=== PATIENT | male | born 1945 | race Caucasian/White ===

== ENCOUNTER → 2020-03-18 13:03 | Outpatient (BNVA) | payer MEDICARE, SELFPAY | PROVIDERS: PCP Internal Medicine; Visit Provider Internal Medicine | DX: J45.909 Unspecified asthma, uncomplicated (principal); G47.33 Obstructive sleep apnea (adult) (pediatric); Z99.89 Dependence on other enabling machines and devices | CPT/HCPCS: 99212 ==

== ENCOUNTER 2020-06-24 09:44 | Outpatient (REF) | payer MEDICARE, SELFPAY ==
[2020-06-24 11:14] LABS: MANUAL DIFF FLAG NO
[2020-06-24 11:33] LABS: Alanine Aminotransferase 42 U/L (0-40); Alkaline Phosphatase 83 U/L (39-117); Anion Gap 18 (12-20); Aspartate Amino Transferase 31 U/L (5-37); Bilirubin Total 0.7 mg/dL (0.0-1.0); Blood Urea Nitrogen 28 mg/dL (9-16); Calcium 9.1 mg/dL (8.4-10.2); Carbon Dioxide 28 mmol/L (22-29); Chloride 98 mmol/L (96-108); Cholesterol 200 mg/dL; Estimated Glomerular Filt Rate 44; Glucose Fasting 185 mg/dL (60-99); HDL Cholesterol 40 mg/dL; Potassium 3.5 mmol/L (3.3-5.1); Sodium 140 mmol/L (135-145); Total Protein 7.3 g/dL (6.5-8.0); Triglycerides 453 mg/dL
[2020-06-24 11:38] LABS: Estimated Average Glucose 194 mg/dL; Hemoglobin A1c % 8.4 %
[2020-06-24 11:41] LABS: Basophils Absolute Auto 0.1 X10*3/uL (0.0-0.2); Basophils Percent Auto 0.7 % (0-2); Eosinophils Absolute Auto 0.3 X10*3/uL (0.0-0.4); Eosinophils Percent Auto 3.3 % (0-4); Hematocrit 42.8 % (42-52); Hemoglobin 14.3 g/dl (14.0-18.0); Imm Gran Abs Auto 0.04 X10*3/uL (0.00-0.03); Imm Gran Pct Auto 0.5 % (0.0-0.4); Lymphocytes Absolute Auto 2.1 X10*3/uL (1.2-4.9); Lymphocytes Percent Auto 24.5 % (20-40); Mean Corpuscular HGB Conc 33.4 g/dl (31.0-36.0); Mean Corpuscular Hemoglobin 28.4 pg (27.0-33.0); Mean Corpuscular Volume 85.1 fL (80-98); Mean Platelet Volume 10.6 fL (9.4-12.4); Monocytes Absolute Auto 0.7 X10*3/uL (0.1-1.2); Monocytes Percent Auto 8.2 % (2-11); Neutrophils Absolute Auto 5.4 X10*3/uL (2.0-8.3); Neutrophils Percent Auto 62.8 % (45-73); Platelet Count 306 X10*3/uL (160-400); Red Blood Count 5.03 X10*6/uL (4.60-5.80); White Blood Count 8.5 X10*3/uL (4.8-10.8)
[2020-06-24 11:58] LABS: Prostate Specific Antigen 10.92 ng/mL (<0.05-4.0)
== END 2020-06-24 09:45 | disposition home or self-care (01) ==
LOC: HO.LAB 09:44
PROVIDERS: PCP Psychiatry & Neurology Sleep Medicine; Visit Provider Psychiatry & Neurology Sleep Medicine
DX: E78.5 Hyperlipidemia, unspecified (principal); E11.9 Type 2 diabetes mellitus without complications; Z12.5 Encounter for screening for malignant neoplasm of prostate
CPT/HCPCS: 36415; 80053; 80061; 83036; 84153; 85025

== ENCOUNTER → 2020-09-09 10:41 | Outpatient (BNVA) | payer MEDICARE, SELFPAY | PROVIDERS: PCP Internal Medicine; Visit Provider Internal Medicine | DX: J45.909 Unspecified asthma, uncomplicated (principal); G47.33 Obstructive sleep apnea (adult) (pediatric); Z99.89 Dependence on other enabling machines and devices | CPT/HCPCS: 99212 ==

== ENCOUNTER → 2020-11-27 14:55 | Outpatient (BNVA) | payer MEDICARE, SELFPAY | PROVIDERS: PCP Internal Medicine; Visit Provider Urology | DX: N40.1 Benign prostatic hyperplasia with lower urinary tract symptoms (principal); N13.8 Other obstructive and reflux uropathy; R97.20 Elevated prostate specific antigen [PSA] | CPT/HCPCS: 99212 ==

== ENCOUNTER 2021-02-04 08:40 | Outpatient (REF) | payer MEDICARE, SELFPAY ==
--- NOTE | ~2021-02-04 | US_ITS ---
EXAMINATION: US RETROPERITONEAL COMPLETE (RENAL) CLINICAL INFORMATION: Kidney mass. Abdominal aortic aneurysm. COMPARISON: None TECHNIQUE: Real-time imaging of the kidneys and abdominal aorta. FINDINGS: RIGHT KIDNEY: 9.8 x 6.2 x 4.8 cm (SAG x AP x TRV). The kidney is normal in size, contour, and echogenicity. Renal cortical thickness is normal. No calculi or focal parenchymal lesions. No hydronephrosis. LEFT KIDNEY: 8.6 x 4.3 x 4 cm (SAG x AP x TRV). The kidney is normal in size, contour, and echogenicity. Renal cortical thickness is normal. There is a 2 cm minimally complex cyst in the upper pole of the left kidney. This has several thin septations. No solid mural nodule is seen. Fluid suggestive of a bypass type II cyst and no follow-up is indicated. No calculi or mass. No hydronephrosis. There is evidence of atherosclerotic disease. The proximal abdominal aorta is normal in caliber and measures 2 x 1.9 cm in AP and transverse dimension. The mid abdominal aorta is normal in caliber and measures 1.8 x 2 cm in AP and transverse dimension. There is ectasia of the distal abdominal aorta measuring 3 cm in AP and transverse dimension. Common iliac arteries are normal in caliber. The right common iliac artery measures 1.1 x 1.2 cm and the left common iliac artery measures 1.2 x 1.4 cm. Aortic peak systolic velocity is normal measuring 145 cm/s. US/US retroperitoneal comp IMPRESSION: Renal ultrasound: Normal right kidney. 2 cm minimally complex left renal cyst. Ectasia of the lower abdominal aorta measuring 3 x 3 cm.
--- NOTE | ~2021-02-04 | XR_ITS ---
EXAMINATION: XR HIP, RIGHT CLINICAL INFORMATION: Right hip pain. COMPARISON: None TECHNIQUE: Two views of the right hip. FINDINGS: Moderate right hip joint space narrowing with subchondral sclerosis and mild subchondral cystic change. Marginal osteophytes. No fracture or dislocation. No abnormal soft tissue calcification. XR/XR hip RT min 2V IMPRESSION: Moderate right hip osteoarthritis.
[2021-02-04 10:33] LABS: Estimated Average Glucose 128 mg/dL; Hemoglobin A1c % 6.1 %
[2021-02-04 11:02] LABS: Alanine Aminotransferase 26 U/L (0-40); Albumin Level 4.1 g/dL (3.5-5.0); Alkaline Phosphatase 77 U/L (39-117); Anion Gap 14 (12-20); Aspartate Amino Transferase 19 U/L (5-37); Bilirubin Total 0.4 mg/dL (0.0-1.0); Blood Urea Nitrogen 16 mg/dL (9-16); Calcium 9.1 mg/dL (8.4-10.2); Carbon Dioxide 27 mmol/L (22-29); Chloride 103 mmol/L (96-108); Cholesterol 145 mg/dL; Estimated Glomerular Filt Rate 48; Glucose Fasting 125 mg/dL (60-99); HDL Cholesterol 42 mg/dL; LDL Cholesterol Calculated 73 mg/dl; Potassium 3.7 mmol/L (3.3-5.1); Sodium 140 mmol/L (135-145); Total Protein 7.2 g/dL (6.5-8.0); Triglycerides 153 mg/dL
[2021-02-04 11:43] LABS: Erythrocyte Sedimentation Rate 25 MM/HR (0-15)
== END 2021-02-04 08:41 | disposition home or self-care (01) ==
LOC: HO.US 08:40
PROVIDERS: PCP Internal Medicine; Visit Provider Internal Medicine
DX: E11.22 Type 2 diabetes mellitus with diabetic chronic kidney disease (principal); N18.9 Chronic kidney disease, unspecified; I71.4 Abdominal aortic aneurysm, without rupture; M25.551 Pain in right hip; R03.0 Elevated blood-pressure reading, without diagnosis of hypertension
CPT/HCPCS: 36415; 73502; 76770; 80053; 80061; 83036; 85652

== ENCOUNTER → 2021-03-11 11:10 | Outpatient (BNVA) | payer MEDICARE, SELFPAY | PROVIDERS: PCP Internal Medicine; Visit Provider Internal Medicine | DX: J45.909 Unspecified asthma, uncomplicated (principal); G47.33 Obstructive sleep apnea (adult) (pediatric); Z99.89 Dependence on other enabling machines and devices | CPT/HCPCS: 99212 ==

== ENCOUNTER → 2021-03-28 13:42 | Outpatient (BNVA) | payer MEDICARE, SELFPAY | PROVIDERS: PCP Internal Medicine; Visit Provider Urology | DX: N40.1 Benign prostatic hyperplasia with lower urinary tract symptoms (principal); N13.8 Other obstructive and reflux uropathy; R97.20 Elevated prostate specific antigen [PSA] | CPT/HCPCS: 99212 ==

== ENCOUNTER 2021-04-23 11:10 | Outpatient (REF) | payer MEDICARE, SELFPAY ==
--- NOTE | ~2021-04-23 | US_ITS ---
EXAMINATION: US PELVIS LIMITED (BLADDER) CLINICAL INFORMATION: Poor urinary stream. COMPARISON: Ultrasound kidneys and bladder 02/04/2021. TECHNIQUE: Real-time imaging of the bladder. FINDINGS: BLADDER: The bladder is distended with a somewhat thickened trabeculated wall likely chronic. There is mass effect along the base of the bladder secondary to a prominent prostate.. Bilateral ureteral jets are demonstrated. Prevoid bladder volume is 141 mL. Postvoid bladder volume is 56.7 mL. The prostate is noted to be prominent at 82 x 85 x 59 mm yielding a calculated volume of prostate 214 mL. There is intrinsic calcification. This enlarged prostate does create mass effect along the base of the bladder. ADDITIONAL FINDINGS: No ascites. US/US bladder IMPRESSION: Moderate post void residual. Enlarged prostate creating mass effect on the base of the bladder.
[2021-04-23 13:33] LABS: PSA,Total (Free>4and<10) 4.07 ng/mL (0.00-4.00)
[2021-04-24 18:00] LABS: Percent Free Prostate Spec Ag 37 % (calc) (>25); Prostate Specific Ag Total 2.7 ng/mL (< OR = 4.0)
== END 2021-04-23 11:11 | disposition home or self-care (01) ==
LOC: HO.US 11:10
PROVIDERS: PCP Internal Medicine; Visit Provider Urology
DX: N40.1 Benign prostatic hyperplasia with lower urinary tract symptoms (principal); N13.8 Other obstructive and reflux uropathy; R39.12 Poor urinary stream; Z12.5 Encounter for screening for malignant neoplasm of prostate
CPT/HCPCS: 36415; 76857; 84153; 84154

== ENCOUNTER → 2021-05-02 13:01 | Outpatient (BNVA) | payer MEDICARE, SELFPAY | PROVIDERS: PCP Internal Medicine; Visit Provider Urology | DX: N40.1 Benign prostatic hyperplasia with lower urinary tract symptoms (principal); N13.8 Other obstructive and reflux uropathy; R97.20 Elevated prostate specific antigen [PSA] | CPT/HCPCS: Q3014 ==

== ENCOUNTER 2021-09-02 10:57 | Outpatient (REF) | payer MEDICARE, SELFPAY ==
--- NOTE | ~2021-09-02 | XR_ITS ---
EXAMINATION: XR CHEST XR SINUSES CLINICAL INFORMATION: Cough, unspecified. COMPARISON: Normal chest x-ray 10/28/2016 TECHNIQUE: Chest 2 views. Sinuses 4 views. FINDINGS: CHEST: The lungs are well expanded and clear. The heart size and pulmonary vascularity are normal. No gross bony abnormality is seen. There is mild facet joint arthropathy at the left C2-C3, C3-C4 and C4-C5 disc levels. SINUSES: There is normal aeration of the paranasal sinuses without mucoperiosteal thickening. The bony orbits are intact. The mastoid sinuses are clear. XR/XR sinus <3V IMPRESSION: Unremarkable chest exam. Unremarkable sinus exam. There is moderate left facet joint arthropathy at the left C2-C3, C3-C4 and C4-C5 disc levels.
--- NOTE | ~2021-09-02 | XR_ITS ---
EXAMINATION: XR CHEST XR SINUSES CLINICAL INFORMATION: Cough, unspecified. COMPARISON: Normal chest x-ray 10/28/2016 TECHNIQUE: Chest 2 views. Sinuses 4 views. FINDINGS: CHEST: The lungs are well expanded and clear. The heart size and pulmonary vascularity are normal. No gross bony abnormality is seen. There is mild facet joint arthropathy at the left C2-C3, C3-C4 and C4-C5 disc levels. SINUSES: There is normal aeration of the paranasal sinuses without mucoperiosteal thickening. The bony orbits are intact. The mastoid sinuses are clear. XR/XR chest 2V IMPRESSION: Unremarkable chest exam. Unremarkable sinus exam. There is moderate left facet joint arthropathy at the left C2-C3, C3-C4 and C4-C5 disc levels.
== END 2021-09-02 10:58 | disposition home or self-care (01) ==
LOC: HO.XRAY 10:57
PROVIDERS: Visit Provider Internal Medicine
DX: R05.9 Cough, unspecified (principal); J45.909 Unspecified asthma, uncomplicated; G47.33 Obstructive sleep apnea (adult) (pediatric); R06.83 Snoring; F03.90 Unspecified dementia, unspecified severity, without behavioral disturbance, psychotic disturbance, mood disturbance, and anxiety; I10 Essential (primary) hypertension; N40.0 Benign prostatic hyperplasia without lower urinary tract symptoms; Z99.89 Dependence on other enabling machines and devices; Z79.82 Long term (current) use of aspirin; Z79.899 Other long term (current) drug therapy; Z87.891 Personal history of nicotine dependence
CPT/HCPCS: 70210; 71046; 99212

== ENCOUNTER 2021-10-30 11:45 | Outpatient (REF) | payer MEDICARE, SELFPAY ==
[2021-10-30 13:30] LABS: PSA,Total (Free>4and<10) 2.56 ng/mL (0.00-4.00)
== END 2021-10-30 11:46 | disposition home or self-care (01) ==
LOC: HO.LAB 11:45
PROVIDERS: Visit Provider Urology
DX: N40.1 Benign prostatic hyperplasia with lower urinary tract symptoms (principal); N13.8 Other obstructive and reflux uropathy; Z12.5 Encounter for screening for malignant neoplasm of prostate
CPT/HCPCS: 36415; 84153

== ENCOUNTER → 2021-11-04 13:31 | Outpatient (BNVA) | payer MEDICARE, SELFPAY | PROVIDERS: Visit Provider Urology | DX: N40.1 Benign prostatic hyperplasia with lower urinary tract symptoms (principal); N13.8 Other obstructive and reflux uropathy; R97.20 Elevated prostate specific antigen [PSA] | CPT/HCPCS: Q3014 ==

== ENCOUNTER 2021-12-25 17:19 | Emergency (ER) | payer MEDICARE, SELFPAY ==
--- NOTE | ~2021-12-25 | XR_ITS ---
EXAMINATION: XR FOOT, RIGHT CLINICAL INFORMATION: Pain and swelling COMPARISON: None TECHNIQUE: AP, lateral, and oblique views of the right foot. FINDINGS: Hallux valgus is noted here. First MTP joint. There is soft tissue increase over the first metatarsal head region. This could indicate bunion formation. A chronic erosion cannot be excluded in this area but no acute bony erosion is seen. There is no convincing evidence for an acute fracture or dislocation. Degenerative change at the articulation of the metatarsals with their tarsal bones and degeneration in the ankle joint with dystrophic calcification posterior. Spurring at the insertion of the Achilles. XR/XR foot RT min 3V IMPRESSION: Degenerative change and hallux valgus in the first digit. There may well be bunion formation. No convincing evidence for an acute finding. If further evaluation is warranted recommend MR
--- NOTE | ~2021-12-25 | US_ITS ---
EXAMINATION: US VENOUS ULTRASOUND WITH DOPPLER LOWER EXTREMITY, RIGHT CLINICAL INFORMATION: Pain and swelling in the right foot COMPARISON: None TECHNIQUE: Ultrasound of the deep veins is performed from the hip to the calf with compression sonography and color and pulse Doppler assessment. Spectral analysis with color-flow imaging is performed. FINDINGS: There is normal venous compression and respiratory variation and augmented flow. The visualized common femoral vein, superficial femoral vein, profunda femoral vein, popliteal vein, and the trifurcation region shows no evidence of deep venous thrombosis. There is no significant popliteal fossa cyst. If the patient's symptoms persist, followup ultrasound in 5 days 7 days might be of value to exclude proximal propagation from a non-visualized calf vein. US/US venous duplex LE RT IMPRESSION: No DVT demonstrated in the right lower extremity.
[2021-12-25 17:38] VITALS: BP 151/77; PULSE 93; RESP 18; TEMP 36.6; O2SAT 98; BMI 28.8
[2021-12-25 17:53] LABS: Basophils Percent Auto 0.4 % (0-2); Eosinophils Absolute Auto 0.3 X10*3/uL (0.0-0.4); Eosinophils Percent Auto 3.3 % (0-4); Hematocrit 39.4 % (42.0-52.0); Hemoglobin 13.3 g/dl (14.0-18.0); Imm Gran Abs Auto 0.05 X10*3/uL (0.00-0.03); Imm Gran Pct Auto 0.5 % (0.0-0.4); Lymphocytes Absolute Auto 1.8 X10*3/uL (1.2-4.9); Lymphocytes Percent Auto 18.7 % (20-40); MANUAL DIFF FLAG NO; Mean Corpuscular HGB Conc 33.8 g/dl (31.0-36.0); Mean Corpuscular Hemoglobin 28.7 pg (27.0-33.0); Mean Corpuscular Volume 85.1 fL (80.0-98.0); Mean Platelet Volume 9.1 fL (9.4-12.4); Monocytes Absolute Auto 0.9 X10*3/uL (0.1-1.2); Monocytes Percent Auto 8.9 % (2-11); Neutrophils Absolute Auto 6.7 x10*3/uL (2.0-8.3); Neutrophils Percent Auto 68.2 % (45-73); Platelet Count 379 X10*3/uL (160-400); Red Blood Count 4.63 X10*6/uL (4.60-5.80); Red Cell Distribution Width 12.7 % (11.0-16.0); White Blood Count 9.8 X10*3/uL (4.8-10.8)
[2021-12-25 18:12] LABS: Anion Gap 19 (12-20); Blood Urea Nitrogen 21 mg/dL (9-16); C Reactive Protein 8.35 mg/dL (< or = 0.50); Carbon Dioxide 25 mmol/L (22-29); Chloride 103 mmol/L (96-108); Creatinine Clr Calc Pharmacy 34.2; Estimated Glomerular Filt Rate 40; Glucose Random 150 mg/dL (60-115); Potassium 3.9 mmol/L (3.3-5.1); Sodium 143 mmol/L (135-145)
[2021-12-25 18:26] LABS: Erythrocyte Sedimentation Rate 83 MM/HR (0-15)
--- NOTE | 2021-12-25 20:06 | ED.EXTPRO ---
HPI - Extremity Problem General Chief complaint: Extremity Injury, Lower Stated complaint: right foot pain and swollen Time Seen by Provider: 12/25/21 20:06 Source: patient Mode of arrival: ambulatory Limitations: no limitations History of Present Illness HPI Narrative: Patient with no significant prior history of arthritis noticed pain the right greater toe for last few days getting worse feels throbbing pain no other joints in all patient on thiazide diuretics no fever no chills no skin change Related Data Home Medications Medication Instructions Recorded Confirmed albuterol sulfate 90 mcg/actuation 1 puff PO Q4H PRN 03/18/20 aerosol inhaler amlodipine 5 mg tablet 5 mg PO DAILY 03/18/20 donepezil 10 mg tablet 10 mg PO DAILY 03/18/20 hydrochlorothiazide 25 mg tablet 25 mg PO DAILY 03/18/20 simvastatin 20 mg tablet 20 mg PO BEDTIME 03/18/20 tamsulosin 0.4 mg capsule (Flomax) 0.4 mg PO BEDTIME 09/09/20 aspirin 81 mg tablet,delayed 81 mg PO DAILY 03/11/21 release metformin 500 mg tablet 500 mg PO BID 09/02/21 Previous Rx's Medication Instructions Recorded fluticasone propionate 50 2 spray intranasal DAILY 30 days 09/02/21 mcg/actuation nasal #16 grams spray,suspension (Flonase Allergy Relief) guaifenesin 600 mg tablet, 600 mg PO Q12H PRN 09/02/21 extended release 12 hr (Mucinex) congestion/cough 15 days #30 tabs finasteride 5 mg tablet 5 mg PO DAILY 90 days #90 tabs 11/04/21 blood-glucose meter (FreeStyle #1 ea 12/25/21 Lite Meter kit) glipizide 5 mg tablet 5 mg PO DAILY #30 tabs 12/25/21 prednisone 20 mg tablet 40 mg PO DAILY #14 tabs 12/25/21 tramadol 50 mg tablet 50 mg PO Q6H PRN pain #20 tabs 12/25/21 Allergies Allergy/AdvReac Type Severity Reaction Status Date / Time No Known Allergies Allergy Verified 11/04/21 13:32 [No Known Allergies*] Review of Systems Review of Systems: Yes all other systems are reviewed and are negative PMFSH Past Medical History Medical History Asthma Cough Diabetes mellitus SUKI on CPAP Social History Social History Patient Tobacco Use Status: Former Tobacco user Advance Directives: No Advance Directives Information Provided: No Physical Exam Vital Signs: Vital Signs: Last Vital Signs Temp 98 F 12/25/21 17:38 Pulse 93 12/25/21 17:38 Resp 18 12/25/21 17:38 BP 151/77 H 12/25/21 17:38 Pulse Ox 98 12/25/21 17:38 O2 Del Method 12/25/21 17:38 BMI result Body Mass Index 28.8 Appearance: Alert. Oriented X3. No acute distress. Eyes: PERRLA, No Nystagmus ENT: Pharynx normal. Oral Mucosa moist Neck: Normal inspection. Neck supple. CVS: Normal heart rate and rhythm. Pulses normal. Respiratory: No respiratory distress. Equal air entry bilateral, no wheezing/rales/rhonchi Abdomen: Soft and nontender. Bowel sounds are present, no mass palpable, no CVA tenderness Skin: Skin warm and dry. Normal skin color. Normal skin turgor. Extremities: Trace right lower extremity edema. No calf tenderness, tender and warmth to touch right 1st MTP joint Neuro: Oriented X 3. No motor deficit. MDM - Extremity (Nontraumatic) MDM Narrative Medical decision making narrative: Patient clinically with gouty arthritis flare up on thiazides. Patient responded to Decadron in the ER has CKD will asked to stop metformin prescribed prednisone and take glipizide if blood sugar goes high follow-up with PCP Medical Records Attestation: I reviewed the patient's medical records. Lab Data Attestation: I reviewed the patient's lab results. Result diagrams: 12/25/21 17:45 12/25/21 17:45 Labs: Lab Results 12/25/21 12/25/21 12/25/21 Range/Units 17:45 17:45 17:45 WBC 9.8 (4.8-10.8) X10*3/uL RBC 4.63 (4.60-5.80) X10*6/uL Hgb 13.3 L (14.0-18.0) g/dl Hct 39.4 L (42.0-52.0) % MCV 85.1 (80.0-98.0) fL MCH 28.7 (27.0-33.0) pg MCHC 33.8 (31.0-36.0) g/dl RDW 12.7 (11.0-16.0) % Plt Count 379 (160-400) X10*3/uL MPV 9.1 L (9.4-12.4) fL Immature Gran % (Auto) 0.5 H (0.0-0.4) % Neut % (Auto) 68.2 (45-73) % Lymph % (Auto) 18.7 L (20-40) % [place] % (Auto) 8.9 (2-11) % Eos % (Auto) 3.3 (0-4) % Baso % (Auto) 0.4 (0-2) % Lymph # (Auto) 1.8 (1.2-4.9) X10*3/uL [place] # (Auto) 0.9 (0.1-1.2) X10*3/uL Eos # (Auto) 0.3 (0.0-0.4) X10*3/uL Baso # (Auto) 0.0 (0.0-0.2) X10*3/uL Abs Immat Gran (auto) 0.05 H (0.00-0.03) X10*3/uL Absolute Neuts (auto) 6.7 (2.0-8.3) x10*3/uL Absolute Nucleated RBC 0.000 (0.0-0.012) X10*3/uL Nucleated RBC % (auto) 0.0 (0.0-0.2) /100WBC ESR 83 H (0-15) MM/HR Sodium 143 (135-145) mmol/L Potassium 3.9 (3.3-5.1) mmol/L Chloride 103 (96-108) mmol/L Carbon Dioxide 25 (22-29) mmol/L Anion Gap 19 (12-20) BUN 21 H (9-16) mg/dL Creatinine 1.66 H (0.5-1.4) mg/dL Estim Creat Clear Calc 34.2 Estimated GFR 40 Random Glucose 150 H (60-115) mg/dL Calcium 9.0 (8.4-10.2) mg/dL C-Reactive Protein 8.35 H (< or = 0.50) mg/dL Discharge Plan Discharge Clinical Impression: Gout attack Patient Disposition: Home, Self-Care Instructions: Gout (ED) Additional Instructions: Stop metformin Prednisone as prescribed Tramadol for severe pain Check blood sugar twice daily, start taking glipizide if blood sugar higher than 200mg while taking prednisone Prescriptions: New glipizide 5 mg tablet 5 mg PO DAILY Qty: 30 0RF (DME) blood-glucose meter [FreeStyle Lite Meter] Kit See Rx Instructions .Route Qty: 1 0RF Rx Instructions: As directed prednisone 20 mg tablet 40 mg PO DAILY Qty: 14 0RF tramadol 50 mg tablet 50 mg PO Q6H PRN (Reason: pain) Qty: 20 0RF No Action donepezil 10 mg tablet 10 mg PO DAILY hydrochlorothiazide 25 mg tablet 25 mg PO DAILY amlodipine 5 mg tablet 5 mg PO DAILY albuterol sulfate 90 mcg/actuation HFA aerosol inhaler 1 puff PO Q4H PRN simvastatin 20 mg tablet 20 mg PO BEDTIME metformin 500 mg tablet 500 mg PO BID aspirin 81 mg tablet,delayed release (DR/EC) 81 mg PO DAILY tamsulosin [Flomax] 0.4 mg capsule 0.4 mg PO BEDTIME fluticasone propionate [Flonase Allergy Relief] 50 mcg/actuation spray,suspension 2 spray intranasal DAILY 30 Days Qty: 16 5RF Rx Instructions: administer into each nostril guaifenesin [Mucinex] 600 mg tablet extended release 12hr 600 mg PO Q12H PRN (Reason: congestion/cough) 15 Days Qty: 30 4RF finasteride 5 mg tablet 5 mg PO DAILY 90 Days Qty: 90 1RF Discharge Date/Time: 12/25/21 22:25
[2021-12-25] MEDS: NaPROXEN 500 MG TABLET PO (20:35)
[2021-12-25] MEDS: dexAMETHasone 2 MG TABLET 10 MG PO (20:35)
== END 2021-12-25 22:25 | disposition home or self-care (01) ==
PROVIDERS: Emergency Provider Internal Medicine
DX: M10.9 Gout, unspecified (principal); R60.0 Localized edema; M79.671 Pain in right foot; E11.9 Type 2 diabetes mellitus without complications; Z79.82 Long term (current) use of aspirin; Z79.84 Long term (current) use of oral hypoglycemic drugs
CPT/HCPCS: 36415; 73630; 80048; 85025; 85652; 86140; 93971; 99282; 99283; 99284; J8540

== ENCOUNTER → 2022-03-03 10:39 | Outpatient (BNVA) | payer MEDICARE, SELFPAY | PROVIDERS: Visit Provider Internal Medicine | DX: J45.909 Unspecified asthma, uncomplicated (principal); R05.9 Cough, unspecified; G47.33 Obstructive sleep apnea (adult) (pediatric) | CPT/HCPCS: 99212 ==

== ENCOUNTER → 2022-03-24 12:35 | Outpatient (REF) | payer MEDICARE, SELFPAY | LOC: HO.SL 12:35 | PROVIDERS: Visit Provider Internal Medicine | DX: G47.33 Obstructive sleep apnea (adult) (pediatric) (principal); G47.10 Hypersomnia, unspecified | CPT/HCPCS: 95806 ==

== ENCOUNTER → 2022-04-28 11:11 | Outpatient (BNVA) | payer MEDICARE, SELFPAY | PROVIDERS: Visit Provider Internal Medicine | DX: J44.9 Chronic obstructive pulmonary disease, unspecified (principal); J45.909 Unspecified asthma, uncomplicated; G47.33 Obstructive sleep apnea (adult) (pediatric); R05.9 Cough, unspecified; Z99.89 Dependence on other enabling machines and devices | CPT/HCPCS: 99212 ==

== ENCOUNTER 2022-04-30 13:38 | Outpatient (REF) | payer MEDICARE, SELFPAY ==
[2022-04-30 15:29] LABS: PSA,Total (Free>4and<10) 3.52 ng/mL (0.00-4.00)
== END 2022-04-30 13:39 | disposition home or self-care (01) ==
LOC: HO.LAB 13:38
PROVIDERS: PCP Internal Medicine Endocrinology, Diabetes & Metabolism; Visit Provider Urology
DX: N40.1 Benign prostatic hyperplasia with lower urinary tract symptoms (principal); N13.8 Other obstructive and reflux uropathy; Z12.5 Encounter for screening for malignant neoplasm of prostate
CPT/HCPCS: 36415; 84153

== ENCOUNTER → 2022-05-07 09:07 | Outpatient (BNVA) | payer MEDICARE, SELFPAY | PROVIDERS: PCP Internal Medicine Endocrinology, Diabetes & Metabolism; Visit Provider Urology | DX: N40.1 Benign prostatic hyperplasia with lower urinary tract symptoms (principal); N13.8 Other obstructive and reflux uropathy; R97.20 Elevated prostate specific antigen [PSA] | CPT/HCPCS: Q3014 ==

== ENCOUNTER → 2022-10-13 10:55 | Outpatient (BNVA) | payer MEDICARE, SELFPAY | PROVIDERS: PCP Internal Medicine Endocrinology, Diabetes & Metabolism; Visit Provider Internal Medicine | DX: J45.909 Unspecified asthma, uncomplicated (principal); R05.9 Cough, unspecified; G47.33 Obstructive sleep apnea (adult) (pediatric) | CPT/HCPCS: 99212 ==

== ENCOUNTER 2022-11-04 10:52 | Outpatient (REF) | payer MEDICARE, SELFPAY ==
[2022-11-04 13:23] LABS: PSA,Total (Free>4and<10) 2.46 ng/mL (0.00-4.00)
== END 2022-11-04 10:53 | disposition home or self-care (01) ==
LOC: HO.LAB 10:52
PROVIDERS: PCP Internal Medicine; Visit Provider Urology
DX: Z12.5 Encounter for screening for malignant neoplasm of prostate (principal); R97.20 Elevated prostate specific antigen [PSA]
CPT/HCPCS: 36415; 84153

== ENCOUNTER 2022-11-10 11:31 | Outpatient (AMB) | payer MEDICARE, SELFPAY ==
--- NOTE | 2022-11-10 11:41 | A.OFFVIS_ITS ---
Intake Intake Visit Reasons: 6M PSA/PVR(set) Intake Note: Patient is present for Follow Up PSA/PVR Urology Med: Finasteride, Tamsulosin Antibiotic Allergy: None Blood Thinner: Aspirin PVR: 0ml Patient recently had A Stroke Allergies No Known Allergies [No Known Allergies*] Allergy (Verified 11/10/22 11:42) Medication List - Last Reconciled 11/10/22 by Robert Lind MD albuterol sulfate 90 mcg/actuation 1 puff PO Q4H PRN amlodipine 5 mg PO DAILY aspirin 81 mg PO DAILY atorvastatin 40 mg PO BEDTIME blood-glucose meter (FreeStyle Lite Meter kit) As directed donepezil 10 mg PO DAILY finasteride 5 mg PO DAILY 90 days fluticasone propionate 50 mcg/actuation 2 sprays intranasal DAILY glipizide 5 mg PO DAILY hydrochlorothiazide 25 mg PO DAILY tamsulosin (Flomax) 0.4 mg PO BEDTIME HPI HPI Comments History of Present Illness Details Regino is a pleasant male. He is a patient of Dr. Varner. He is seen for the following urologic conditions - BPH - elevated PSA Accompanied by PSA 2.5 Had stroke in August Does have some degree of urgency and frequency every 2 hours Discussed impact of stroke on urination Check in 6 months with PVR Slight PSA rise from 2.6-3.5 Ultrasound shows 200 cc prostate Minimal urinary issues - 2x at night Elevated PSA Initial presentation PSA 9.25, follow-up 08/13 8.0 PSA 07/14 10.9, 04/15 2.7 F 37%, 10/15 2.6, 05/18 3.5 Imaging - bladder ultrasound with 200 cc prostate HILARY large prostate approximately 150 g with no nodules Continue finasteride PFSH Medical History Asthma Cough Diabetes mellitus Hypersomnolence SUKI (obstructive sleep apnea) SUKI on CPAP Social History Patient Tobacco Use Status: Former Tobacco user Review of Systems Const Denies chills and Denies fever(s) Card Reports no additional complaints and Denies syncope Resp Denies cough GI Denies abdominal pain and Denies heartburn Reports as per HPI and Denies change in libido Neuro Denies syncope Psych Denies change in libido Endo Denies change in libido Physical Exam Const General: cooperative, healthy appearing, comfortable and no acute distress Orientation/consciousness: patient oriented x3 HEENT Face and sinus: Yes normal facial exam Mouth: moist mucous membranes Neck Neck: Yes normal visual inspection, Yes full ROM and Yes trachea midline Chest Chest palpation & inspection: normal inspection of the chest Resp Effort & Inspection: normal respiratory effort, able to speak in complete sentences and no respiratory distress GI Inspection: Yes normal to inspection Back/Spine/Pelvis Cervical Spine: normal cervical lordosis Thoracic/Lumbar Spine: thoracic and lumbar spine normal to inspection Skin General skin exam: no rashes or lesions noted Neuro General: patient oriented x3, gait normal, tone normal and moves all extremities Extrem General: Yes normal to inspection and Yes capillary refill normal Office Procedures Post Void Residual Post Residual Void Post Void Residual (PVR): 0 [id number]-[id number] Void Residual by ultrasound Results AMB Urinalysis, Automated UA Leukoctes 0 Monica/uL Last Edit by Jovita Calles [facility] on 11/10/22 11:51 UA Nitrite Negative Last Edit by Jovita Calles [facility] on 11/10/22 11:51 UA Urobilinogen 0.2 mg/dL Last Edit by Jovita Calles [facility] on 11/10/22 11:5 1 UA Protein 0 mg/dL Last Edit by Jovita Calles [facility] on 11/10/22 11:51 UA pH 6.0 Last Edit by Jovita Calles [facility] on 11/10/22 11:51 UA Blood 0 Julio/uL Last Edit by Jovita Calles [facility] on 11/10/22 11:51 UA Specific [place] 1.015 Last Edit by Jovita Calles [facility] on 11/10/22 11: 51 UA Ketone Negative Last Edit by Jovita Calles [facility] on 11/10/22 11:51 UA Bilirubin 0 mg/dL Last Edit by Jovita Calles [facility] on 11/10/22 11:51 UA Glucose 1000 mg/dL Last Edit by Jovita Calles [facility] on 11/10/22 11:51 Results Reviewed Results Reviewed: Laboratory Last Values Urine pH (Auto) 6.0 11/10/22 11:43 Specific [place] (Auto) 1.015 11/10/22 11:43 Urine Protein (Auto) 0 mg/dL 11/10/22 11:43 Glucose (UA)(Auto) 1000 mg/dL 11/10/22 11:43 Urine Ketones (Auto) Negative 11/10/22 11:43 Urine Blood (Auto) 0 Julio/uL 11/10/22 11:43 Urine Nitrite (Auto) Negative 11/10/22 11:43 Urine Bilirubin (Auto) 0 mg/dL 11/10/22 11:43 Urine Urobilinogen (Auto) 0.2 mg/dL 11/10/22 11:43 Leukocyte Esterase (Auto) 0 Monica/uL 11/10/22 11:43 Assessment & Plan Assessment & Plan (1) BPH w urinary obs/LUTS: Code(s): N40.1 - Benign prostatic hyperplasia with lower urinary tract symptoms; N13.8 - Other obstructive and reflux uropathy (2) Elevated PSA: Code(s): R97.20 - Elevated prostate specific antigen [PSA] Plan Six month follow-up Orders: Orders AMB Urinalysis Automated Today Z13.9 - Encounter for screening, unspecified AMB Post Void Residual by ultrasound Today N13.8 - Other obstructive and reflux uropathy, N40.1 - Benign prostatic hyperplasia with lower urinary tract symptoms Medications: Refilled finasteride 5 mg PO DAILY 90 tabs 1RF 90 days N13.8 - Other obstructive and reflux uropathy, N40.1 - Benign prostatic hyperplasia with lower urinary tract symptoms Patient Instructions: Imaging studies, laboratory and physical exam results were discussed and reviewed in detail. No major barriers to patient understanding were identified. An opportunity to ask questions regarding the treatment plan was provided. All questions were answered. The patient expressed understanding and agreement with the above treatment plan. The patient is aware they should contact our office by phone for worsening of their current condition or the appearance of new urologic symptoms. Compliance is encouraged with any medications and followup testing that is ordered. It is a privilege to participate in the urologic care of your patient. If you have any questions or concerns regarding treatment for the above conditions, or other urologic issues, please do not hesitate to contact me. The office telephone contact is [phone]. This note is constructed using voice recognition software. While every effort has been made to ensure accuracy mining support worker errors may have been included. Yours sincerely, Dr Robert Lind MD, [facility] - Urology Providers of Expert, Compassionate Care for the Genitourinary System Coding Level of Care Code Est Pt Level 3 (19777) Diagnoses BPH w urinary obs/LUTS N40.1; N13.8 Elevated PSA R97.20 CPT Codes Post Residual Void - PVR CPT Code: 58839-Yzqc Void Residual by ultrasound ([id number])
== END 2022-11-10 12:16 | disposition home or self-care (01) ==
PROVIDERS: Visit Provider Urology
DX: N40.1 Benign prostatic hyperplasia with lower urinary tract symptoms (principal); N13.8 Other obstructive and reflux uropathy; R97.20 Elevated prostate specific antigen [PSA]
CPT/HCPCS: 99213

== ENCOUNTER → 2022-11-10 11:31 | Outpatient (BNVA) | payer MEDICARE, SELFPAY | PROVIDERS: Visit Provider Urology | DX: N40.1 Benign prostatic hyperplasia with lower urinary tract symptoms (principal); N13.8 Other obstructive and reflux uropathy; R97.20 Elevated prostate specific antigen [PSA] | CPT/HCPCS: 51798; 99212 ==

== ENCOUNTER 2023-04-05 10:46 | Outpatient (AMB) | payer MEDICARE, SELFPAY ==
--- NOTE | 2023-04-05 11:12 | MHC.OFFVIS ---
Intake Vital Signs 04/05/23 11:13 Height 5 ft 4 in Weight 154 lb BMI 26.4 BP 120/66 Blood Pressure Location Rt brachial Position Sitting Pulse 69 Pulse Source Pulse Oximeter Pulse Oximetry (%) 97 Oxygen Delivery Method Room Air Intake Visit Reasons: carline/copd Intake Note: pt is here for follow up and states he feels good. 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 Required: No Allergies No Known Allergies [No Known Allergies*] Allergy (Verified 04/05/23 11:41) Medication List - Last Reconciled 04/05/23 by Aiden Claudio MD albuterol sulfate 90 mcg/actuation 1 puff PO Q4H PRN amlodipine 5 mg PO DAILY aspirin 81 mg PO DAILY atorvastatin 40 mg PO BEDTIME blood-glucose meter (FreeStyle Lite Meter kit) As directed donepezil 10 mg PO DAILY finasteride 5 mg PO DAILY 90 days fluticasone propionate 50 mcg/actuation 2 sprays intranasal DAILY glipizide 5 mg PO DAILY hydrochlorothiazide 25 mg PO DAILY tamsulosin (Flomax) 0.4 mg PO BEDTIME Do you need a note to return to daycare/school/sports/work: No HPI HPI Comments History of Present Illness Details Regino is now 78 years old, He is a happy going gentleman, 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 So he is not doing any work. A few times when the walker was somewhat away from him he did have difficulty in maintaining his balance. He has past history of obstructive, sleep apnea but after losing weight the the CARLINE has resolved. He can sleep without the CPAP , Breathing is fair except that he has to use albuterol only once in a while for cough or wheezing. Also has mild ongoing nasal congestion and uses Flonase. Overall he is staying very stable. [facility] Medical History Hypersomnolence CARLINE (obstructive sleep apnea) Diabetes mellitus Cough Asthma CARLINE on CPAP Social History Patient Tobacco Use Status: Former Tobacco user Review of Systems Const All systems reviewed & are unremarkable except as noted in HPI and below Reports snoring Eyes Reports no additional complaints ENT Reports nasal congestion (Only mild and intermittent) Card Denies chest pain, Denies irregular heart rhythm and Denies leg edema Resp Reports cough and Reports snoring GI Reports no additional complaints Reports nocturia (Mild once or twice per night) Musc Reports no additional complaints Skin/Breast Reports system reviewed and no additional complaints, except as documented Neuro Reports memory loss (Minimal, stable) Psych Reports no additional complaints and Reports memory loss (Minimal, stable) Physical Exam Vital Signs: Last Vital Signs Pulse 69 04/05/23 11:13 BP 120/66 04/05/23 11:13 Pulse Ox 97 04/05/23 11:13 Oxygen Delivery Method Room Air 04/05/23 11:13 BMI result Body Mass Index 26.4 Const General: comfortable, no acute distress, alert and awake Orientation/consciousness: patient oriented x3 HEENT Head: Yes normal to inspection General nose exam: No nasal polyps present, No nasal discharge present and Other nasal findings present (A small amount of the whitish mucus in the nasopharynx) Face and sinus: Yes sinuses nontender Mouth: oropharynx normal Throat: Yes posterior oropharynx normal Eyes General: appearance normal, both eyes and all related structures Neck Neck: Yes normal visual inspection, Yes no lymphadenopathy, Yes trachea midline and Yes no JVD Thyroid: Thyroid normal Chest Chest palpation & inspection: normal inspection of the chest, normal palpation of entire chest wall and no tenderness Resp Other: Percussion note resonant. Breath sounds are somewhat distant. However lungs are clear to auscultation and no wheezes or rhonchi are heard. Effort & Inspection: normal respiratory effort Auscultation: clear to auscultation bilaterally Cardio Palpation: normal PMI Rate: regular rate Rhythm: regular rhythm Heart sounds: no gallops and no murmurs GI Palpation (GI): Soft to palpation, nontender, No hepatosplenomegaly present and no masses Auscultation: normal bowel sounds Back/Spine/Pelvis Thoracic/Lumbar Spine: thoracic and lumbar spine normal to inspection and thoraco-lumbar ROM limited Skin General skin exam: no rashes or lesions noted Neuro General: patient oriented x3 and no focal motor deficits Cranial nerves: Yes CN's II-XII intact bilaterally Extrem General: Yes normal to inspection, Yes no clubbing, cyanosis or edema and Yes no calf tenderness Psych Appearance: grossly normal and well kempt Speech and movement: Normal speech and movement present Assessment & Plan Assessment & Plan (1) Asthma: Comment: Very mild , intermittent . [place] : Albuterol MDI 2 puffs q 4-6 Hrs only PRN ( which he has not needed for a few months ) Code(s): J45.909 - Unspecified asthma, uncomplicated Plan: ABOVE (2) CARLINE (obstructive sleep apnea): Comment: Regino does have history of obstructive sleep apnea since 2010. Latest Home-based sleep study on 03/24/2022 was negative for sleep apnea, Total sleep time AHI only 1.5. HE CLAIMS THAT HE IS SLEEPING WELL EVERY NIGHT. Code(s): G47.33 - Obstructive sleep apnea (adult) (pediatric) Plan: CURRENTLY HE DOES NOT NEED TO USE CPAP. (3) Cough: Comment: He has chronic habit of the hacking cough and tries to clear his oropharynx, . It seems to be secondary to chronic allergic rhino-sinusitis . [place] : May use Mucinex 600 mg b.i.d PRN Code(s): R05.9 - Cough, unspecified Plan: ABOVE Coding Level of Care Code Est Pt Level 3 (34350) Diagnoses Asthma J45.909 CARLINE (obstructive sleep apnea) G47.33 Cough R05.9
[2023-04-05 11:13] VITALS: BP 120/66; PULSE 69; O2SAT 97; BMI 26.4
== END 2023-04-05 12:02 | disposition home or self-care (01) ==
PROVIDERS: PCP Internal Medicine Endocrinology, Diabetes & Metabolism; Visit Provider Internal Medicine
DX: J45.909 Unspecified asthma, uncomplicated (principal); G47.33 Obstructive sleep apnea (adult) (pediatric); R05.9 Cough, unspecified
CPT/HCPCS: 99213

== ENCOUNTER → 2023-04-05 10:46 | Outpatient (BNVA) | payer MEDICARE, SELFPAY | PROVIDERS: PCP Internal Medicine Endocrinology, Diabetes & Metabolism; Visit Provider Internal Medicine | DX: J45.909 Unspecified asthma, uncomplicated (principal); G47.33 Obstructive sleep apnea (adult) (pediatric); R05.9 Cough, unspecified | CPT/HCPCS: 99212 ==

== ENCOUNTER 2023-05-11 13:25 | Outpatient (AMB) | payer MEDICARE, SELFPAY ==
--- NOTE | 2023-05-11 13:25 | MHC.OFFVIS ---
Intake Intake Visit Reasons: 6m/PVR Intake Note: Patient is Present for Telephone Follow Up For Urology Med: Finasteride, Tamsulosin Antibiotic Allergy: None Blood Thinner: Aspirin Allergies No Known Allergies [No Known Allergies*] Allergy (Verified 04/05/23 11:41) Medication List - Last Reconciled 05/11/23 by Robert Lind MD albuterol sulfate 90 mcg/actuation 1 puff PO Q4H PRN amlodipine 5 mg PO DAILY aspirin 81 mg PO DAILY atorvastatin 40 mg PO BEDTIME blood-glucose meter (FreeStyle Lite Meter kit) As directed donepezil 10 mg PO DAILY finasteride 5 mg PO DAILY 90 days fluticasone propionate 50 mcg/actuation 2 sprays intranasal DAILY glipizide 5 mg PO DAILY hydrochlorothiazide 25 mg PO DAILY oxybutynin chloride ER 5 mg PO DAILY 30 days tamsulosin (Flomax) 0.4 mg PO BEDTIME HPI HPI Comments History of Present Illness Details Regino is a pleasant male. He is a patient of Dr. Varner. He is seen for the following urologic conditions - BPH - elevated PSA Telemedicine Evaluation 15 min Consultation [employer] Kate Kym Video attempted Accompanied by Persistent urgency and frequency every 2 hours Stroke August 2022 Discussed trial of bladder stabilization medication. Oxybutynin prescription provided Review in 2 months with PVR Ultrasound shows 200 cc prostate Elevated PSA Initial presentation PSA 9.25, follow-up 08/13 8.0 PSA 07/14 10.9, 04/15 2.7 F 37%, 10/15 2.6, 05/18 3.5 Imaging - bladder ultrasound with 200 cc prostate HILARY large prostate approximately 150 g with no nodules Continue finasteride [facility] Medical History Hypersomnolence SUKI (obstructive sleep apnea) Diabetes mellitus Cough Asthma SUKI on CPAP Social History Patient Tobacco Use Status: Former Tobacco user Review of Systems Const All systems reviewed & are unremarkable except as noted in HPI and below Reports no additional complaints Resp Reports no additional complaints GI Reports no additional complaints Reports as per HPI Musc Reports no additional complaints Physical Exam Telemedicine evaluation Appropriate responses Regular breathing rate and rhythm HEENT Head: Yes normal to inspection Ears: hearing grossly normal bilaterally Eyes General: appearance normal, both eyes and all related structures Neck Neck: Yes normal visual inspection Chest Chest palpation & inspection: normal inspection of the chest Resp Effort & Inspection: normal respiratory effort and able to speak in complete sentences Assessment & Plan Assessment & Plan (1) Urinary urgency: Code(s): R39.15 - Urgency of urination (2) BPH w urinary obs/LUTS: Code(s): N40.1 - Benign prostatic hyperplasia with lower urinary tract symptoms; N13.8 - Other obstructive and reflux uropathy Plan Two month follow-up Medications: New oxybutynin chloride ER 5 mg PO DAILY 30 days 30 tabs 1RF N32.81 - Overactive bladder, R39.15 - Urgency of urination Refilled finasteride 5 mg PO DAILY 90 days 90 tabs 1RF N13.8 - Other obstructive and reflux uropathy, N40.1 - Benign prostatic hyperplasia with lower urinary tract symptoms Patient Instructions: Imaging studies, laboratory and physical exam results were discussed and reviewed in detail. No major barriers to patient understanding were identified. An opportunity to ask questions regarding the treatment plan was provided. All questions were answered. The patient expressed understanding and agreement with the above treatment plan. The patient is aware they should contact our office by phone for worsening of their current condition or the appearance of new urologic symptoms. Compliance is encouraged with any medications and followup testing that is ordered. It is a privilege to participate in the urologic care of your patient. If you have any questions or concerns regarding treatment for the above conditions, or other urologic issues, please do not hesitate to contact me. The office telephone contact is [phone]. This note is constructed using voice recognition software. While every effort has been made to ensure accuracy mirror machine feeder errors may have been included. Yours sincerely, Dr Robert Lind MD, [facility] - Urology Providers of Expert, Compassionate Care for the Genitourinary System Telehealth Telehealth Location of provider rendering services: practice address Location of patient: address on file Patient Identification confirmed using: Name, : Yes Telehealth method: video Patient verbally consented to treatment: Yes Patient verbally consented to billing insurance company: Yes Patient informed of any privacy concerns related to visit: Yes Coding Level of Care Code Tele Est Pt Level 4 (38540) Diagnoses Urinary urgency R39.15 BPH w urinary obs/LUTS N40.1; N13.8
== END 2023-05-11 13:42 | disposition home or self-care (01) ==
LOC: HO.HUSH 13:25
PROVIDERS: PCP Internal Medicine Endocrinology, Diabetes & Metabolism; Visit Provider Urology
DX: N40.1 Benign prostatic hyperplasia with lower urinary tract symptoms (principal); R39.15 Urgency of urination; N13.8 Other obstructive and reflux uropathy
CPT/HCPCS: 99214

== ENCOUNTER → 2023-05-11 13:25 | Outpatient (BNVA) | payer MEDICARE, SELFPAY | PROVIDERS: PCP Internal Medicine Endocrinology, Diabetes & Metabolism; Visit Provider Urology ==

== ENCOUNTER 2023-07-22 10:50 | Outpatient (AMB) | payer MEDICARE, SELFPAY ==
--- NOTE | 2023-07-22 11:21 | MHC.OFFVIS ---
Intake Intake Visit Reasons: 2m/PVR Intake Note: Patient presents today for a follow up/PVR Meds- Finasteride, Tamsulosin, Oxybutinin Allergies to Antibiotic- No Known Allergies Blood Thinner- None Post Void Residual: 27ml Central Communications Specialist Required: No Accompanied by: Allergies No Known Allergies [No Known Allergies*] Allergy (Verified 07/22/23 11:35) HPI HPI Comments History of Present Illness Details Regino is a pleasant male. He is a patient of Dr. Varner. He is seen for the following urologic conditions - lower urinary tract symptoms mostly bladder instability - elevated PSA Follow-up for oxybutynin Accompanied by Persistent urgency and frequency every 2 hours Stroke August 2022 PVR 30 Ultrasound shows 200 cc prostate Good response to anticholinergic with oxybutynin Dry mouth Switch to VESIcare 4 mg Continue finasteride and tamsulosin Six-month follow-up PSA Lower urinary tract symptoms Bladder instability Elevated PSA Initial presentation PSA 9.25, follow-up 08/13 8.0 PSA 07/14 10.9, 04/15 2.7 F 37%, 10/15 2.6, 05/18 3.5, 11/15 2.5 Imaging - bladder ultrasound with 200 cc prostate HILARY large prostate approximately 150 g with no nodules Continue finasteride PFSH Medical History Hypersomnolence SUKI (obstructive sleep apnea) Diabetes mellitus Cough Asthma SUKI on CPAP Social History Patient Tobacco Use Status: Former Tobacco user Review of Systems Const Denies chills and Denies fever(s) Card Reports no additional complaints and Denies syncope Resp Denies cough GI Denies abdominal pain and Denies heartburn Reports as per HPI and Denies change in libido Neuro Denies syncope Psych Denies change in libido Endo Denies change in libido Physical Exam Const General: cooperative, healthy appearing, comfortable and no acute distress Orientation/consciousness: patient oriented x3 HEENT Face and sinus: Yes normal facial exam Mouth: moist mucous membranes Neck Neck: Yes normal visual inspection, Yes full ROM and Yes trachea midline Chest Chest palpation & inspection: normal inspection of the chest Resp Effort & Inspection: normal respiratory effort, able to speak in complete sentences and no respiratory distress GI Inspection: Yes normal to inspection Back/Spine/Pelvis Cervical Spine: normal cervical lordosis Thoracic/Lumbar Spine: thoracic and lumbar spine normal to inspection Skin General skin exam: no rashes or lesions noted Neuro General: patient oriented x3, gait normal, tone normal and moves all extremities Extrem General: Yes normal to inspection and Yes capillary refill normal Office Procedures Post Void Residual Post Residual Void Post Void Residual (PVR): 27 [id number] Void Residual by ultrasound Assessment & Plan Assessment & Plan (1) Urinary urgency: Code(s): R39.15 - Urgency of urination (2) BPH w urinary obs/LUTS: Code(s): N40.1 - Benign prostatic hyperplasia with lower urinary tract symptoms; N13.8 - Other obstructive and reflux uropathy Plan Six-month follow-up Orders: Orders AMB Post Void Residual by ultrasound Today R33.9 - Retention of urine, unspecified Prostate Specific Antigen 6 Months R97.20 - Elevated prostate specific antigen [PSA] Medications: New tolterodine ER 4 mg PO DAILY 90 caps 1RF 90 days R39.15 - Urgency of urination Discontinued oxybutynin chloride ER Discontinued Reason: Patient Completed Course 5 mg PO DAILY 30 tabs 1RF 30 days N32.81 - Overactive bladder, R39.15 - Urgency of urination Patient Instructions: Imaging studies, laboratory and physical exam results were discussed and reviewed in detail. No major barriers to patient understanding were identified. An opportunity to ask questions regarding the treatment plan was provided. All questions were answered. The patient expressed understanding and agreement with the above treatment plan. The patient is aware they should contact our office by phone for worsening of their current condition or the appearance of new urologic symptoms. Compliance is encouraged with any medications and followup testing that is ordered. It is a privilege to participate in the urologic care of your patient. If you have any questions or concerns regarding treatment for the above conditions, or other urologic issues, please do not hesitate to contact me. The office telephone contact is [phone]. This note is constructed using voice recognition software. While every effort has been made to ensure accuracy door to door fundraising collector errors may have been included. Yours sincerely, Dr Robert Lind MD, [facility] - Urology Providers of Expert, Compassionate Care for the Genitourinary System Coding Level of Care Code Est Pt Level 3 (15237) Diagnoses Urinary urgency R39.15 BPH w urinary obs/LUTS N40.1; N13.8 CPT Codes Post Residual Void - PVR CPT Code: 29266-Uell Void Residual by ultrasound ([id number])
== END 2023-07-22 11:49 | disposition home or self-care (01) ==
PROVIDERS: PCP Internal Medicine Endocrinology, Diabetes & Metabolism; Visit Provider Urology
DX: N40.1 Benign prostatic hyperplasia with lower urinary tract symptoms (principal); R39.15 Urgency of urination; N13.8 Other obstructive and reflux uropathy
CPT/HCPCS: 99213

== ENCOUNTER → 2023-07-22 10:50 | Outpatient (BNVA) | payer MEDICARE, SELFPAY | PROVIDERS: PCP Internal Medicine Endocrinology, Diabetes & Metabolism; Visit Provider Urology | DX: N40.1 Benign prostatic hyperplasia with lower urinary tract symptoms (principal); N13.8 Other obstructive and reflux uropathy; R39.15 Urgency of urination | CPT/HCPCS: 51798; 99212 ==

== ENCOUNTER 2023-10-05 13:22 | Outpatient (AMB) | payer MEDICARE, SELFPAY ==
--- NOTE | 2023-10-05 13:36 | A.OFFVIS_ITS ---
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: No Allergies No Known Allergies [No Known Allergies*] Allergy (Verified 10/05/23 13:58) Medication List - Last Reconciled 10/05/23 by Aiden Claudio MD albuterol sulfate 90 mcg/actuation 1 puff PO Q4H PRN amlodipine 5 mg PO DAILY atorvastatin 40 mg PO BEDTIME blood-glucose meter (FreeStyle Lite Meter kit) As directed donepezil 10 mg PO DAILY finasteride 5 mg PO DAILY 90 days fluticasone propionate 50 mcg/actuation 2 sprays intranasal DAILY glipizide 5 mg PO DAILY hydrochlorothiazide 25 mg PO DAILY tamsulosin (Flomax) 0.4 mg PO BEDTIME 90 days tolterodine ER 4 mg PO DAILY 90 days Do you need a note to return to daycare/school/sports/work: No HPI HPI carline/copd: Details: 78 YEARS OLD GENTLEMAN, HAS PAST HISTORY OF SLEEP APNEA WHICH HAS RESOLVED DUE TO WEIGHT LOSS. ALSO HAS MILD BRONCHIAL ASTHMA OFF AND ON. HE IS HERE FOR. 6 MONTHS FOLLOW-UP HE HAS NOT NEEDED TO USE ALBUTEROL. AT ALL IN THE LAST 6 MONTHS DENIES ANY COUGH OR EXPECTORATION OR ANY WHEEZING. HE HAS DEVELOPED MILD CEREBROVASCULAR INSUFFICIENCY, AND GAIT IMPAIRMENT AND USES THE WALKER. [facility] Medical History Hypersomnolence CARLINE (obstructive sleep apnea) Diabetes mellitus Cough Asthma CARLINE on CPAP Social History Patient Tobacco Use Status: Former Tobacco user Review of Systems Const All systems reviewed & are unremarkable except as noted in HPI and below Reports snoring Eyes Reports no additional complaints ENT Reports nasal congestion (Only mild and intermittent) Card Denies chest pain, Denies irregular heart rhythm and Denies leg edema Resp Reports cough and Reports snoring GI Reports no additional complaints Reports nocturia (Mild once or twice per night) Musc Reports no additional complaints Skin/Breast Reports system reviewed and no additional complaints, except as documented Neuro Reports memory loss (Minimal, stable) Psych Reports no additional complaints and Reports memory loss (Minimal, stable) Physical Exam Vital Signs: Last Vital Signs BP 120/58 L 10/05/23 13:38 BMI result Body Mass Index 26.8 Const General: comfortable, no acute distress, alert and awake Orientation/consciousness: patient oriented x3 HEENT Head: Yes normal to inspection General nose exam: No nasal polyps present, No nasal discharge present and Other nasal findings present (A small amount of the whitish mucus in the nasopharynx) Face and sinus: Yes sinuses nontender Mouth: oropharynx normal Throat: Yes posterior oropharynx normal Eyes General: appearance normal, both eyes and all related structures Neck Neck: Yes normal visual inspection, Yes no lymphadenopathy, Yes trachea midline and Yes no JVD Thyroid: Thyroid normal Chest Chest palpation & inspection: normal inspection of the chest, normal palpation of entire chest wall and no tenderness Resp Other: Percussion note resonant. Breath sounds are somewhat distant. However lungs are clear to auscultation and no wheezes or rhonchi are heard. Effort & Inspection: normal respiratory effort Auscultation: clear to auscultation bilaterally Cardio Palpation: normal PMI Rate: regular rate Rhythm: regular rhythm Heart sounds: no gallops and no murmurs GI Palpation (GI): Soft to palpation, nontender, No hepatosplenomegaly present and no masses Auscultation: normal bowel sounds Back/Spine/Pelvis Thoracic/Lumbar Spine: thoracic and lumbar spine normal to inspection and thoraco-lumbar ROM limited Skin General skin exam: no rashes or lesions noted Neuro General: patient oriented x3 and no focal motor deficits Cranial nerves: Yes CN's II-XII intact bilaterally Extrem General: Yes normal to inspection, Yes no clubbing, cyanosis or edema and Yes no calf tenderness Psych Appearance: grossly normal and well kempt Speech and movement: Normal speech and movement present Assessment & Plan Assessment & Plan (1) Asthma: Comment: Very mild , intermittent . RELATIVELY INACTIVE AT THIS TIME. Code(s): J45.909 - Unspecified asthma, uncomplicated Category: Medical Plan: [place] : Albuterol MDI 2 puffs q 4-6 Hrs only PRN ( which he has not needed for a few months ) (2) CARLINE (obstructive sleep apnea): Comment: Regino does have history of obstructive sleep apnea since 2010. Latest Home-based sleep study on 03/24/2022 was negative for sleep apnea, Total sleep time AHI only 1.5. HE CLAIMS THAT HE IS SLEEPING WELL EVERY NIGHT. Code(s): G47.33 - Obstructive sleep apnea (adult) (pediatric) Category: Medical Plan: NO NEED OF USING CPAP AT THIS TIME Coding Level of Care Code Est Pt Level 3 (36804) Diagnoses Asthma J45.909 CARLINE (obstructive sleep apnea) G47.33
[2023-10-05 13:38] VITALS: BP 120/58; BMI 26.8
== END 2023-10-05 13:50 | disposition home or self-care (01) ==
PROVIDERS: PCP Internal Medicine Endocrinology, Diabetes & Metabolism; Visit Provider Internal Medicine
DX: J45.909 Unspecified asthma, uncomplicated (principal); G47.33 Obstructive sleep apnea (adult) (pediatric)
CPT/HCPCS: 99213

== ENCOUNTER → 2023-10-05 13:22 | Outpatient (BNVA) | payer MEDICARE, SELFPAY | PROVIDERS: PCP Internal Medicine Endocrinology, Diabetes & Metabolism; Visit Provider Internal Medicine | DX: J45.20 Mild intermittent asthma, uncomplicated (principal); G47.33 Obstructive sleep apnea (adult) (pediatric) | CPT/HCPCS: 99212 ==

== ENCOUNTER 2024-01-14 10:56 | Outpatient (REF) | payer MEDICARE, SELFPAY ==
[2024-01-14 12:43] LABS: Prostate Specific Antigen 2.58 ng/mL (<0.05-4.0)
== END 2024-01-14 10:57 | disposition home or self-care (01) ==
LOC: HO.LAB 10:56
PROVIDERS: PCP Internal Medicine; Visit Provider Urology
DX: R97.20 Elevated prostate specific antigen [PSA] (principal); Z12.5 Encounter for screening for malignant neoplasm of prostate
CPT/HCPCS: 36415; 84153

== ENCOUNTER 2024-01-21 12:37 | Outpatient (AMB) | payer MEDICARE, SELFPAY ==
--- NOTE | 2024-01-21 13:10 | A.OFFVIS_ITS ---
Intake Visit Reasons: 6M Follow Up-PSA/PVR(set) Intake Note: Patient is Present for PVR/PSA Follow up Urology Med: Tolterodine, Tamsulosin, Finasteride Antibiotic Allergy: None Blood Thinner:None Last PVR: 27 Todays PVR:58 Recent PSA: 01/14/24 PSA: 2.58 Contracts Manager Required: No Material Engineer: Material Engineer Present Accompanied by: Spouse Allergies No Known Allergies [No Known Allergies*] Allergy (Verified 01/21/24 13:16) HPI Comments Details: Regino is a pleasant male. He is a patient of Dr. Varner. He is seen for the following urologic conditions - lower urinary tract symptoms mostly bladder instability - elevated PSA Six-month follow-up Has been on combination therapy with finasteride, tamsulosin VESIcare following stroke Had dry mouth with oxybutynin PSA well controlled on finasteride Accompanied by Persistent urgency and frequency every 2 hours Stroke August 2022 PVR 50 Ultrasound shows 200 cc prostate Refill meds Six-month follow-up to ensure PVR stability Lower urinary tract symptoms Bladder instability Elevated PSA Initial presentation PSA 9.25, follow-up 08/13 8.0 PSA 07/14 10.9, 04/15 2.7 F 37%, 10/15 2.6, 05/18 3.5, 11/15 2.5, 11/16 2.6 Imaging - bladder ultrasound with 200 cc prostate HILARY large prostate approximately 150 g with no nodules [facility] Medical History Hypersomnolence SUKI (obstructive sleep apnea) Diabetes mellitus Cough Asthma SUKI on CPAP Social History Patient Tobacco Use Status: Former Tobacco user Review of Systems Const Denies chills and Denies fever(s) Card Reports no additional complaints and Denies syncope Resp Denies cough GI Denies abdominal pain and Denies heartburn Reports as per HPI and Denies change in libido Neuro Denies syncope Psych Denies change in libido Endo Denies change in libido Physical Exam Const General: cooperative, healthy appearing, comfortable and no acute distress Orientation/consciousness: patient oriented x3 HEENT Face and sinus: Yes normal facial exam Mouth: moist mucous membranes Neck Neck: Yes normal visual inspection, Yes full ROM and Yes trachea midline Chest Chest palpation & inspection: normal inspection of the chest Resp Effort & Inspection: normal respiratory effort, able to speak in complete sentences and no respiratory distress GI Inspection: Yes normal to inspection Back/Spine/Pelvis Cervical Spine: normal cervical lordosis Thoracic/Lumbar Spine: thoracic and lumbar spine normal to inspection Skin General skin exam: no rashes or lesions noted Neuro General: patient oriented x3, gait normal, tone normal and moves all extremities Extrem General: Yes normal to inspection and Yes capillary refill normal Office Procedures Post Void Residual Post Residual Void Post Void Residual (PVR): [id number] Void Residual by ultrasound Assessment & Plan Assessment & Plan (1) Urinary urgency: Code(s): R39.15 - Urgency of urination Category: Medical (2) BPH w urinary obs/LUTS: Code(s): N40.1 - Benign prostatic hyperplasia with lower urinary tract symptoms; N13.8 - Other obstructive and reflux uropathy Category: Medical Plan Six-month follow-up PVR Orders: Orders AMB Post Void Residual by ultrasound Today R39.15 - Urgency of urination Medications: Refilled tamsulosin (Flomax) 0.4 mg PO BEDTIME 90 days 90 caps 1RF R97.20 - Elevated prostate specific antigen [PSA] tolterodine ER 4 mg PO DAILY 90 days 90 caps 1RF R39.15 - Urgency of urination finasteride 5 mg PO DAILY 90 days 90 tabs 1RF N13.8 - Other obstructive and reflux uropathy, N40.1 - Benign prostatic hyperplasia with lower urinary tract symptoms Patient Instructions: Imaging studies, laboratory and physical exam results were discussed and reviewed in detail. No major barriers to patient understanding were identified. An opportunity to ask questions regarding the treatment plan was provided. All questions were answered. The patient expressed understanding and agreement with the above treatment plan. The patient is aware they should contact our office by phone for worsening of their current condition or the appearance of new urologic symptoms. Compliance is encouraged with any medications and followup testing that is ordered. It is a privilege to participate in the urologic care of your patient. If you have any questions or concerns regarding treatment for the above conditions, or other urologic issues, please do not hesitate to contact me. The office telephone contact is [phone]. This note is constructed using voice recognition software. While every effort has been made to ensure accuracy clinical medical transcriptionist errors may have been included. Yours sincerely, Dr Robert Lind MD, [facility] - Urology Providers of Expert, Compassionate Care for the Genitourinary System Coding Level of Care Code Est Pt Level 3 (27429) Diagnoses Urinary urgency R39.15 BPH w urinary obs/LUTS N40.1; N13.8 CPT Codes Post Residual Void - PVR CPT Code: 02977-Xqws Void Residual by ultrasound ([id number])
== END 2024-01-21 13:32 | disposition home or self-care (01) ==
PROVIDERS: PCP Internal Medicine Endocrinology, Diabetes & Metabolism; Visit Provider Urology
DX: N40.1 Benign prostatic hyperplasia with lower urinary tract symptoms (principal); R39.15 Urgency of urination; N13.8 Other obstructive and reflux uropathy
CPT/HCPCS: 99213

== ENCOUNTER → 2024-01-21 12:37 | Outpatient (BNVA) | payer MEDICARE, SELFPAY | PROVIDERS: PCP Internal Medicine Endocrinology, Diabetes & Metabolism; Visit Provider Urology | DX: N40.1 Benign prostatic hyperplasia with lower urinary tract symptoms (principal); R39.15 Urgency of urination; N13.8 Other obstructive and reflux uropathy; R97.20 Elevated prostate specific antigen [PSA] | CPT/HCPCS: 51798; 99212 ==

== ENCOUNTER 2024-04-11 12:32 | Outpatient (AMB) | payer MEDICARE, SELFPAY ==
--- OUTSIDE RECORDS SUMMARY | 2024-04-11 12:34 | XMS_ITS | Encounter Summary ---
Author Name [facility] [place] Organization [place] Address [address] [place] [address] Care Team Providers Care Packer Inspector Name Role Phone RAFAEL DUKE Primary Care Provider Unavailabl e Insurance Providers: All historical and current Section Date Range: From patient's date of to the date document was created. This section includes the names of all active insurance providers for the patient. Insurance Provider Type of Coverage Plan Name Start of Policy Coverage End of Policy Coverage Group Number Member ID Insurance Provider's Telephone Number Policy Robledo's Name Patient's Relationship to Policy Robledo [employer] [facility] (WNR) MEDICARE [facility] August 24, 2020 [id number] FR DENISE VERA PATIENT [facility] (WNR) MEDICARE ADVANTAGE [place] IN[place] August 24, 2020 [id number] [phone] FR DENISE VERA PATIENT [facility] (WNR) MEDICARE [facility] (WNR) Dec 25, 2010 [facility] [id number] [phone] FR DENISE VERA PATIENT Selected Encounter This section includes the information on record at [place] for the Encounter. Date/Time Encounter Type Encounter Description Reason Pro vider Source Apr 13, 2023 06:35 PM Outpatient Encounter PRIMARY CARE/MEDICINE IHE Encounter Template Text not used by [place] Plan of Treatment: Future Appointments (+ 6 months) and Future Tests (+/- 45 days) The Plan of Treatment section includes future care activities for the patient from all [place] [facility]. This section includes future appointments and future orders which are active, pending or scheduled. Future Appointments This section includes appointments that were scheduled to occur 6 months from the date of the Encounter, up to a maximum of 20 appointments. The data comes from all [place] treatment facilities. Appointment Date/Time Appointment Type Appointme nt Facility Name May 18, 2023 01:00 PM [place] [facility] [place] [facility] May 20, 2023 11:30 AM [place] [facility] [place] [facility] Aug 09, 2023 01:00 PM [facility]UL[facility] [place] [facility] [place] [facility] Aug 23, 2023 02:30 PM [place] [facility] [place] [facility] Sep 30, 2023 03:00 PM [place] [facility] [place] [facility] Social History: Smoking Status (Most current) and Tobacco Use (All prior to encounter date) This section includes the most current, and the historical, smoking and tobacco- related health factors from the [place] facility where the Encounter took place. Current Smoking Status This section includes the most current smoking, or tobacco-related health factor, from the [place] facility where the Encounter took place. Date/Time Current Smoking Status Comment Facil ity Aug 17, 2022 03:00 PM VA-TOBACCO FORMER USER [place] [facility] [place] [facility] Tobacco Use History This section includes a history of the smoking, or tobacco-related health factors, that were collected on or before the date of the Encounter. The data comes from the [place] facility where the Encounter took place. Date/Time Smoking Status/Tobacco Use Comment F acility Aug 17, 2022 03:00 PM VA-TOBACCO QUIT 15 YRS OR MORE [place] [facility] [place] [facility] Aug 07, 2021 03:00 PM VA-TOBACCO FORMER USER [place] [facility] [place] [facility] Aug 07, 2021 03:00 PM VA-TOBACCO QUIT 15 YRS OR MORE [place] [facility] [place] [facility] Jul 18, 2019 10:24 AM VA-TOBACCO FORMER USER [place] [facility] [place] [facility] Jul 18, 2019 10:24 AM [facility] [place] [facility] Mar 02, 2018 09:39 AM [facility] Advance Directives: All historical and current Section Date Range: From patient's date of to the date document was created. This section includes ALL of a patient's completed or amended [place] Advance and Rescinded Directives. The entries below indicate that a directive exists for the patient, but an actual copy is not included with this document. The data comes from all [place] facilities. Date Advance Directives Provider Source May 18, 2023 ADVANCE DIRECTIVE ADRIANA GARCIA [facility] Encounter Notes: All associated encounter notes This section contains the clinical notes associated to the Encounter. Date/Time Encounter Note(s) Provider Source Apr 13, 2023 06:35 PM NONVA CONSULT: LOCAL TITLE: MD/OUTSIDE CONSULT REPORT SUMMARY STANDARD TITLE: NONVA CONSULT DATE OF NOTE: APR 13, 2023@18:35 ENTRY DATE: APR 13, 2023@18:35:44 AUTHOR: RAFAEL DUKE EXP COSIGNER: URGENCY: STATUS: COMPLETED 04-05-[address] Claudio Pulmonary [facility] Chief complaint: COPD Obstructive sleep apnea Plan: Albuterol inhaler as needed /jai/ Rafael Duke MD Staff Physician Signed: 04/13/2023 18:36 RAFAEL DUKE [facility]
--- OUTSIDE RECORDS SUMMARY | 2024-04-11 12:34 | XMS_ITS | Encounter Summary ---
Author Name [facility] [place] Address [address] [place] [address] Care Team Providers Care Hand Tier Name Role Phone RAFAEL DUKE Primary Care [...] Robledo's Name Patient's Relationship to Policy Robledo [facility] (WNR) MEDICARE ADVANTAGE M[facility] ([facility]) August 24, 2020 [id number] [phone] FR DENISE VERA PATIENT [facility] (WNR) MEDICARE ADVANTAGE [place] INDIV IDUAL - [place] August 24, 2020 [id number] [phone] FR DENISE VERA PATIENT [facility] (WNR) MEDICARE [facility] (WNR) Dec 25, 2010 [facility] [id number] [phone] FR DENISE VERA PATIENT Selected Encounter This section includes the information on record at [place] for the Encounter. Date/Time Encounter Type Encounter Description Reason Pro vider Source Apr 16, 2023 04:02 PM Outpatient Encounter ADMIN PAT ACTIVTIES (MASNONCT) IHE Encounter Template Text not used by [place] Plan of Treatment: Future Appointments (+ 6 months) and Future Tests (+/- 45 days) The Plan of Treatment section includes future care activities for the patient [facility] [place] [facility] This section includes future appointments and future orders which are active, pending or scheduled. Future Appointments This section includes appointments that were scheduled to occur 6 months from the date of the Encounter, up to a maximum of 20 appointments. The data comes from all [place] treatment facilities. Appointment Date/Time Appointment Type Appointme nt Facility Name May 18, 2023 01:00 PM [facility] May 20, 2023 11:30 AM [facility] Aug 09, 2023 01:00 PM [facility] Aug 23, 2023 02:30 PM [facility] Sep 30, 2023 03:00 PM AMBULATORY - MEDICINE [facility] Lab Results: +/- 30 days of the encounter This section includes the Chemistry and Hematology Lab Results on record with [place] for the patient. Radiology Reports and Pathology Reports are provided separately, in subsequent sections. Lab Results This section contains the Chemistry/Hematology Results that were resulted 30 days before or 30 daysafter the date of the Encounter. Date/Time Source Result Type Result - Unit Interpretation Reference Range Comment May 14, 2023 11:33 AM [facility] BASIC METABOLIC PANEL (fasting) Specimen Type: SERUM No comment entered. Ordering Provider: RAFAEL DUKE Report Released Date/Time: May 09, 2023 07:03 PM Reporting Lab: [facility] [address] [facility] [address] Performing Lab: [facility] [address] [facility] [address] UREA NITROGEN 25 mg/dL 7-25 GLUCOSE 142 mg/dL H 65-100 SODIUM 141 mmol/L 135-145 POTASSIUM 3.3 mmol/L L 3.5-5.0 CHLORIDE 100 mmol/L 100-110 CO2 27 meq/L 20-30 CREATININE, Serum 1.61 mg/dL H 0.50-1.40 eGFR(CKD-EPI 2020) 43 mL/min L >60 May 14, 2023 11:33 AM [facility] LIVER FUNCTION Specimen Type: SERUM No comment entered. Ordering Provider: RAFAEL DUKE Report Released Date/Time: May 09, 2023 07:03 PM Reporting Lab: [facility] [address] [facility] [address] Performing Lab: [address] [address] PROTEIN,TOTAL 7.4 g/dL 6.0-8.3 ALBUMIN 4.1 g/dL 3.5-5.0 ALKALINE PHOSPHATASE 73 U/L 40-150 AST 19 U/L 5-34 ALT 28 U/L BILIRUBIN, TOTAL 0.7 mg/dL 0.2-1.2 May 14, 2023 11:33 AM [facility] CBC AND DIFF (AUTO) Specimen Type: BLOOD No comment entered. Ordering Provider: RAFAEL DUKE Report Released Date/Time: May 09, 2023 07:03 PM Reporting Lab: [facility] [address] [facility] [address] Performing Lab: [address] [address] WBC 9.00 10*3/uL 4.50-11.00 RBC 5.65 10*6/uL 4.23-5.66 HGB 15.8 g/dL 12.8-17 HCT 47.6 39.2-50.4 MCV 84.2 fL 82-99 MCHC 33.2 g/dL 30.8-35.1 PLT 343 10*3/uL 140-360 RDW-CV 13.2 12.0-16.0 Alcorn, Abs 0.72 10*3/uL 0.30-1.10 MCH 28.0 pg 26.2-32.6 Neut % 63.1 43.7-75.8 Lymph % 23.7 14.0-42.3 Alcorn % 8.0 5.1-13.7 Eos % 3.9 0.4-6.8 Baso % 0.9 0.1-2.0 Neut, Abs 5.68 10*3/uL 2.20-7.60 Lymph, Abs 2.13 10*3/uL 1.00-3.20 Eos, Abs 0.35 10*3/uL 0.03-0.44 Baso, Abs 0.08 10*3/uL 0.01-0.13 Immature Gran % 0.4 0.0-0.7 Immature Gran, Abs 0.04 10*3/uL 0.00-0.06 May 14, 2023 11:33 AM [facility] LIPID PANEL FASTING Specimen Type: SERUM No comment entered. Ordering Provider: RAFAEL DUKE Report Released Date/Time: May 09, 2023 07:03 PM Reporting Lab: [address] [address] Performing Lab: [address] [address] CHOLESTEROL 144 mg/dL TRIGLYCERIDE 196 mg/dL H 0-150 LDL calculated 65 mg/dL 0-129 CHOL/HDL 3.6 HDL CHOLESTEROL 40 mg/dL 40-60 May 14, 2023 11:33 AM [facility] TSH Specimen Type: SERUM No comment entered. Ordering Provider: RAFAEL DUKE Report Released Date/Time: May 09, 2023 07:03 PM Reporting Lab: [address] [address] Performing Lab: [address] [address] TSH 1.41 u[IU]/mL 0.35-5.00 May 14, 2023 11:33 AM [facility] HEMOGLOBIN A1C PANEL Specimen Type: BLOOD Comment: Values obtained from A1C measurements can vary. For atypical A1C assays, a reported value of 7.0 could actually be between 6.72 and 7.28 if measured by a reference method. A reported value of 9.0 could actually be between 8.73 and 9.27. Ref: http://www.ngs p.org/CAPdata. asp Ordering Provider: RAFAEL DUKE Report Released Date/Time: May 09, 2023 07:03 PM Reporting Lab: [address] [address] Performing Lab: [facility] [address] [facility] [address] HEMOGLOBIN A1C 7.1 H 4.0-5.6 May 14, 2023 11:33 AM [facility] MICROALBUMIN CREATININE RATIO PANEL Specimen Type: URINE No comment entered. Ordering Provider: RAFAEL DUKE Report Released Date/Time: May 09, 2023 07:03 PM Reporting Lab: [facility] [address] [facility] [address] Performing Lab: [address] [address] MICROALBUMIN/C REATININE RATIO 22.0 mg/g 0-29.9 MICROALBUMIN,Q UANTITATIVE 1.8 mg/dL RR UNAVAIL CREATININE URINE 81.64 mg/dL May 14, 2023 11:33 AM [facility] URINALYSIS CLEAN CATCH Specimen Type: URINE Comment: If Glucose = >500 and Ketones are positive, please alert the Physician. Ordering Provider: RAFAEL DUKE Report Released Date/Time: May 09, 2023 07:03 PM Reporting Lab: [address] [address] Performing Lab: [address] [address] UA COLOR Light-Yellow Yellow UA APPEARANCE Clear Clear UA GLUCOSE >1000 mg/dL Negative UA KETONES NEGATIVE mg/dL Negative UA BLOOD NEGATIVE mg/dL Negative UA PROTEIN NEGATIVE mg/dL Negative UA NITRITE NEGATIVE mg/dL Negative UA BILIRUBIN NEGATIVE mg/dL Negative UA SPECIFIC GRAVITY 1.024 H 1.016-1.02 2 UA pH 6.0 5.0-9.0 UA UROBILINOGEN <2.0 mg/dL <2.0 UA LEUKOCYTE NEGATIVE Negative Social History: Smoking Status (Most current) and Tobacco Use (All prior to encounter date) This section includes the most current, and the historical, smoking and tobacco- related health factors from the [place] facility where the Encounter took place. Current Smoking Status This section includes the most current smoking, or tobacco-related health factor, from the [place] facility where the Encounter took place. Date/Time Current Smoking Status Comment Marie kaur Aug 17, 2022 03:00 PM VA-TOBACCO FORMER USER [facility] Tobacco Use History This section includes a history of the smoking, or tobacco-related health factors, that were collected on or before the date of the Encounter. The data comes from the [place] facility where the Encounter took place. Date/Time Smoking Status/Tobacco Use Comment F acility Aug 17, 2022 03:00 PM VA-TOBACCO QUIT [facility] YRS [facility] MORE [facility] Aug 07, 2021 03:00 PM [facility] Aug 07, 2021 03:00 PM VA-TOBACCO QUIT [facility] YRS OR MORE [facility] Jul 18, 2019 10:24 AM [facility] Jul 18, 2019 10:24 AM VA-TOBACCO QUIT [facility] YRS OR MORE [facility] Mar 02, 2018 09:39 AM VA-TOBACCO NEVER USED [facility] Advance Directives: All historical and current Section Date Range: From patient's date of to the date document was created. This section includes ALL of a patient's completed or amended [place] Advance and Rescinded Directives. The entries below indicate that a directive exists for the patient, but an actual copy is not included with this document. The data comes from all [place] facilities. Date Advance Directives Provider Source May 18, 2023 ADVANCE DIRECTIVE ADRIANA GARCIA [facility] Encounter Notes: All associated encounter notes This section contains the clinical notes associated to the Encounter. Date/Time Encounter Note(s) Provider Source Apr 16, 2023 04:03 PM MEDICATION MGT NOT E: LOCAL TITLE: MEDICATION RENEWAL STANDARD TITLE: MEDICATION MGT NOTE DATE OF NOTE: APR 16, 2023@16:03 ENTRY DATE: APR 16, 2023@16:03:10 AUTHOR: MEREDITH MCKEON EXP COSIGNER: URGENCY: STATUS: COMPLETED MEDICATION RENEWAL Has ADDENDA pt req new medication order 1) finasteride 5mg tab -90 days supply thank you, /jai/ MEREDITH MCKEON Rig Manager Signed: 04/16/2023 16:05 Receipt Acknowledged By: * AWAITING SIGNATURE * ISAIAS GREWAL 04/16/2023 16:31 /jai/ Rafael Duke MD Staff Physician 04/16/2023 ADDENDUM STATUS: COMPLETED Done. /jai/ Rafael Duke MD Staff Physician Signed: 04/16/2023 16:31 MEREDITH MCKEON [facility]
--- OUTSIDE RECORDS SUMMARY | 2024-04-11 12:34 | XMS_ITS | Continuity of Care Document ---
Author Name [facility] Organization [facility] Care Team Providers Care Orbitread Operator Name Role Phone [facility] Unavailable Unavailable Problems Combined list of problems from Department of Defense and Veterans Affairs facilities. It does not include entries that were removed or entered in error. Problem Status Onset Date Problem Type Date of Resolution Comments Source Benign Prostatic Hypertrophy without Outflow Obstruction (SCT 006392372) Active 04/26/19 23 Condition Feb 17, 2023 Entered By: CLAUDIA MCPHERSON Comment: treated with medication [facility] [place] Stroke Active 04/26/19 23 Condition Oct 28, 2022 Entered By: CLAUDIA MCPHERSON Comment: Right hemiparesis [facility] [place] Abnormal findings on diagnostic imaging of lung Active Condition Nov 06, 2021 Entered By: LEYLA KEITA Comment: CXR on 11/05/21 revealed lower lobe opacity w/ rec for f/u CT. CT Chest non-con ordered on 11/06. Pt was called and informed. [facility] [place] Adult screening status Active Condition Jun 14, 2018 Entered By: PIPO MCCOY Comment: HGAIC 6.6 04/28/18Jun 14, 2018 Entered By: PIPO MCCOY Comment: T- 166 [id number] trigly- 260 [facility] [place] Cancer in situ skin of trunk Active Condition Mar 14, 2018 Entered By: LESTER GREWAL Comment: NOt sure what type, was on L side of torso removed [facility] Chronic kidney disease stage 3 due to type 2 diabetes mellitus Active Condition [facility] Clearing throat - hawking Active Condition Mar 01, 2022 Entered By: LESTER GREWAL Comment: following with [facility] -neg scope from ENT, barium swallow neg, Chest CT neg, ? Silent reflux, GI considering Endoscopy 12/23/21. [facility] Cognitive impairment Active Condition Aug 01, 2019 Entered By: LESTER GREWAL Comment: on aricept [facility] Diabetes mellitus type 2 Active Condition [facility] Exposure to potentially hazardous substance Active Condition Jul 12, 2023 Entered By: TAI AREVALO Comment: Original JANET Screening completed 05/13/2022 [facility] Food insecurity Active Condition [facility] History of stroke in last year Active Condition [facility] History of surgery Active Condition F 2018 Entered By: PIPO MCCOY Comment: L ankle fusion. [facility] HTN - Hypertension ([facility] [id number]) Active Condition [facility] Hyperglycemia Active Condition May Entered By: PIPO MCCOY Comment: 04/28/18 - HGAIC 6.6 [facility] Hyperlipidemia ([facility] [id number]) Active Condition [facility] Patient requires hospitalization Active Condition Jun 14, 2018 Entered By: PIPO MCCOY Comment: 04/27/18 - [facility] - Acute stroke ( discharge 04/29/18) [facility] Raised PSA Active Condition Jul 31 Entered By: LESTER GREWAL Comment: 9.01/2019 [facility] Renal Impairment ([facility] [id number]) Active Condition [facility] Shared care - specialist and GP Active Condition Jul 15 Entered By: PIPO MCCOY Comment: COMMUNITY CARE-OPHTHALMO LOGY ( 2ND TO CATARACT/ GLAUCOMA) [facility] Sleep Apnea (SCT [id number]) Active Condition Aug 01, 2019 Entered By: LESTER GREWAL Comment: Followed by Dr. Claudio [facility] Under care of multiple providers Active Condition Feb 19, 2 019 Entered By: PIPO MCCOY Comment: [facility] Douglas 2018 Entered By: PIPO MCCOY Comment: [facility]- DR Aiden Godwin 2018 Entered By: PIPO MCCOY Comment: [facility] Varner[place] Entered By: PIPO MCCOY Comment: Dr. 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 Active Diagnosis [facility] Diagnosis: ICD-10-CM I10 Essential (primary) hypertension Active Diagnosis [facility] Diagnosis: ICD-10-CM Z46.1 Encounter for fitting and adjustment of hearing aid Active Diagnosis [facility] Diagnosis: ICD-10-CM Z46.0 Encounter for fit/adjst of spectacles and contact lenses Active Diagnosis [facility] Diagnosis: ICD-10-CM E11.9 Type 2 diabetes mellitus without complications Active Diagnosis [facility] Diagnosis: ICD-10-CM Z98.1 Arthrodesis status Active Diagnosis [facility] Diagnosis: ICD-10-CM R73.9 Hyperglycemia, unspecified Active Diagnosis [facility] Diagnosis: ICD-10-CM N40.0 Benign prostatic hyperplasia without lower urinry tract symp Active Diagnosis [facility] Diagnosis: ICD-10-CM H90.3 Sensorineural hearing loss, bilateral Active Diagnosis [facility] Diagnosis: ICD-10-CM N40.1 Benign prostatic hyperplasia with lower urinary tract symp Active Diagnosis [facility] Diagnosis: ICD-10-CM I63.9 Cerebral infarction, unspecified Active Diagnosis [facility] Diagnosis: ICD-10-CM 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 Medication Details Route Status Patient Instructions Prescription Expires Prescription Number Last Dispense Date Ordering Provider Order Date Order Qty Source ALBUTEROL 90MCG/ACTUA T (CFC-F) INHL,ORAL,8 .5GM DOSE COUNTER INHALE 2 PUFFS BY MOUTH EVERY 4 HOURS NEEDED RESPIR ATORY (INHAL ATION) ACTIVE Yessica AREVALO 2021 [facility] [place] AMLODIPINE BESYLATE 10MG TAB TAKE ONE TABLET BY MOUTH ONCE DAILY FOR BLOOD PRESSURE /HEART, DO NOT TAKE WITH GRAPEFRU IT JUICE (DOSE INCREASE D) ORAL ACTIVE 11/22/2024 [id number] 4 MATTHEW MCPHERSON D 2023 90 [facility] [place] [facility] AMLODIPINE BESYLATE 5MG TAB TAKE ONE TABLET BY MOUTH ONCE DAILY FOR BLOOD PRESSURE /HEART, DO NOT TAKE WITH GRAPEFRU IT JUICE ORAL DISCONT INUED (EDIT) 10/19/2024 [id number] 4 MATTHEW MCPHERSON D 2023 90 [facility] AMLODIPINE BESYLATE 5MG TAB TAKE ONE TABLET BY MOUTH ONCE DAILY FOR BLOOD PRESSURE /HEART, DO NOT TAKE WITH GRAPEFRU IT JUICE ORAL DISCONT INUED 02/12/2024 [id number] 4 MATTHEW MCPHERSON D 2022 90 [facility] [place] [facility] ATORVASTATI N CA 80MG TAB TAKE ONE TABLET BY MOUTH ONCE DAILY FOR CHOLESTE ROL REPLACES SIMVASTA TIN ORAL ACTIVE 11/22/2024 [id number] 4 MATTHEW MCPHERSON D 2023 90 [facility] [place] [facility] ATORVASTATI N [place] 80MG TAB TAKE ONE TABLET BY MOUTH ONCE DAILY FOR CHOLESTE ROL REPLACES SIMVASTA TIN ORAL 06/11/2023 [id number] AMYAL ICE 2022 90 [facility] [place] [facility] CLOPIDOGREL BISULFATE 75MG TAB TAKE ONE TABLET BY MOUTH ONCE DAILY ORAL SUSPEND ED 11/22/2024 [id number] 5 MATTHEW MCPHERSON SAMMY D 2023 90 [facility] [place] CLOPIDOGREL BISULFATE 75MG TAB TAKE ONE TABLET BY MOUTH ONCE DAILY ORAL DISCONT INUED 10/29/2023 [id number] 4 MATTHEW MCPHERSON SAMMY D 2022 90 [facility] DONEPEZIL HCL 10MG TAB TAKE ONE TABLET BY MOUTH ONCE DAILY FOR ALZHEIME R'S DISEASE ORAL ACTIVE 03/03/2025 [id number] 4 MATTHEW MCPHERSON SAMMY D 2023 90 [facility] DONEPEZIL HCL 10MG TAB TAKE ONE TABLET BY MOUTH ONCE DAILY FOR ALZHEIME R'S DISEASE ORAL DISCONT INUED 03/25/2024 [id number] 4 MATTHEW MCPHERSON SAMMY D [address] [facility] [place] [facility] EMPAGLIFLOZ IN 25MG TAB TAKE ONE-HALF TABLET BY MOUTH ONCE DAILY FOR DIABETES ORAL ACTIVE 10/19/2024 [id number] 4 MATTHEW MCPHERSON SAMMY D [address] [address] [place] EMPAGLIFLOZ IN 25MG TAB TAKE ONE-HALF TABLET BY MOUTH ONCE DAILY FOR DIABETES ORAL DISCONT INUED 10/29/2023 [id number] 4 MATTHEW MCPHERSOND D 2022 45 [facility] [place] FINASTERIDE 5MG TAB TAKE ONE TABLET BY MOUTH ONCE DAILY ORAL ACTIVE 04/16/2024 [id number] 4 MATTHEW MCPHERSON SAMMY D 2022 90 [facility] [place] HYDROCHLORO THIAZIDE 25MG TAB TAKE ONE TABLET BY MOUTH ONCE DAILY TO PREVENT FLUID/CO NTROL BLOOD PRESSURE ORAL DISCONT INUED BY PROVIDE R 12/16/2023 [id number] 4 MATTHEW MCPHERSON SAMMY D 2022 90 [facility] METOPROLOL SUCCINATE 25MG TAB,SA TAKE ONE TABLET BY MOUTH ONCE DAILY FOR BLOOD PRESSURE /HEART ORAL DISCONT INUED (EDIT) 01/02/2025 [id number] 4 MATTHEW MCPHERSON D 2023 30 [facility] METOPROLOL SUCCINATE 50MG TAB,SA TAKE ONE TABLET BY MOUTH ONCE DAILY FOR BLOOD PRESSURE /HEART ORAL ACTIVE 01/26/2025 [id number] 4 MATTHEW MCPHERSON D 2023 30 [facility] OXYBUTYNIN CL 5MG TAB,SA TAKE ONE TABLET BY MOUTH ONCE DAILY FOR BLADDER INSTABIL ITY ORAL ACTIVE 07/01/2024 [id number] MATTHEW MCPHERSON D 2023 90 [facility] PANTOPRAZOL E NA 40MG TAB,EC TAKE ONE TABLET BY MOUTH TWICE DAILY ORAL ACTIVE 08/23/2024 [id number] 4 MATTHEW MCPHERSON D 2023 180 [facility] TAMSULOSIN HCL 0.4MG CAP TAKE TWO CAPSULES BY MOUTH AT BEDTIME FOR ENLARGED PROSTATE ORAL ACTIVE 05/18/2024 [id number] 4 MATTHEW MCPHERSON D 2023 180 [facility] TAMSULOSIN HCL 0.4MG CAP TAKE ONE CAPSULE BY MOUTH AT BEDTIME FOR ENLARGED PROSTATE ORAL DISCONT INUED (EDIT) 02/18/2024 [id number] 4 MATTHEW MCPHERSON D 2022 30 [facility] Allergies, Adverse Reactions, Alerts Combined list of allergies from Department of Defense and Veterans Affairs facilities. It does not include entries that were removed or entered in error. Substance Category Reaction Severity Reaction type Status Date Reported Comments Source HCTZ HYDROCHLOROTH IAZIDE Propensity to adverse reactions to drug (finding) Anxiety SEVERE active 4 [facility] METFORMIN Propensity to adverse reactions to drug (finding) Diarrhea MODERATE active 3 [facility] Immunizations Combined list of available immunizations from the Department of Defense and Veterans Affairs facilities. Immunization Series Date Given Administered By Site Reaction Lot Number CVX Code Drug Senior Outside Sales Representative Status Comments Source COVID-19 (MODERNA), MRNA, LNP-S, PF, 50 MCG/0.5 ML (AGES 12+ YEARS) 2023 JOSE CHRISTIAN Emerson RIGHT DELTO ID [id number] 312 complet ed [facility] INFLUENZA, HIGH-DOSE, TRIVALENT, PF 2023 JOSE CHRISTIAN LEFT DELTO ID [id number] 135 complet ed [facility] COVID-19 (MODERNA), MRNA, LNP-S, PF, 50 MCG/0.5 ML (AGES 12+ YEARS) 5 2023 ADRIANA GARCIA RIGHT DELTO ID [id number] 312 complet ed [facility] RSV, BIVALENT, PROTEIN SUBUNIT RSVPREF, DILUENT RECONSTITUTED , 0.5 ML, PF 2023 ADRIANA GARCIA RIGHT DELTO ID [id number] 305 complet ed [facility] COVID-19 (MODERNA), MRNA, LNP-S, PF, 50 MCG/0.5 ML (AGES 12+ YEARS) 2022 ANAHI PERKINS M RIGHT DELTO ID [id number] 312 complet ed [facility] INFLUENZA, HIGH-DOSE, QUADRIVALENT 2022 ANAHI PERKINS ER M LEFT DELTO ID [id number] 197 complet ed [facility] ZOSTER RECOMBINANT 2022 ANAHI PERKINS M LEFT DELTO ID [id number] 187 complet ed [id number] [facility] PNEUMOCOCCAL POLYSACCHARID E [id number] 2022 ANAHI PERKINS ER M LEFT DELTO ID [id number] 33 complet ed [facility] ZOSTER RECOMBINANT 2022 ANAHI PERKINS ER M RIGHT DELTO ID [id number] 187 complet ed [facility] INFLUENZA VACCINE, QUADRIVALENT, ADJUVANTED 2021 205 complet ed [facility] COVID-19 (MODERNA), MRNA, LNP-S, PF, 100 MCG OR 50 MCG DOSE 3 2020 207 complet ed MOD; [id number]; 2 [facility] COVID-19 (MODERNA), MRNA, LNP-S, PF, 100 MCG/0.5 ML DOSE 2 2020 207 complet ed MOD; [id number]; 1 [facility] COVID-19 (MODERNA), MRNA, LNP-S, PF, 100 MCG/0.5 ML DOSE 1 2020 207 complet ed MOD; [id number]; 1 [facility] PNEUMOCOCCAL CONJUGATE PCV 13 2017 133 complet ed [facility] TDAP 2017 115 complet ed [facility] Results Combined list of recent chemistry, hematology and other laboratory results from Department of Defense and Veterans Affairs, ranging from 15 months to all on record, depending upon the facility. Order Name Results Value Reference Range Date Interpretation Specimen Comments Source MICROALB UMIN CREATINI NE RATIO PANEL MICROALBUM IN/CREATIN INE [MASS RATIO] IN URINE 36.9 mg/g 0 - 29.9 02/20 H Specimen Type: URINE No comment entered. Ordering Provider: DEACON MCPHERSON Report Released Date/Time: Feb 11, 2024 09:40 PM Reporting Lab: [facility] [address] [facility] [address] Performing Lab: [facility] [address] [facility] [address] [address] [place] [facility] MICROALB UMIN CREATINI NE RATIO PANEL MICROALBUM IN [MASS/VOLU ME] IN URINE 2.3 mg/dL 02/20 Specimen Type: URINE No comment entered. Ordering Provider: DEACON MCPHERSON Report Released Date/Time: Feb 11, 2024 09:40 PM Reporting Lab: [facility] [place] [address] [facility] [address] Performing Lab: [facility] [place] [facility] [address] [facility] [address] [facility] MICROALB UMIN CREATINI NE RATIO PANEL CREATININE [MASS/VOLU ME] IN URINE 62.31 mg/dL 02/20 Specimen Type: URINE No comment entered. Ordering Provider: DEACON MCPHERSON Report Released Date/Time: Feb 11, 2024 09:40 PM Reporting Lab: [facility] [place] [facility] [address] [facility] [address] Performing Lab: [facility] [place] [facility] [address] [facility] [address] [facility] TSH THYROTROPI N [UNITS/VOL UME] IN SERUM OR PLASMA 0.80 u[IU]/mL 0.35 - 5.00 02/20 Specimen Type: SERUM No comment entered. Ordering Provider: DEACON MCPHERSON Report Released Date/Time: Feb 11, 2024 09:40 PM Reporting Lab: [facility] [place] [facility] [address] [facility] [address] Performing Lab: [facility] [place] [facility] [address] [facility] [address] [facility] [address] [facility] [place] [facility] LIPID PANEL FASTING CHOLESTERO L [MASS/VOLU ME] IN SERUM OR PLASMA 121 mg/dL 02/20 Specimen Type: SERUM No comment entered. Ordering Provider: DEACON MCPHERSON Report Released Date/Time: Feb 11, 2024 09:40 PM Reporting Lab: [facility] [place] [facility] [address] [facility] [address] Performing Lab: [facility] [place] [facility] [address] [facility] [address] [facility] LIPID PANEL FASTING TRIGLYCERI DE [MASS/VOLU ME] IN SERUM OR PLASMA 168 mg/dL 0 - 150 02/20 H Specimen Type: SERUM No comment entered. Ordering Provider: DECAON MCPHERSON Report Released Date/Time: Feb 11, 2024 09:40 PM Reporting Lab: [facility] [place] [facility] [address] [facility] [address] Performing Lab: [facility] [place] [facility] [address] [facility] [address] [facility] [place] [facility] LIPID PANEL FASTING CHOLESTERO L IN LDL [MASS/VOLU ME] IN SERUM OR PLASMA BY CALCULATIO N 43 mg/dL 0 - 129 02/20 Specimen Type: SERUM No comment entered. Ordering Provider: DEACON MCPHERSON Report Released Date/Time: Feb 11, 2024 09:40 PM Reporting Lab: [facility] [place] [facility] [address] [facility] [address] Performing Lab: [facility] [place] [facility] [address] [facility] [address] [facility] [place] [facility] LIPID PANEL FASTING CHOLESTERO L.TOTAL/CH OLESTEROL IN HDL [MASS RATIO] IN SERUM OR PLASMA 2.8 02/20 Specimen Type: SERUM No comment entered. Ordering Provider: DEACON MCPHERSON Report Released Date/Time: Feb 11, 2024 09:40 PM Reporting Lab: [facility] [place] [facility] [address] [facility] [address] Performing Lab: [facility] [place] [facility] [address] [facility] [address] [facility] [place] [facility] LIPID PANEL FASTING CHOLESTERO L IN HDL [MASS/VOLU ME] IN SERUM OR PLASMA 44 mg/dL 40 - 60 02/20 Specimen Type: SERUM No comment entered. Ordering Provider: DEACON MCPHERSON Report Released Date/Time: Feb 11, 2024 09:40 PM Reporting Lab: [facility] [place] [facility] [address] [facility] [address] Performing Lab: [facility] [place] [facility] [address] [facility] [address] [facility] [place] [facility] BASIC METABOLI C PANEL (non-fas ting) UREA NITROGEN [MASS/VOLU ME] IN SERUM OR PLASMA 17 mg/dL 7 - 25 02/20 Specimen Type: SERUM No comment entered. Ordering Provider: DEACON MCPHERSON Report Released Date/Time: Feb 11, 2024 09:40 PM Reporting Lab: [address] [address] Performing Lab: [address] [address] [facility] BASIC METABOLI C PANEL (non-fas ting) GLUCOSE [MASS/VOLU ME] IN SERUM OR PLASMA 155 mg/dL 65 - 100 02/20 H Specimen Type: SERUM No comment entered. Ordering Provider: DEACON MCPHERSON Report Released Date/Time: Feb 11, 2024 09:40 PM Reporting Lab: [address] [address] Performing Lab: [address] [address] [facility] BASIC METABOLI C PANEL (non-fas ting) SODIUM [MOLES/VOL UME] IN SERUM OR PLASMA 141 mmol/L 135 - 145 02/20 Specimen Type: SERUM No comment entered. Ordering Provider: DEACON MCPHERSON Report Released Date/Time: Feb 11, 2024 09:40 PM Reporting Lab: [address] [address] Performing Lab: [address] [address] [facility] BASIC METABOLI C PANEL (non-fas ting) POTASSIUM [MOLES/VOL UME] IN SERUM OR PLASMA 3.7 mmol/L 3.5 - 5.0 02/20 Specimen Type: SERUM No comment entered. Ordering Provider: DEACON MCPHERSON Report Released Date/Time: Feb 11, 2024 09:40 PM Reporting Lab: [address] [address] Performing Lab: [facility] [place] [facility] [address] [facility] [address] [facility]ITALN [facility]USE [facility] BASIC METABOLI C PANEL (non-fas ting) CHLORIDE [MOLES/VOL UME] IN SERUM OR PLASMA 106 mmol/L 100 - 110 02/20 Specimen Type: SERUM No comment entered. Ordering Provider: DEACON MCPHERSON Report Released Date/Time: Feb 11, 2024 09:40 PM Reporting Lab: [facility] [address] [facility] [address] Performing Lab: [facility]IOR[facility] HOSPITALN [facility] [address] [facility] [address] [facility] BASIC METABOLI C PANEL (non-fas ting) CARBON DIOXIDE, TOTAL [MOLES/VOL UME] IN SERUM OR PLASMA 25 meq/L 20 - 30 02/20 Specimen Type: SERUM No comment entered. Ordering Provider: DEACON MCPHERSON Report Released Date/Time: Feb 11, 2024 09:40 PM Reporting Lab: [facility]HAVIOR[facility] HOSPITALN [facility] HOSPITALUSENY[facility] [address] [facility] [address] Performing Lab: [facility]IOR[facility] HOSPITALN [facility] HOSPITALUSENY[facility] [address] [facility] [address] [facility] BASIC METABOLI C PANEL (non-fas ting) CREATININE [MASS/VOLU ME] IN SERUM OR PLASMA 1.48 mg/dL 0.50 - 1.40 02/20 H Specimen Type: SERUM No comment entered. Ordering Provider: DEACON MCPHERSON Report Released Date/Time: Feb 11, 2024 09:40 PM Reporting Lab: [facility]ITALRMOODY HOSPITALTRN [facility] HOSPITALUSENYU [facility] [address] [facility] [address] Performing Lab: [facility]ITALRBEACON BEHAVIORAL HOSPITALN [facility] HOSPITALUSE[address] [address] [facility] BASIC METABOLI C PANEL (non-fas ting) GLOMERULAR FILTRATION RATE/1.73 SQ M.PREDICTE D [VOLUME RATE/AREA] IN SERUM, PLASMA OR BLOOD BY CREATININE -BASED FORMULA (CKD-EPI 2020) 47 mL/min 60 02/20 L Specimen Type: SERUM No comment entered. Ordering Provider: DEACON MCPHERSON Report Released Date/Time: Feb 11, 2024 09:40 PM Reporting Lab: [facility] [address] [facility] [address] Performing Lab: [facility] [address] [facility] [address] [facility] HOSPITALUSE [facility] HEMOGLOB IN A1C PANEL HEMOGLOBIN A1C/HEMOGL OBIN.TOTAL IN BLOOD BY HPLC 5.8 4.0 - 5.6 02/20 H Specimen Type: BLOOD Comment: Values obtained from A1C measurement s can vary. For atypical A1C assays, a reported value of 7.0 could actually be between 6.72 and 7.28 if measured by a reference method. A reported value of 9.0 could actually be between 8.73 and 9.27. Ref: http://www. ngsp.org/[place] Pdata.asp Ordering Provider: DEACON MCPHERSON Report Released Date/Time: Feb 11, 2024 09:40 PM Reporting Lab: [facility] [address] [facility] [address] Performing Lab: [address] [address] [facility] URINALYS IS CLEAN CATCH COLOR OF URINE Light-Ye llow 02/20 Specimen Type: URINE Comment: If Glucose = >500 and Ketones are positive, please alert the Physician. Ordering Provider: DEACON MCPHERSON Report Released Date/Time: Feb 11, 2024 09:40 PM Reporting Lab: [facility] [address] [facility] [address] Performing Lab: [facility]ENTERUSE[address] [address] [facility] URINALYS IS CLEAN CATCH APPEARANCE OF URINE Clear 02/20 Specimen Type: URINE Comment: If Glucose = >500 and Ketones are positive, please alert the Physician. Ordering Provider: DEACON MCPHERSON Report Released Date/Time: Feb 11, 2024 09:40 PM Reporting Lab: [facility] [address] [facility] [address] Performing Lab: [facility] [address] [facility] [address] [facility] URINALYS IS CLEAN CATCH GLUCOSE [MASS/VOLU ME] IN URINE >1000mg/ dL 02/20 Specimen Type: URINE Comment: If Glucose = >500 and Ketones are positive, please alert the Physician. Ordering Provider: DEACON MCPHERSON Report Released Date/Time: Feb 11, 2024 09:40 PM Reporting Lab: [facility] [address] [facility] [id number] Performing Lab: [facility] [address] [facility] [address] [facility] URINALYS IS CLEAN CATCH KETONES [MASS/VOLU ME] IN URINE BY TEST STRIP NEGATIVE mg/dL 02/20 Specimen Type: URINE Comment: If Glucose = >500 and Ketones are positive, please alert the Physician. Ordering Provider: DEACON MCPHERSON Report Released Date/Time: Feb 11, 2024 09:40 PM Reporting Lab: [facility] [address] [facility] [id number] Performing Lab: [facility] [address] [facility] [address] [facility] URINALYS IS CLEAN CATCH ERYTHROCYT ES [PRESENCE] IN URINE SEDIMENT BY LIGHT MICROSCOPY NEGATIVE mg/dL 02/20 Specimen Type: URINE Comment: If Glucose = >500 and Ketones are positive, please alert the Physician. Ordering Provider: DEACON MCPHERSON Report Released Date/Time: Feb 11, 2024 09:40 PM Reporting Lab: [facility] [address] [facility] [address] Performing Lab: [facility] [address] [facility] [address] [facility] URINALYS IS CLEAN CATCH PROTEIN [MASS/VOLU ME] IN URINE BY TEST STRIP NEGATIVE mg/dL 02/20 Specimen Type: URINE Comment: If Glucose = >500 and Ketones are positive, please alert the Physician. Ordering Provider: DEACON MCPHERSON Report Released Date/Time: Feb 11, 2024 09:40 PM Reporting [facility] [place] [facility] [address] [facility] [address] Performing Lab: [facility] [place] [facility] [address] [facility] [address] [facility] URINALYS IS CLEAN CATCH NITRITE [PRESENCE] IN URINE NEGATIVE mg/dL 02/20 Specimen Type: URINE Comment: If Glucose = >500 and Ketones are positive, please alert the Physician. Ordering Provider: DEACON MCPHERSON Report Released Date/Time: Feb 11, 2024 09:40 PM Reporting [facility] [place] [facility] [address] [facility] [address] Performing Lab: [facility] [place] [facility] [address] [facility] [address] [facility] URINALYS IS CLEAN CATCH BILIRUBIN. TOTAL [PRESENCE] IN URINE NEGATIVE mg/dL 02/20 Specimen Type: URINE Comment: If Glucose = >500 and Ketones are positive, please alert the Physician. Ordering Provider: DEACON MCPHERSON Report Released Date/Time: Feb 11, 2024 09:40 PM Reporting [facility] [place] [facility] [address] [facility] [address] Performing Lab: [facility] [place] [facility] [address] [facility] [address] [facility] URINALYS IS CLEAN CATCH SPECIFIC GRAVITY OF URINE BY REFRACTOME TRY 1.028 1.016 - 1.022 02/20 H Specimen Type: URINE Comment: If Glucose = >500 and Ketones are positive, please alert the Physician. Ordering Provider: DEACON MCPHERSON Report Released Date/Time: Feb 11, 2024 09:40 PM Reporting Lab: [facility] [place] [facility] [address] [facility] [address] Performing Lab: [facility] [address] [facility] [address] [facility] URINALYS IS CLEAN CATCH PH OF URINE BY TEST STRIP 5.5 5.0 - 9.0 02/20 Specimen Type: URINE Comment: If Glucose = >500 and Ketones are positive, please alert the Physician. Ordering Provider: DEACON MCPHERSON Report Released Date/Time: Feb 11, 2024 09:40 PM Reporting Lab: [facility] [address] [facility] [address] Performing Lab: [facility] [place] [facility] [address] [facility] [address] [facility] URINALYS IS CLEAN CATCH UROBILINOG EN [MASS/VOLU ME] IN URINE BY TEST STRIP Normalmg /dL <2.0 - 2.0 02/20 Specimen Type: URINE Comment: If Glucose = >500 and Ketones are positive, please alert the Physician. Ordering Provider: DEACON MCPHERSON Report Released Date/Time: Feb 11, 2024 09:40 PM Reporting Lab: [facility] [address] [facility] [address] Performing Lab: [facility] [place] [facility] [address] [facility] [address] [facility] URINALYS IS CLEAN CATCH LEUKOCYTE ESTERASE [PRESENCE] IN URINE BY TEST STRIP NEGATIVE 02/20 Specimen Type: URINE Comment: If Glucose = >500 and Ketones are positive, please alert the Physician. Ordering Provider: DEACON MCPHERSON Report Released Date/Time: Feb 11, 2024 09:40 PM Reporting Lab: [facility] [address] [facility] [address] Performing Lab: [facility] [address] [facility] [address] [facility] LIVER FUNCTION PROTEIN [MASS/VOLU ME] IN SERUM OR PLASMA 6.9 g/dL 6.0 - 8.3 02/20 Specimen Type: SERUM No comment entered. Ordering Provider: DEACON MCPHERSON Report Released Date/Time: Feb 11, 2024 09:40 PM Reporting Lab: [facility] [place] [facility] [address] [facility] [address] Performing Lab: [facility] [place] [facility] [address] [facility] [address] [facility] [place] [facility] LIVER FUNCTION ALBUMIN [MASS/VOLU ME] IN SERUM OR PLASMA 3.8 g/dL 3.5 - 5.0 02/20 Specimen Type: SERUM No comment entered. Ordering Provider: DEACON MCPHERSON Report Released Date/Time: Feb 11, 2024 09:40 PM Reporting Lab: [facility] [place] [address] [address] Performing Lab: [facility] [place] [address] [address] [facility] LIVER FUNCTION ALKALINE PHOSPHATAS E [ENZYMATIC ACTIVITY/V OLUME] IN SERUM OR PLASMA 95 U/L 40 - 150 02/20 Specimen Type: SERUM No comment entered. Ordering Provider: DEACON MCPHERSON Report Released Date/Time: Feb 11, 2024 09:40 PM Reporting Lab: [facility] [place] [address] [address] Performing Lab: [facility] [place] [facility] [address] [facility] [address] [facility] LIVER FUNCTION ASPARTATE AMINOTRANS FERASE [ENZYMATIC ACTIVITY/V OLUME] IN SERUM OR PLASMA 13 U/L 5 - 34 02/20 Specimen Type: SERUM No comment entered. Ordering Provider: DEACON MCPHERSON Report Released Date/Time: Feb 11, 2024 09:40 PM Reporting Lab: [facility] [place] [facility] [address] [facility] [address] Performing Lab: [facility] [place] [address] [address] [facility] LIVER FUNCTION ALANINE AMINOTRANS FERASE [ENZYMATIC ACTIVITY/V OLUME] IN SERUM OR PLASMA 16 U/L 02/20 Specimen Type: SERUM No comment entered. Ordering Provider: DEACON MCPHERSON Report Released Date/Time: Feb 11, 2024 09:40 PM Reporting Lab: [address] [address] Performing Lab: [address] [address] [facility] LIVER FUNCTION BILIRUBIN. TOTAL [MASS/VOLU ME] IN SERUM OR PLASMA 0.7 mg/dL 0.2 - 1.2 02/20 Specimen Type: SERUM No comment entered. Ordering Provider: DEACON MCPHERSON Report Released Date/Time: Feb 11, 2024 09:40 PM Reporting Lab: [address] [address] Performing Lab: [address] [address] [facility] CBC AND DIFF (AUTO) LEUKOCYTES [#/VOLUME] IN BLOOD BY AUTOMATED COUNT 8.50 10*3/uL 4.50 - 11.00 02/20 Specimen Type: BLOOD No comment entered. Ordering Provider: DEACON MCPHERSON Report Released Date/Time: Feb 11, 2024 09:40 PM Reporting Lab: [address] [address] Performing Lab: [address] [address] [facility] CBC AND DIFF (AUTO) ERYTHROCYT ES [#/VOLUME] IN BLOOD BY AUTOMATED COUNT 5.30 10*6/uL 4.23 - 5.66 02/20 Specimen Type: BLOOD No comment entered. Ordering Provider: DEACON MCPHERSON Report Released Date/Time: Feb 11, 2024 09:40 PM Reporting Lab: [address] [address] Performing Lab: [facility] [place] [facility] [address] [facility] [address] [facility] CBC AND DIFF (AUTO) HEMOGLOBIN [MASS/VOLU ME] IN BLOOD 14.7 g/dL 12.8 - 17 02/20 Specimen Type: BLOOD No comment entered. Ordering Provider: DEACON MCPHERSON Report Released Date/Time: Feb 11, 2024 09:40 PM Reporting Lab: [facility] [address] [facility] [address] Performing Lab: [facility] [place] [facility] [address] [facility] [address] [facility] CBC AND DIFF (AUTO) HEMATOCRIT [VOLUME FRACTION] OF BLOOD BY AUTOMATED COUNT 43.8 39.2 - 50.4 02/20 Specimen Type: BLOOD No comment entered. Ordering Provider: DEACON MCPHERSON Report Released Date/Time: Feb 11, 2024 09:40 PM Reporting Lab: [facility] [place] [facility] [address] [facility] [address] Performing Lab: [facility] [place] [facility] [address] [facility] [address] [facility] CBC AND DIFF (AUTO) MCV [ENTITIC VOLUME] BY AUTOMATED COUNT 82.6 fL 82 - 99 02/20 Specimen Type: BLOOD No comment entered. Ordering Provider: DEACON MCPHERSON Report Released Date/Time: Feb 11, 2024 09:40 PM Reporting Lab: [facility] [place] [facility] [address] [facility] [address] Performing Lab: [facility] [place] [facility] [address] [facility] [address] [facility] CBC AND DIFF (AUTO) MCHC [MASS/VOLU ME] BY AUTOMATED COUNT 33.6 g/dL 30.8 - 35.1 02/20 Specimen Type: BLOOD No comment entered. Ordering Provider: DEACON MCPHERSON Report Released Date/Time: Feb 11, 2024 09:40 PM Reporting Lab: [facility] [address] [facility] [address] Performing Lab: [facility] [place] [facility] [address] [facility] [address] [facility] CBC AND DIFF (AUTO) PLATELETS [#/VOLUME] IN BLOOD BY AUTOMATED COUNT 272 10*3/uL 140 - 360 02/20 Specimen Type: BLOOD No comment entered. Ordering Provider: DEACON MCPHERSON Report Released Date/Time: Feb 11, 2024 09:40 PM Reporting Lab: [facility] [place] [facility] [address] [facility] [address] Performing Lab: [facility] [place] [facility] [address] [facility] [address] [facility] CBC AND DIFF (AUTO) ERYTHROCYT E DISTRIBUTI ON WIDTH [RATIO] BY AUTOMATED COUNT 13.4 12.0 - 16.0 02/20 Specimen Type: BLOOD No comment entered. Ordering Provider: DEACON MCPHERSON Report Released Date/Time: Feb 11, 2024 09:40 PM Reporting Lab: [facility] [place] [facility] [address] [facility] [address] Performing Lab: [facility] [place] [facility] [address] [facility] [address] [facility] CBC AND DIFF (AUTO) MONOCYTES [#/VOLUME] IN BLOOD BY AUTOMATED COUNT 0.62 10*3/uL 0.30 - 1.10 02/20 Specimen Type: BLOOD No comment entered. Ordering Provider: DEACON MCPHERSON Report Released Date/Time: Feb 11, 2024 09:40 PM Reporting Lab: [facility] [place] [facility] [address] [facility] [address] Performing Lab: [facility] [place] [facility] [address] [facility] [address] [facility] CBC AND DIFF (AUTO) MCH [ENTITIC MASS] BY AUTOMATED COUNT 27.7 pg 26.2 - 32.6 02/20 Specimen Type: BLOOD No comment entered. Ordering Provider: DEACON MCPHERSON Report Released Date/Time: Feb 11, 2024 09:40 PM Reporting Lab: [facility] [address] [facility] [address] Performing Lab: [facility] [address] [facility] [address] [facility] CBC AND DIFF (AUTO) NEUTROPHIL S/100 LEUKOCYTES IN BLOOD BY AUTOMATED COUNT 71.4 43.7 - 75.8 02/20 Specimen Type: BLOOD No comment entered. Ordering Provider: DEACON MCPHERSON Report Released Date/Time: Feb 11, 2024 09:40 PM Reporting Lab: [facility] [address] [facility] [address] Performing Lab: [facility] [address] [facility] [address] [facility] CBC AND DIFF (AUTO) LYMPHOCYTE S/100 LEUKOCYTES IN BLOOD BY AUTOMATED COUNT 17.5 14.0 - 42.3 02/20 Specimen Type: BLOOD No comment entered. Ordering Provider: DEACON MCPHERSON Report Released Date/Time: Feb 11, 2024 09:40 PM Reporting Lab: [facility] [address] [facility] [address] Performing Lab: [facility] [address] [facility] [address] [facility] CBC AND DIFF (AUTO) MONOCYTES/ 100 LEUKOCYTES IN BLOOD BY AUTOMATED COUNT 7.3 5.1 - 13.7 02/20 Specimen Type: BLOOD No comment entered. Ordering Provider: DEACON MCPHERSON Report Released Date/Time: Feb 11, 2024 09:40 PM Reporting Lab: [facility] [address] [facility] [address] Performing Lab: [facility] [address] [facility] [address] [facility] CBC AND DIFF (AUTO) EOSINOPHIL S/100 LEUKOCYTES IN BLOOD BY AUTOMATED COUNT 2.9 0.4 - 6.8 02/20 Specimen Type: BLOOD No comment entered. Ordering Provider: DEACON MCPHERSON Report Released Date/Time: Feb 11, 2024 09:40 PM Reporting Lab: [facility] [place] [facility] [address] [facility] [address] Performing Lab: [facility] [place] [facility] [address] [facility] [address] [facility] [place] CBC AND DIFF (AUTO) BASOPHILS/ 100 LEUKOCYTES IN BLOOD BY AUTOMATED COUNT 0.5 0.1 - 2.0 02/20 Specimen Type: BLOOD No comment entered. Ordering Provider: DEACON MCPHERSON Report Released Date/Time: Feb 11, 2024 09:40 PM Reporting Lab: [facility] [place] [facility] [address] [facility] [address] Performing Lab: [facility] [place] [address] [address] [facility] [place] [facility] CBC AND DIFF (AUTO) NEUTROPHIL S [#/VOLUME] IN BLOOD BY AUTOMATED COUNT 6.07 10*3/uL 2.20 - 7.60 02/20 Specimen Type: BLOOD No comment entered. Ordering Provider: DEACON MCPHERSON Report Released Date/Time: Feb 11, 2024 09:40 PM Reporting Lab: [facility] [place] [facility] [address] [facility] [address] Performing Lab: [facility] [place] [facility] [address] [facility] [address] [facility] [place] [facility] CBC AND DIFF (AUTO) LYMPHOCYTE S [#/VOLUME] IN BLOOD BY AUTOMATED COUNT 1.49 10*3/uL 1.00 - 3.20 02/20 Specimen Type: BLOOD No comment entered. Ordering Provider: DEACON MCPHERSON Report Released Date/Time: Feb 11, 2024 09:40 PM Reporting Lab: [facility] [place] [facility] [address] [facility] [address] Performing Lab: [facility] [place] [address] [address] [facility] CBC AND DIFF (AUTO) EOSINOPHIL S [#/VOLUME] IN BLOOD BY AUTOMATED COUNT 0.25 10*3/uL 0.03 - 0.44 02/20 Specimen Type: BLOOD No comment entered. Ordering Provider: DEACON MCPHERSON Report Released Date/Time: Feb 11, 2024 09:40 PM Reporting Lab: [facility] [place] [facility] [address] [facility] [address] Performing Lab: [facility] [address] [facility] [address] [facility] CBC AND DIFF (AUTO) BASOPHILS [#/VOLUME] IN BLOOD BY AUTOMATED COUNT 0.04 10*3/uL 0.01 - 0.13 02/20 Specimen Type: BLOOD No comment entered. Ordering Provider: DEACON MCPHERSON Report Released Date/Time: Feb 11, 2024 09:40 PM Reporting Lab: [facility] [place] [facility] [address] [facility] [address] Performing Lab: [facility] [place] [facility] [address] [facility] [address] [facility] CBC AND DIFF (AUTO) IMMATURE GRANULOCYT ES/100 LEUKOCYTES IN BLOOD BY AUTOMATED COUNT 0.4 0.0 - 0.7 02/20 Specimen Type: BLOOD No comment entered. Ordering Provider: DEACON MCPHERSON Report Released Date/Time: Feb 11, 2024 09:40 PM Reporting Lab: [facility] [place] [facility] [address] [facility] [address] Performing Lab: [facility] [place] [address] [address] [facility] CBC AND DIFF (AUTO) IMMATURE GRANULOCYT ES [#/VOLUME] IN BLOOD 0.03 10*3/uL 0.00 - 0.06 02/20 Specimen Type: BLOOD No comment entered. Ordering Provider: DEACON MCPHERSON Report Released Date/Time: Feb 11, 2024 09:40 PM Reporting Lab: [facility] [place] [facility] [address] [facility] [address] Performing Lab: [facility] [place] [facility] [address] [facility] [address] [facility] CBC AND DIFF (AUTO) NRBC % 0.0 0.0 - 0.0 02/20 Specimen Type: BLOOD No comment entered. Ordering Provider: DEACON MCPHERSON Report Released Date/Time: Feb 11, 2024 09:40 PM Reporting Lab: [facility] [place] [facility] [address] [facility] [address] Performing Lab: [facility] [place] [facility] [address] [facility] [address] [facility] [place] CBC AND DIFF (AUTO) NRBC, ABS 0.00 10*3/uL 0.00 - 0.00 02/20 Specimen Type: BLOOD No comment entered. Ordering Provider: DEACON MCPHERSON Report Released Date/Time: Feb 11, 2024 09:40 PM Reporting Lab: [facility] [place] [facility] [address] [facility] [address] Performing Lab: [facility] [place] [facility] [address] [facility] [address] [facility] [place] [facility] BASIC METABOLI C PANEL (fasting ) UREA NITROGEN [MASS/VOLU ME] IN SERUM OR PLASMA 14 mg/dL 7 - 25 12/22 Specimen Type: SERUM No comment entered. Ordering Provider: DEACON MCPHERSON Report Released Date/Time: Nov 13, 2023 06:01 PM Reporting Lab: [facility] [place] [facility] [address] [facility] [address] Performing Lab: [facility] [place] [facility] [address] [facility] [address] [facility] [place] [facility] BASIC METABOLI C PANEL (fasting ) GLUCOSE [MASS/VOLU ME] IN SERUM OR PLASMA 100 mg/dL 65 - 100 12/22 Specimen Type: SERUM No comment entered. Ordering Provider: DEACON MCPHERSON Report Released Date/Time: Nov 13, 2023 06:01 PM Reporting Lab: [facility] [place] [facility] [address] [facility] [address] Performing Lab: [facility] [place] [facility] [address] [facility] [address] [facility] [place] BASIC METABOLI C PANEL (fasting ) SODIUM [MOLES/VOL UME] IN SERUM OR PLASMA 140 mmol/L 135 - 145 12/22 Specimen Type: SERUM No comment entered. Ordering Provider: DEACON MCPHERSON Report Released Date/Time: Nov 13, 2023 06:01 PM Reporting Lab: [facility] [place] [facility] [address] [facility] [address] Performing Lab: [facility] [place] [facility] [address] [facility] [address] [place] [facility] BASIC METABOLI C PANEL (fasting ) POTASSIUM [MOLES/VOL UME] IN SERUM OR PLASMA 3.6 mmol/L 3.5 - 5.0 12/22 Specimen Type: SERUM No comment entered. Ordering Provider: DEACON MCPHERSON Report Released Date/Time: Nov 13, 2023 06:01 PM Reporting Lab: [facility] [place] [facility] [address] [facility] [address] Performing Lab: [facility] [place] [facility] [address] [facility] [address] [facility] [place] [facility] BASIC METABOLI C PANEL (fasting ) CHLORIDE [MOLES/VOL UME] IN SERUM OR PLASMA 105 mmol/L 100 - 110 12/22 Specimen Type: SERUM No comment entered. Ordering Provider: DEACON MCPHERSON Report Released Date/Time: Nov 13, 2023 06:01 PM Reporting Lab: [facility] [place] [facility] [address] [facility] [address] Performing Lab: [facility] [place] [facility] [address] [facility] [address] [facility] [place] [facility] BASIC METABOLI C PANEL (fasting ) CARBON DIOXIDE, TOTAL [MOLES/VOL UME] IN SERUM OR PLASMA 25 meq/L 20 - 30 08/29 /2024 Specimen Type: SERUM No comment entered. Ordering Provider: DEACON MCPHERSON Report Released Date/Time: Nov 13, 2023 06:01 PM Reporting Lab: [facility] [place] [facility] [address] [facility] [address] [facility]: [facility] [address] [address] [facility] [place] [facility] BASIC METABOLI C PANEL (fasting ) CREATININE [MASS/VOLU ME] IN SERUM OR PLASMA 1.47 mg/dL 0.50 - 1.40 12/22 H Specimen Type: SERUM No comment entered. Ordering Provider: DEACON MCPHERSON Report Released Date/Time: Nov 13, 2023 06:01 PM Reporting Lab: [facility] [place] [address] [address] Performing Lab[facility] [place] [address] [address] [facility] BASIC METABOLI C PANEL (fasting ) GLOMERULAR FILTRATION RATE/1.73 SQ M.PREDICTE D [VOLUME RATE/AREA] IN SERUM, PLASMA OR BLOOD BY CREATININE -BASED FORMULA (CKD-EPI 2020) 48 mL/min 60 12/22 L Specimen Type: SERUM No comment entered. Ordering Provider: DEACON MCPHERSON Report Released Date/Time: Nov 13, 2023 06:01 PM Reporting Lab: [facility] [place] [address] [address] Performing Lab: [facility] [place] [address] [address] [facility] LIVER FUNCTION PROTEIN [MASS/VOLU ME] IN SERUM OR PLASMA 7.2 g/dL 6.0 - 8.3 12/22 Specimen Type: SERUM No comment entered. Ordering Provider: DEACON MCPHERSON Report Released Date/Time: Nov 13, 2023 06:01 PM Reporting Lab: [facility] [place] [address] [address] Performing Lab[facility] [place] [facility] [address] [facility] [address] [facility] LIVER FUNCTION ALBUMIN [MASS/VOLU ME] IN SERUM OR PLASMA 4.0 g/dL 3.5 - 5.0 12/22 Specimen Type: SERUM No comment entered. Ordering Provider: DEACON MCPHERSON Report Released Date/Time: Nov 13, 2023 06:01 PM Reporting Lab: [facility] [address] [facility] [address] Performing Lab: [facility] [address] [facility] [address] [facility] LIVER FUNCTION ALKALINE PHOSPHATAS E [ENZYMATIC ACTIVITY/V OLUME] IN SERUM OR PLASMA 100 U/L 40 - 150 12/22 Specimen Type: SERUM No comment entered. Ordering Provider: DEACON MCPHERSON Report Released Date/Time: Nov 13, 2023 06:01 PM Reporting Lab: [facility] [address] [facility] [address] Performing Lab: [facility] [address] [facility] [address] [facility] LIVER FUNCTION ASPARTATE AMINOTRANS FERASE [ENZYMATIC ACTIVITY/V OLUME] IN SERUM OR PLASMA 13 U/L 5 - 34 12/22 Specimen Type: SERUM No comment entered. Ordering Provider: DEACON MCPHERSON Report Released Date/Time: Nov 13, 2023 06:01 PM Reporting Lab: [facility] [address] [facility] [address] Performing Lab: [facility] [address] [facility] [address] [facility] LIVER FUNCTION ALANINE AMINOTRANS FERASE [ENZYMATIC ACTIVITY/V OLUME] IN SERUM OR PLASMA 17 U/L 12/22 Specimen Type: SERUM No comment entered. Ordering Provider: DEACON MCPHERSON Report Released Date/Time: Nov 13, 2023 06:01 PM Reporting Lab: [facility] [address] [facility] [address] Performing Lab: [facility] [address] [facility] [address] [facility] LIVER FUNCTION BILIRUBIN. TOTAL [MASS/VOLU ME] IN SERUM OR PLASMA 0.7 mg/dL 0.2 - 1.2 12/22 Specimen Type: SERUM No comment entered. Ordering Provider: DEACON MCPHERSON Report Released Date/Time: Nov 13, 2023 06:01 PM Reporting Lab: [facility] [address] [facility] [address] Performing Lab: [facility] [address] [facility] [address] [facility] Vital Signs Combined list of inpatient and outpatient Vital Signs from Department of Defense and Veterans Affairs, ranging from 12 months to all on record, depending upon the facility. Vital Sign Value Date Comments Source SYSTOLIC BLOOD PRESSURE 143 02/21/20 24 15:21:31 [facility] DIASTOLIC BLOOD PRESSURE 63 024 15:21:31 [facility] PULSE OXIMETRY 100 02/21/2024 15:21:31 [facility] WEIGHT 157 02/21/2024 15:21:31 [facility] BMI 27kg/m2 02/21/2024 15:21:31 [facility] PAIN 0 02/21/2024 15:21:31 [facility] HEIGHT 64 02/21/2024 15:21:31 [facility] TEMPERATURE 98.1 02/21/2024 15:21:31 [facility] PULSE 53 02/21/2024 15:21:31 [facility] RESPIRATION 20 02/21/2024 15:21:31 [facility] SYSTOLIC BLOOD PRESSURE 168 12/23/19 24 13:13:35 [facility] DIASTOLIC BLOOD PRESSURE 70 024 13:13:35 [facility] PULSE OXIMETRY 99 12/23/2023 13:13:35 [facility] PAIN 0 12/23/2023 13:13:35 [facility] PULSE 54 12/23/2023 13:13:35 [facility] RESPIRATION 22 12/23/2023 13:13:35 [facility] SYSTOLIC BLOOD PRESSURE 177 11/22/19 24 15:30:56 [facility] DIASTOLIC BLOOD PRESSURE 81 024 15:30:56 [facility] PULSE OXIMETRY 98 11/22/2023 15:30:56 [facility] WEIGHT 155.9 11/22/2023 15:30:56 [facility] BMI 27kg/m2 11/22/2023 15:30:56 [facility] PAIN 0 11/22/2023 15:30:56 [facility] HEIGHT 64 11/22/2023 15:30:56 [facility] TEMPERATURE 98.2 11/22/2023 15:30:56 [facility] PULSE 62 11/22/2023 15:30:56 [facility] RESPIRATION 16 11/22/2023 15:30:56 [facility] SYSTOLIC BLOOD PRESSURE 138 08/23/19 24 14:17:18 [facility] DIASTOLIC BLOOD PRESSURE 84 024 14:17:18 [facility] PULSE OXIMETRY 97 08/23/2023 14:17:18 [facility] WEIGHT 147 08/23/2023 14:17:18 [facility] BMI 25kg/m2 08/23/2023 14:17:18 [facility] PAIN 0 08/23/2023 14:17:18 [facility] TEMPERATURE 98.3 08/23/2023 14:17:18 [facility] PULSE 58 08/23/2023 14:17:18 [facility] RESPIRATION 16 08/23/2023 14:17:18 [facility] SYSTOLIC BLOOD PRESSURE 160 05/18/19 24 12:52:53 [facility] DIASTOLIC BLOOD PRESSURE 85 024 12:52:53 [facility] PULSE OXIMETRY 97 05/18/2023 12:52:53 [facility] WEIGHT 158 05/18/2023 12:52:53 [facility] BMI 26kg/m2 05/18/2023 12:52:53 [facility] PAIN 0 05/18/2023 12:52:53 [facility] TEMPERATURE 98.1 05/18/2023 12:52:53 [facility] PULSE 80 05/18/2023 12:52:53 [facility] RESPIRATION 16 05/18/2023 12:52:53 [facility] Encounters Combined list of: 1) Encounters from Department of Veterans Affairs facilities going back up to thelast 18 months. 2) Encounters from the Department of Defense facilities going back up to 280 months. Location Location Details Encounter Type Encounter Number Reason For Visit Attending Provider ADM Date DC Date Status Disposition Source [facility] Outpatient Encounter [id number] 10/12 [facility] Outpatient [facility]counter [id number] 10/12 [facility] Outpatient [facility]counter [id number] 10/13 [facility] Outpatient [facility]counter [id number] 10/13 [facility] Outpatient Encounter [id number] 10/16 [facility] Outpatient [facility]counter [id number] 10/18 [facility] Outpatient [facility]counter [id number] 10/19 [facility] Outpatient [facility]counter [id number] 10/19 [facility] Outpatient Encounter [id number] 10/28 [facility] OFFICE O/P EST LOW 20-29 MIN [id number] Diagnos is: ICD-10- CM I63.9 Cerebra l infarct ion, unspeci fied
KISHOR MCPHERSON RD 10/28 [facility] Outpatient Encounter [id number] 10/29 [facility] HC PRO PHONE CALL 11-20 MIN [id number] Diagnos is: ICD-10- CM I63.9 Cerebra l infarct ion, unspeci fied
LACKEY,E ULISES DENZEL 10/29 [facility] Outpatient Encounter [id number] 10/29 [facility] Outpatient Encounter [id number] 11/02 [facility] Outpatient Encounter [id number] 11/04 [facility] Outpatient Encounter [id number] 11/05 [facility] Outpatient Encounter [id number] 11/05 [facility] EYE EXAM&TX ESTAB PT 1/>VST [id number] Diagnos is: ICD-10- CM 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
ZEINAKAMILAH NAVARRETEE 11/10 [facility] Outpatient Encounter [id number] 11/11 [facility] OT EVAL LOW COMPLEX 30 MIN [id number] Diagnos is: ICD-10- CM I63.9 Cerebra l infarct ion, unspeci fied
BAL RICKS 11/12 [facility] Outpatient Encounter [id number] 11/13 [facility] Outpatient Encounter [id number] 11/17 [facility] Outpatient Encounter [id number] 11/20 [facility] Outpatient Encounter [id number] 11/20 [facility] Outpatient Encounter [id number] 11/20 [facility] Outpatient Encounter [id number] 11/26 [facility] Outpatient [facility]counter [id number] 12/07 [facility] Outpatient [facility]counter [id number] 12/13 [facility] Outpatient Encounter [id number] 12/14 [facility] OFFICE O/P EST SF 10-19 MIN [id number] Diagnos is: ICD-10- CM E11.9 Type 2 diabete s mellitu s without complic ations< br/> Frida BERRIOS 12/29 [facility] Outpatient Encounter [id number] 01/22 [facility] Outpatient Encounter [id number] 01/24 [facility] Outpatient Encounter [id number] 01/28 [facility] Outpatient Encounter [id number] 02/10 [facility] Outpatient Encounter [id number] 02/11 [facility] OFFICE O/P EST SF 10-19 MIN [id number] Diagnos is: ICD-10- CM N40.1 Benign prostat ic hyperpl yudy with lower urinary tract symp
KISHOR MCPHERSON RD D 02/17 [facility] HEARING AID EXAM BOTH EARS [id number] Diagnos is: ICD-10- CM H90.3 Sensori neural hearing loss, bilater al
CAYETANO MONTIEL 03/09 [facility] Outpatient Encounter [id number] 03/25 [facility] Outpatient Encounter [id number] 04/05 [facility] FEES W/LARYNGEA L SENSE I&R [id number] Diagnos is: ICD-10- CM Z46.1 Encount er for fitting and adjustm ent of hearing aid<br/ > CAYETANO MONTIEL 04/06 [facility] Outpatient Encounter [id number] 04/13 [facility] Outpatient Encounter [id number] 04/16 [facility] Outpatient Encounter [id number] 05/11 [facility] Outpatient Encounter [id number] 05/11 [facility] Outpatient Encounter [id number] 05/13 [facility] OFFICE O/P EST SF 10 MIN [id number] Diagnos is: ICD-10- CM N40.0 Benign prostat ic hyperpl yudy without lower urinry tract symp
KISHOR MCPHERSON RD 05/18 [facility] PARING/CUT G B9 HYPRKER LES 1 [id number] Diagnos is: ICD-10- CM R73.9 Hypergl ycemia, unspeci fied
Frida BERRIOS 05/20 [facility] Outpatient Encounter [id number] 06/29 [facility] HEARING AID REPAIR/MOD IFYING [id number] Diagnos is: ICD-10- CM Z46.1 Encount er for fitting and adjustm ent of hearing aid<br/ > ELIZABETH MONTGOMERY L 08/08 [facility] Outpatient Encounter [id number] 08/15 [facility] Outpatient Encounter [id number] 08/17 [facility] OFFICE O/P EST SF 10 MIN [id number] Diagnos is: ICD-10- CM I10 Essenti al (primar y) hyperte nsion<b r/> KISHOR MCPHERSON RD 08/22 [facility] OFFICE O/P EST LOW 20 MIN [id number] Diagnos is: ICD-10- CM Z98.1 Arthrod esis status< br/> ROBBY SELLERS D 09/29 [facility] Outpatient Encounter [id number] 10/04 [facility] Outpatient Encounter [id number] 10/18 [facility] Outpatient Encounter [id number] 11/15 [facility] OFFICE O/P EST SF 10 MIN [id number] Diagnos is: ICD-10- CM I10 Essenti al (primar y) hyperte nsion<b r/> KISHOR MCPHERSON RD Frida 11/21 [facility] [id number] Diagnos is: ICD-10- CM E11.9 Type 2 diabete s mellitu s without complic ations< br/> KAMILAH PASTRANA 11/29 [facility] FIT SPECTACLES BIFOCAL [id number] Diagnos is: ICD-10- CM Z46.0 Encount er for fit/adj st of spectac les and contact lenses< br/> KAMILAH PASTRANA SADIA 11/29 [facility] OFF/OP EST MAY X REQ PHY/QHP [id number] Diagnos is: ICD-10- CM I10 Essenti al (primar y) hyperte nsion<b r/> MATTHEWSUDHA ALTMAN MOTHY E 12/22 [facility] Outpatient Encounter [id number]/01 [facility] HEARING AID REPAIR/MOD IFYING [id number] Diagnos is: ICD-10- CM Z46.1 Encount er for fitting and adjustm ent of hearing aid<br/ > SENIOR,ELIZABETH OLE L 01/17 [facility] Outpatient Encounter [id number] 01/20 [facility] OFF/OP EST MAY X REQ PHY/QHP [id number] Diagnos is: ICD-10- CM I10 Essenti al (primar y) hyperte nsion<b r/> JOSE CHRISTIAN A 01/20 [facility] Outpatient Encounter [id number] 01/25 [facility] Outpatient Encounter [id number]/25 [facility] Outpatient Encounter [id number] 01/27 [facility] Outpatient Encounter [id number] 02/13 [facility] OFFICE O/P EST SF 10 MIN [id number] Diagnos is: ICD-10- CM I10 Essenti al (primar y) hyperte nsion<b r/> KISHOR MCPHERSON RD D 02/20 [facility] TRIM NAIL(S) ANY NUMBER [id number] Diagnos is: ICD-10- CM 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 Social History Type Response Date Comment Sourc e Tobacco smoking status [facility] VA-TOBACCO FORMER USER 08/23/2023 [facility] History of tobacco use VA-TOBACCO QUIT 15 YRS OR MORE 08/23/2023 [facility] [place] [facility] tobacco use [place] 08/07/2021 [facility]/18[facility]2019 [facility] of [facility] Plan of Care List of future care activities from [facility] facilities. Additional future care activities may be listed in the Assessment and Plan section. Date/Time Care Activity Care Activity Detail Facili ty 05/23/2024 AMBULATORY - MEDICINE AMBULATORY - MEDICI NE [facility] 07/13/2024 AMBULATORY - MEDICINE AMBULATORY - MEDICI NE [facility] Advance Directives List of completed, amended, or rescinded Advance Directives on record at [facility] facilities. An actual copy of the Directive is not included. Date Advance Directive Provider Source 05/18/2023 ADVANCE DIRECTIVE ADRIANA GARCIA [facility]
--- OUTSIDE RECORDS SUMMARY | 2024-04-11 12:34 | XMS_ITS | Encounter Summary ---
Author Name [facility] [place] [facility] [place] [facility] [place] Address [address] [place] [address] Care Team Providers Care Shoe Repairer Name Role Phone CLAUDIA MCPHERSON Primary Care Provider Unavailabl e Insurance Providers: [...] Robledo's Name Patient's Relationship to Policy Robledo [facility] (WNR) MEDICARE ADVANTAGE [place] INDIV IDUAL - [place] August 24, 2020 [id number] [phone] FR DENISE VERA PATIENT [employer] [facility] (WNR) MEDICARE [facility] ([facility]) August 24, 2020 [id number] [phone] FR DENISE VERA PATIENT [facility] (WNR) MEDICARE [facility] (WNR) Dec 25, 2010 [facility] [id number] [phone] FR DENISE VERA PATIENT Selected Encounter This section includes the information on record at [place] for the Encounter. Date/Time Encounter Type Encounter Description Reason Pro vider Source May 13, 2023 01:14 PM Outpatient Encounter PRIMARY CARE/MEDICINE IHE Encounter Template Text not used by [place] Plan of Treatment: Future Appointments (+ 6 months) and Future Tests (+/- 45 days) The Plan of Treatment section includes future care activities for the patient from all [place] treatmentfacilities. This section includes future appointments and future orders which are active, pending or scheduled. Future Appointments This section includes appointments that were scheduled to occur 6 months from the date of the Encounter, up to a maximum of 20 appointments. The data comes from all [place] treatment facilities. Appointment Date/Time Appointment Type Appointme nt Facility Name May 18, 2023 01:00 PM [facility] May 20, 2023 11:30 AM [facility]BUL[facility] - MEDIC[facility] Aug 09, 2023 01:00 PM [facility] Aug 23, 2023 02:30 PM [facility]UL[facility] Sep 30, 2023 03:00 PM AMBULATORY - MEDICINE [facility] Lab Results: +/- 30 days of the encounter This section includes the Chemistry and Hematology Lab Results on record with [place] for the patient. Radiology Reports and Pathology Reports are provided separately, in subsequent sections. Lab Results This section contains the Chemistry/Hematology Results that were resulted 30 days before or 30 daysafter the date of the Encounter. Date/Time Source Result Type Result - Unit Interpretation Reference Range Comment May 14, 2023 11:33 AM [facility] BASIC METABOLIC PANEL (fasting) Specimen Type: SERUM No comment entered. Ordering Provider: CLAUDIA MCPHERSON Report Released Date/Time: May 09, 2023 07:03 PM Reporting Lab: [address] [address] Performing Lab: [address] [address] UREA NITROGEN 25 mg/dL 7-25 GLUCOSE 142 mg/dL H 65-100 SODIUM 141 mmol/L 135-145 POTASSIUM 3.3 mmol/L L 3.5-5.0 CHLORIDE 100 mmol/L 100-110 CO2 27 meq/L 20-30 CREATININE, Serum 1.61 mg/dL H 0.50-1.40 eGFR(CKD-EPI 2020) 43 mL/min L >60 May 14, 2023 11:33 AM [facility] LIVER FUNCTION Specimen Type: SERUM No comment entered. Ordering Provider: CLAUDIA MCPHERSON Report Released Date/Time: May 09, 2023 07:03 PM Reporting Lab: [facility] [address] [facility] [address] Performing Lab: [facility] [address] [facility] [address] PROTEIN,TOTAL 7.4 g/dL 6.0-8.3 ALBUMIN 4.1 g/dL 3.5-5.0 ALKALINE PHOSPHATASE 73 U/L 40-150 AST 19 U/L 5-34 ALT 28 U/L BILIRUBIN, TOTAL 0.7 mg/dL 0.2-1.2 May 14, 2023 11:33 AM [facility] LIPID PANEL FASTING Specimen Type: SERUM No comment entered. Ordering Provider: CLAUDIA MCPHERSON Report Released Date/Time: May 09, 2023 07:03 PM Reporting Lab: [facility] [address] [facility] [address] Performing Lab: [facility] [address] [facility] [address] CHOLESTEROL 144 mg/dL TRIGLYCERIDE 196 mg/dL H 0-150 LDL calculated 65 mg/dL 0-129 CHOL/HDL 3.6 HDL CHOLESTEROL 40 mg/dL 40-60 May 14, 2023 11:33 AM [facility] TSH Specimen Type: SERUM No comment entered. Ordering Provider: CLAUDIA MCPHERSON Report Released Date/Time: May 09, 2023 07:03 PM Reporting Lab: [facility] [address] [facility] [address] Performing Lab: [address] [address] TSH 1.41 u[IU]/mL 0.35-5.00 May 14, 2023 11:33 AM [facility] CBC AND DIFF (AUTO) Specimen Type: BLOOD No comment entered. Ordering Provider: CLAUDIA MCPHERSON Report Released Date/Time: May 09, 2023 07:03 PM Reporting Lab: [facility] [address] [facility] [address] Performing Lab: [facility] [address] [facility] [address] WBC 9.00 10*3/uL 4.50-11.00 RBC 5.65 10*6/uL 4.23-5.66 HGB 15.8 g/dL 12.8-17 HCT 47.6 39.2-50.4 MCV 84.2 fL 82-99 MCHC 33.2 g/dL 30.8-35.1 PLT 343 10*3/uL 140-360 RDW-CV 13.2 12.0-16.0 Swift, Abs 0.72 10*3/uL 0.30-1.10 MCH 28.0 pg 26.2-32.6 Neut % 63.1 43.7-75.8 Lymph % 23.7 14.0-42.3 Swift % 8.0 5.1-13.7 Eos % 3.9 0.4-6.8 Baso % 0.9 0.1-2.0 Neut, Abs 5.68 10*3/uL 2.20-7.60 Lymph, Abs 2.13 10*3/uL 1.00-3.20 Eos, Abs 0.35 10*3/uL 0.03-0.44 Baso, Abs 0.08 10*3/uL 0.01-0.13 Immature Gran % 0.4 0.0-0.7 Immature Gran, Abs 0.04 10*3/uL 0.00-0.06 May 14, 2023 11:33 AM [facility] HEMOGLOBIN A1C PANEL Specimen Type: BLOOD Comment: Values obtained from A1C measurements can vary. For atypical A1C assays, a reported value of 7.0 could actually be between 6.72 and 7.28 if measured by a reference method. A reported value of 9.0 could actually be between 8.73 and 9.27. Ref: http://www.ngs p.org/CAPdata. asp Ordering Provider: CLAUDIA MCPHERSON Report Released Date/Time: May 09, 2023 07:03 PM Reporting Lab: [facility] [address] [facility] [address] Performing Lab: [facility] [address] [facility] [address] HEMOGLOBIN A1C 7.1 H 4.0-5.6 May 14, 2023 11:33 AM [facility] URINALYSIS CLEAN CATCH Specimen Type: URINE Comment: If Glucose = >500 and Ketones are positive, please alert the Physician. Ordering Provider: CLAUDIA MCPHERSON Report Released Date/Time: May 09, 2023 07:03 PM Reporting Lab: [facility] [address] [facility] [address] Performing Lab: [address] [address] UA COLOR Light-Yellow Yellow UA APPEARANCE Clear Clear UA GLUCOSE >1000 mg/dL Negative UA KETONES NEGATIVE mg/dL Negative UA BLOOD NEGATIVE mg/dL Negative UA PROTEIN NEGATIVE mg/dL Negative UA NITRITE NEGATIVE mg/dL Negative UA BILIRUBIN NEGATIVE mg/dL Negative UA SPECIFIC GRAVITY 1.024 H 1.016-1.02 2 UA pH 6.0 5.0-9.0 UA UROBILINOGEN <2.0 mg/dL <2.0 UA LEUKOCYTE NEGATIVE Negative May 14, 2023 11:33 AM [facility] MICROALBUMIN CREATININE RATIO PANEL Specimen Type: URINE No comment entered. Ordering Provider: CLAUDIA MCPHERSON Report Released Date/Time: May 09, 2023 07:03 PM Reporting Lab: [address] [address] Performing Lab: [address] [address] MICROALBUMIN/C REATININE RATIO 22.0 mg/g 0-29.9 MICROALBUMIN,Q UANTITATIVE 1.8 mg/dL RR UNAVAIL CREATININE URINE 81.64 mg/dL Social History: Smoking Status (Most current) and Tobacco Use (All prior to encounter date) This section includes the most current, and the historical, smoking and tobacco- related health factors from the [place] facility where the Encounter took place. Current Smoking Status This section includes the most current smoking, or tobacco-related health factor, from the [place] facility where the Encounter took place. Date/Time Current Smoking Status Comment Facil ity Aug 17, 2022 03:00 PM [place]-TOBACCO QUIT 15 YRS OR MORE [facility] Tobacco Use History This section includes a history of the smoking, or tobacco-related health factors, that were collected on or before the date of the Encounter. The data comes from the [place] facility where the Encounter took place. Date/Time Smoking Status/Tobacco Use Comment F acility Aug 17, 2022 03:00 PM [place] [facility] 15 [facility] Aug 07, 2021 03:00 PM [place]-TOBACCO FORMER USER [place] [facility] [place] [facility] Aug 07, 2021 03:00 PM VA-TOBACCO QUIT 15 YRS OR MORE [facility] Jul 18, 2019 10:24 AM VA-TOBACCO FORMER USER [place] [facility] [place] [facility] Jul 18, 2019 10:24 AM [facility]ACCO [facility] Mar 02, 2018 09:39 AM VA-TOBACCO NEVER USED [facility] Advance Directives: All historical and current Section Date Range: From patient's date of to the date document was created. This section includes ALL of a patient's completed or amended [place] Advance and Rescinded Directives. The entries below indicate that a directive exists for the patient, but an actual copy is not included with this document. The data comes from all [place] facilities. Date Advance Directives Provider Source May 18, 2023 ADVANCE DIRECTIVE ADRIANA GARCIA [facility] Encounter Notes: All associated encounter notes This section contains the clinical notes associated to the Encounter. Date/Time Encounter Note(s) Provider Source May 13, 2023 01:14 PM ADMINISTRATIVE NOTE: LOCAL TITLE: ADMINISTRATIVE NOTE STANDARD TITLE: ADMINISTRATIVE NOTE DATE OF NOTE: MAY 13, 2023@13:14 ENTRY DATE: MAY 13, 2023@13:14:45 AUTHOR: ASHISH BHAKTA EXP COSIGNER: URGENCY: STATUS: COMPLETED Reminder call for your upcoming Primary Care Appointment and the need for preparations prior to your upcoming appt. [ ] Location in [facility] [address] [facility] [X] Fasting labs [ ] Lab work within 30 days [ ] Urine [ ] No Preparation Action taken: [ ] Called , left voice message [ ] Called , unable to leave voice mail [X] Spoke to /transitional care manager to remind them of upcoming appt/preparations Upcoming Appointments: 05/18/2023 13:00 CWM/NO/PACT 2 05/20/2023 11:30 CWM/NO/PODIATRY/AGUSTINA 11/30/2023 13:30 NHM/OPTOMETRY/ZEINA /jai/ ASHISH BHAKTA AMSA Signed: 05/13/2023 13:14 ASHISH BHAKTA [facility]
--- OUTSIDE RECORDS SUMMARY | 2024-04-11 12:36 | XMS_ITS | Encounter Summary ---
Author Name [facility] ([place] Organization [facility] Address [address] [place] [address] Care Team Providers Care Piecer Name Role Phone CLAUDIA MCPHERSON Primary Care [...] Robledo's Name Patient's Relationship to Policy Robledo [facility] (WNR) MEDICARE [facility] August 24, 2020 [id number] [phone] FR DENISE VERA PATIENT [facility] (WNR) MEDICARE ADVANTAGE [place] INDIV IDUAL - [place] August 24, 2020 [id number] [phone] FR DENISE VERA PATIENT [facility] (WNR) MEDICARE [facility] ([facility] Dec 25, 2010 [facility] [id number] [phone] FR DENISE VERA PATIENT Selected Encounter This section includes the information on record at [place] for the Encounter. Date/Time Encounter Type Encounter Description Reason Provider Source Sep 30, 2023 03:00 PM OFFICE O/P EST LOW 20 MIN PODIATRY ICD-10-CM Z98.1 Arthrodesis status ZULAY POWERS Encounter Template Text not used by [facility] Assessments - Encounter Diagnoses This section includes the primary and secondary diagnoses documented for the Encounter. Date/Time Primary/Secondary Diagnosis Diagnosis Name Provider Source Oct 01, 2023 01:32 PM PRIMARY Arthrodesis status [facility] Oct 01, 2023 01:32 PM SECONDARY Nail dystrophy ZULAY POWERS [facility] Oct 01, 2023 01:32 PM SECONDARY Type 2 diabetes w diabetic autonomic (poly)neuropathy ZULAY POWERS [facility] Plan of Treatment: Future Appointments (+ 6 months) and Future Tests (+/- 45 days) The Plan of Treatment section includes future care activities for the [facility] This section includes future appointments and future orders which are active, pending or scheduled. Future Appointments This section includes appointments that were scheduled to occur 6 months from the date of the Encounter, up to a maximum of 20 appointments. The data comes from all [place] treatment facilities. Appointment Date/Time Appointment Type Appointme nt Facility Name Nov 22, 2023 03:30 PM AMBULATORY - MEDICINE [facility] [place] [facility] Nov 30, 2023 01:30 PM AMBULATORY - MEDICINE [facility] [place] [facility] Dec 23, 2023 01:30 PM AMBULATORY - MEDIC[facility] [place] [facility] Jan 18, 2024 01:30 PM [facility] Jan 21, 2024 02:00 PM AMBULATORY - MED[facility] [place] [facility] Feb 21, 2024 03:30 PM AMBULATORY - MEDICINE [facility] [place] [facility] Mar 02, 2024 01:00 PM [facility]ULATORY [facility] Social History: Smoking Status (Most current) and Tobacco Use (All prior to encounter date) This section includes the most current, and the historical, smoking and tobacco- related health factors from the [place] facility where the Encounter took place. Current Smoking Status This section includes the most current smoking, or tobacco-related health factor, from the [place] facility where the Encounter took place. Date/Time Current Smoking Status Charo kaur Aug 23, 2023 02:30 PM VA-TOBACCO FORMER USER [facility] [place] [facility] Tobacco Use History This section includes a history of the smoking, or tobacco-related health factors, that were collected on or before the date of the Encounter. The data comes from the [place] facility where the Encounter took place. Date/Time Smoking Status/Tobacco Use Comment F acility Aug 23, 2023 02:30 PM VA-TOBACCO QUIT 15 YRS OR MORE AL [facility] [place] [facility] Aug 17, 2022 03:00 PM VA-TOBACCO FORMER USER [place] [facility] [place] [facility] Aug 17, 2022 03:00 PM VA-TOBACCO QUIT 15 YRS OR MORE [place] [facility] [place] [facility] Aug 07, 2021 03:00 PM VA-TOBACCO FORMER USER [place] [facility] [place] [facility] Aug 07, 2021 03:00 PM VA-TOBACCO QUIT 15 YRS OR MORE [place] [facility] [place] [facility] Jul 18, 2019 10:24 AM VA-TOBACCO FORMER USER [place] [facility] [place] [facility] Jul 18, 2019 10:24 AM VA-TOBACCO QUIT 15 YRS OR MORE [place] [facility] [place] [facility] Mar 02, 2018 09:39 AM VA-TOBACCO [facility] Advance Directives: All historical and current Section Date Range: From patient's date of to the date document was created. This section includes ALL of a patient's completed or amended [place] Advance and Rescinded Directives. The entries below indicate that a directive exists for the patient, but an actual copy is not included with this document. The data comes from all [place] facilities. Date Advance Directives Provider Source May 18, 2023 ADVANCE DIRECTIVE ADRIANA GARCIA [place] [facility] [place] [facility] Encounter Notes: All associated encounter notes This section contains the clinical notes associated to the Encounter. Date/Time Encounter Note(s) Provider Source Sep 30, 2023 03:19 PM PODIATRY NOTE: LOCAL TITLE: PODIATRY NOTE STANDARD TITLE: PODIATRY NOTE DATE OF NOTE: SEP 30, 2023@15:19 ENTRY DATE: SEP 30, 2023@15:21:35 AUTHOR: ZULAY POWERSIGNER: URGENCY: STATUS: COMPLETED Podiatry High Risk Foot Encounter [facility] provider: Zulay Powers DPM Date: SEP 30, 2023 JUDY VERA MALE [id number] Jan 78 [employer] FROM Sep TO Sep Primary Care:CLAUDIA MCPHERSON Subjective: My left fifth toe has no toe nail ( was ablaited?) Diabetic foot history: IFG/ DM II Hx left ankle fusion for valgus foot sounds like has hx callus lat fifth toe no hx ulcers wounds has exdepth shoes with cm inserts. Diabetic/ HRF/ PVD LE History: [x] pvd mild [x] CKD stage III [ ] neuropathy [ ] meds: [ ] wound active [ ] infection active [ ] wound history yes [ ] amputation hx [x] deformity -fusion left ankle [ ] charcot [ ] surgical deformity intervention PMH list CPRS: Active problems - Computerized Problem List is the source for the followin. Exposure to potentially hazardous substance 2. Benign Prostatic Hypertrophy without Outflow Obstruction ([facility] [id number]) 3. Stroke 4. 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 Food insecurity 6. Diabetes mellitus type 2 7. Chronic kidney disease stage 3 due to type 2 diabetes mellitus 8. Abnormal findings on diagnostic imaging of lung 9. Sleep Apnea ([facility] [id number]) 10. Renal Impairment ([facility] [id number]) 11. Shared care - specialist and GP 12. Raised PSA 13. Under care of multiple providers 14. Patient requires hospitalization 15. Hyperglycemia 16. Adult screening status 17. History of surgery 18. History of stroke in last year 19. HTN - Hypertension ([facility] [id number]) 20. Hyperlipidemia ([facility] [id number]) 21. Cognitive impairment 22. Cancer in situ skin of trunk Active Out Patient medications: Active Outpatient Medications (including Supplies): Active Outpatient Medications Status 1) ACCU-CHEK GUIDE (GLUCOSE) TEST STRIP USE 1 STRIP TO ACTIVE TEST BLOOD SUGARS EVERY FOUR DAYS 2) ACCU-CHEK GUIDE(GLUCOSE)HI/LO CNTRL SOLN 1 DROP ACTIVE TOPICALLY DIRECTED TO TEST GLUCOMETER FOR ACCURACY 3) AMLODIPINE BESYLATE 5MG TAB TAKE ONE TABLET BY MOUTH ACTIVE (S) ONCE DAILY FOR BLOOD PRESSURE/HEART, DO NOT TAKE WITH GRAPEFRUIT JUICE 4) CLOPIDOGREL BISULFATE 75MG TAB TAKE ONE TABLET BY ACTIVE MOUTH ONCE DAILY 5) DONEPEZIL HCL 10MG TAB TAKE ONE TABLET BY MOUTH ONCE ACTIVE DAILY FOR ALZHEIMER'S DISEASE 6) EMPAGLIFLOZIN 25MG TAB TAKE ONE-HALF TABLET BY MOUTH ACTIVE ONCE DAILY FOR DIABETES 7) FINASTERIDE 5MG TAB TAKE ONE TABLET BY MOUTH ONCE ACTIVE DAILY 8) LANCET,SOFTCLIX USE 1 LANCET DIRECTED EVERY FOUR ACTIVE DAYS TO TEST BLOOD SUGAR 9) OXYBUTYNIN CHLORIDE 5MG SA TAB TAKE ONE TABLET BY ACTIVE MOUTH ONCE DAILY FOR BLADDER INSTABILITY 10) PANTOPRAZOLE NA 40MG EC TAB TAKE ONE TABLET BY MOUTH ACTIVE TWICE DAILY 11) TAMSULOSIN HCL 0.4MG CAP TAKE TWO CAPSULES BY MOUTH ACTIVE (S) AT BEDTIME FOR ENLARGED PROSTATE Active Non-VA Medications Status 1) Non-VA ALBUTEROL 90MCG (CFC-F) 200D ORAL INHL 2 PUFFS ACTIVE BY MOUTH EVERY 4 HOURS NEEDED 12 Total Medications Imaging reports: Lab Data: CREATININE-EGFR 08/23/23 15:15 1.53 H 08/18/23 09:07 1.68 H 05/14/23 11:33 1.61 H No Data Available for EGFR 1 yr HEMOGLOBIN A1C TREND Collection DT Spec HGBA1c 08/18/2023 09:07 BLOOD 7.5 H 05/14/2023 11:33 BLOOD 7.1 H 02/11/2023 09:26 BLOOD 7.0 H 09/15/2022 14:16 BLOOD 7.0 H 06/03/2022 11:12 BLOOD 7.6 H ALBUMIN Collection DT Specimen Test Name Result Units Ref Range 08/18/2023 09:07 SERUM !! ALBUMIN 4.0 g/dL 3.5 - 5.0 !! Indicates COMMENTS AVAILABLE...Refer to Interim Lab Report. BMI:BMI: 24.5 PE:General: 78-year-old male awake alert oriented x2 pleasant cooperative neatly dressed good hygiene no distress breathing on room air speaking in full sentences arrives to clinic by wheelchair transport able to stand and transfer with assistance. 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 The patient was educated on the following: DO - Wear panty hose or socks. - Wear comfortable shoes that fit well. - Wear shoes or slippers at all times. - Keep skin soft. Put lotion on top and bottom of feet. - Use only luke warm water when washing your feet. - Look at feet daily for open sores, cuts or color changes. Using a hand held mirror is helpful when looking at the bottom of your feet. - Keep feet dry, especially between the toes. Use powder if needed. - Have feet checked by your doctor or foot doctor regularly. - If you have an open sore, drainage, color changes, increased warmth or pain, notify your doctor promptly. - Cut toenails straight across. *Check with your doctor if you have nerve disease DO NOT - Go barefoot. - Let feet get dry and cracked. - Use hot water when washing your feet. - Wear torn or tight shoes. - Wear tight socks or knee-highs. - Use heating pads, hot water bottles or iodine; they may cause harm. - Use corn medicine or razors. Level of Understanding: Poor for patient, good for caregiver Recall: 4 months Return sooner if any clinical signs of infection such as redness, swelling drainage fever chills nausea , or go to nearest hospital emergency / urgent care for evaluation. -As part of the service the pertinent primary care, specialty care and urgent care notes have been reviewed as well as the patient's medication list, problem list, and current imaging as well as past imaging, laboratory data and other pertinent contributory consults. -All new and discontinued medications have been discussed in detail with the patient and or caregiver, including indications for additions and deletions, as well as possible side effects, interactions as foreseen, and risk of not taking as prescribed If applicable, the patient was advised clearly on application of wound care agents how to apply and when to apply. The patient was able to recitethis information back to the prescriber with good understanding and agreed to the plan of care as indicated above. -Plan of care discuss with the patient and or caregiver, including medical decision making which includes discussion of abnormal lab results, imaging and other diagnostic modalities as well as results of the physical exam and accounting policy consultant opinions and recommendations as sought. Alternatives to surgery or outlined care above as appropriate have also been discussed. -The patient/ caregiver has displayed good understanding of above and with no further questions at this time. Patient is aware of next appointment and agrees to follow-up interval. Patient agrees to seek sooner follow up if any irregular events occur in between such as cardinal signs of infection, increased pain or deformity. -The on this visit was given information [place] service and encouraged to enroll if not already having done so. /jai/ ZULAY POWERS DPM PODIATRY ATTENDING Signed: 10/01/2023 13:32 ZULAY POWERS [facility]
--- OUTSIDE RECORDS SUMMARY | 2024-04-11 12:36 | XMS_ITS ---
Author Name [facility] [place] Organization [facility] [place] Address [address] [place] [address] Care Team Providers Care Parts Cataloguer Name Role Phone CLAUDIA MCPHERSON Primary Care [...] Robledo's Name Patient's Relationship to Policy [facility]) [facility] ADVANTAGE [place] IN[place] IDUAL - [place] August 24, 2020 [id number] [phone] FR DENISE VERA PATIENT [employer] [facility] (WNR) MEDICARE [facility] ([facility]) August 24, 2020 [id number] [phone] FR DENISE VERA PATIENT [facility] (WNR) MEDICARE [facility] (WNR) Dec 25, 2010 [facility] [id number] [phone] FR DENISE VERA PATIENT Selected Encounter This section includes the information on record at [place] for the Encounter. Date/Time Encounter Type Encounter Description Reason Provider Source Aug 09, 2023 01:00 PM HEARING AID REPAIR/MODIFYIN G AUDIOLOGY ICD-10-CM Z46.1 Encounter for fitting and adjustment of hearing aid SENIOR,ROEL L IHE Encounter Template Text not used by [place] Assessments - Encounter Diagnoses This section includes the primary and secondary diagnoses documented for the Encounter. Date/Time Primary/Secondary Diagnosis Diagnosis Name Provider Source Aug 09, 2023 01:16 PM PRIMARY Encounter for fitting and adjustment of hearing aid [facility] [place] [facility] Aug 09, 2023 01:16 PM SECONDARY Sensorineural hearing loss, bilateral JUAN ANTONIO MANCIA [facility] Plan of Treatment: Future Appointments (+ 6 months) and Future Tests (+/- 45 days) The Plan of Treatment section includes future care activities for the patient [facility] [place] [facility] This section includes future appointments and future orders which are active, pending or scheduled. Future Appointments This section includes appointments that were scheduled to occur 6 months from the date of the Encounter, up to a maximum of 20 appointments. The data comes from all [place] treatment facilities. Appointment Date/Time Appointment Type Appointme nt Facility Name Aug 23, 2023 02:30 PM AMBULATORY - MEDICINE [place] [facility] [place] [facility] Sep 30, 2023 03:00 PM AMBULATORY - MEDICINE [place] [facility] [place] [facility] Nov 22, 2023 03:30 PM AMBULATORY - MEDICINE [place] [facility] [place] [facility] Nov 30, 2023 01:30 PM AMBULATORY - MEDICINE [place] [facility] [place] [facility] Dec 23, 2023 01:30 PM AMBULATORY - MEDICINE [facility] [place] [facility] Jan 18, 2024 01:30 PM AMBULATORY - REHAB MEDICIN E [place] [facility] [facility] Jan 21, 2024 02:00 PM AMBULATORY - MEDICINE [facility] [place] [facility] Lab Results: +/- 30 days of the encounter This section includes the Chemistry and Hematology Lab Results on record with [place] for the patient. Radiology Reports and Pathology Reports are provided separately, in subsequent sections. Lab Results This section contains the Chemistry/Hematology Results that were resulted 30 days before or 30 daysafter the date of the Encounter. Date/Time Source Result Type Result - Unit Interpretation Reference Range Comment Aug 23, 2023 03:15 PM [place] [facility] BASIC METABOLIC PANEL (non-fasting) Specimen Type: SERUM No comment entered. Ordering Provider: CLAUDIA MCPHERSON Report Released Date/Time: Aug 18, 2023 04:37 PM Reporting Lab: [facility] [address] [facility] [address] Performing Lab: [facility] [address] [facility] [facility] [address] UREA NITROGEN 20 mg/dL 7-25 GLUCOSE 136 mg/dL H 65-100 SODIUM 140 mmol/L 135-145 POTASSIUM 3.7 mmol/L 3.5-5.0 CHLORIDE 104 mmol/L 100-110 CO2 26 meq/L 20-30 CREATININE, Serum 1.53 mg/dL H 0.50-1.40 eGFR(CKD-EPI 2020) 45 mL/min L >60 Aug 18, 2023 09:07 AM [facility] BASIC METABOLIC PANEL (fasting) Specimen Type: SERUM Comment: POTASSIUM Verified by repeat analysis. Ordering Provider: CLAUDIA MCPHERSON Report Released Date/Time: Aug 14, 2023 04:59 PM Reporting Lab: [facility] [address] [facility] [address] Performing Lab: [address] [address] UREA NITROGEN 25 mg/dL 7-25 GLUCOSE 172 mg/dL H 65-100 SODIUM 139 mmol/L 135-145 POTASSIUM 2.9 mmol/L LL 3.5-5.0 CHLORIDE 96 mmol/L L 100-110 CO2 29 meq/L 20-30 CREATININE, Serum 1.68 mg/dL H 0.50-1.40 eGFR(CKD-EPI 2020) 41 mL/min L >60 Aug 18, 2023 09:07 AM [facility] LIVER FUNCTION Specimen Type: SERUM Comment: POTASSIUM Verified by repeat analysis. Ordering Provider: CLAUDIA MCPHERSON Report Released Date/Time: Aug 14, 2023 04:59 PM Reporting Lab: [address] [address] Performing Lab: [address] [address] PROTEIN,TOTAL 7.6 g/dL 6.0-8.3 ALBUMIN 4.0 g/dL 3.5-5.0 ALKALINE PHOSPHATASE 80 U/L 40-150 AST 17 U/L 5-34 ALT 23 U/L BILIRUBIN, TOTAL 0.7 mg/dL 0.2-1.2 Aug 18, 2023 09:07 AM [facility] CBC AND DIFF (AUTO) Specimen Type: BLOOD No comment entered. Ordering Provider: CLAUDIA MCPHERSON Report Released Date/Time: Aug 14, 2023 04:59 PM Reporting Lab: [facility] [address] [facility] [address] Performing Lab: [facility] [address] [facility] [address] WBC 9.16 10*3/uL 4.50-11.00 RBC 5.65 10*6/uL 4.23-5.66 HGB 16.3 g/dL 12.8-17 HCT 46.6 39.2-50.4 MCV 82.5 fL 82-99 MCHC 35.0 g/dL 30.8-35.1 PLT 335 10*3/uL 140-360 RDW-CV 12.6 12.0-16.0 [place], Abs 0.67 10*3/uL 0.30-1.10 MCH 28.8 pg 26.2-32.6 Neut % 66.6 43.7-75.8 Lymph % 21.5 14.0-42.3 [place] % 7.3 5.1-13.7 Eos % 3.6 0.4-6.8 Baso % 0.7 0.1-2.0 Neut, Abs 6.10 10*3/uL 2.20-7.60 Lymph, Abs 1.97 10*3/uL 1.00-3.20 Eos, Abs 0.33 10*3/uL 0.03-0.44 Baso, Abs 0.06 10*3/uL 0.01-0.13 Immature Gran % 0.3 0.0-0.7 Immature Gran, Abs 0.03 10*3/uL 0.00-0.06 Aug 18, 2023 09:07 AM [facility] LIPID PANEL FASTING Specimen Type: SERUM Comment: POTASSIUM Verified by repeat analysis. Ordering Provider: CLAUDIA MCPHERSON Report Released Date/Time: Aug 14, 2023 04:59 PM Reporting Lab: [facility] [address] [facility] [address] [facility] [address] [facility] [phone] CHOLESTEROL 142 mg/dL TRIGLYCERIDE 262 mg/dL H 0-150 LDL calculated 49 mg/dL 0-129 CHOL/HDL 3.5 HDL CHOLESTEROL 41 mg/dL 40-60 Aug 18, 2023 09:07 AM [facility] TSH Specimen Type: SERUM Comment: POTASSIUM Verified by repeat analysis. Critical result acknowledged. DR MCPHERSON 08/18/23@1125 BY Ordering Provider: CLAUDIA MCPHERSON Report Released Date/Time: Aug 14, 2023 04:59 PM Reporting [facility] [address] [facility] [address] Performing Lab: [address] [address] TSH 1.36 u[IU]/mL 0.35-5.00 Aug 18, 2023 09:07 AM [facility] HEMOGLOBIN A1C PANEL Specimen Type: BLOOD Comment: Values obtained from A1C measurements can vary. For atypical A1C assays, a reported value of 7.0 could actually be between 6.72 and 7.28 if measured by a reference method. A reported value of 9.0 could actually be between 8.73 and 9.27. Ref: http://www.ngs p.org/CAPdata. asp Ordering Provider: CLAUDIA MCPHERSON Report Released Date/Time: Aug 14, 2023 04:59 PM Reporting Lab: [facility] [address] [facility] [address] Performing Lab: [address] [address] HEMOGLOBIN A1C 7.5 H 4.0-5.6 Aug 18, 2023 09:07 AM [facility] MICROALBUMIN CREATININE RATIO PANEL Specimen Type: URINE No comment entered. Ordering Provider: CLAUDIA MCPHERSON Report Released Date/Time: Aug 14, 2023 04:59 PM Reporting Lab: [address] [address] Performing Lab: [address] [address] MICROALBUMIN/C REATININE RATIO 19.2 mg/g 0-29.9 MICROALBUMIN,Q UANTITATIVE 1.7 mg/dL RR UNAVAIL CREATININE URINE 88.43 mg/dL Aug 18, 2023 09:07 AM [facility] URINALYSIS CLEAN CATCH Specimen Type: URINE Comment: If Glucose = >500 and Ketones are positive, please alert the Physician. Ordering Provider: CLAUDIA MCPHERSON Report Released Date/Time: Aug 14, 2023 04:59 PM Reporting Lab: [address] [address] Performing Lab: [address] [address] UA COLOR Light-Yellow Yellow UA APPEARANCE Clear Clear UA GLUCOSE >1000 mg/dL Negative UA KETONES NEGATIVE mg/dL Negative UA BLOOD NEGATIVE mg/dL Negative UA PROTEIN NEGATIVE mg/dL Negative UA NITRITE NEGATIVE mg/dL Negative UA BILIRUBIN NEGATIVE mg/dL Negative UA SPECIFIC GRAVITY 1.028 H 1.016-1.02 2 UA pH 6.5 5.0-9.0 UA UROBILINOGEN <2.0 mg/dL <2.0 UA LEUKOCYTE NEGATIVE Negative Social History: Smoking Status (Most current) and Tobacco Use (All prior to encounter date) This section includes the most current, and the historical, smoking and tobacco- related health factors from the [place] facility where the Encounter took place. Current Smoking Status This section includes the most current smoking, or tobacco-related health factor, from the [place] facility where the Encounter took place. Date/Time Current Smoking Status Comment Facil ity Aug 17, 2022 03:00 PM VA-TOBACCO QUIT 15 YRS OR MORE [facility] Tobacco Use History This section includes a history of the smoking, or tobacco-related health factors, that were collected on or before the date of the Encounter. The data comes from the [place] facility where the Encounter took place. Date/Time Smoking Status/Tobacco Use Comment F acility Aug 17, 2022 03:00 PM VA-TOBACCO QUIT 15 YRS OR MORE [place] [facility] [place] [facility] Aug 07, 2021 03:00 PM VA-TOBACCO FORMER USER [facility] [place] [facility] Aug 07, 2021 03:00 PM VA-TOBACCO QUIT 15 YRS OR MORE [place] [facility] [place] [facility] Jul 18, 2019 10:24 AM VA-TOBACCO FORMER USER [facility] [place] [facility] Jul 18, 2019 10:24 AM VA-TOBACCO QUIT 15 YRS OR MORE [place] [facility] [place] [facility] Mar 02, 2018 09:39 AM VA-TOBACCO NEVER USED [place] [facility] Advance Directives: All historical and current Section Date Range: From patient's date of to the date document was created. This section includes ALL of a patient's completed or amended [place] Advance and Rescinded Directives. The entries below indicate that a directive exists for the patient, but an actual copy is not included with this document. The data comes from all [place] facilities. Date Advance Directives Provider Source May 18, 2023 ADVANCE DIRECTIVE ADRIANA GARCIA [place] [facility] [place] [facility] Encounter Notes: All associated encounter notes This section contains the clinical notes associated to the Encounter. Date/Time Encounter Note(s) Provider Source Aug 09, 2023 01:11 PM AUDIOLOGY NOTE: LOCAL TITLE: AUDIOLOGY [facility] STANDARD TITLE: AUDIOLOGY NOTE DATE OF NOTE: AUG 09, 2023@13:11 ENTRY DATE: AUG 09, 2023@13:11:40 AUTHOR: MARY MANCIA COSIGNER: ROEL MONTGOMERY URGENCY: STATUS: COMPLETED August 09, 2023 History/Background: [place] was seen for a hearing aid follow up, accompanied by his . scheduled today's appointment reporting his left hearing aid stopped working. Hearing aids: Phonak Audeo L90 Rechargeable RICs Serial Numbers: [id number] L) [id number] Date Issued: 04/06/2023 Hearing aid check: Both hearing aids were cleaned and checked. Initial inspection revealed cerumen blocking both wax guards. Replaced wax guards, domes and retention lines. Biologic check was good for both. Otoscopy: Nearly occluding cerumen left ear and non-occluding cerumen right ear. Advised to contact pcp team to schedule cerumen removal. Plan: [place] will contact clinic as needed. Suicide Screen: C-SSRS Screening Tate-Suicide Severity Rating Scale (C-SSRS Screener) 1. Over the past month, have you wished you were or wished you could go to sleep and not wake up? No 2. Over the past month, have you had any actual thoughts of killing yourself? No 3. Over the past month, have you been thinking about how you might do this? Response not required due to responses to other questions. 4. Over the past month, have you had these thoughts and had some intention of acting on them? Response not required due to responses to other questions. 5. Over the past month, have you started to work out or worked out the details of how to kill yourself? Response not required due to responses to other questions. 6. If yes, at any time in the past month did you intend to carry out this plan? Response not required due to responses to other questions. 7. In your lifetime, have you ever done anything, started to do anything, or prepared to do anything to end your life (for example, collected pills, obtained a gun, gave away valuables, went to the roof but didn't jump)? No 8. If YES, was this within the past 3 months? Response not required due to responses to other questions. /jai/ MARY MANCIA [facility] Sk[employer] Scoop Operator Signed: 08/09/2023 13:16 /jai/ SRUTHI YE, [facility]-A STAFF EVENTS DIRECTOR Cosigned: 08/09/2023 16:22 MARY MANCIA [facility]
--- OUTSIDE RECORDS SUMMARY | 2024-04-11 12:36 | XMS_ITS | Encounter Summary ---
Author Name [facility] [place] Organization [facility] [place] Address [address] [place] [address] Care Team Providers Care Director Of Clinical Services Name Role Phone CLAUDIA MCPHERSON Primary Care [...] Name Patient's Relationship to Policy Robledo [facility] (WNR) MEDICARE ADVANTAGE [place] INDIV IDUAL - [place] August 24, 2020 [id number] [phone] FR DENISE VERA PATIENT [facility] (WNR) MEDICARE [facility] August 24, 2020 [id number] FR DENISE VERA PATIENT [facility] (WNR) MEDICARE [facility] (WNR) Dec 25, 2010 [facility] [id number] [phone] FR DENISE VERA PATIENT Selected Encounter This section includes the information on record at [place] for the Encounter. Date/Time Encounter Type Encounter Description Reason Pro vider Source Aug 16, 2023 11:11 AM Outpatient Encounter PRIMARY CARE/MEDICINE IHE Encounter Template Text not used by MS Plan of Treatment: Future Appointments (+ 6 months) and Future Tests (+/- 45 days) The Plan of Treatment section includes future care activities for the patient from all [facility] This section includes future appointments and future orders which are active, pending or scheduled. Future Appointments This section includes appointments that were scheduled to occur 6 months from the date of the Encounter, up to a maximum of 20 appointments. The data comes from all [place] treatment facilities. Appointment Date/Time Appointment Type Appointme nt Facility Name Aug 23, 2023 02:30 PM AMBULATORY - MEDICINE [place] [facility] [place] [facility] Sep 30, 2023 03:00 PM AMBULATORY - MEDICINE [place] [facility] [place] [facility] Nov 22, 2023 03:30 PM AMBULATORY - MEDICINE [place] [facility] [place] [facility] Nov 30, 2023 01:30 PM AMBULATORY - MEDICINE [place] [facility] [place] [facility] Dec 23, 2023 01:30 PM [facility] Jan 18, 2024 01:30 PM [facility] Jan 21, 2024 02:00 PM [facility] Lab Results: +/- 30 days of the encounter This section includes the Chemistry and Hematology Lab Results on record with MS for the patient. Radiology Reports and Pathology Reports are provided separately, in subsequent sections. Lab Results This section contains the Chemistry/Hematology Results that were resulted 30 days before or 30 daysafter the date of the Encounter. Date/Time Source Result Type Result - Unit Interpretation Reference Range Comment Aug 23, 2023 03:15 PM [facility] BASIC METABOLIC PANEL (non-fasting) Specimen Type: SERUM No comment entered. Ordering Provider: CLAUDIA MCPHERSON Report Released Date/Time: Aug 18, 2023 04:37 PM Reporting Lab: [address] [address] Performing Lab: [address] [address] UREA NITROGEN 20 mg/dL 7-25 GLUCOSE 136 mg/dL H 65-100 SODIUM 140 mmol/L 135-145 POTASSIUM 3.7 mmol/L 3.5-5.0 CHLORIDE 104 mmol/L 100-110 CO2 26 meq/L 20-30 CREATININE, Serum 1.53 mg/dL H 0.50-1.40 eGFR(CKD-EPI 2020) 45 mL/min L >60 Aug 18, 2023 09:07 AM [facility] BASIC METABOLIC PANEL (fasting) Specimen Type: SERUM Comment: POTASSIUM Verified by repeat analysis. Ordering Provider: CLAUDIA MCPHERSON Report Released Date/Time: Aug 14, 2023 04:59 PM Reporting Lab: [address] [address] Performing Lab: [address] [address] UREA NITROGEN 25 mg/dL 7-25 GLUCOSE 172 mg/dL H 65-100 SODIUM 139 mmol/L 135-145 POTASSIUM 2.9 mmol/L LL 3.5-5.0 CHLORIDE 96 mmol/L L 100-110 CO2 29 meq/L 20-30 CREATININE, Serum 1.68 mg/dL H 0.50-1.40 eGFR(CKD-EPI 2020) 41 mL/min L >60 Aug 18, 2023 09:07 AM [facility] LIVER FUNCTION Specimen Type: SERUM Comment: POTASSIUM Verified by repeat analysis. Ordering Provider: CLAUDIA MCPHERSON Report Released Date/Time: Aug 14, 2023 04:59 PM Reporting Lab: [address] [address] Performing Lab: [address] [address] PROTEIN,TOTAL 7.6 g/dL 6.0-8.3 ALBUMIN 4.0 g/dL 3.5-5.0 ALKALINE PHOSPHATASE 80 U/L 40-150 AST 17 U/L 5-34 ALT 23 U/L BILIRUBIN, TOTAL 0.7 mg/dL 0.2-1.2 Aug 18, 2023 09:07 AM [facility] CBC AND DIFF (AUTO) Specimen Type: BLOOD No comment entered. Ordering Provider: CLAUDIA MCPHERSON Report Released Date/Time: Aug 14, 2023 04:59 PM Reporting Lab: [address] [address] Performing Lab: [facility] [address] [facility] [address] WBC 9.16 10*3/uL 4.50-11.00 RBC 5.65 10*6/uL 4.23-5.66 HGB 16.3 g/dL 12.8-17 HCT 46.6 39.2-50.4 MCV 82.5 fL 82-99 MCHC 35.0 g/dL 30.8-35.1 PLT 335 10*3/uL 140-360 RDW-CV 12.6 12.0-16.0 [place], Abs 0.67 10*3/uL 0.30-1.10 MCH 28.8 pg 26.2-32.6 Neut % 66.6 43.7-75.8 Lymph % 21.5 14.0-42.3 [place] % 7.3 5.1-13.7 Eos % 3.6 0.4-6.8 Baso % 0.7 0.1-2.0 Neut, Abs 6.10 10*3/uL 2.20-7.60 Lymph, Abs 1.97 10*3/uL 1.00-3.20 Eos, Abs 0.33 10*3/uL 0.03-0.44 Baso, Abs 0.06 10*3/uL 0.01-0.13 Immature Gran % 0.3 0.0-0.7 Immature Gran, Abs 0.03 10*3/uL 0.00-0.06 Aug 18, 2023 09:07 AM [facility] LIPID PANEL FASTING Specimen Type: SERUM Comment: POTASSIUM Verified by repeat analysis. Ordering Provider: CLAUDIA MCPHERSON Report Released Date/Time: Aug 14, 2023 04:59 PM Reporting Lab: [facility] [address] [facility] [address] Performing Lab: [facility] [address] [facility] [address] CHOLESTEROL 142 mg/dL TRIGLYCERIDE 262 mg/dL H 0-150 LDL calculated 49 mg/dL 0-129 CHOL/HDL 3.5 HDL CHOLESTEROL 41 mg/dL 40-60 Aug 18, 2023 09:07 AM [facility] TSH Specimen Type: SERUM Comment: POTASSIUM Verified by repeat analysis. Critical result acknowledged. DR MCPHERSON 08/18/23@1125 BY Ordering Provider: CLAUDIA MCPHERSON Report Released Date/Time: Aug 14, 2023 04:59 PM Reporting Lab: [facility] [address] [facility] [address] Performing Lab: [facility] [address] [facility] [address] TSH 1.36 u[IU]/mL 0.35-5.00 Aug 18, 2023 09:07 AM [facility] HEMOGLOBIN A1C PANEL Specimen Type: BLOOD Comment: [...] Aug 14, 2023 04:59 PM Reporting Lab: [facility] [address] [facility] [address] Performing Lab: [address] [address] HEMOGLOBIN A1C 7.5 H 4.0-5.6 Aug 18, 2023 09:07 AM [facility] MICROALBUMIN CREATININE RATIO PANEL Specimen Type: URINE No comment entered. Ordering Provider: CLAUDIA MCPHERSON Report Released Date/Time: Aug 14, 2023 04:59 PM Reporting Lab: [facility] [address] [facility] [address] Performing Lab: [address] [address] MICROALBUMIN/C REATININE RATIO 19.2 mg/g 0-29.9 MICROALBUMIN,Q UANTITATIVE 1.7 mg/dL RR UNAVAIL CREATININE URINE 88.43 mg/dL Aug 18, 2023 09:07 AM [facility] URINALYSIS CLEAN CATCH Specimen Type: URINE Comment: If Glucose = >500 and Ketones are positive, please alert the Physician. Ordering Provider: CLAUDIA MCPHERSON Report Released Date/Time: Aug 14, 2023 04:59 PM Reporting Lab: [facility] [address] [facility] [address] Performing Lab: [facility] [address] [facility] [address] UA COLOR Light-Yellow Yellow UA APPEARANCE Clear [...] and tobacco- related health factors from the [place] facility where the Encounter took place. Current Smoking Status This section includes the most current smoking, or tobacco-related health factor, from the [place] facility where the Encounter took place. Date/Time Current Smoking Status Comment Facil ity Aug 17, 2022 03:00 PM VA-TOBACCO QUIT 15 YRS OR MORE [facility] Tobacco Use History This section includes a history of the smoking, or tobacco-related health factors, that were collected on or before the date of the Encounter. The data comes from the [place] facility where the Encounter took place. Date/Time Smoking Status/Tobacco Use Comment F acility Aug 17, 2022 03:00 PM VA-TOBACCO QUIT 15 YRS OR MORE [place] [facility] [place] [facility] Aug 07, 2021 03:00 PM VA-TOBACCO FORMER USER [place] [facility] [place] [facility] Aug 07, 2021 03:00 PM VA-TOBACCO QUIT 15 YRS OR MORE [place] [facility] [place] [facility] Jul 18, 2019 10:24 AM VA-TOBACCO FORMER USER [place] [facility] [place] [facility] Jul 18, 2019 10:24 AM VA-TOBACCO QUIT 15 YRS OR MORE [place] [facility] [place] [facility] Mar 02, 2018 09:39 AM VA-TOBACCO NEVER USED [facility] Advance Directives: All historical and current Section Date Range: From patient's date of to the date document was created. This section includes ALL of a patient's completed or amended [place] Advance and Rescinded Directives. The entries below indicate that a directive exists for the patient, but an actual copy is not included with this document. The data comes from all [place] facilities. Date Advance Directives Provider Source May 18, 2023 ADVANCE DIRECTIVE ADRIANA GARCIA [facility] Encounter Notes: All associated encounter notes This section contains the clinical notes associated to the Encounter. Date/Time Encounter Note(s) Provider Source Aug 16, 2023 11:11 AM ADMINISTRATIVE NOTE: LOCAL TITLE: ADMINISTRATIVE NOTE STANDARD TITLE: ADMINISTRATIVE NOTE DATE OF NOTE: AUG 16, 2023@11:11 ENTRY DATE: AUG 16, 2023@11:11:55 AUTHOR: ASHISH BHAKTA EXP COSIGNER: URGENCY: STATUS: COMPLETED Reminder call for your upcoming Primary Care Appointment and the need for preparations prior to your upcoming appt. [ ] Location in [facility] [X] Fasting labs [ ] Lab work within 30 days [ ] Urine [ ] No Preparation Action taken: [ ] Called , left voice message [ ] Called , unable to leave voice mail [X] Spoke to /care services manager to remind them of upcoming appt/preparations Upcoming Appointments: 08/23/2023 14:30 CWM/NO/PACT 2 09/30/2023 15:00 CWM/NO/PODIATRY A 11/30/2023 13:30 NHM/OPTOMETRY/ZEINA /es/ ASHISH BHAKTA AMSA Signed: 08/16/2023 11:12 ASHISH BHAKTA [facility]
--- OUTSIDE RECORDS SUMMARY | 2024-04-11 12:36 | XMS_ITS | Encounter Summary ---
Author Name [facility] of [place] Organization [place] Address [address] [place] [address] Care Team Providers Care Shank Maker Name Role Phone CLAUDIA MCPHERSON Primary Care [...] Name Patient's Relationship to Policy Robledo [facility]ETNA [facility] (WNR) MEDICARE [facility] (WNR) August 24, 2020 [id number] FR DENISE VER[facility]) MEDIC[facility] ADVANTAGE [place] INDIV IDUAL - [place] August 24, 2020 [id number] [phone] FR DENISE VERA PATIENT [facility] (WNR) MEDICARE [facility] (WNR) Dec 25, 2010 [facility] [id number] [phone] FR DENISE VERA PATIENT Selected Encounter This section includes the information on record at NH for the Encounter. Date/Time Encounter Type Encounter Description Reason Pro vider Source May 11, 2023 12:00 AM Outpatient Encounter EVENT (HISTORICAL) IHE Encounter Template Text not used by NH Plan of Treatment: Future Appointments (+ 6 months) and Future Tests (+/- 45 days) The Plan of Treatment section includes future care activities for the patient from all [place] treatmentfacilities. This section includes future appointments and future orders which are active, pending or scheduled. Future Appointments This section includes appointments that were scheduled to occur 6 months from the date of the Encounter, up to a maximum of 20 appointments. The data comes from all [place] treatment facilities. Appointment Date/Time Appointment Type Appointme nt Facility Name May 18, 2023 01:00 PM [facility]UL[facility] May 20, 2023 11:30 AM AMBULATORY - MEDICINE [facility] Aug 09, 2023 01:00 PM [facility] Aug 23, 2023 02:30 PM [facility] Sep 30, 2023 03:00 PM AMBULATORY - MEDICINE [facility] Lab Results: +/- 30 days of the encounter This section includes the Chemistry and Hematology Lab Results on record with NH for the patient. Radiology Reports and Pathology Reports are provided separately, in subsequent sections. Lab Results This section contains the Chemistry/Hematology Results that were resulted 30 days before or 30 daysafter the date of the Encounter. Date/Time Source Result Type Result - Unit Interpretation Reference Range Comment May 14, 2023 11:33 AM [facility] BASIC METABOLIC PANEL (fasting) Specimen Type: SERUM No comment entered. Ordering Provider: CLAUDIA MCPHERSON Report Released Date/Time: May 09, 2023 07:03 PM Reporting Lab: [address] [address] Performing Lab: [address] [address] UREA NITROGEN 25 mg/dL 7-25 GLUCOSE 142 mg/dL H 65-100 SODIUM 141 mmol/L 135-145 POTASSIUM 3.3 mmol/L L 3.5-5.0 CHLORIDE 100 mmol/L 100-110 CO2 27 meq/L 20-30 CREATININE, Serum 1.61 mg/dL H 0.50-1.40 eGFR(CKD-EPI 2020) 43 mL/min L >60 May 14, 2023 11:33 AM [facility] LIVER FUNCTION Specimen Type: SERUM No comment entered. Ordering Provider: CLAUDIA MCPHERSON Report Released Date/Time: May 09, 2023 07:03 PM Reporting Lab: [facility] [address] [facility] [address] Performing Lab: [address] [address] PROTEIN,TOTAL 7.4 g/dL 6.0-8.3 ALBUMIN 4.1 g/dL 3.5-5.0 ALKALINE PHOSPHATASE 73 U/L 40-150 AST 19 U/L 5-34 ALT 28 U/L BILIRUBIN, TOTAL 0.7 mg/dL 0.2-1.2 May 14, 2023 11:33 AM [facility] LIPID PANEL FASTING Specimen Type: SERUM No comment entered. Ordering Provider: CLAUDIA MCPHERSON Report Released Date/Time: May 09, 2023 07:03 PM Reporting Lab: [address] [address] Performing Lab: [address] [address] CHOLESTEROL 144 mg/dL TRIGLYCERIDE 196 mg/dL H 0-150 LDL calculated 65 mg/dL 0-129 CHOL/HDL 3.6 HDL CHOLESTEROL 40 mg/dL 40-60 May 14, 2023 11:33 AM [facility] CBC AND DIFF (AUTO) Specimen Type: BLOOD No comment entered. Ordering Provider: CLAUDIA MCPHERSON Report Released Date/Time: May 09, 2023 07:03 PM Reporting Lab: [address] [address] Performing Lab: [address] [address] WBC 9.00 10*3/uL 4.50-11.00 RBC 5.65 10*6/uL 4.23-5.66 HGB 15.8 g/dL 12.8-17 HCT 47.6 39.2-50.4 MCV 84.2 fL 82-99 MCHC 33.2 g/dL 30.8-35.1 PLT 343 10*3/uL 140-360 RDW-CV 13.2 12.0-16.0 [place], Abs 0.72 10*3/uL 0.30-1.10 MCH 28.0 pg 26.2-32.6 Neut % 63.1 43.7-75.8 Lymph % 23.7 14.0-42.3 [place] % 8.0 5.1-13.7 Eos % 3.9 0.4-6.8 Baso % 0.9 0.1-2.0 Neut, Abs 5.68 10*3/uL 2.20-7.60 Lymph, Abs 2.13 10*3/uL 1.00-3.20 Eos, Abs 0.35 10*3/uL 0.03-0.44 Baso, Abs 0.08 10*3/uL 0.01-0.13 Immature Gran % 0.4 0.0-0.7 Immature Gran, Abs 0.04 10*3/uL 0.00-0.06 May 14, 2023 11:33 AM [facility] TSH Specimen Type: SERUM No comment entered. Ordering Provider: CLAUDIA MCPHERSON Report Released Date/Time: May 09, 2023 07:03 PM Reporting Lab: [facility] [address] [facility] [address] Performing Lab: [address] [address] TSH 1.41 u[IU]/mL 0.35-5.00 May 14, 2023 11:33 AM [facility] HEMOGLOBIN A1C PANEL Specimen Type: BLOOD Comment: [...] May 09, 2023 07:03 PM Reporting Lab: [address] [address] Performing Lab: [facility] [address] [facility] [address] HEMOGLOBIN A1C 7.1 H 4.0-5.6 May 14, 2023 11:33 AM [facility] MICROALBUMIN CREATININE RATIO PANEL Specimen Type: URINE No comment entered. Ordering Provider: CLAUDIA MCPHERSON Report Released Date/Time: May 09, 2023 07:03 PM Reporting Lab: [address] [address] Performing Lab: [address] [address] MICROALBUMIN/C REATININE RATIO 22.0 mg/g 0-29.9 MICROALBUMIN,Q UANTITATIVE 1.8 mg/dL RR UNAVAIL CREATININE URINE 81.64 mg/dL May 14, 2023 11:33 AM [facility] URINALYSIS CLEAN CATCH Specimen Type: URINE Comment: If Glucose = >500 and Ketones are positive, please alert the Physician. Ordering Provider: CLAUDIA MCPHERSON Report Released Date/Time: May 09, 2023 07:03 PM Reporting Lab: [address] [address] Performing Lab: [address] [address] UA COLOR Light-Yellow Yellow UA APPEARANCE Clear [...] and tobacco- related health factors from the [place] facility where the Encounter took place. Current Smoking Status This section includes the most current smoking, or tobacco-related health factor, from the [place] facility where the Encounter took place. Date/Time Current Smoking Status Comment Facil itfredo Aug 17, 2022 03:00 PM VA-TOBACCO FORMER USER [facility] Tobacco Use History This section includes a history of the smoking, or tobacco-related health factors, that were collected on or before the date of the Encounter. The data comes from the [place] facility where the Encounter took place. Date/Time Smoking Status/Tobacco Use Comment F acility Aug 17, 2022 03:00 PM VA-TOBACCO QUIT 15 YRS OR MORE [facility] Aug 07, 2021 03:00 PM [facility]ACCO [facility] Aug 07, 2021 03:00 PM VA-TOBACCO QUIT 15 YRS OR MORE [facility] Jul 18, 2019 10:24 AM VA-TOBACCO FORMER USER [facility] Jul 18, 2019 10:24 AM VA-TOBACCO QUIT 15 YRS OR MORE [facility] Mar 02, 2018 09:39 AM VA-TOBACCO NEVER USED [facility] Advance Directives: All historical and current Section Date Range: From patient's date of to the date document was created. This section includes ALL of a patient's completed or amended [place] Advance and Rescinded Directives. The entries below indicate that a directive exists for the patient, but an actual copy is not included with this document. The data comes from all [place] facilities. Date Advance Directives Provider Source May 18, 2023 ADVANCE DIRECTIVE ADRIANA GARCIA [facility] Encounter Notes: All associated encounter notes This section contains the clinical notes associated to the Encounter. Date/Time Encounter Note(s) Provider Source May 11, 2023 12:00 AM NONVA NOTE: LOCAL TITLE: NON-VA OUTPATIENT NOTES STANDARD TITLE: NONVA NOTE DATE OF NOTE: MAY 11, 2023 ENTRY DATE: JUN 01, 2023@09:56:53 AUTHOR: ADELITA KENDALL EXP COSIGNER: URGENCY: STATUS: COMPLETED VistA Imaging - Scanned Document SCANNED DOCUMENT SIGNATURE NOT REQUIRED Electronically Filed: 06/01/2023 by: ADELITA TATE [facility]
--- OUTSIDE RECORDS SUMMARY | 2024-04-11 12:36 | XMS_ITS ---
Author Name [facility] [place] Address [address] [place] [address] Care Team Providers Care Tradeshow Worker Name Role Phone CLAUDIA MCPHERSON Primary Care [...] Robledo's Name Patient's Relationship to Policy Robledo [facility] (R) MEDICARE ADVANTAGE MCR ([facility]) August 24, 2020 [id number] FR DENISE VERA PATIENT [facility] (R) MEDICARE ADVANTAGE [place] INDIV IDUAL - [place] August 24, 2020 [id number] [phone] FR DENISE VERA PATIENT [facility] ([facility]) MEDICARE ADVANTAGE MCR ([facility]) Dec 25, 2010 [facility] [id number] [phone] FR DENISE VERA PATIENT Selected Encounter This section includes the information on record at [place] for the Encounter. Date/Time Encounter Type Encounter Description Reason Provider Source May 20, 2023 11:30 AM PARING/CUTG B9 HYPRKER LES 1 PODIATRY ICD-10-CM R73.9 Hyperglycemia, unspecified REG BERRIOS Encounter Template Text not used by [place] Assessments - Encounter Diagnoses This section includes the primary and secondary diagnoses documented for the Encounter. Date/Time Primary/Secondary Diagnosis Diagnosis Name Provider Source May 20, 2023 12:00 PM PRIMARY Hyperglycemia, unspecified REG BERRIOS [facility] May 20, 2023 12:00 PM SECONDARY Corns and callosities REG BERRIOS [facility] Plan of Treatment: Future Appointments (+ 6 months) and Future Tests (+/- 45 days) The Plan of Treatment section includes future care activities for the patient from all [place] [facility]. This section includes future appointments and future orders which are active, pending or scheduled. Future Appointments This section includes appointments that were scheduled to occur 6 months from the date of the Encounter, up to a maximum of 20 appointments. The data comes from all [place] treatment facilities. Appointment Date/Time Appointment Type Appointme nt Facility Name Aug 09, 2023 01:00 PM AMBULATORY - REHAB MEDICIN E [facility] Aug 23, 2023 02:30 PM AMBULATORY - MEDICINE [facility] Sep 30, 2023 03:00 PM [facility]ULATORY - [facility]ICINE [facility] Lab Results: +/- 30 days of the encounter This section includes the Chemistry and Hematology Lab Results on record with [place] for the patient. Radiology Reports and Pathology Reports are provided separately, in subsequent sections. Lab Results This section contains the Chemistry/Hematology Results that were resulted 30 days before or 30 daysafter the date of the Encounter. Date/Time Source Result Type Result - Unit Interpretation Reference Range Comment May 14, 2023 11:33 AM [facility] BASIC METABOLIC PANEL (fasting) Specimen Type: SERUM No comment entered. Ordering Provider: CLAUDIA MCPHERSON Report Released Date/Time: May 09, 2023 07:03 PM Reporting Lab: [facility] [address] [facility] [address] Performing Lab: [address] [address] UREA NITROGEN 25 mg/dL 7-25 GLUCOSE 142 mg/dL H 65-100 SODIUM 141 mmol/L 135-145 POTASSIUM 3.3 mmol/L L 3.5-5.0 CHLORIDE 100 mmol/L 100-110 CO2 27 meq/L 20-30 CREATININE, Serum 1.61 mg/dL H 0.50-1.40 eGFR(CKD-EPI 2020) 43 mL/min L >60 May 14, 2023 11:33 AM [facility] LIVER FUNCTION Specimen Type: SERUM No comment entered. Ordering Provider: CLAUDIA MCPHERSON Report Released Date/Time: May 09, 2023 07:03 PM Reporting Lab: [address] [address] Performing Lab: [address] [address] PROTEIN,TOTAL 7.4 g/dL 6.0-8.3 ALBUMIN 4.1 g/dL 3.5-5.0 ALKALINE PHOSPHATASE 73 U/L 40-150 AST 19 U/L 5-34 ALT 28 U/L BILIRUBIN, TOTAL 0.7 mg/dL 0.2-1.2 May 14, 2023 11:33 AM [facility] CBC AND DIFF (AUTO) Specimen Type: BLOOD No comment entered. Ordering Provider: CLAUDIA MCPHERSON Report Released Date/Time: May 09, 2023 07:03 PM Reporting Lab: [address] [address] Performing Lab: [address] [address] WBC 9.00 10*3/uL 4.50-11.00 RBC 5.65 10*6/uL 4.23-5.66 HGB 15.8 g/dL 12.8-17 HCT 47.6 39.2-50.4 MCV 84.2 fL 82-99 MCHC 33.2 g/dL 30.8-35.1 PLT 343 10*3/uL 140-360 RDW-CV 13.2 12.0-16.0 [place], Abs 0.72 10*3/uL 0.30-1.10 MCH 28.0 pg 26.2-32.6 Neut % 63.1 43.7-75.8 Lymph % 23.7 14.0-42.3 [place] % 8.0 5.1-13.7 Eos % 3.9 0.4-6.8 Baso % 0.9 0.1-2.0 Neut, Abs 5.68 10*3/uL 2.20-7.60 Lymph, Abs 2.13 10*3/uL 1.00-3.20 Eos, Abs 0.35 10*3/uL 0.03-0.44 Baso, Abs 0.08 10*3/uL 0.01-0.13 Immature Gran % 0.4 0.0-0.7 Immature Gran, Abs 0.04 10*3/uL 0.00-0.06 May 14, 2023 11:33 AM [facility] LIPID PANEL FASTING Specimen Type: SERUM No comment entered. Ordering Provider: CLAUDIA MCPHERSON Report Released Date/Time: May 09, 2023 07:03 PM Reporting Lab: [address] [address] Performing Lab: [address] [address] CHOLESTEROL 144 mg/dL TRIGLYCERIDE 196 mg/dL H 0-150 LDL calculated 65 mg/dL 0-129 CHOL/HDL 3.6 HDL CHOLESTEROL 40 mg/dL 40-60 May 14, 2023 11:33 AM [facility] TSH Specimen Type: SERUM No comment entered. Ordering Provider: CLAUDIA MCPHERSON Report Released Date/Time: May 09, 2023 07:03 PM Reporting Lab: [address] [address] Performing Lab: [address] [address] TSH 1.41 u[IU]/mL 0.35-5.00 May 14, 2023 11:33 AM [facility] HEMOGLOBIN A1C PANEL Specimen Type: BLOOD [...] May 09, 2023 07:03 PM Reporting Lab: [address] [address] Performing Lab: [address] [address] HEMOGLOBIN A1C 7.1 H 4.0-5.6 May 14, 2023 11:33 AM [facility] MICROALBUMIN CREATININE RATIO PANEL Specimen Type: URINE No comment entered. Ordering Provider: CLAUDIA MCPHERSON Report Released Date/Time: May 09, 2023 07:03 PM Reporting Lab: [address] [address] Performing Lab: [address] [address] MICROALBUMIN/C REATININE RATIO 22.0 mg/g 0-29.9 MICROALBUMIN,Q UANTITATIVE 1.8 mg/dL RR UNAVAIL CREATININE URINE 81.64 mg/dL May 14, 2023 11:33 AM [facility] URINALYSIS CLEAN CATCH Specimen Type: URINE Comment: If Glucose = >500 and Ketones are positive, please alert the Physician. Ordering Provider: CLAUDIA MCPHERSON Report Released Date/Time: May 09, 2023 07:03 PM Reporting Lab: [address] [address] Performing Lab: [address] [address] UA COLOR Light-Yellow Yellow UA APPEARANCE Clear [...] and tobacco- related health factors from the [place] facility where the Encounter took place. Current Smoking Status This section includes the most current smoking, or tobacco-related health factor, from the [place] facility where the Encounter took place. Date/Time Current Smoking Status Comment Facil ity Aug 17, 2022 03:00 PM VA-TOBACCO FORMER USER [facility] Tobacco Use History This section includes a history of the smoking, or tobacco-related health factors, that were collected on or before the date of the Encounter. The data comes from the [place] facility where the Encounter took place. Date/Time Smoking Status/Tobacco Use Comment F acility Aug 17, 2022 03:00 PM VA-TOBACCO QUIT 15 YRS OR MORE [place] CNTR [facility] Aug 07, 2021 03:00 PM VA-TOBACCO FORMER USER [place] CNTR [facility] Aug 07, 2021 03:00 PM [facility] Jul 18, 2019 10:24 AM VA-TOBACCO FORMER USER [place] [facility] Jul 18, 2019 10:24 AM [place]-TOBACCO QUIT [facility] YRS OR [facility] Mar 02, 2018 09:39 AM [place]-TOBACCO NEVER USED [facility] Advance Directives: All historical and current Section Date Range: From patient's date of to the date document was created. This section includes ALL of a patient's completed or amended [place] Advance and Rescinded Directives. The entries below indicate that a directive exists for the patient, but an actual copy is not included with this document. The data comes from all [place] facilities. Date Advance Directives Provider Source May 18, 2023 ADVANCE DIRECTIVE [facility]ANA [facility] Encounter Notes: All associated encounter notes This section contains the clinical notes associated to the Encounter. Date/Time Encounter Note(s) Provider Source May 20, 2023 11:57 AM PODIATRY NOTE: LOCAL TITLE: PODIATRY NOTE STANDARD TITLE: PODIATRY NOTE DATE OF NOTE: MAY 20, 2023@11:57 ENTRY DATE: MAY 20, 2023@11:57:08 AUTHOR: REG BERRIOS EXP COSIGNER: URGENCY: STATUS: COMPLETED S)78 y/o male , hyperglycemia, seen for nail care Also c/o callouses. Recent episode of gout, now resolved- went to [facility] and was on Prednisone. He has newer orthotics but did not bring them Last seen Dec 2022 Accompanied by his arrived in transport chair but tranfers w/ assistance PMH: Active problems - Computerized Problem List is the source for the followin. Sleep Apnea ([facility] [id number]) Followed by Dr. Claudio 2. Renal Impairment ([facility] [id number]) 3. Shared care - specialist and GP [facility]-OPHTHALMOLOGY ( 2ND TO CATARACT/ GLAUCOMA) 4. Raised PSA 9.01/2019 5. Under care of multiple providers NON [place] urology - DR SARAH Muir Primary care- DR Aiden Varner-- PCP [facility] -- Neuro 6. Patient requires hospitalization 04/27/18 - [facility] - Acute stroke ( discharge 04/29/18) 7. Hyperglycemia 04/28/18 - HGAIC 6.6 8. Adult screening status HGAIC 6.6 04/28/18 T- 166 ldl69 trigly- 260 9. History of surgery L ankle fusion. 10. History of stroke in last year 11. HTN - Hypertension ([facility] [id number]) 12. Hyperlipidemia ([facility] [id number]) 13. Cognitive impairment on aricept 14. Cancer in situ skin of trunk NOt sure what type, was on L side of torso removed Allergies: Patient has answered NKA HbA1c was 7.0% in August 2022 O) Integumentary: nails thick elongated, growing over distal end of toes. Skin intact, with keratotoc lesions medial right great toe and callous left 5th metatarsal head PV: DP 1/4, PT 1/4 B/L cft 2 sec, no edea, no hair growth Sensory: 5.07 monofilament intact, vibration intact MSK: Hx left ankle fusion, has bunion rt foot, slight toe contracture. Prominant 5th met base L and his foot appears in varus position, hx of ankle fusion A) onychodystrophy callous DM P) exam nails debridement x 10 callous debridement x 2 discussed foot care discussed use of the orthotics, rtc 3-4 mos Active Outpatient Medications (including Supplies): Active Outpatient Medications Status 1) ACCU-CHEK GUIDE (GLUCOSE) TEST STRIP USE 1 STRIP TO ACTIVE TEST BLOOD SUGARS EVERY FOUR DAYS 2) ACCU-CHEK GUIDE(GLUCOSE)HI/LO CNTRL SOLN 1 DROP ACTIVE TOPICALLY DIRECTED TO TEST GLUCOMETER FOR ACCURACY 3) AMLODIPINE BESYLATE 5MG TAB TAKE ONE TABLET BY MOUTH ACTIVE ONCE DAILY FOR BLOOD PRESSURE/HEART, DO NOT TAKE WITH GRAPEFRUIT JUICE 4) ATORVASTATIN CALCIUM 80MG TAB TAKE ONE TABLET BY ACTIVE MOUTH ONCE DAILY FOR CHOLESTEROL REPLACES SIMVASTATIN 5) CLOPIDOGREL BISULFATE 75MG TAB TAKE ONE TABLET BY ACTIVE MOUTH ONCE DAILY 6) DONEPEZIL HCL 10MG TAB TAKE ONE TABLET BY MOUTH ONCE ACTIVE (S) DAILY FOR ALZHEIMER'S DISEASE 7) EMPAGLIFLOZIN 25MG TAB TAKE ONE-HALF TABLET BY MOUTH ACTIVE ONCE DAILY FOR DIABETES 8) FINASTERIDE 5MG TAB TAKE ONE TABLET BY MOUTH ONCE ACTIVE (S) DAILY 9) HYDROCHLOROTHIAZIDE 25MG TAB TAKE ONE TABLET BY MOUTH ACTIVE (S) ONCE DAILY TO PREVENT FLUID/CONTROL BLOOD PRESSURE 10) LANCET,SOFTCLIX USE 1 LANCET DIRECTED EVERY FOUR ACTIVE DAYS TO TEST BLOOD SUGAR 11) PANTOPRAZOLE NA 40MG EC TAB TAKE ONE TABLET BY MOUTH ACTIVE TWICE DAILY 12) TAMSULOSIN HCL 0.4MG CAP TAKE TWO CAPSULES BY MOUTH ACTIVE AT BEDTIME FOR ENLARGED PROSTATE Active Non-VA Medications Status 1) Non-VA ALBUTEROL 90MCG (CFC-F) 200D ORAL INHL 2 PUFFS ACTIVE BY MOUTH EVERY 4 HOURS NEEDED 13 Total Medications Podiatry related medications reviewqed /jai/ REG BERRIOS DPM FINANCIAL SALES ADVISOR Signed: 05/20/2023 12:00 REG BERRIOS [facility]
--- OUTSIDE RECORDS SUMMARY | 2024-04-11 12:36 | XMS_ITS ---
Author Name [place] Address [address] [place] [address] Care Team Providers Care Occupational Therapist Per Diem Name Role Phone RAFAEL DUKE Primary Care [...] Robledo's Name Patient's Relationship to Policy [facility]IC[facility] ([facility]) August 24, 2020 [id number] FR DENISE VERA PATIENT [facility] ([place]) MEDICARE ADVANTAGE [place] INDIV IDUAL - [place] August 24, 2020 [id number] [phone] FR DENISE VERA PATIENT [facility] ([place]NR) MEDICARE [facility] ([place]) Dec 25, 2010 [facility] [id number] [phone] FR DENISE VERA PATIENT Selected Encounter This section includes the information on record at [place] for the Encounter. Date/Time Encounter Type Encounter Description Reason Pro vider Source Jun 30, 2023 08:56 AM Outpatient Encounter ADMIN PAT ACTIVTIES (MASNONCT) IHE Encounter Template Text not used by [place] Plan of Treatment: Future Appointments (+ 6 months) and Future Tests (+/- 45 days) The Plan of Treatment section includes future care activities for the patient [facility] [place] [facility] This section includes future appointments and future orders which are active, pending or scheduled. Future Appointments This section includes appointments that were scheduled to occur 6 months from the date of the Encounter, up to a maximum of 20 appointments. The data comes from all [place] treatment facilities. Appointment Date/Time Appointment Type Appointme nt Facility Name Aug 09, 2023 01:00 PM AMBULATORY [place] [facility] [facility] [place] [facility] [place] [facility] Aug 23, 2023 02:30 PM AMBULATORY [place] MEDICINE [place] [facility] [facility] [place] [facility] Sep 30, 2023 03:00 PM AMBULATORY - MEDICINE [place] [facility] [place] [facility] Nov 22, 2023 03:30 PM AMBULATORY - MEDICINE [place] [facility] [place] [facility] Nov 30, 2023 01:30 PM AMBULATORY - MEDICINE [place] [facility] [place] [facility] Dec 23, 2023 01:30 PM AMBULATORY [place] MEDICINE [place] [facility] [facility] [place] [facility] Social History: Smoking Status (Most current) and Tobacco Use (All prior to encounter date) This section includes the most current, and the historical, smoking and tobacco- related health factors from the [place] facility where the Encounter took place. Current Smoking Status This section includes the most current smoking, or tobacco-related health factor, from the [place] facility where the Encounter took place. Date/Time Current Smoking Status Comment Facil ity Aug 17, 2022 03:00 PM VA-TOBACCO [facility] USER [place] [facility] Tobacco Use History This section includes a history of the smoking, or tobacco-related health factors, that were collected on or before the date of the Encounter. The data comes from the [place] facility where the Encounter took place. Date/Time Smoking Status/Tobacco Use Comment F acility Aug 17, 2022 03:00 PM VA-TOBACCO QUIT 15 YRS OR MORE [place] [facility] [place] [facility] Aug 07, 2021 03:00 PM VA-TOBACCO FORMER USER [place] [facility] [place] [facility] Aug 07, 2021 03:00 PM VA-TOBACCO QUIT 15 YRS OR MORE [place] [facility] [facility] [place] [facility] Jul 18, 2019 10:24 AM VA-TOBACCO FORMER USER [facility] Jul 18, 2019 10:24 AM VA-TOBACCO QUIT 15 YRS OR MORE [facility] Mar 02, 2018 09:39 AM VA-TOBACCO NEVER USED [facility] Advance Directives: All historical and current Section Date Range: From patient's date of to the date document was created. This section includes ALL of a patient's completed or amended [place] Advance and Rescinded Directives. The entries below indicate that a directive exists for the patient, but an actual copy is not included with this document. The data comes from all [place] facilities. Date Advance Directives Provider Source May 18, 2023 ADVANCE DIRECTIVE ADRIANA GARCIA [facility] Encounter Notes: All associated encounter notes This section contains the clinical notes associated to the Encounter. Date/Time Encounter Note(s) Provider Source Jun 30, 2023 08:56 AM MEDICATION MGT NOT E: LOCAL TITLE: MEDICATION RENEWAL STANDARD TITLE: MEDICATION MGT NOTE DATE OF NOTE: JUN 30, 2023@08:56 ENTRY DATE: JUN 30, 2023@08:57:06 AUTHOR: MEREDITH MCKEON EXP COSIGNER: URGENCY: STATUS: COMPLETED MEDICATION RENEWAL Has ADDENDA pt req new medication order for: 1) Oxybutin CL ER 5mg Thank you, Meredith /turner MCKEON Button Breaker Signed: 06/30/2023 08:58 Receipt Acknowledged By: 07/01/2023 08:57 /jai/ Rafael Duke MD Staff Physician 06/30/2023 13:13 /jai/ Sharon Turcios RN, BSN Primary Care 07/01/2023 ADDENDUM STATUS: COMPLETED Done. /jai/ Rafael Duek MD Staff Physician Signed: 07/01/2023 08:57 MEREDITH MCKEON [facility]
--- OUTSIDE RECORDS SUMMARY | 2024-04-11 12:36 | XMS_ITS ---
Author Name [facility] ([place] Organization [facility] Address [address] [place] [address] Care Team Providers Care Vice President Investor Relations Name Role Phone RAFAEL DUKE Primary Care [...] Robledo's Name Patient's Relationship to Policy Robledo [facility] MEDICARE [facility] ([employer] [facility] August 24, 2020 [id number] [phone] FR DENISE VERA PATIENT [facility] (WNR) MEDICARE ADVANTAGE [place] INDIV IDUAL - [place] August 24, 2020 [id number] [phone] FR DENISE VERA PATIENT [facility] (WNR) MEDICARE [facility] (R) Dec 25, 2010 [facility] [id number] [phone] FR DENISE VERA PATIENT Selected Encounter This section includes the information on record at [place] for the Encounter. Date/Time Encounter Type Encounter Description Reason Provider Source Aug 23, 2023 02:30 PM OFFICE O/P EST SF 10 MIN PRIMARY CARE/MEDICINE ICD-10-CM I10 Essential (primary) hypertension RAFAEL DUKE IHYessica Encounter Template Text not used by [facility] Assessments - Encounter Diagnoses This section includes the primary and secondary diagnoses documented for the Encounter. Date/Time Primary/Secondary Diagnosis Diagnosis Name Provider Source Aug 23, 2023 04:57 PM PRIMARY Essential (primary) hypertension [facility]FAEL DU[facility] Aug 23, 2023 04:57 PM SECONDARY Encounter for immunization ADRIANA GARCIA [facility] Plan of Treatment: Future Appointments (+ [...] Date/Time Appointment Type Appointme nt Facility Name Sep 30, 2023 03:00 PM AMBULATORY - [place]IC[place] [facility] [place] [facility] Nov 22, 2023 03:30 PM AMBULATORY - MEDICINE [facility] [place] [place] [facility] Nov 30, 2023 01:30 PM AMBULATORY - [place]ICINE [place] [facility] [place] [facility] Dec 23, 2023 01:30 PM AMBULATORY - [place]ICINE [place] [facility] [facility] Jan 18, 2024 01:30 PM AMBULATORY - REHAB MEDICIN [place] [facility] [place] [facility] Jan 21, 2024 02:00 PM AMBULATORY - MEDICINE [facility] [place] [place] [facility] Feb 21, 2024 03:30 PM AMBULATORY - MEDICINE [facility] Lab Results: +/- 30 days of [...] Range Comment Aug 23, 2023 03:[address] [facility] BASIC METABOLIC PANEL (non-fasting) Specimen Type: SERUM No comment entered. Ordering Provider: RAFAEL DUKE Report Released Date/Time: Aug 18, 2023 04:37 PM Reporting Lab: [address] [address] Performing Lab: [address] [address] UREA NITROGEN 20 mg/dL 7-25 GLUCOSE 136 mg/dL H 65-100 SODIUM 140 mmol/L 135-145 POTASSIUM 3.7 mmol/L 3.5-5.0 CHLORIDE 104 mmol/L 100-110 CO2 26 meq/L 20-30 CREATININE, Serum 1.53 mg/dL H 0.50-1.40 eGFR(CKD-EPI 2020) 45 mL/min L >60 Aug 18, 2023 09:07 AM [facility] BASIC METABOLIC PANEL (fasting) Specimen Type: SERUM Comment: POTASSIUM Verified by repeat analysis. Ordering Provider: RAFAEL DUKE Report Released Date/Time: Aug 14, 2023 04:59 PM Reporting Lab: [address] [address] Performing Lab: [address] [address] UREA NITROGEN 25 mg/dL 7-25 GLUCOSE 172 mg/dL H 65-100 SODIUM 139 mmol/L 135-145 POTASSIUM 2.9 mmol/L LL 3.5-5.0 CHLORIDE 96 mmol/L L 100-110 CO2 29 meq/L 20-30 CREATININE, Serum 1.68 mg/dL H 0.50-1.40 eGFR(CKD-EPI 2020) 41 mL/min L >60 Aug 18, 2023 09:07 AM [facility] LIVER FUNCTION Specimen Type: SERUM Comment: POTASSIUM Verified by repeat analysis. Ordering Provider: RAFAEL DUKE Report Released Date/Time: Aug 14, 2023 04:59 PM Reporting Lab: [address] [address] Performing Lab: [address] [address] PROTEIN,TOTAL 7.6 g/dL 6.0-8.3 ALBUMIN 4.0 g/dL 3.5-5.0 ALKALINE PHOSPHATASE 80 U/L 40-150 AST 17 U/L 5-34 ALT 23 U/L BILIRUBIN, TOTAL 0.7 mg/dL 0.2-1.2 Aug 18, 2023 09:07 AM [facility] LIPID PANEL FASTING Specimen Type: SERUM Comment: POTASSIUM Verified by repeat analysis. Ordering Provider: RAFAEL DUKE Report Released Date/Time: Aug 14, 2023 04:59 PM Reporting Lab: [address] [address] Performing Lab: [address] [address] CHOLESTEROL 142 mg/dL TRIGLYCERIDE 262 mg/dL H 0-150 LDL calculated 49 mg/dL 0-129 CHOL/HDL 3.5 HDL CHOLESTEROL 41 mg/dL 40-60 Aug 18, 2023 09:07 AM [facility] CBC AND DIFF (AUTO) Specimen Type: BLOOD No comment entered. Ordering Provider: RAFAEL DUKE Report Released Date/Time: Aug 14, 2023 04:59 PM Reporting Lab: [facility] [address] [address] Performing Lab: [address] [address] WBC 9.16 10*3/uL 4.50-11.00 RBC 5.65 10*6/uL 4.23-5.66 HGB 16.3 g/dL 12.8-17 HCT 46.6 39.2-50.4 MCV 82.5 fL 82-99 MCHC 35.0 g/dL 30.8-35.1 PLT 335 10*3/uL 140-360 RDW-CV 12.6 12.0-16.0 Cass, Abs 0.67 10*3/uL 0.30-1.10 MCH 28.8 pg 26.2-32.6 Neut % 66.6 43.7-75.8 Lymph % 21.5 14.0-42.3 Cass % 7.3 5.1-13.7 Eos % 3.6 0.4-6.8 Baso % 0.7 0.1-2.0 Neut, Abs 6.10 10*3/uL 2.20-7.60 Lymph, Abs 1.97 10*3/uL 1.00-3.20 Eos, Abs 0.33 10*3/uL 0.03-0.44 Baso, Abs 0.06 10*3/uL 0.01-0.13 Immature Gran % 0.3 0.0-0.7 Immature Gran, Abs 0.03 10*3/uL 0.00-0.06 Aug 18, 2023 09:07 AM [facility] TSH Specimen Type: SERUM Comment: POTASSIUM Verified by repeat analysis. Critical result acknowledged. DR DUKE 08/18/23@1125 BY Ordering Provider: RAFAEL DUKE Report Released Date/Time: Aug 14, 2023 04:59 PM Reporting Lab: [address] [address] Performing Lab: [address] [address] TSH 1.36 u[IU]/mL 0.35-5.00 Aug 18, 2023 09:07 AM [facility] HEMOGLOBIN A1C PANEL Specimen Type: BLOOD Comment: Values obtained from A1C measurements can vary. For atypical A1C assays, a reported value of 7.0 could actually be between 6.72 and 7.28 if measured by a reference method. A reported value of 9.0 could actually be between 8.73 and 9.27. Ref: http://www.ngs p.org/CAPdata. asp Ordering Provider: RAFAEL DUKE Report Released Date/Time: Aug 14, 2023 04:59 PM Reporting Lab: [address] [address] Performing Lab: [address] [address] HEMOGLOBIN A1C 7.5 H 4.0-5.6 Aug 18, 2023 09:07 AM [facility] MICROALBUMIN CREATININE RATIO PANEL Specimen Type: URINE No comment entered. Ordering Provider: RAFAEL DUKE Report Released Date/Time: Aug 14, 2023 04:59 PM Reporting Lab: [address] [place] [address] Performing Lab: [facility] [address] [address] MICROALBUMIN/C REATININE RATIO 19.2 mg/g 0-29.9 MICROALBUMIN,Q UANTITATIVE 1.7 mg/dL RR UNAVAIL CREATININE URINE 88.43 mg/dL Aug 18, 2023 09:07 AM [facility] URINALYSIS CLEAN CATCH Specimen Type: URINE Comment: If Glucose = >500 and Ketones are positive, please alert the Physician. Ordering Provider: RAFAEL DUKE Report Released Date/Time: Aug 14, 2023 04:59 PM Reporting Lab: [address] [address] Performing Lab: [address] [address] UA COLOR Light-Yellow Yellow UA APPEARANCE Clear Clear UA GLUCOSE >1000 mg/dL Negative UA KETONES NEGATIVE mg/dL Negative UA BLOOD NEGATIVE mg/dL Negative UA PROTEIN NEGATIVE mg/dL Negative UA NITRITE NEGATIVE mg/dL Negative UA BILIRUBIN NEGATIVE mg/dL Negative UA SPECIFIC GRAVITY 1.028 H 1.016-1.02 2 UA pH 6.5 5.0-9.0 UA UROBILINOGEN <2.0 mg/dL <2.0 UA LEUKOCYTE NEGATIVE Negative Vital Signs: All taken on the encounter date This section contains inpatient and outpatient Vital Signs collected on the date of the Encounter. Date/Time Temperature Pulse Blood Pressure Respiratory Rate SP02 Pain Height Weight Body Mass Index Source Aug 23, 2023 02:17 PM 98.3 58 138/84 16 97 0 147 25 [facility] Immunizations: All administered on the encounter date This section contains immunizations associated to the Encounter. Immunization Series Date Issued Reaction Comments COVID-19 (MODERNA), MRNA, LN P-S, PF, 50 MCG/0.5 ML (AGES 12+ YEARS) 5 Aug 23, 2023 Social History: Smoking Status (Most current) and [...] place. Date/Time Current Smoking Status Comment Marie ity Aug 23, 2023 02:30 PM VA-TOBACCO FORMER USER [facility] Tobacco Use History This section includes a history of the smoking, or tobacco-related health factors, that were collected on or before the date of the Encounter. The data comes from the [place] facility where the Encounter took place. Date/Time Smoking Status/Tobacco Use Comment Tavia acility Aug 23, 2023 02:30 PM VA-TOBACCO QUIT 15 YRS OR MORE [place] [facility] [place] [facility] Aug 17, 2022 03:00 PM VA-TOBACCO FORMER USER [place] [facility] [place] [facility] Aug 17, 2022 03:00 PM VA-TOBACCO QUIT 15 YRS OR MORE [place] [facility] [place] [facility] Aug 07, 2021 03:00 PM VA-TOBACCO FORMER USER [place] [facility] [place] [facility] Aug 07, 2021 03:00 PM VA-TOBACCO QUIT 15 YRS OR MORE [place] [facility] [place] [facility] Jul 18, 2019 10:24 AM VA-TOBACCO FORMER USER [place] [facility] [place] [facility] Jul 18, 2019 10:24 AM VA-TOBACCO QUIT 15 YRS OR MORE [place] [facility] [place] [facility] Mar 02, 2018 09:39 AM [facility]-TOBACCO [facility] Advance Directives: All historical and current [...] May 18, 2023 ADVANCE DIRECTIVE ADRIANA GARCIA [place] [facility] [place] [facility] Encounter Notes: All associated encounter notes This section contains the clinical notes associated to the Encounter. Date/Time Encounter Note(s) Provider Source Aug 23, 2023 04:54 PM PHYSICIAN NOTE: LOCAL TITLE: NOTE STANDARD TITLE: PHYSICIAN NOTE DATE OF NOTE: AUG 23, 2023@16:54 ENTRY DATE: AUG 23, 2023@16:54:49 AUTHOR: RAFAEL DUKE EXP COSIGNER: URGENCY: STATUS: COMPLETED Patient Name: JUDY VERA VITALS: Patient temperature: 98.3 F [36.8 C] (08/23/2023 14:17) Blood pressure: 138/84 (08/23/2023 14:17) Patient height: 65 in [165.1 cm] (02/26/2022 15:02) Patient weight: 147 lb [66.68 kg] (08/23/2023 14:17) Patient BMI: BMI: 24.5 Patient pulse: 58 (08/23/2023 14:17) Patient respiration: 16 (08/23/2023 14:17) Patient Pulse Oximetry: 97% (08/23/2023 14:17) Pain Ratin (08/23/2023 14:17) Active VA Medications: Active Outpatient Medications (including Supplies): Active Outpatient [...] ONCE ACTIVE (S) DAILY FOR ALZHEIMER'S DISEASE 6) EMPAGLIFLOZIN 25MG [...] TAKE ONE TABLET BY MOUTH ACTIVE (S) TWICE DAILY 11) TAMSULOSIN HCL 0.4MG CAP TAKE TWO CAPSULES BY MOUTH ACTIVE AT BEDTIME FOR ENLARGED PROSTATE Active Non-VA Medications Status 1) Non-VA ALBUTEROL 90MCG (CFC-F) 200D ORAL INHL 2 PUFFS ACTIVE BY MOUTH EVERY 4 HOURS NEEDED 12 Total Medications Remote Medications: No Active 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 Patient feels well today with no complaints. Still taking amlodipine 5 mg daily Review of systems No chest pain or dyspnea No abdominal pain No trouble urinating No fever or chills No cough Physical examination Well-developed well-nourished male no acute distress Coronary no murmur Lungs clear No edema GLUCOSE: 136 H UREA NITROGEN: 20 SODIUM: 140 POTASSIUM: 3.7 CHLORIDE: 104 CO2: 26 CREATININE-EGFR: 1.53 H eGFR CKD-EPI 2020: 45 L I discussed above test results with patient Assessment and plan: 1. Hypertension: Hypokalemia has normalized after discontinuation of hydrochlorothiazide. Blood pressure remains normal on just amlodipine 5 mg daily. Plan: Continue amlodipine 5 mg daily. Follow-up 3 months clinic visit and lab Medication Reconciliation: Outpatient: Has the patient been taking medications as documented in the EMLR? YES: The patient has been taking medications as documented in the EMLR. Essential Medication List for Review used to complete this medication reconciliation. INCLUDED IN THIS LIST: Alphabetical list of active outpatient prescriptions dispensed from this [facility] (local) and dispensed from another [place] or [place] facility (remote) as well as inpatient orders (local, pending and active), local clinic medications, locally documented non-VA medications, and local prescriptions that have or been discontinued in the past 90 days. - All changes in medications, including all non-VA/Herbal/OTC medications were entered into CPRS. - If there were any medications the patient should no longer take, they were discontinued. - The patient/caregiver was instructed to update this list, discard old lists, and take this list to the next appointment, whether with a [place] or non-[place] provider. /jai/ Rafael Duke MD Staff Physician Signed: 08/23/2023 16:57 RAFAEL DUKE [place] [facility] [place] [place] [facility] Aug 23, 2023 02:19 PM PREVENTIVE MEDICIN E NURSING NOTE: LOCAL TITLE: CLINICAL REMINDERS/NURSING STANDARD TITLE: PREVENTIVE MEDICINE NURSING NOTE DATE OF NOTE: AUG 23, 2023@14:19 ENTRY DATE: AUG 23, 2023@14:19:38 AUTHOR: ADRIANA GARCIA EXP COSIGNER: URGENCY: STATUS: COMPLETED CLINICAL REMINDERS/NURSING Has ADDENDA Depression Screening: Perform PHQ-2 A PHQ-2 screen was performed. The score was 0 which is a negative screen for depression. Over the past two weeks, how often have you been bothered by the following problems? 1. Little interest or pleasure in doing things Not at all 2. Feeling down, depressed, or hopeless Not at all Falls & Incontinence Screen: Falls Screen: During the past 12 months, did the patient report any falls? 4. No falls within the past year. Incontinence Screen: During the past 12 months, has the patient has any characteristics of incontinence (ability, voiding, leakage, etc.)? No incontinence. Tobacco Use Screening: The patient is a former tobacco user. The patient quit fifteen or more years ago. Alcohol Use Screen (AUDIT-C): Alcohol Screen: SCREEN FOR ALCOHOL (AUDIT-C) An alcohol screening test (AUDIT-C) was negative (score=1). 1. How often did you have a drink containing alcohol in the past year? Consider a drink to be a 12 ounce can or bottle of regular beer, 8 ounces of malt liquor, a 5 ounce glass of table wine, or a 1.5 ounce shot of liquor (like scotch, gin, or vodka). Monthly or less 2. How many drinks containing alcohol did you have on a typical day when you were drinking in the past year? One or two drinks 3. How often did you have six or more drinks on one occasion in the past year? Never /jai/ ADRIANA GARCIA LPN License Practical Nurse Signed: 08/23/2023 14:20 08/23/2023 ADDENDUM STATUS: COMPLETED COVID-19 Immunization: Moderna Monovalent (Spikevax) Administered: COVID-19 (MODERNA), MRNA, LNP-S, PF, 50 MCG/0.5 ML (AGES 12+ YEARS) Date Administered: Aug 23, 2023 14:30 Series: Series 5 Formula Room Worker: [employer]. Lot: [id number] Exp Date: Feb 07, 2024 [facility]: [phone] Admin Route/Site: INTRAMUSCULAR/RIGHT DELTOID Dosage: 0.5mL Vaccine Information Statement(s): COVID-19 MRNA VACCINE (12+ YRS) VACCINE VIS Feb 11, 2023 ([facility]) Order By: Policy Administered By: Adriana Garcia Vaccine administered without complications. The patient was advised to remain in the facility for 15 minutes post vaccination. /jai/ ADRIANA GARCIA LPN License Practical Nurse Signed: 08/23/2023 14:49 ADRIANA GARCIA [facility]
--- OUTSIDE RECORDS SUMMARY | 2024-04-11 12:36 | XMS_ITS ---
Author Name Department of Vetera Affairs ([place]) Organization Department of [place] Affairs [place] Address [address] [place] [address] Care Team Providers Care Air Intercept Controller Name Role Phone CLAUDIA MCPHERSON Primary Care [...] Name Patient's Relationship to Policy Robledo AETNA [facility] (WNR) MEDICARE [facility] ([facility]) August 24, 2020 [id number] [phone] FR DENISE VER[facility] (WNR) MEDICARE ADVANTAGE [place] INDIV IDUAL - [place] August 24, 2020 [id number] [phone] FR DENISE VERA PATIENT [facility] (WNR) MEDICARE [facility] (WNR) Dec 25, 2010 [facility] [id number] [phone] FR DENISE VERA PATIENT Selected Encounter This section includes the information on record at OR for the Encounter. Date/Time Encounter Type Encounter Description Reason Pro vider Source May 11, 2023 12:00 PM Outpatient Encounter COMMUNITY CARE CONSULT IHE Encounter Template Text not used by VA Plan of Treatment: Future Appointments (+ 6 months) and Future Tests (+/- 45 days) The Plan of Treatment section includes future care activities for the patient from all OR treatmentfacilities. This section includes future appointments and future orders which are active, pending or scheduled. Future Appointments This section includes appointments that were scheduled to occur 6 months from the date of the Encounter, up to a maximum of 20 appointments. The data comes from all [place] treatment facilities. Appointment Date/Time Appointment Type Appointme nt Facility Name May 18, 2023 01:00 PM AMBULAT[facility] May 20, 2023 11:30 AM AMBULATORY - MEDICINE [facility] Aug 09, 2023 01:00 PM [facility] Aug 23, 2023 02:30 PM AMBULAT[facility] - [facility] Sep 30, 2023 03:00 PM [facility] Lab Results: +/- 30 days of the encounter This section includes the Chemistry and Hematology Lab Results on record with OR for the patient. Radiology Reports and Pathology Reports are provided separately, in subsequent sections. Lab Results This section contains the Chemistry/Hematology Results that were resulted 30 days before or 30 daysafter the date of the Encounter. Date/Time Source Result Type Result - Unit Interpretation Reference Range Comment May 14, 2023 11:33 AM [facility] BASIC METABOLIC PANEL (fasting) Specimen Type: SERUM No comment entered. Ordering Provider: CLAUDIA MCPHERSON Report Released Date/Time: May 09, 2023 07:03 PM Reporting Lab: [address] [address] Performing Lab: [address] [address] UREA NITROGEN 25 mg/dL 7-25 GLUCOSE 142 mg/dL H 65-100 SODIUM 141 mmol/L 135-145 POTASSIUM 3.3 mmol/L L 3.5-5.0 CHLORIDE 100 mmol/L 100-110 CO2 27 meq/L 20-30 CREATININE, Serum 1.61 mg/dL H 0.50-1.40 eGFR(CKD-EPI 2020) 43 mL/min L >60 May 14, 2023 11:33 AM [facility] LIVER FUNCTION Specimen Type: SERUM No comment entered. Ordering Provider: CLAUDIA MCPHERSON Report Released Date/Time: May 09, 2023 07:03 PM Reporting Lab: [address] [address] Performing Lab: [address] [address] PROTEIN,TOTAL 7.4 g/dL 6.0-8.3 ALBUMIN 4.1 g/dL 3.5-5.0 ALKALINE PHOSPHATASE 73 U/L 40-150 AST 19 U/L 5-34 ALT 28 U/L BILIRUBIN, TOTAL 0.7 mg/dL 0.2-1.2 May 14, 2023 11:33 AM [facility] CBC AND DIFF (AUTO) Specimen Type: BLOOD No comment entered. Ordering Provider: CLAUDIA MCPHERSON Report Released Date/Time: May 09, 2023 07:03 PM Reporting Lab: [address] [address] Performing Lab: [address] [address] WBC 9.00 10*3/uL 4.50-11.00 RBC 5.65 10*6/uL 4.23-5.66 HGB 15.8 g/dL 12.8-17 HCT 47.6 39.2-50.4 MCV 84.2 fL 82-99 MCHC 33.2 g/dL 30.8-35.1 PLT 343 10*3/uL 140-360 RDW-CV 13.2 12.0-16.0 [place], Abs 0.72 10*3/uL 0.30-1.10 MCH 28.0 pg 26.2-32.6 Neut % 63.1 43.7-75.8 Lymph % 23.7 14.0-42.3 [place] % 8.0 5.1-13.7 Eos % 3.9 0.4-6.8 Baso % 0.9 0.1-2.0 Neut, Abs 5.68 10*3/uL 2.20-7.60 Lymph, Abs 2.13 10*3/uL 1.00-3.20 Eos, Abs 0.35 10*3/uL 0.03-0.44 Baso, Abs 0.08 10*3/uL 0.01-0.13 Immature Gran % 0.4 0.0-0.7 Immature Gran, Abs 0.04 10*3/uL 0.00-0.06 May 14, 2023 11:33 AM [facility] TSH Specimen Type: SERUM No comment entered. Ordering Provider: CLAUDIA MCPHERSON Report Released Date/Time: May 09, 2023 07:03 PM Reporting Lab: [facility] [address] [facility] [address] Performing Lab: [address] [address] TSH 1.41 u[IU]/mL 0.35-5.00 May 14, 2023 11:33 AM [facility] LIPID PANEL FASTING Specimen Type: SERUM No comment entered. Ordering Provider: CLAUDIA MCPHERSON Report Released Date/Time: May 09, 2023 07:03 PM Reporting Lab: [facility] [address] [facility] [address] Performing Lab: [address] [address] CHOLESTEROL 144 mg/dL TRIGLYCERIDE 196 mg/dL H 0-150 LDL calculated 65 mg/dL 0-129 CHOL/HDL 3.6 HDL CHOLESTEROL 40 mg/dL 40-60 May 14, 2023 11:33 AM [facility] HEMOGLOBIN A1C PANEL Specimen Type: BLOOD [...] May 09, 2023 07:03 PM Reporting Lab: [address] [address] Performing Lab: [facility] [address] [facility] [address] HEMOGLOBIN A1C 7.1 H 4.0-5.6 May 14, 2023 11:33 AM [facility] MICROALBUMIN CREATININE RATIO PANEL Specimen Type: URINE No comment entered. Ordering Provider: CLAUDIA MCPHERSON Report Released Date/Time: May 09, 2023 07:03 PM Reporting Lab: [address] [address] Performing Lab: [address] [address] MICROALBUMIN/C REATININE RATIO 22.0 mg/g 0-29.9 MICROALBUMIN,Q UANTITATIVE 1.8 mg/dL RR UNAVAIL CREATININE URINE 81.64 mg/dL May 14, 2023 11:33 AM [facility] URINALYSIS CLEAN CATCH Specimen Type: URINE Comment: If Glucose = >500 and Ketones are positive, please alert the Physician. Ordering Provider: CLAUDIA MCPHERSON Report Released Date/Time: May 09, 2023 07:03 PM Reporting Lab: [address] [address] Performing Lab: [address] [address] UA COLOR Light-Yellow Yellow UA APPEARANCE Clear [...] and tobacco- related health factors from the OR facility where the Encounter took place. Current Smoking Status This section includes the most current smoking, or tobacco-related health factor, from the OR facility where the Encounter took place. Date/Time Current Smoking Status Comment Facil ity Aug 17, 2022 03:00 PM [facility] Tobacco Use History This section includes a history of the smoking, or tobacco-related health factors, that were collected on or before the date of the Encounter. The data comes from the [place] facility where the Encounter took place. Date/Time Smoking Status/Tobacco Use Comment F acility Aug 17, 2022 03:00 PM VA-TOBACCO QUIT 15 YRS OR MORE [facility] Aug 07, 2021 03:00 PM VA-TOBACCO FORMER USER [facility] Aug 07, 2021 03:00 PM VA-TOBACCO QUIT 15 YRS OR MORE [facility]SN [facility] Jul 18, 2019 10:24 AM [facility]BACCO [facility] Jul 18, 2019 10:24 AM [place]-TOBACCO QUIT [facility] YRS OR [facility] Mar 02, 2018 09:39 AM VA-TOBACCO NEVER USED [facility] Advance Directives: All historical and current Section Date Range: From patient's date of to the date document was created. This section includes ALL of a patient's completed or amended [place] Advance and Rescinded Directives. The entries below indicate that a directive exists for the patient, but an actual copy is not included with this document. The data comes from all OR facilities. Date Advance Directives Provider Source May 18, 2023 ADVANCE DIRECTIVE ADRIANA GARCIA [facility] Encounter Notes: All associated encounter notes This section contains the clinical notes associated to the Encounter. Date/Time Encounter Note(s) Provider Source May 11, 2023 12:00 PM NONVA CONSULT: LOCAL TITLE: COMMUNITY CARE-CONSULT RESULT NOTE STANDARD TITLE: NONVA CONSULT DATE OF NOTE: MAY 11, 2023@12:00 ENTRY DATE: JUN 22, 2023@12:55:07 AUTHOR: SHELBY ALATORRE COSIGNER: URGENCY: STATUS: COMPLETED VistA Imaging - Scanned Document SCANNED DOCUMENT SIGNATURE NOT REQUIRED Electronically Filed: 06/22/2023 by: HONEY ALATORRE Aquatics Specialist HONEY ALATORRERL [place]
--- OUTSIDE RECORDS SUMMARY | 2024-04-11 12:36 | XMS_ITS | Encounter Summary ---
Author Name Department [place] Organization [place] Address [address] [place] [address] Care Team Providers Care Public Policy Associate Name Role Phone RAFAEL DUKE Primary Care [...] Name Patient's Relationship to Policy Robledo AETNA [facility] (WNR) MEDICARE [facility] ([facility]) August 24, 2020 [id number] [phone] FR DENISE VERA [facility]IENT [facility] (WNR) MEDICARE ADVANTAGE [place] INDIV IDUAL - [place] August 24, 2020 [id number] FR DENISE VERA PATIENT [facility] (WNR) MEDICARE [facility] (WNR) Dec 25, 2010 [facility] [id number] [phone] FR DENISE VERA PATIENT Selected Encounter This section includes the information on record at NH for the Encounter. Date/Time Encounter Type Encounter Description Reason Pro vider Source Aug 18, 2023 04:35 PM Outpatient Encounter PRIMARY CARE/MEDICINE IHE Encounter Template Text not used by NH Plan of Treatment: Future Appointments (+ 6 months) and Future Tests (+/- 45 days) The Plan of Treatment section includes future care activities for the patient from all [place] [facility] [...] 23, 2023 02:30 PM AMBULATORY - MEDICINE [place] [facility] Sep 30, 2023 03:00 PM AMBULATORY - MEDICINE [place] [facility] [place] [facility] Nov 22, 2023 03:30 PM AMBULATORY - MEDICINE [place] C [place]L [place] [facility] Nov 30, 2023 01:30 PM AMBULATORY - MEDICINE [place] C [place]L [place] [facility] Dec 23, 2023 01:30 PM AMBULATORY - [facility] Jan 18, 2024 01:30 PM [facility] Jan 21, 2024 02:00 PM AMBULATORY - MEDICINE [facility] Lab Results: +/- 30 days of [...] Range Comment Aug 23, 2023 03:15 PM [facility] BASIC METABOLIC PANEL (non-fasting) Specimen Type: SERUM No comment entered. Ordering Provider: RAFAEL DUKE Report Released Date/Time: Aug 18, 2023 04:37 PM Reporting Lab: [address] [address] Performing Lab: [address] [address] UREA NITROGEN 20 mg/dL 7-25 GLUCOSE 136 mg/dL H 65-100 SODIUM 140 mmol/L 135-145 POTASSIUM 3.7 mmol/L 3.5-5.0 CHLORIDE 104 mmol/L 100-110 CO2 26 meq/L 20-30 CREATININE, Serum 1.53 mg/dL H 0.50-1.40 eGFR(CKD-EPI 2020) 45 mL/min L >60 Aug 18, 2023 09:07 AM [facility] BASIC METABOLIC PANEL (fasting) Specimen Type: SERUM Comment: POTASSIUM Verified by repeat analysis. Ordering Provider: RAFAEL DUKE Report Released Date/Time: Aug 14, 2023 04:59 PM Reporting Lab: [address] [address] Performing Lab: [address] [address] UREA NITROGEN 25 mg/dL 7-25 GLUCOSE 172 mg/dL H 65-100 SODIUM 139 mmol/L 135-145 POTASSIUM 2.9 mmol/L LL 3.5-5.0 CHLORIDE 96 mmol/L L 100-110 CO2 29 meq/L 20-30 CREATININE, Serum 1.68 mg/dL H 0.50-1.40 eGFR(CKD-EPI 2020) 41 mL/min L >60 Aug 18, 2023 09:07 AM [facility] LIVER FUNCTION Specimen Type: SERUM Comment: POTASSIUM Verified by repeat analysis. Ordering Provider: RAFAEL DUKE Report Released Date/Time: Aug 14, 2023 04:59 PM Reporting Lab: [address] [address] Performing Lab: [address] [address] PROTEIN,TOTAL 7.6 g/dL 6.0-8.3 ALBUMIN 4.0 g/dL 3.5-5.0 ALKALINE PHOSPHATASE 80 U/L 40-150 AST 17 U/L 5-34 ALT 23 U/L BILIRUBIN, TOTAL 0.7 mg/dL 0.2-1.2 Aug 18, 2023 09:07 AM [facility] LIPID PANEL FASTING Specimen Type: SERUM Comment: POTASSIUM Verified by repeat analysis. Ordering Provider: RAFAEL DUKE Report Released Date/Time: Aug 14, 2023 04:59 PM Reporting Lab: [address] [address] Performing Lab: [facility] [address] [facility] [address] CHOLESTEROL 142 mg/dL TRIGLYCERIDE 262 mg/dL H 0-150 LDL calculated 49 mg/dL 0-129 CHOL/HDL 3.5 HDL CHOLESTEROL 41 mg/dL 40-60 Aug 18, 2023 09:07 AM [facility] CBC AND DIFF (AUTO) Specimen Type: BLOOD No comment entered. Ordering Provider: RAFAEL DUKE Report Released Date/Time: Aug 14, 2023 04:59 PM Reporting Lab: [facility] [address] [facility] [address] Performing Lab: [facility] [address] [facility] [address] WBC 9.16 10*3/uL 4.50-11.00 RBC 5.65 10*6/uL 4.23-5.66 HGB 16.3 g/dL 12.8-17 HCT 46.6 39.2-50.4 MCV 82.5 fL 82-99 MCHC 35.0 g/dL 30.8-35.1 PLT 335 10*3/uL 140-360 RDW-CV 12.6 12.0-16.0 [place], Abs 0.67 10*3/uL 0.30-1.10 MCH 28.8 pg 26.2-32.6 Neut % 66.6 43.7-75.8 Lymph % 21.5 14.0-42.3 [place]er % 7.3 5.1-13.7 Eos % 3.6 0.4-6.8 Baso % 0.7 0.1-2.0 Neut, Abs 6.10 10*3/uL 2.20-7.60 Lymph, Abs 1.97 10*3/uL 1.00-3.20 Eos, Abs 0.33 10*3/uL 0.03-0.44 Baso, Abs 0.06 10*3/uL 0.01-0.13 Immature Gran % 0.3 0.0-0.7 Immature Gran, Abs 0.03 10*3/uL 0.00-0.06 Aug 18, 2023 09:07 AM [facility] TSH Specimen Type: SERUM Comment: POTASSIUM Verified by repeat analysis. Critical result acknowledged. DR DUKE 08/18/23@1125 BY Ordering Provider: RAFAEL DUKE Report Released Date/Time: Aug 14, 2023 04:59 PM Reporting [facility]: [facility] [address] [facility] [address] Performing Lab: [facility] [address] [facility] [address] TSH 1.36 u[IU]/mL 0.35-5.00 Aug 18, 2023 09:07 AM [facility] HEMOGLOBIN A1C PANEL [...] Aug 14, 2023 04:59 PM Reporting Lab: [facility] [address] [facility] [address] Performing Lab: [address] [address] HEMOGLOBIN A1C 7.5 H 4.0-5.6 Aug 18, 2023 09:07 AM [facility] MICROALBUMIN CREATININE RATIO PANEL Specimen Type: URINE No comment entered. Ordering Provider: RAFAEL DUKE Report Released Date/Time: Aug 14, 2023 04:59 PM Reporting Lab: [facility] [address] [facility] [address] Performing Lab: [address] [address] MICROALBUMIN/C REATININE RATIO 19.2 mg/g 0-29.9 MICROALBUMIN,Q UANTITATIVE 1.7 mg/dL RR UNAVAIL CREATININE URINE 88.43 mg/dL Aug 18, 2023 09:07 AM [facility] URINALYSIS CLEAN CATCH Specimen Type: URINE Comment: If Glucose = >500 and Ketones are positive, please alert the Physician. Ordering Provider: RAFAEL DUKE Report Released Date/Time: Aug 14, 2023 04:59 PM Reporting Lab: [place] [facility] [place] [facility] [address] [facility] [address] Performing Lab: [facility] [address] [facility] [address] UA COLOR Light-Yellow Yellow UA APPEARANCE Clear [...] 17, 2022 03:00 PM [facility]AC[facility] Tobacco Use History This section includes a history of the smoking, or tobacco-related health factors, that were collected on or before the date of the Encounter. The data comes from the [place] facility where the Encounter took place. Date/Time Smoking Status/Tobacco Use Comment F acility Aug 17, 2022 03:00 PM VA-TOBACCO QUIT 15 YRS OR MORE [place] [facility]TRL [place] [facility] Aug 07, 2021 03:00 PM VA-TOBACCO FORMER USER [place] [facility]L [place] [facility] Aug 07, 2021 03:00 PM VA-TOBACCO QUIT 15 YRS OR MORE [place] [facility]TRL [place] [facility] Jul 18, 2019 10:24 AM VA-TOBACCO FORMER USER [place] [facility]TRL [place] [facility] Jul 18, 2019 10:24 AM VA-TOBACCO QUIT 15 YRS OR MORE [place] [facility]TRL [place] [facility] Mar 02, 2018 09:39 AM VA-TOBACCO [...] May 18, 2023 ADVANCE DIRECTIVE ADRIANA GARCIA [facility] Encounter Notes: All associated encounter notes This section contains the clinical notes associated to the Encounter. Date/Time Encounter Note(s) Provider Source Aug 18, 2023 04:37 PM PRIMARY CARE TELEPHONE ENCOUNTER NOTE: LOCAL TITLE: TELEPHONE NOTE/PRIMARY CARE STANDARD TITLE: PRIMARY CARE TELEPHONE ENCOUNTER NOTE DATE OF NOTE: AUG 18, 2023@16:37 ENTRY DATE: AUG 18, 2023@16:37:51 AUTHOR: RAFAEL DUKE EXP COSIGNER: URGENCY: STATUS: COMPLETED Review of critical laboratory value Potassium 2.9 today Called and discussed with patient. discussed with . She said he is unable to speak on the phone. I advised her to discontinue hydrochlorothiazide which is the most likely cause. I offered to order potassium supplement for pickup tomorrow morning. She said they could not afford gasoline for the car to come tomorrow. If I mail the potassium supplement, it will not get to him before his next appointment with me 08-23-2023. We agreed he should eat 1-2 bananas per day which are high in potassium. We will recheck potassium level at time of next clinic visit 08-23-23. Potassium supplement if persistently low. /jai/ Rafael Duke MD Staff Physician Signed: 08/18/2023 16:39 RAFAEL DUKE [facility]
--- OUTSIDE RECORDS SUMMARY | 2024-04-11 12:37 | XMS_ITS | Encounter Summary ---
Author Name [place] Organization [place] Address [address] [place] [address] Care Team Providers Care Six Color Press Operator Name Role Phone CLAUDIA MCPHERSON Primary Care [...] Name Patient's Relationship to Policy Robledo [facility] (WNR) MEDICARE ADVANTAGE [place] IN[place] August 24, 2020 [id number] FR DENISE VERA PATIENT AETNA [facility] (WNR) MEDICARE [facility] (R) August 24, 2020 [id number] FR DENISE VERA PATIENT [facility] (WNR) MEDICARE [facility] (WNR) Dec 25, 2010 [facility] [id number] [phone] FR DENISE VERA PATIENT Selected Encounter This section includes the information on record at [place] for the Encounter. Date/Time Encounter Type Encounter Description Reason Pro vider Source Oct 05, 2023 12:00 AM Outpatient Encounter EVENT (HISTORICAL) IHE Encounter Template Text not used by VA Plan of Treatment: Future Appointments (+ 6 months) and Future Tests (+/- 45 days) The Plan of Treatment section includes future care activities for the patient [facility] [place] [facility] This section includes future appointments and future orders which are active, pending or scheduled. Future Appointments This section includes appointments that were scheduled to occur 6 months from the date of the Encounter, up to a maximum of 20 appointments. The data comes from all [place] treatment facilities. Appointment Date/Time Appointment Type Appointme nt Facility Name Nov 22, 2023 03:30 PM AMBULATORY - MEDICINE [place] [facility] Nov 30, 2023 01:30 PM AMBULATORY - MEDICINE [place] [facility] [place] [facility] Dec 23, 2023 01:30 PM AMBULATORY - MEDICINE [place] [facility] [place] [facility] Jan 18, 2024 01:30 PM AMBULATORY - REHAB MEDICIN E [place] [facility] [place] [facility] Jan 21, 2024 02:00 PM AMBULATORY - MEDICINE [place] [facility] [place] [facility] Feb 21, 2024 03:30 PM AMBULATORY - MEDICINE [place] [facility] [place] [facility] Mar 02, 2024 01:00 PM AMBULATORY - MEDICINE [place] [facility] [place] [facility] Social History: Smoking Status (Most current) and Tobacco Use (All prior to encounter date) This section includes the most current, and the historical, smoking and tobacco- related health factors from the [place] facility where the Encounter took place. Current Smoking Status This section includes the most current smoking, or tobacco-related health factor, from the [place] facility where the Encounter took place. Date/Time Current Smoking Status Comment Facil ity Aug 23, 2023 02:30 PM VA-TOBACCO FORMER USER [place] [facility] [place] [facility] Tobacco Use History This section includes a history of the smoking, or tobacco-related health factors, that were collected on or before the date of the Encounter. The data comes from the [place] facility where the Encounter took place. Date/Time Smoking Status/Tobacco Use Comment F acility Aug 23, 2023 02:30 PM VA-TOBACCO QUIT 15 YRS OR MORE [place] [facility] [place] [facility] Aug 17, 2022 03:00 PM VA-TOBACCO FORMER USER [place] [facility] [place] [facility] Aug 17, 2022 03:00 PM VA-TOBACCO QUIT 15 YRS OR MORE [place] [facility] [place] [facility] Aug 07, 2021 03:00 PM VA-TOBACCO FORMER USER [place] [facility] [place] [facility] Aug 07, 2021 03:00 PM VA-TOBACCO QUIT 15 YRS OR MORE [place] [facility] [place] [facility] Jul 18, 2019 10:24 AM VA-TOBACCO FORMER USER [place] [facility] [place] [facility] Jul 18, 2019 10:24 AM VA-TOBACCO QUIT 15 YRS OR MORE [facility] Mar 02, 2018 09:39 AM [facility]ACCO [facility] Advance Directives: All historical and current Section Date Range: From patient's date of to the date document was created. This section includes ALL of a patient's completed or amended [place] Advance and Rescinded Directives. The entries below indicate that a directive exists for the patient, but an actual copy is not included with this document. The data comes from all [place] facilities. Date Advance Directives Provider Source May 18, 2023 ADVANCE DIRECTIVE ADRIANA GARCIA [facility] Encounter Notes: All associated encounter notes This section contains the clinical notes associated to the Encounter. Date/Time Encounter Note(s) Provider Source Oct 05, 2023 12:00 AM NONVA NOTE: LOCAL TITLE: NON-VA OUTPATIENT NOTES STANDARD TITLE: NONVA NOTE DATE OF NOTE: OCT 05, 2023 ENTRY DATE: OCT 27, 2023@14:48:18 AUTHOR: MARCOS BANERJEE EXP COSIGNER: URGENCY: STATUS: COMPLETED VistA Imaging - Scanned Document SCANNED DOCUMENT SIGNATURE NOT REQUIRED Electronically Filed: 10/27/2023 by: MARCOS BANERJEE LICENSED PRACTICAL NURSE MARCOS BANERJEE [facility]
--- OUTSIDE RECORDS SUMMARY | 2024-04-11 12:37 | XMS_ITS | Encounter Summary ---
Author Name [place] Address [address] [place] [address] Care Team Providers Care Fitness Coordinator Name Role Phone CLAUDIA MCPHERSON Primary Care [...] Name Patient's Relationship to Policy Robledo [facility] (WNR) MEDICARE [facility] ([facility]) August 24, 2020 [id number] [phone] FR DENISE VERA PATIENT [facility] (WNR) MEDICARE ADVANTAGE [place] INDIV IDUAL - [place] August 24, 2020 [id number] [phone] FR DENISE VERA PATIENT [facility] (WNR) MEDICARE [facility] (WNR) Dec 25, 2010 [facility] [id number] [phone] FR DENISE VERA PATIENT Selected Encounter This section includes the information on record at [place] for the Encounter. Date/Time Encounter Type Encounter Description Reason Pro vider Source Nov 16, 2023 03:20 PM Outpatient Encounter PRIMARY CARE/MEDICINE IHE Encounter Template Text not used by [place] Plan of Treatment: Future Appointments (+ 6 months) and Future Tests (+/- 45 days) The Plan of Treatment section includes future care activities for the patient from all [place] [facility]. This section includes future appointments and future orders which are active, pending or scheduled. Future Appointments This section includes appointments that were scheduled to occur 6 months from the date of the Encounter, up to a maximum of 20 appointments. The data comes from all [place] treatment facilities. Appointment Date/Time Appointment Type Appointme nt Facility Name Nov 22, 2023 03:30 PM AMBULATORY [place]ICINE [place] [place] [facility] Nov 30, 2023 01:30 PM AM[place]ULATORY [place]ICINE [place] [facility] Dec 23, 2023 01:30 PM AMBULATORY [place] MEDICINE [place] [facility] Jan 18, 2024 01:30 PM AMBULATORY - REH[place] MEDICIN [place] [facility] [place] [place] [facility] Jan 21, 2024 02:00 PM AMBULATORY - MEDICINE [place] [facility] Feb 21, 2024 03:30 PM AMBULATORY [place]ICINE [place] [facility] Mar 02, 2024 01:00 PM AMBULATORY - [place]ICINE [place] [facility] Social History: Smoking Status (Most current) and Tobacco Use (All prior to encounter date) This section includes the most current, and the historical, smoking and tobacco- related health factors from the [place] facility where the Encounter took place. Current Smoking Status This section includes the most current smoking, or tobacco-related health factor, from the [place] facility where the Encounter took place. Date/Time Current Smoking Status Comment Facil ity Aug 23, 2023 02:30 PM VA-TOBACCO FORMER USER [place] [facility] [facility] Tobacco Use History This section includes a history of the smoking, or tobacco-related health factors, that were collected on or before the date of the Encounter. The data comes from the [place] facility where the Encounter took place. Date/Time Smoking Status/Tobacco Use Comment F acility Aug 23, 2023 02:30 PM VA-TOBACCO QUIT 15 YRS OR MORE [place] [facility] [place] [facility] Aug 17, 2022 03:00 PM VA-TOBACCO FORMER USER [place] [facility] [place] [facility] Aug 17, 2022 03:00 PM VA-TOBACCO QUIT 15 YRS OR MORE [place] [facility] [facility] Aug 07, 2021 03:00 PM VA-TOBACCO FORMER USER [place] [facility] [place] [facility] Aug 07, 2021 03:00 PM VA-TOBACCO QUIT 15 YRS OR MORE [place] [facility] [place] [facility] Jul 18, 2019 10:24 AM VA-TOBACCO FORMER USER [place] [facility] [place] [facility] Jul 18, 2019 10:24 AM VA-TOBACCO QUIT 15 YRS OR MORE [place] [facility] [facility] Mar 02, 2018 09:39 AM VA-TOBACCO [facility]ED [facility] Advance Directives: All historical and current Section Date Range: From patient's date of to the date document was created. This section includes ALL of a patient's completed or amended [place] Advance and Rescinded Directives. The entries below indicate that a directive exists for the patient, but an actual copy is not included with this document. The data comes from all [place] facilities. Date Advance Directives Provider Source May 18, 2023 AD[facility] Encounter Notes: All associated encounter notes This section contains the clinical notes associated to the Encounter. Date/Time Encounter Note(s) Provider Source Nov 16, 2023 03:20 PM ADMINISTRATIVE NOTE: LOCAL TITLE: ADMINISTRATIVE NOTE STANDARD TITLE: ADMINISTRATIVE NOTE DATE OF NOTE: NOV 16, 2023@15:20 ENTRY DATE: NOV 16, 2023@15:20:50 AUTHOR: ASHISH BHAKTA EXP COSIGNER: URGENCY: STATUS: COMPLETED Reminder call for your upcoming Primary Care Appointment and the need for preparations prior to your upcoming appt. [X] Location in [facility] [X] Fasting labs [ ] Lab work within 30 days [ ] Urine [ ] No Preparation Action taken: [ ] Called , left voice message [ ] Called , unable to leave voice mail [X] Spoke to /care associate to remind them of upcoming appt/preparations Upcoming Appointments: 11/22/2023 15:30 CWM/NO/PACT 2 11/30/2023 13:30 NHM/OPTOMETRY/ZEINA 03/02/2024 13:00 CWM/NO/PODIATRY A /jai/ ASHISH BHAKTA AMSA Signed: 11/16/2023 15:20 ASHISH BHAKTA CNTRL TRN [facility]
--- OUTSIDE RECORDS SUMMARY | 2024-04-11 12:37 | XMS_ITS ---
Author Name [facility] [place] [facility] Address [address] [place] [address] Care Team Providers Care Bit Gatherer Name Role Phone RAFAEL DUKE Primary Care [...] Robledo's Name Patient's Relationship to Policy Robledo [facility] ([facility]NR) MEDIC[facility] ([facility]) August 24, 2020 [id number] FR DENISE VERA PATIENT [facility] (WNR) MEDICARE ADVANTAGE [place] INDIV [place] - [place] August 24, 2020 [id number] [phone] FR DENISE VERA PATIENT [facility] (WNR) MEDICARE [facility] (R) Dec 25, 2010 [facility] [id number] [phone] FR DENISE VERA PATIENT Selected Encounter This section includes the information on record at [place] for the Encounter. Date/Time Encounter Type Encounter Description Reason Provider Source Nov 22, 2023 03:30 PM OFFICE O/P EST SF 10 MIN PRIMARY CARE/MEDICINE ICD-10-CM I10 Essential (primary) hypertension RAFAEL DUKE IHYessica Encounter Template Text not used by VA Assessments - Encounter Diagnoses This section includes the primary and secondary diagnoses documented for the Encounter. Date/Time Primary/Secondary Diagnosis Diagnosis Name Provider Source Nov 22, 2023 04:11 PM PRIMARY Essential (primary) hypertension RAFAEL DUKE [facility] Plan of Treatment: Future Appointments (+ 6 months) and Future Tests (+/- 45 days) The Plan of Treatment section includes future care activities for the patient from all [place] [facility]. This section includes future appointments and future orders which are active, pending or scheduled. Future Appointments This section includes appointments that were scheduled to occur 6 months from the date of the Encounter, up to a maximum of 20 appointments. The data comes from all [facility]. Appointment Date/Time Appointment Type Appointme nt Facility Name Nov 30, 2023 01:30 PM [facility] Dec 23, 2023 01:30 PM [facility] Jan 18, 2024 01:30 PM [facility] Jan 21, 2024 02:00 PM AMBULATORY - MEDICINE [facility] Feb 21, 2024 03:30 PM [facility]UL[facility] Mar 02, 2024 01:00 PM AMBULATORY - MEDICINE [facility]TR [facility] May 23, 2024 01:00 PM AMBULATORY MEDICINE [facility] Active, Pending, and Scheduled Orders This section includes a listing of several types of active, pending, and scheduled orders, including clinic medications orders, diagnostic test orders, procedure orders and consult orders; where the start date of the order is 45 days before the date of the Encounter or 45 days after the date of theEncounter. The data comes from all [facility]. Test Date/Time Test Type Test Details Facility Name Jan 02, 2024 12:00 AM Laboratory - Chemi stry Order BASIC METABOLIC PANEL (non-fasting) BLOOD (SST-SERUM) [facility] Vital Signs: All taken on the encounter date This section contains inpatient and outpatient Vital Signs collected on the date of the Encounter. Date/Time Temperature Pulse Blood Pressure Respiratory Rate SP02 Pain Height Weight Body Mass Index Source Nov 22, 2023 03:30 PM 98.2 62 177/81 16 98 0 64 155.9 27 [place] [facility] [place] [facility] Social History: Smoking Status (Most current) and Tobacco Use (All prior to encounter date) This section includes the most current, and the historical, smoking and tobacco- related health factors from the [place] facility where the Encounter took place. Current Smoking Status This section includes the most current smoking, or tobacco-related health factor, from the [place] facility where the Encounter took place. Date/Time Current Smoking Status Comment Facil ity Aug 23, 2023 02:30 PM VA-TOBACCO FORMER USER [place] [facility] Tobacco Use History This section includes a history of the smoking, or tobacco-related health factors, that were collected on or before the date of the Encounter. The data comes from the [place] facility where the Encounter took place. Date/Time Smoking Status/Tobacco Use Comment F acility Aug 23, 2023 02:30 PM VA-TOBACCO QUIT 15 YRS OR MORE [place] [facility] Aug 17, 2022 03:00 PM VA-TOBACCO FORMER USER [place] [facility] [place] [facility] Aug 17, 2022 03:00 PM VA-TOBACCO QUIT 15 YRS OR MORE [place] [facility] [place] [facility] Aug 07, 2021 03:00 PM VA-TOBACCO FORMER USER [place] [facility] [place] [facility] Aug 07, 2021 03:00 PM VA-TOBACCO QUIT 15 YRS OR MORE [place] [facility] Jul 18, 2019 10:24 AM VA-TOBACCO FORMER USER [place] [facility] [place] [facility] Jul 18, 2019 10:24 AM VA-TOBACCO QUIT 15 YRS OR MORE [place] [facility] Mar 02, 2018 09:39 AM VA-TOBACCO NEVER USED [place] [facility] Advance Directives: All historical and current Section Date Range: From patient's date of to the date document was created. This section includes ALL of a patient's completed or amended [place] Advance and Rescinded Directives. The entries below indicate that a directive exists for the patient, but an actual copy is not included with this document. The data comes from all [place] facilities. Date Advance Directives Provider Source May 18, 2023 ADVANCE DIRECTIVE ADRIANA GARCIA [place] [facility] Encounter Notes: All associated encounter notes This section contains the clinical notes associated to the Encounter. Date/Time Encounter Note(s) Provider Source Nov 22, 2023 04:07 PM PHYSICIAN NOTE: LOCAL TITLE: MD NOTE STANDARD TITLE: PHYSICIAN NOTE DATE OF NOTE: NOV 22, 2023@16:07 ENTRY DATE: NOV 22, 2023@16:07:12 AUTHOR: RAFAEL DUKE EXP COSIGNER: URGENCY: STATUS: COMPLETED Patient Name: JUDY VERA VITALS: Patient temperature: 98.2 F [36.8 C] (11/22/2023 15:30) Blood pressure: 177/81 (11/22/2023 15:30) Patient height: 64 in [162.6 cm] (11/22/2023 15:30) Patient weight: 155.9 lb [70.72 kg] (11/22/2023 15:30) Patient BMI: BMI: 26.8 Patient pulse: 62 (11/22/2023 15:30) Patient respiration: 16 (11/22/2023 15:30) Patient Pulse Oximetry: 98% (11/22/2023 15:30) Pain Ratin (11/22/2023 15:30) Active VA Medications: Active Outpatient Medications (including Supplies): Active Outpatient Medications Status 1) DONEPEZIL HCL 10MG TAB TAKE ONE TABLET BY MOUTH ONCE ACTIVE DAILY FOR ALZHEIMER'S DISEASE 2) EMPAGLIFLOZIN 25MG TAB TAKE ONE-HALF TABLET BY MOUTH ACTIVE ONCE DAILY FOR DIABETES 3) FINASTERIDE 5MG TAB TAKE ONE TABLET BY MOUTH ONCE ACTIVE DAILY 4) OXYBUTYNIN CHLORIDE 5MG SA TAB TAKE ONE TABLET BY ACTIVE MOUTH ONCE DAILY FOR BLADDER INSTABILITY 5) PANTOPRAZOLE NA 40MG EC TAB TAKE ONE TABLET BY MOUTH ACTIVE TWICE DAILY 6) TAMSULOSIN HCL 0.4MG CAP TAKE TWO CAPSULES BY MOUTH ACTIVE AT BEDTIME FOR ENLARGED PROSTATE Pending Outpatient Medications Status 1) AMLODIPINE BESYLATE 10MG TAB TAKE ONE TABLET BY MOUTH PENDING ONCE DAILY FOR BLOOD PRESSURE/HEART, DO NOT TAKE WITH GRAPEFRUIT JUICE 2) ATORVASTATIN CALCIUM 80MG TAB TAKE ONE TABLET BY PENDING MOUTH ONCE DAILY FOR CHOLESTEROL REPLACES SIMVASTATIN 3) CLOPIDOGREL BISULFATE 75MG TAB TAKE ONE TABLET BY PENDING MOUTH ONCE DAILY Active Non-VA Medications Status 1) Non-VA ALBUTEROL 90MCG (CFC-F) 200D ORAL INHL 2 PUFFS ACTIVE BY MOUTH EVERY 4 HOURS NEEDED 10 Total Medications Remote Medications: No Active 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 He feels well today with no complaints. He does not check blood pressure at home review of systems No chest pain or dyspnea no abdominal pain No trouble urinating No fever or chills No cough Physical examination well-developed well-nourished male no acute distress Coronary no murmur Lungs clear Carotid no bruit No peripheral edema 11-13-2023 no-show labs Assessment and plan: 1. Hypertension: Blood pressure poorly controlled on present medication Plan increase amlodipine to 10 mg daily Recheck blood pressure nursing clinic 1 month Follow-up 3 months clinic visit and lab Pat, please make appointment nursing clinic 1 month to recheck blood pressure Medication Reconciliation: Outpatient: Has the patient been taking medications as documented in the EMLR? YES: The patient has been taking medications as documented in the EMLR. Essential Medication List for Review used to complete this medication reconciliation. INCLUDED IN THIS LIST: Alphabetical list of active outpatient prescriptions dispensed from this [place] (local) and dispensed from another [place] or [place] facility (remote) as well as [...] next appointment, whether with a VA or non-VA provider. PAVE Foot Check: A complete foot check was completed at this encounter. VISUAL INSPECTION: Includes inspection for skin breaks, deformity, erythema, trauma, pallor on elevation, dependent rubor, nail deformities, extensive callus and pitting edema. Visual exam results: Normal PEDAL PULSES: Includes palpation of dorsalis and posterior tibial pulses and signs/symptoms of vascular compromise like pain, pallor, parasthesia or paralysis. Present (even if diminished) SENSORY CHECK: Includes 10 gram Monofilament (Mccormick-Kurt) test of sensation. Intact (Greater than or equal to 80% of sites checked) Abnormal (Less than 80% of sites checked): Intact LOW-RISK: LOW RISK INFORMATION PROVIDED: 1. Advised patient not to walk barefoot. 2. Explained the importance of daily foot checks for changes. 3. Stressed the importance of daily foot hygiene, including bathing and complete drying. The patient verbalized understanding and was offered a detailed handout on diabetic foot care. HTN Assess for Elevated BP>=140/90: The patient's medication regimen was adjusted to improve blood pressure control. /jai/ Rafael Duke MD Staff Physician Signed: 11/22/2023 16:11 Receipt Acknowledged By: * AWAITING SIGNATURE * ASHISH BHAKTA HOWARD D [place] [facility] Nov 22, 2023 03:37 PM PREVENTIVE MEDICIN E NURSING NOTE: LOCAL TITLE: CLINICAL REMINDERS/NURSING STANDARD TITLE: PREVENTIVE MEDICINE NURSING NOTE DATE OF NOTE: NOV 22, 2023@15:37 ENTRY DATE: NOV 22, 2023@15:37:14 AUTHOR: ANNITA WISEMAN COSIGNER: URGENCY: STATUS: COMPLETED (Optional) Whole Health Documentation: What matters the most to you? What motivates you to be healthy? (MAP) Response: FOOD!!! /es/ ANNITA WISEMAN LPN LPN Signed: 11/22/2023 15:39 ANNITA WISEMAN CNTRL [facility]
--- OUTSIDE RECORDS SUMMARY | 2024-04-11 12:38 | XMS_ITS | Encounter Summary ---
Author Name [facility] [place] [facility] Address [address] [place] [id number] Care Team Providers Care Flower Grower Name Role Phone CLAUDIA MCPHERSON Primary Care Provider Unavailrinku e Insurance Providers: All historical and current [...] Robledo's Name Patient's Relationship to Policy [facility] ([facility]) August 24, 2020 [id number] [phone] FR DENISE VERA [facility]IENT [facility] ([facility]) [facility]IC[facility] ADVANTAGE [place] IDUAL - [place] August 24, 2020 [id number] [phone] FR DENISE VERA PATIENT [facility] (WNR) MEDICARE [facility] (R) Dec 25, 2010 [facility] [id number] [phone] FR DENISE VERA PATIENT Selected Encounter This section includes the information on record at [place] for the Encounter. Date/Time Encounter Type Encounter Description Reason Provider Source Nov 30, 2023 03:18 PM FIT SPECTACLES BIFOCAL OPTOMETRY ICD-10-CM Z46.0 Encounter for fit/adjst of spectacles and contact lenses PAUL PASTRANA Encounter Template Text not used by [place] Assessments - Encounter Diagnoses This section includes the primary and secondary diagnoses documented for the Encounter. Date/Time Primary/Secondary Diagnosis Diagnosis Name Provider Source Nov 30, 2023 03:18 PM PRIMARY Encounter for fit/adjst of spectacles and contact lenses DIANA WATSON [facility] Plan of Treatment: Future Appointments (+ 6 months) and Future Tests (+/- 45 days) The Plan of Treatment section includes future care activities for the patient from all [place] [facility] This section includes future appointments and future orders which are active, pending or scheduled. Future Appointments This section includes appointments that were scheduled to occur 6 months from the date of the Encounter, up to a maximum of 20 appointments. The data comes from all [facility]. Appointment Date/Time Appointment Type Appointme nt Facility Name Dec 23, 2023 01:30 PM AMBULATORY - MEDICINE [facility] Jan 18, 2024 01:30 PM AMBULATORY - REHAB MEDICIN E [facility] Jan 21, 2024 02:00 PM [facility] Feb 21, 2024 03:30 PM AMBULATORY - MEDICINE [facility] Mar 02, 2024 01:00 PM AMBULATORY - MEDICINE [facility] May 23, 2024 01:00 PM AMBULATORY MEDICINE [facility] Active, Pending, and Scheduled Orders This section includes a listing of several types of active, pending, and scheduled orders, including clinic medications orders, diagnostic test orders, procedure orders and consult orders; where the start date of the order is 45 days before the date of the Encounter or 45 days after the date of theEncounter. The data comes from all [facility]. Test Date/Time Test Type Test Details Facility Name Jan 02, 2024 12:00 AM Laboratory - Chemi stry Order BASIC METABOLIC PANEL (non-fasting) BLOOD (SST-SERUM) [facility] Lab Results: +/- 30 days of the encounter This section includes the Chemistry and Hematology Lab Results on record with [place] for the patient. Radiology Reports and Pathology Reports are provided separately, in subsequent sections. Lab Results This section contains the Chemistry/Hematology Results that were resulted 30 days before or 30 daysafter the date of the Encounter. Date/Time Source Result Type Result - Unit Interpretation Reference Range Comment Dec 23, 2023 01:30 PM [facility] LIVER FUNCTION Specimen Type: SERUM No comment entered. Ordering Provider: CLAUDIA MCPHERSON Report Released Date/Time: Nov 13, 2023 06:01 PM Reporting Lab: [address] [address] Performing Lab: [address] [address] PROTEIN,TOTAL 7.2 g/dL 6.0-8.3 ALBUMIN 4.0 g/dL 3.5-5.0 ALKALINE PHOSPHATASE 100 U/L 40-150 AST 13 U/L 5-34 ALT 17 U/L BILIRUBIN, TOTAL 0.7 mg/dL 0.2-1.2 Dec 23, 2023 01:30 PM [facility] BASIC METABOLIC PANEL (fasting) Specimen Type: SERUM No comment entered. Ordering Provider: CLAUDIA MCPHERSON Report Released Date/Time: Nov 13, 2023 06:01 PM Reporting Lab: [address] [address] Performing Lab: [address] [address] UREA NITROGEN 14 mg/dL 7-25 GLUCOSE 100 mg/dL 65-100 SODIUM 140 mmol/L 135-145 POTASSIUM 3.6 mmol/L 3.5-5.0 CHLORIDE 105 mmol/L 100-110 CO2 25 meq/L 20-30 CREATININE, Serum 1.47 mg/dL H 0.50-1.40 eGFR(CKD-EPI 2020) 48 mL/min L >60 Dec 23, 2023 01:30 PM [facility] TSH Specimen Type: SERUM No comment entered. Ordering Provider: CLAUDIA MCPHERSON Report Released Date/Time: Nov 13, 2023 06:01 PM Reporting Lab: [address] [address] Performing Lab: [facility] [address] [address] TSH 0.93 u[IU]/mL 0.35-5.00 Dec 23, 2023 01:30 PM [facility] CBC AND DIFF (AUTO) Specimen Type: BLOOD No comment entered. Ordering Provider: CLAUDIA MCPHERSON Report Released Date/Time: Nov 13, 2023 06:01 PM Reporting Lab: [facility] [address] [address] Performing Lab: [facility] [address] [address] WBC 8.38 10*3/uL 4.50-11.00 RBC 5.39 10*6/uL 4.23-5.66 HGB 15.0 g/dL 12.8-17 HCT 44.7 39.2-50.4 MCV 82.9 fL 82-99 MCHC 33.6 g/dL 30.8-35.1 PLT 268 10*3/uL 140-360 RDW-CV 12.8 12.0-16.0 MONO, ABS 0.62 10*3/uL 0.30-1.10 MCH 27.8 pg 26.2-32.6 NEUT % 67.6 43.7-75.8 LYMPH % 21.4 14.0-42.3 MONO % 7.4 5.1-13.7 EOS % 2.7 0.4-6.8 BASO % 0.4 0.1-2.0 NEUT, ABS 5.67 10*3/uL 2.20-7.60 LYMPH, ABS 1.79 10*3/uL 1.00-3.20 EOS, ABS 0.23 10*3/uL 0.03-0.44 BASO, ABS 0.03 10*3/uL 0.01-0.13 IMMATURE GRAN % 0.5 0.0-0.7 IMMATURE GRAN, ABS 0.04 10*3/uL 0.00-0.06 NRBC % 0.0 0.0-0.0 NRBC, ABS 0.00 10*3/uL 0.00-0.00 Dec 23, 2023 01:30 PM [facility] LIPID PANEL FASTING Specimen Type: SERUM No comment entered. Ordering Provider: CLAUDIA MCPHERSON Report Released Date/Time: Nov 13, 2023 06:01 PM Reporting Lab: [facility] [address] [address] Performing Lab: [facility] [address] [address] CHOLESTEROL 132 mg/dL TRIGLYCERIDE 158 mg/dL H 0-150 LDL calculated 54 mg/dL 0-129 CHOL/HDL 2.9 HDL CHOLESTEROL 46 mg/dL 40-60 Dec 23, 2023 01:30 PM [facility] HEMOGLOBIN A1C PANEL Specimen Type: BLOOD Comment: Values obtained from A1C measurements can vary. For atypical A1C assays, a reported value of 7.0 could actually be between 6.72 and 7.28 if measured by a reference method. A reported value of 9.0 could actually be between 8.73 and 9.27. Ref: http://www.ngs p.org/CAPdata. asp Ordering Provider: CLAUDIA MCPHERSON Report Released Date/Time: Nov 13, 2023 06:01 PM Reporting Lab: [facility] [address] [address] Performing Lab: [facility] [address] [address] HEMOGLOBIN A1C 5.9 H 4.0-5.6 Dec 23, 2023 01:30 PM [facility] URINALYSIS CLEAN CATCH Specimen Type: URINE Comment: If Glucose = >500 and Ketones are positive, please alert the Physician. Ordering Provider: CLAUDIA MCPHERSON Report Released Date/Time: Nov 13, 2023 06:01 PM Reporting Lab: [facility] [address] [address] Performing Lab: [address] [address] UA COLOR Light-Yellow Yellow UA APPEARANCE Clear Clear UA GLUCOSE >1000 mg/dL Negative UA KETONES NEGATIVE mg/dL Negative UA BLOOD NEGATIVE mg/dL Negative UA PROTEIN 10 mg/dL Negative UA NITRITE NEGATIVE mg/dL Negative UA BILIRUBIN NEGATIVE mg/dL Negative UA SPECIFIC GRAVITY 1.030 H 1.016-1.02 2 UA pH 5.5 5.0-9.0 UA UROBILINOGEN Normal mg/dL <2.0 UA LEUKOCYTE NEGATIVE Negative Dec 23, 2023 01:30 PM [facility] [place] [facility] MICROALBUMIN CREATININE RATIO PANEL Specimen Type: URINE No comment entered. Ordering Provider: CLAUDIA MCPHERSON Report Released Date/Time: Nov 13, 2023 06:01 PM Reporting [facility] [address] [address] Performing Lab: [facility] [address] [address] MICROALBUMIN/C REATININE RATIO 26.3 mg/g 0-29.9 MICROALBUMIN,Q UANTITATIVE 3.3 mg/dL RR UNAVAIL CREATININE URINE 125.63 mg/dL Social History: Smoking Status (Most current) and Tobacco Use (All prior to encounter date) This section includes the most current, and the historical, smoking and tobacco- related health factors from the [place] facility where the Encounter took place. Current Smoking Status This section includes the most current smoking, or tobacco-related health factor, from the [place] facility where the Encounter took place. Date/Time Current Smoking Status Comment Facil ity Aug 23, 2023 02:30 PM [facility] Tobacco Use History This section includes a history of the smoking, or tobacco-related health factors, that were collected on or before the date of the Encounter. The data comes from the [place] facility where the Encounter took place. Date/Time Smoking Status/Tobacco Use Comment F acility Aug 23, 2023 02:30 PM VA-TOBACCO QUIT 15 YRS OR MORE [place] [facility] [place] [facility] Aug 17, 2022 03:00 PM VA-TOBACCO FORMER USER [place] [facility] [place] [facility] Aug 17, 2022 03:00 PM VA-TOBACCO QUIT 15 YRS OR MORE [place] [facility] [place] [facility] Aug 07, 2021 03:00 PM VA-TOBACCO FORMER USER [place] [facility] [place] [facility] Aug 07, 2021 03:00 PM VA-TOBACCO QUIT 15 YRS OR MORE [place] [facility] [place] [facility] Jul 18, 2019 10:24 AM [facility] Jul 18, 2019 10:24 AM VA-TOBACCO QUIT 15 YRS OR MORE [facility] Mar 02, 2018 09:39 AM VA-TOBACCO NEVER USED [facility] Advance Directives: All historical and current Section Date Range: From patient's date of to the date document was created. This section includes ALL of a patient's completed or amended [place] Advance and Rescinded Directives. The entries below indicate that a directive exists for the patient, but an actual copy is not included with this document. The data comes from all [place] facilities. Date Advance Directives Provider Source May 18, 2023 ADVANCE DIRECTIVE ADRIANA GARCIA [facility] Encounter Notes: All associated encounter notes This section contains the clinical notes associated to the Encounter. Date/Time Encounter Note(s) Provider Source Nov 30, 2023 03:18 PM OPTOMETRY NOTE: LOCAL TITLE: OPTOMETRY NOTE STANDARD TITLE: OPTOMETRY NOTE DATE OF NOTE: NOV 30, 2023@15:18 ENTRY DATE: NOV 30, 2023@15:18:27 AUTHOR: ROEL ARORA EXP COSIGNER: URGENCY: STATUS: COMPLETED OPTOMETRY NOTE Has ADDENDA Provider approved ophthalmic glasses per request due to being retired and no longer needed safety. The quote provided below is for informational purposes only. Please verify prior to the creation of a purchase order. JUDY VERA [id number] RX INFORMATION OD +6.00 -1.75 X105 Add:+2.50 Pzm:0.00 Dir: Prz2:0.00 Dir2: OS +7.00 -1.75 X72 Add:+2.50 Pzm:0.00 Dir: Prz2:0.00 Dir2: FITTING INFORMATION FPD:60.5 NPD:57.5 [place]:R: L: SEG HT:R:14 L:14 Tint:None Shade:None VA Billable Items FRAME: 4991 MERLOT 53-17-140 Right Lens: 1.67 BIFOCAL FT28 1.67 HIGH INDEX Left Lens: 1.67 BIFOCAL FT28 1.67 HIGH INDEX KLEAR ANTI-REFLECTIVE COATING /jai/ ROEL ARORA COAL GETTER Signed: 11/30/2023 15:19 Receipt Acknowledged By: 11/30/2023 15:22 /jai/ Diana [facility] Outsole Splitter 11/30/2023 ADDENDUM STATUS: COMPLETED PDS Saw Boss fit patient with 1 pair(s) of ft28 eyeglasses on 11/30/2023. OPT HT entered consult(s) as requested for provider signature. /jia/ Diana [facility] Splitter Signed: 11/30/2023 15:24 ROEL ARORA [facility]
--- OUTSIDE RECORDS SUMMARY | 2024-04-11 12:38 | XMS_ITS | Encounter Summary ---
Author Name [facility] [place] [facility] [place] Address [address] [place] [address] Care Team Providers Care Health Information Manager Name Role Phone CLAUDIA MCPHERSON Primary Care [...] Robledo's Name Patient's Relationship to Policy Robledo [facility] (WNR) MEDICARE ADVANTAGE MCR ([facility]) August 24, 2020 [id number] [phone] FR DENISE VERA PATIENT [facility] (WNR) MEDICARE ADVANTAGE [place] INDIV IDUAL - [place] August 24, 2020 [id number] [phone] FR DENISE VERA PATIENT [facility] (WNR) MEDICARE [facility] ([facility]) Dec 25, 2010 [facility] [id number] [phone] FR DENISE VERA PATIENT Selected Encounter This section includes the information on record at [place] for the Encounter. Date/Time Encounter Type Encounter Description Reason Provider Source Nov 30, 2023 01:30 PM COMPRE OPH EXAM EST PT 1/> OPTOMETRY ICD-10-CM E11.9 Type 2 diabetes mellitus without complications ANTONELLA PASTRANA Encounter Template Text not used by [place] Assessments - Encounter Diagnoses This section includes the primary and secondary diagnoses documented for the Encounter. Date/Time Primary/Secondary Diagnosis Diagnosis Name Provider Source Dec 01, 2023 02:04 PM PRIMARY Type 2 diabetes mellitus without complications ANTONELLA PASTRANA [place] [facility] Dec 01, 2023 02:04 PM SECONDARY Age-related nuclear cataract, bilateral ANTONELLA PASTRANA [facility] Dec 01, 2023 02:04 PM SECONDARY Anatomical narrow angle, bilateral ANTONELLA PASTRANA [facility] Dec 01, 2023 02:04 PM SECONDARY Cerebral infarction, unspecified ANTONELLA PASTRANA [facility] Dec 01, 2023 02:04 PM SECONDARY Open angle with borderline findings, low risk, bilateral ANTONELLA PASTRANA [place] [facility] Dec 01, 2023 02:04 PM SECONDARY Other localized visual field defect, bilateral ANTONELLA PASTRANA [place] [facility] Plan of Treatment: Future Appointments (+ 6 months) and Future Tests (+/- 45 days) The Plan of Treatment section includes future care activities for the [facility] [place] [facility] This section includes future appointments and future orders which are active, pending or scheduled. Future Appointments This section includes appointments that were scheduled to occur 6 months from the date of the Encounter, up to a maximum of 20 appointments. The data comes from all [place] treatment facilities. Appointment Date/Time Appointment Type Appointme nt Facility Name Dec 23, 2023 01:30 PM AM[place]ULATORY [place] [facility] Jan 18, 2024 01:30 PM AMBULAT[facility] Jan 21, 2024 02:00 PM AM[facility]UL[facility] Feb 21, 2024 03:30 PM AM[facility]ULATORY [facility]ICINE [facility] Mar 02, 2024 01:00 PM [place] [facility] May 23, 2024 01:00 PM [place] [facility] Active, Pending, and Scheduled Orders This section includes a listing of several types of active, pending, and scheduled orders, including clinic medications orders, diagnostic test orders, procedure orders and consult orders; where the start date of the order is 45 days before the date of the Encounter or 45 days after the date of theEncounter. The data comes from all [place] treatment facilities. Test Date/Time Test Type Test Details Facility Name Jan 02, 2024 12:00 AM Laboratory - Chemi stry Order BASIC METABOLIC PANEL (non-fasting) BLOOD (SST-SERUM) SP [facility] Lab Results: +/- 30 days of the encounter This section includes the Chemistry and Hematology Lab Results on record with [place] for the patient. Radiology Reports and Pathology Reports are provided separately, in subsequent sections. Lab Results This section contains the Chemistry/Hematology Results that were resulted 30 days before or 30 daysafter the date of the Encounter. Date/Time Source Result Type Result - Unit Interpretation Reference Range Comment Dec 23, 2023 01:30 PM [facility] LIVER FUNCTION Specimen Type: SERUM No comment entered. Ordering Provider: CLAUDIA MCPHERSON Report Released Date/Time: Nov 13, 2023 06:01 PM Reporting Lab: [address] [address] Performing Lab: [address] [address] PROTEIN,TOTAL 7.2 g/dL 6.0-8.3 ALBUMIN 4.0 g/dL 3.5-5.0 ALKALINE PHOSPHATASE 100 U/L 40-150 AST 13 U/L 5-34 ALT 17 U/L BILIRUBIN, TOTAL 0.7 mg/dL 0.2-1.2 Dec 23, 2023 01:30 PM [facility] BASIC METABOLIC PANEL (fasting) Specimen Type: SERUM No comment entered. Ordering Provider: CLAUDIA MCPHERSON Report Released Date/Time: Nov 13, 2023 06:01 PM Reporting Lab: [address] [address] Performing Lab: [address] [address] UREA NITROGEN 14 mg/dL 7-25 GLUCOSE 100 mg/dL 65-100 SODIUM 140 mmol/L 135-145 POTASSIUM 3.6 mmol/L 3.5-5.0 CHLORIDE 105 mmol/L 100-110 CO2 25 meq/L 20-30 CREATININE, Serum 1.47 mg/dL H 0.50-1.40 eGFR(CKD-EPI 2020) 48 mL/min L >60 Dec 23, 2023 01:30 PM [facility] CBC AND DIFF (AUTO) Specimen Type: BLOOD No comment entered. Ordering Provider: CLAUDIA MCPHERSON Report Released Date/Time: Nov 13, 2023 06:01 PM Reporting Lab: [facility] [address] [address] Performing Lab: [facility] [address] [address] WBC 8.38 10*3/uL 4.50-11.00 RBC 5.39 10*6/uL [...] 10*3/uL 0.00-0.00 Dec 23, 2023 01:30 PM [facility] TSH Specimen Type: SERUM No comment entered. Ordering Provider: CLAUDIA MCPHERSON Report Released Date/Time: Nov 13, 2023 06:01 PM Reporting Lab: [facility] [address] [address] Performing Lab: [facility] [address] [address] TSH 0.93 u[IU]/mL 0.35-5.00 Dec 23, 2023 01:30 PM [facility] LIPID PANEL FASTING Specimen Type: SERUM No comment entered. Ordering Provider: CLADUIA MCPHERSON Report Released Date/Time: Nov 13, 2023 06:01 PM Reporting Lab: [facility] [address] [address] Performing Lab: [facility] [address] [address] CHOLESTEROL 132 mg/dL TRIGLYCERIDE 158 mg/dL H 0-150 LDL calculated 54 mg/dL 0-129 CHOL/HDL 2.9 HDL CHOLESTEROL 46 mg/dL 40-60 Dec 23, 2023 01:30 PM [facility] HEMOGLOBIN A1C PANEL Specimen Type: BLOOD [...] Nov 13, 2023 06:01 PM Reporting Lab: [facility] [address] [address] Performing Lab: [address] [address] HEMOGLOBIN A1C 5.9 H 4.0-5.6 Dec 23, 2023 01:30 PM [facility] URINALYSIS CLEAN CATCH Specimen Type: URINE Comment: If Glucose = >500 and Ketones are positive, please alert the Physician. Ordering Provider: CLAUDIA MCPHERSON Report Released Date/Time: Nov 13, 2023 06:01 PM Reporting Lab: [facility] [address] [address] Performing Lab: [address] [address] UA COLOR Light-Yellow Yellow UA APPEARANCE Clear Clear UA GLUCOSE >1000 mg/dL Negative UA KETONES NEGATIVE mg/dL Negative UA BLOOD NEGATIVE mg/dL Negative UA PROTEIN 10 mg/dL Negative UA NITRITE NEGATIVE mg/dL Negative UA BILIRUBIN NEGATIVE mg/dL Negative UA SPECIFIC GRAVITY 1.030 H 1.016-1.02 2 UA pH 5.5 5.0-9.0 UA UROBILINOGEN Normal mg/dL <2.0 UA LEUKOCYTE NEGATIVE Negative Dec 23, 2023 01:30 PM [facility] MICROALBUMIN CREATININE RATIO PANEL Specimen Type: URINE No comment entered. Ordering Provider: CLAUDIA MCPHERSON Report Released Date/Time: Nov 13, 2023 06:01 PM Reporting Lab: [address] [address] Performing Lab: [address] [address] MICROALBUMIN/C REATININE RATIO 26.3 mg/g 0-29.9 MICROALBUMIN,Q UANTITATIVE 3.3 mg/dL RR UNAVAIL CREATININE URINE 125.63 mg/dL Social History: Smoking Status (Most current) and Tobacco Use (All prior to encounter date) This section includes the most current, and the historical, smoking and tobacco- related health factors from the [place] facility where the Encounter took place. Current Smoking Status This section includes the most current smoking, or tobacco-related health factor, from the [place] facility where the Encounter took place. Date/Time Current Smoking Status Comment Facil natasha Aug 23, 2023 02:30 PM VA-TOBACCO FORMER USER [facility] Tobacco Use History This section includes a history of the smoking, or tobacco-related health factors, that were collected on or before the date of the Encounter. The data comes from the [place] facility where the Encounter took place. Date/Time Smoking Status/Tobacco Use Comment F acility Aug 23, 2023 02:30 PM VA-TOBACCO QUIT 15 YRS OR MORE [place] [facility] Aug 17, 2022 03:00 PM VA-TOBACCO FORMER USER [place] [facility] Aug 17, 2022 03:00 PM VA-TOBACCO QUIT 15 YRS OR MORE [facility] Aug 07, 2021 03:00 PM VA-TOBACCO FORMER USER [facility] Aug 07, 2021 03:00 PM VA-TOBACCO QUIT 15 YRS OR MORE [facility] Jul 18, 2019 10:24 AM VA-TOBACCO FORMER USER [place] [facility] Jul 18, 2019 10:24 AM VA-TOBACCO QUIT 15 YRS OR MORE [facility] Mar 02, 2018 09:39 AM VA-TOBACCO NEVER USED [place] [facility] Advance Directives: All historical and current Section Date Range: From patient's date of to the date document was created. This section includes ALL of a patient's completed or amended [place] Advance and Rescinded Directives. The entries below indicate that a directive exists for the patient, but an actual copy is not included with this document. The data comes from all [place] facilities. Date Advance Directives Provider Source May 18, 2023 ADVANCE DIRECTIVE ADRIANA GARCIA [place] [facility] Encounter Notes: All associated encounter notes This section contains the clinical notes associated to the Encounter. Date/Time Encounter Note(s) Provider Source Nov 30, 2023 12:51 PM OPTOMETRY NOTE: LOCAL TITLE: OPTOMETRY NOTE STANDARD TITLE: OPTOMETRY NOTE DATE OF NOTE: NOV 30, 2023@12:51 ENTRY DATE: NOV 30, 2023@12:52:03 AUTHOR: WARREN CERVANTES EXP COSIGNER: HEIDY PASTRANA URGENCY: STATUS: COMPLETED OPTOMETRY NOTE Has ADDENDA Active problems - Computerized Problem List is the source for the followin. Exposure to potentially hazardous substance 2. Benign Prostatic Hypertrophy without Outflow Obstruction (RUST [id number]) 3. Stroke 4. 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 Food insecurity 6. Diabetes mellitus type 2 7. Chronic kidney disease stage 3 due to type 2 diabetes mellitus 8. Abnormal findings on diagnostic imaging of lung 9. Sleep Apnea (RUST [id number]) 10. Renal Impairment (RUST [id number]) 11. Shared care - specialist and GP 12. Raised PSA 13. Under care of multiple providers 14. Patient requires hospitalization 15. Hyperglycemia 16. Adult screening status 17. History of surgery 18. History of stroke in last year 19. HTN - Hypertension (RUST [id number]) 20. Hyperlipidemia (RUST [id number]) 21. Cognitive impairment 22. Cancer in situ skin of trunk Active Outpatient Medications (including Supplies): Active Outpatient Medications Status 1) AMLODIPINE BESYLATE 10MG TAB TAKE ONE TABLET BY MOUTH ACTIVE ONCE DAILY FOR BLOOD PRESSURE/HEART, DO NOT TAKE WITH GRAPEFRUIT JUICE (DOSE INCREASED) 2) ATORVASTATIN CALCIUM 80MG TAB TAKE ONE TABLET BY ACTIVE MOUTH ONCE DAILY FOR CHOLESTEROL REPLACES SIMVASTATIN 3) CLOPIDOGREL BISULFATE 75MG TAB TAKE ONE TABLET BY ACTIVE MOUTH ONCE DAILY 4) DONEPEZIL HCL 10MG TAB TAKE ONE TABLET BY MOUTH ONCE ACTIVE DAILY FOR ALZHEIMER'S DISEASE 5) EMPAGLIFLOZIN 25MG TAB TAKE ONE-HALF TABLET BY MOUTH ACTIVE ONCE DAILY FOR DIABETES 6) FINASTERIDE 5MG TAB TAKE ONE TABLET BY MOUTH ONCE ACTIVE DAILY 7) OXYBUTYNIN CHLORIDE 5MG SA TAB TAKE ONE TABLET BY ACTIVE MOUTH ONCE DAILY FOR BLADDER INSTABILITY 8) PANTOPRAZOLE NA 40MG EC TAB TAKE ONE TABLET BY MOUTH ACTIVE TWICE DAILY 9) TAMSULOSIN HCL 0.4MG CAP TAKE TWO CAPSULES BY MOUTH ACTIVE AT BEDTIME FOR ENLARGED PROSTATE Active Non-VA Medications Status 1) Non-VA ALBUTEROL 90MCG (CFC-F) 200D ORAL INHL 2 PUFFS ACTIVE BY MOUTH EVERY 4 HOURS NEEDED 10 Total Medications Allergies: METFORMIN, HCTZ HYDROCHLOROTHIAZIDE All medications including those prescribed by outside VA's, community providers, and all OTC meds were reviewed and reconciled with patient to the best of their abilities. This 78 year old MALE is seen today for comprehensive eye exam. Chief Complaint: Per patient's , patient went to [facility] and had the LPI done in both eyes. Patient's eye get watery a lot. Has to wipe them a lot. Patient likes his current glasses however they are scratched up. OHx: anatomical narrow angles OU - s/p LPI OU bilateral cataracts diabetes without retinopathy or macular edema either eye (-) Pain: (-) VAZQUEZ: (-) Diplopia: (-) Flashes: (-) Floaters: (+) Amaurosis Fugax/Tia's: Sep 19 2022 (-) Eye Injury: (+) Eye Surgery: LPI OU w/ [facility]. (-) TBI FOHx: (-) Glaucoma/ARMD/Blindness (-) Smoker/Length of Time/PPD: Current Rx with last BCVA: OD: +6.00 -1.75 x105 20/25 OS: +7.00 -1.75 x072 20/30 ADD: +2.50 20/30 patient can see letters but not distinguish DVA ( )sc ( x )cc OD: 20/30 OS: 20/25 single letters used, patient cannot distinguish letters/numbers but can report if they are clear or fuzzy Pupils: PERRL (-)APD EOMs: SAFE OU, (-)Pain/Diplopia CVF (facial, peripheral): temporal constriction OD, nasal constriction OS Subjective Refraction: OD: +6.50 -1.75 x105 20/25 OS: +7.50 -1.75 x072 20/25 ADD: +2.50 20/30 Final Rx: no change OD: +6.00-1.28u383 OS: +7.00-1.00c322 Add: +2.50 All the above performed by student, reviewed by attending Anterior segment: Performed by student, repeated by attending Lids: dermatochalasis OU Conj: white and quiet OU Cornea: clear OU AC: 4x4 OU Iris: flat and clear OU, LPI temporally OU patent OU (-) NVI OU Lens: clear OU Tonometry: Baxter Performed by student, reviewed by attending OD 15 mmHg OS 16 mmHg Time: 1:20pm Fundus exam: Dilated: 1:25pm Dilating Drops: 1GTT 1 % Tropicamide OU & 1GTT 2.5% Phenylephrine OU (Pt. ed. on side effects, dilation warning given and verbal consent obtained) Patient advised not to drive if they feel they have any symptoms which could affect their ability to drive safely. Patient advised not to engage in any activities which could put themselves or others at risk if they feel they have any symptoms which could affect their ability to perform those activities safely. Performed by student, repeated by attending Vit: syneresis OU C/D: 0.55/0.55 OD, 0.6/0.6 OS (-) NVD OU Macula: a few fine drusen OU (-) fluid or edema OU PPole: clear (-) DBH/CWS/JOSEPH/VB OU A/V: 2/3 Vessels: normal caliber OU Periph: flat and intact (-)holes, tears, detachments 360 OU (-) NVE OU Assessment/Plan: 1. Type 2 diabetes without retinopathy or macular edema OU. Patient and educated on condition and findings today. Stressed importance of strict blood glucose control and yearly dilated eye exams. Monitor. 2. Combined cataracts OU. Mildly visually significant. Surgical intervention not indicated at this time. Monitor. 3. 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 Moderate cupping OU overall stable to previous notes. No family history, pseudoexfoliation or pigment dispersion. IOP today normotensive. Overall risk remains low after LPI procedure. Monitor. 4. Right homonymous hemianopsia s/p CVA 2022. Stroke in August 2022 with subsequent visual field defect, Stable to previous. Patient has difficulty with distinguishing letters and numbers. Monitor. 5. High hyperopia with presbyopia OU. Ordered 1x bifocals at the request of patient. Monitor. Return to Clinic 1 year or earlier PRN Patient Education: Diabetes: Patient was educated regarding diabetes and related ocular complications including retinopathy and cataract formation as well as other related systemic complications. The importance of good blood sugar control, blood sugar testing as recommended by their PCP and the importance of timely follow up were all emphasized. Glaucoma: Patient was educated regarding glaucoma/glaucoma suspect as well as the natural history of this diagnosis including prognosis. Stress importance of compliance and persistency with glaucoma medication when prescribed, timely follow up as well as the role of ancillary testing. Exclusion criteria for ancillary testing include significantly reduced acuity, mental status changes affecting the patient's ability to attend to the test or other physical limitations that would prohibit the patient's ability to participate in testing. /jai/ WARREN CERVANTES OPTOMETRY STUDENT Signed: 11/30/2023 15:16 /jai/ Heidy Pastrana OD CHIEF OF OPTOMETRY Cosigned: 12/01/2023 14:04 12/01/2023 ADDENDUM STATUS: COMPLETED I saw this patient in conjunction with the student and agree with the stated findings and plan as noted below after reviewing both the history and repeating moss elements of the physical exam now. Patient last seen here December 11, 2022 presents today for comprehensive eye examination not voicing any interval visual or ocular changes. He was referred several times in the past for laser iridotomy's but failed to keep follow-up to have procedures completed. He was referred back to [facility] last year and underwent 6 vessel laser iridotomy's right eye performed February 01, 2023 followed by left eye performed February 18, 2023. His most recent hemoglobin A1c from August 18, 2023 was 7.5. Impression: Diabetes without retinopathy or macular edema either eye. Stressed the importance of optimize control of blood sugar, blood pressure and cholesterol with healthy lifestyle. Bilateral anatomically narrow angles status post patent laser iridotomy's each eye. Bilateral low risk glaucoma suspect secondary to moderate but healthy optic nerve cupping. There is no evidence of pseudoexfoliation or pigment dispersion either eye. Will plan for baseline pachymetry and optic nerve OCT at return interval in 12 months. Bilateral nuclear sclerotic cataracts functioning well visually at present. History of previous CVA with right-sided homonymous hemianopsia. Plan: Patient education as noted above reviewed exam findings now. Ordering new glasses today. Return in 12 months for repeat exam with plan for baseline optic nerve OCT and pachymetry for bilateral low risk glaucoma suspect in 12 months or sooner if need be. Ophthalmic medication reconciliation: He is currently not taking or prescribed medications. Medication Reconciliation: Outpatient: Has the patient been taking medications as documented in the EMLR? YES: The patient has been taking medications as documented in the EMLR. Essential Medication List for Review used to complete this medication reconciliation. INCLUDED IN THIS LIST: Alphabetical list of active outpatient prescriptions dispensed from this [facility] (local) and dispensed from another [place] or [facility] facility (remote) as well as inpatient orders [...] whether with a VA or non-VA provider. JLV Link Data on this list may not be complete. Please check JLV. Allergies/ADRs (Tool #5) FACILITY ALLERGY/ADR -------- No Remote Allergy/ADR Data available for this patient [facility] HCTZ HYDROCHLOROTHIAZIDE [facility] METFORMIN Med Recon NoGloary (Tool #1) INCLUDED IN THIS LIST: Alphabetical list of active outpatient prescriptions dispensed from this [place] (local) and dispensed from another [place] or [facility] facility (remote) as well as inpatient orders (local pending and active), local clinic medications, locally documented non-VA medications, and local prescriptions that have or been discontinued in the past 90 days. Non-VA Meds Last Documented On: Aug 07, 2021 NOTE The display of VA prescriptions dispensed from another [place] or [facility] facility (remote) is limited to active outpatient prescription entries matched to National Drug File at the originating site and may not include some items such as investigational drugs, compounds, etc. NOT INCLUDED IN THIS LIST: Medications self-entered by the patient into personal health records (i.e. Aimetis) are NOT included in this list. Non-VA medications documented outside this [place], remote inpatient orders (regardless of status) and remote clinic medications are NOT included in this list. The patient and provider must always discuss medications the patient is taking, regardless of where the medication was dispensed or obtained. Non-VA ALBUTEROL 90MCG (CFC-F) 200D ORAL INHL INHALE 2 PUFFS BY MOUTH EVERY 4 HOURS NEEDED Medication prescribed by Non-VA provider. OUTPT AMLODIPINE BESYLATE 10MG TAB (Status = Active) TAKE ONE TABLET BY MOUTH ONCE DAILY FOR BLOOD PRESSURE/HEART, DO NOT TAKE WITH GRAPEFRUIT JUICE (DOSE INCREASED) Rx# [id number] Last Released: 11/25/23 Qty/Days Supply: 90 Rx Expiration Date: 11/22/24 Refills Remainin Indication: FOR HIGH BLOOD PRESSURE OUTPT AMLODIPINE BESYLATE 5MG TAB (Status = Discontinued) TAKE ONE TABLET BY MOUTH ONCE DAILY FOR BLOOD PRESSURE/HEART, DO NOT TAKE WITH GRAPEFRUIT JUICE Rx# [id number] Last Released: 07/23/23 Qty/Days Supply: Rx Expiration Date: 02/12/24 Refills Remainin Indication: FOR HIGH BLOOD PRESSURE OUTPT AMLODIPINE BESYLATE 5MG TAB (Status = Discontinued) TAKE ONE TABLET BY MOUTH ONCE DAILY FOR BLOOD PRESSURE/HEART, DO NOT TAKE WITH GRAPEFRUIT JUICE Rx# [id number] Last Released: 10/21/23 Qty/Days Supply: 90 Rx Expiration Date: 10/19/24 Refills Remainin Indication: FOR HIGH BLOOD PRESSURE OUTPT ATORVASTATIN CALCIUM 80MG TAB (Status = Active) TAKE ONE TABLET BY MOUTH ONCE DAILY FOR CHOLESTEROL REPLACES SIMVASTATIN Rx# [id number] Last Released: 11/25/23 Qty/Days Supply: 90 Rx Expiration Date: 11/22/24 Refills Remainin Indication: FOR HIGH CHOLESTEROL OUTPT CLOPIDOGREL BISULFATE 75MG TAB (Status = Discontinued) TAKE ONE TABLET BY MOUTH ONCE DAILY Rx# [id number] Last Released: 08/14/23 Qty/Days Supply: 90 Rx Expiration Date: 10/29/23 Refills Remainin Indication: TO PREVENT BLOOD CLOTS OUTPT CLOPIDOGREL BISULFATE 75MG TAB (Status = Active) TAKE ONE TABLET BY MOUTH ONCE DAILY Rx# [id number] Last Released: 11/25/23 Qty/Days Supply: 90 Rx Expiration Date: 11/22/24 Refills Remainin Indication: TO PREVENT BLOOD CLOTS OUTPT DONEPEZIL HCL 10MG TAB (Status = Active) TAKE ONE TABLET BY MOUTH ONCE DAILY FOR ALZHEIMER'S DISEASE Rx# [id number] Last Released: 09/02/23 Qty/Days Supply: 90 Rx Expiration Date: 03/25/24 Refills Remainin Indication: FOR ALZHEIMER'S DISEASE OUTPT EMPAGLIFLOZIN 25MG TAB (Status = Discontinued) TAKE ONE-HALF TABLET BY MOUTH ONCE DAILY FOR DIABETES Rx# [id number] Last Released: 07/12/23 Qty/Days Supply: Rx Expiration Date: 10/29/23 Refills Remainin OUTPT EMPAGLIFLOZIN 25MG TAB (Status = Active) TAKE ONE-HALF TABLET BY MOUTH ONCE DAILY FOR DIABETES Rx# [id number] Last Released: 10/21/23 Qty/Days Supply: 45 Rx Expiration Date: 10/19/24 Refills Remainin OUTPT FINASTERIDE 5MG TAB (Status = Active) TAKE ONE TABLET BY MOUTH ONCE DAILY Rx# [id number] Last Released: 07/01/23 Qty/Days Supply: Rx Expiration Date: 04/16/24 Refills Remainin Indication: FOR ENLARGED PROSTATE OUTPT OXYBUTYNIN CHLORIDE 5MG SA TAB (Status = Active) TAKE ONE TABLET BY MOUTH ONCE DAILY FOR BLADDER INSTABILITY Rx# [id number] Last Released: 09/10/23 Qty/Days Supply: Rx Expiration Date: 07/01/24 Refills Remainin Indication: FOR FREQUENT URINATION OUTPT PANTOPRAZOLE NA 40MG EC TAB (Status = Active) TAKE ONE TABLET BY MOUTH TWICE DAILY Rx# [id number] Last Released: 08/24/23 Qty/Days Supply: Rx Expiration Date: 08/23/24 Refills Remainin OUTPT TAMSULOSIN HCL 0.4MG CAP (Status = Active) TAKE TWO CAPSULES BY MOUTH AT BEDTIME FOR ENLARGED PROSTATE Rx# [id number] Last Released: 10/29/23 Qty/Days Supply: Rx Expiration Date: 05/18/24 Refills Remainin Indication: FOR ENLARGED PROSTATE SUPPLIES OUTPT ACCU-CHEK GUIDE (GLUCOSE) TEST STRIP (Status = ) USE 1 STRIP TO TEST BLOOD SUGARS EVERY FOUR DAYS Rx# [id number] Last Released: 11/02/22 Qty/Days Supply: 50 Rx Expiration Date: 10/29/23 Refills Remainin Indication: DIABETES OUTPT ACCU-CHEK GUIDE(GLUCOSE)HI/LO CNTRL SOLN (Status = ) 1 DROP TOPICALLY DIRECTED TO TEST GLUCOMETER FOR ACCURACY Rx# [id number] Last Released: 02/12/23 Qty/Days Supply: Rx Expiration Date: 10/29/23 Refills Remainin Indication: DIABETES OUTPT LANCET,SOFTCLIX (Status = ) USE 1 LANCET DIRECTED EVERY FOUR DAYS TO TEST BLOOD SUGAR Rx# [id number] Last Released: 11/02/22 Qty/Days Supply: 100/90 Rx Expiration Date: 10/29/23 Refills Remainin Indication: DIABETES Declines printed copy of medication list now. /es/ Heidy Pastrana OD CHIEF OF OPTOMETRY Signed: 12/01/2023 14:09 [facility] C[facility]
--- OUTSIDE RECORDS SUMMARY | 2024-04-11 12:39 | XMS_ITS | Encounter Summary ---
Author Name [place] Organization [place] Address [address] [place] [address] Care Team Providers Care Orderlies Teacher Name Role Phone RAFAEL DUKE Primary Care [...] Name Patient's Relationship to Policy Robledo [employer] [facility] (WNR) MEDICARE [facility] ([facility]) August 24, 2020 [id number] [phone] FR DENISE VER[facility]) MEDIC[facility] ADVANTAGE [place] August 24, 2020 [id number] [phone] FR DENISE VERA PATIENT [facility] (WNR) MEDICARE [facility] (WNR) Dec 25, 2010 [facility] [id number] [phone] FR DENISE VERA PATIENT Selected Encounter This section includes the information on record at [place] for the Encounter. Date/Time Encounter Type Encounter Description Reason Pro vider Source Jan 02, 2024 07:56 PM Outpatient Encounter PRIMARY CARE/MEDICINE IHE Encounter Template Text not used by [place] Plan of Treatment: Future Appointments (+ 6 months) and Future Tests (+/- 45 days) The Plan of Treatment section includes future care activities for the patient from all [place] [facility] This section includes future appointments and future orders which are active, pending or scheduled. Future Appointments This section includes appointments that were scheduled to occur 6 months from the date of the Encounter, up to a maximum of 20 appointments. The data comes from all [facility]. Appointment Date/Time Appointment Type Appointme nt Facility Name Jan 18, 2024 01:30 PM [facility] Jan 21, 2024 02:00 PM [facility] Feb 21, 2024 03:30 PM [facility]BULAT[facility] - [facility] Mar 02, 2024 01:00 PM [facility] May 23, 2024 01:00 PM AMBULATORY - MEDICINE [facility] Active, Pending, and Scheduled Orders This section includes a listing of several types of active, pending, and scheduled orders, including clinic medications orders, diagnostic test orders, procedure orders and consult orders; where the start date of the order is 45 days before the date of the Encounter or 45 days after the date of theEncounter. The data comes from all [facility]. Test Date/Time Test Type Test Details Facility Name Jan 02, 2024 12:00 AM Laboratory - Chemi stry Order BASIC METABOLIC PANEL (non-fasting) BLOOD (SST-SERUM) [facility] Lab Results: +/- 30 days of the encounter This section includes the Chemistry and Hematology Lab Results on record with [place] for the patient. Radiology Reports and Pathology Reports are provided separately, in subsequent sections. Lab Results This section contains the Chemistry/Hematology Results that were resulted 30 days before or 30 daysafter the date of the Encounter. Date/Time Source Result Type Result - Unit Interpretation Reference Range Comment Dec 23, 2023 01:30 PM [facility] BASIC METABOLIC PANEL (fasting) Specimen Type: SERUM No comment entered. Ordering Provider: RAFAEL DUKE Report Released Date/Time: Nov 13, 2023 06:01 PM Reporting Lab: [address] [address] Performing Lab: [facility] [address] [facility] [address] UREA NITROGEN 14 mg/dL 7-25 GLUCOSE 100 mg/dL 65-100 SODIUM 140 mmol/L 135-145 POTASSIUM 3.6 mmol/L 3.5-5.0 CHLORIDE 105 mmol/L 100-110 CO2 25 meq/L 20-30 CREATININE, Serum 1.47 mg/dL H 0.50-1.40 eGFR(CKD-EPI 2020) 48 mL/min L >60 Dec 23, 2023 01:30 PM [facility] LIVER FUNCTION Specimen Type: SERUM No comment entered. Ordering Provider: RAFAEL DUKE Report Released Date/Time: Nov 13, 2023 06:01 PM Reporting Lab: [address] [address] Performing Lab: [address] [address] PROTEIN,TOTAL 7.2 g/dL 6.0-8.3 ALBUMIN 4.0 g/dL 3.5-5.0 ALKALINE PHOSPHATASE 100 U/L 40-150 AST 13 U/L 5-34 ALT 17 U/L BILIRUBIN, TOTAL 0.7 mg/dL 0.2-1.2 Dec 23, 2023 01:30 PM [facility] CBC AND DIFF (AUTO) Specimen Type: BLOOD No comment entered. Ordering Provider: RAFAEL DUKE Report Released Date/Time: Nov 13, 2023 06:01 PM Reporting Lab: [address] [address] Performing Lab: [address] [address] WBC 8.38 10*3/uL 4.50-11.00 RBC 5.39 10*6/uL [...] 10*3/uL 0.00-0.00 Dec 23, 2023 01:30 PM [facility] TSH Specimen Type: SERUM No comment entered. Ordering Provider: RAFAEL DUKE Report Released Date/Time: Nov 13, 2023 06:01 PM Reporting Lab: [address] [address] Performing Lab: [address] [address] TSH 0.93 u[IU]/mL 0.35-5.00 Dec 23, 2023 01:30 PM [facility] LIPID PANEL FASTING Specimen Type: SERUM No comment entered. Ordering Provider: RAFAEL DUKE Report Released Date/Time: Nov 13, 2023 06:01 PM Reporting Lab: [address] [address] Performing Lab: [address] [address] CHOLESTEROL 132 mg/dL TRIGLYCERIDE 158 mg/dL H 0-150 LDL calculated 54 mg/dL 0-129 CHOL/HDL 2.9 HDL CHOLESTEROL 46 mg/dL 40-60 Dec 23, 2023 01:30 PM [facility] HEMOGLOBIN A1C PANEL Specimen Type: BLOOD Comment: Values obtained from A1C measurements can vary. For atypical A1C assays, a reported value of 7.0 could actually be between 6.72 and 7.28 if measured by a reference method. A reported value of 9.0 could actually be between 8.73 and 9.27. Ref: http://www.ngs p.org/CAPdata. asp Ordering Provider: RAFAEL DUKE Report Released Date/Time: Nov 13, 2023 06:01 PM Reporting Lab: [address] [address] Performing Lab: [address] [address] HEMOGLOBIN A1C 5.9 H 4.0-5.6 Dec 23, 2023 01:30 PM [facility] MICROALBUMIN CREATININE RATIO PANEL Specimen Type: URINE No comment entered. Ordering Provider: RAFAEL DUKE Report Released Date/Time: Nov 13, 2023 06:01 PM Reporting Lab: [address] [address] Performing Lab: [address] [address] MICROALBUMIN/C REATININE RATIO 26.3 mg/g 0-29.9 MICROALBUMIN,Q UANTITATIVE 3.3 mg/dL RR UNAVAIL CREATININE URINE 125.63 mg/dL Dec 23, 2023 01:30 PM [facility] URINALYSIS CLEAN CATCH Specimen Type: URINE Comment: If Glucose = >500 and Ketones are positive, please alert the Physician. Ordering Provider: RAFAEL DUKE Report Released Date/Time: Nov 13, 2023 06:01 PM Reporting Lab: [address] [address] Performing Lab: [address] [address] UA COLOR Light-Yellow Yellow UA APPEARANCE Clear Clear UA GLUCOSE >1000 mg/dL Negative UA KETONES NEGATIVE mg/dL Negative UA BLOOD NEGATIVE mg/dL Negative UA PROTEIN 10 mg/dL Negative UA NITRITE NEGATIVE mg/dL Negative UA BILIRUBIN NEGATIVE mg/dL Negative UA SPECIFIC GRAVITY 1.030 H 1.016-1.02 2 UA pH 5.5 5.0-9.0 UA UROBILINOGEN Normal mg/dL <2.0 UA LEUKOCYTE NEGATIVE Negative Social History: Smoking Status (Most current) and Tobacco Use (All prior to encounter date) This section includes the most current, and the historical, smoking and tobacco- related health factors from the [place] facility where the Encounter took place. Current Smoking Status This section includes the most current smoking, or tobacco-related health factor, from the [place] facility where the Encounter took place. Date/Time Current Smoking Status Comment Facil ity Aug 23, 2023 02:30 PM VA-TOBACCO FORMER USER [place] [facility] [place] [facility] Tobacco Use History This section includes a history of the smoking, or tobacco-related health factors, that were collected on or before the date of the Encounter. The data comes from the [place] facility where the Encounter took place. Date/Time Smoking Status/Tobacco Use Comment F acility Aug 23, 2023 02:30 PM VA-TOBACCO QUIT 15 YRS OR MORE [place] [facility] [place] [facility] Aug 17, 2022 03:00 PM VA-TOBACCO FORMER USER [place] [facility] [place] [facility] Aug 17, 2022 03:00 PM VA-TOBACCO QUIT 15 YRS OR MORE [facility] [place] [facility] Aug 07, 2021 03:00 PM VA-TOBACCO FORMER USER [place] [facility] [place] [facility] Aug 07, 2021 03:00 PM VA-TOBACCO QUIT 15 YRS OR MORE [facility] [place] [facility] Jul 18, 2019 10:24 AM VA-TOBACCO FORMER USER [facility] [place] [facility] Jul 18, 2019 10:24 AM VA-TOBACCO QUIT 15 YRS OR MORE [facility] [place] [facility] Mar 02, 2018 09:39 AM VA-TOBACCO NEVER USED [facility] [place] [facility] Advance Directives: All historical and current Section Date Range: From patient's date of to the date document was created. This section includes ALL of a patient's completed or amended [place] Advance and Rescinded Directives. The entries below indicate that a directive exists for the patient, but an actual copy is not included with this document. The data comes from all [place] facilities. Date Advance Directives Provider Source May 18, 2023 ADVANCE DIRECTIVE ADRIANA GARCIA [facility] Encounter Notes: All associated encounter notes This section contains the clinical notes associated to the Encounter. Date/Time Encounter Note(s) Provider Source Jan 02, 2024 07:58 PM PRIMARY CARE TELEP AURELIO ENCOUNTER NOTE: LOCAL TITLE: TELEPHONE NOTE/PRIMARY CARE STANDARD TITLE: PRIMARY CARE TELEPHONE ENCOUNTER NOTE DATE OF NOTE: JAN 02, 2024@19:58 ENTRY DATE: JAN 02, 2024@19:58:59 AUTHOR: RAFAEL DUKE EXP COSIGNER: URGENCY: STATUS: COMPLETED Late entry. Entered 01-02-2024 for event 12-31-2023 Discussed with patient's for 10 minutes. Blood pressure elevated on amlodipine 10 mg daily. Plan: Add metoprolol succinate 25 mg daily. Recheck blood pressure nursing clinic 1 month. /jai/ Rafael Duke MD Staff Physician Signed: 01/02/2024 19:59 RAFAEL DUKE [facility]
--- OUTSIDE RECORDS SUMMARY | 2024-04-11 12:40 | XMS_ITS ---
Author Name [facility] [place] Address [address] [place] [id number] Care Team Providers Care Shark Biologist Name Role Phone RAFAEL DUKE Primary Care [...] Robledo's Name Patient's Relationship to Policy Robledo [facility] (WNR) MEDICARE ADVANTAGE MCR ([facility]) August 24, 2020 [id number] [phone] FR DENISE VERA PATIENT [facility] (WNR) MEDICARE ADVANTAGE [place] INDIV ID[place] - [place] August 24, 2020 [id number] [phone] FR DENISE VERA PATIENT [facility] (WNR) MEDICARE [facility] ([facility]) Dec 25, 2010 [facility] [id number] [phone] FR DENISE VERA PATIENT Selected Encounter This section includes the information on record at [place] for the Encounter. Date/Time Encounter Type Encounter Description Reason Provider Source Jan 21, 2024 02:00 PM OFF/OP EST AUGUST X REQ PHY/QHP PRIMARY CARE/MEDICINE ICD-10-CM I10 Essential (primary) hypertension SHARON TURCIOS E Encounter Template Text not used by [place] Assessments - Encounter Diagnoses This section includes the primary and secondary diagnoses documented for the Encounter. Date/Time Primary/Secondary Diagnosis Diagnosis Name Provider Source Jan 21, 2024 02:41 PM PRIMARY Essential (primary) hypertension SHARON TURCIOS [facility] Plan of Treatment: Future Appointments (+ 6 months) and Future Tests (+/- 45 days) The Plan of Treatment section includes future care activities for the patient from all [place] [facility]. This section includes future appointments and future orders which are active, pending or scheduled. Future Appointments This section includes appointments that were scheduled to occur 6 months from the date of the Encounter, up to a maximum of 20 appointments. The data comes from all [place] treatment facilities. Appointment Date/Time Appointment Type Appointme nt Facility Name Feb 21, 2024 03:30 PM AMBULATORY - MEDICINE [facility] Mar 02, 2024 01:00 PM AMBULATORY MEDICINE [facility] May 23, 2024 01:00 PM AMBULATORY - MEDICINE [facility] Jul 13, 2024 01:30 PM AMBULATORY MEDICINE [facility] Active, Pending, and Scheduled Orders This section includes a listing of several types of active, pending, and scheduled orders, including clinic medications orders, diagnostic test orders, procedure orders and consult orders; where the start date of the order is 45 days before the date of the Encounter or 45 days after the date of theEncounter. The data comes from all [place] treatment [facility]. Test Date/Time Test Type Test Details Facility Name Jan 02, 2024 12:00 AM Laboratory - Chemi stry Order BASIC METABOLIC PANEL (non-fasting) BLOOD (SST-SERUM) [facility] Lab Results: +/- 30 days of the encounter This section includes the Chemistry and Hematology Lab Results on record with [place] for the patient. Radiology Reports and Pathology Reports are provided separately, in subsequent sections. Lab Results This section contains the Chemistry/Hematology Results that were resulted 30 days before or 30 daysafter the date of the Encounter. Date/Time Source Result Type Result - Unit Interpretation Reference Range Comment Dec 23, 2023 01:30 PM [facility] LIVER FUNCTION Specimen Type: SERUM No comment entered. Ordering Provider: RAFAEL DUKE Report Released Date/Time: Nov 13, 2023 06:01 PM Reporting Lab: [facility] [address] [facility] [address] Performing Lab: [address] [address] PROTEIN,TOTAL 7.2 g/dL 6.0-8.3 ALBUMIN 4.0 g/dL 3.5-5.0 ALKALINE PHOSPHATASE 100 U/L 40-150 AST 13 U/L 5-34 ALT 17 U/L BILIRUBIN, TOTAL 0.7 mg/dL 0.2-1.2 Dec 23, 2023 01:30 PM [facility] BASIC METABOLIC PANEL (fasting) Specimen Type: SERUM No comment entered. Ordering Provider: RAFAEL DUKE Report Released Date/Time: Nov 13, 2023 06:01 PM Reporting Lab: [address] [address] Performing Lab: [address] [address] UREA NITROGEN 14 mg/dL 7-25 GLUCOSE 100 mg/dL 65-100 SODIUM 140 mmol/L 135-145 POTASSIUM 3.6 mmol/L 3.5-5.0 CHLORIDE 105 mmol/L 100-110 CO2 25 meq/L 20-30 CREATININE, Serum 1.47 mg/dL H 0.50-1.40 eGFR(CKD-EPI 2020) 48 mL/min L >60 Dec 23, 2023 01:30 PM [facility] CBC AND DIFF (AUTO) Specimen Type: BLOOD No comment entered. Ordering Provider: RAFAEL DUKE Report Released Date/Time: Nov 13, 2023 06:01 PM Reporting Lab: [facility] [address] [facility] [address] Performing Lab: [address] [address] WBC 8.38 10*3/uL 4.50-11.00 RBC 5.39 10*6/uL [...] 10*3/uL 0.00-0.00 Dec 23, 2023 01:30 PM [facility] TSH Specimen Type: SERUM No comment entered. Ordering Provider: RAFAEL DUKE Report Released Date/Time: Nov 13, 2023 06:01 PM Reporting Lab: [address] [address] Performing Lab: [address] [address] TSH 0.93 u[IU]/mL 0.35-5.00 Dec 23, 2023 01:30 PM [facility] LIPID PANEL FASTING Specimen Type: SERUM No comment entered. Ordering Provider: RAFAEL DUKE Report Released Date/Time: Nov 13, 2023 06:01 PM Reporting Lab: [address] [address] Performing Lab: [facility] [address] [facility] [address] CHOLESTEROL 132 mg/dL TRIGLYCERIDE 158 mg/dL H 0-150 LDL calculated 54 mg/dL 0-129 CHOL/HDL 2.9 HDL CHOLESTEROL 46 mg/dL 40-60 Dec 23, 2023 01:30 PM [facility] HEMOGLOBIN A1C PANEL Specimen Type: BLOOD [...] Nov 13, 2023 06:01 PM Reporting Lab: [address] [address] Performing Lab: [address] [address] HEMOGLOBIN A1C 5.9 H 4.0-5.6 Dec 23, 2023 01:30 PM [facility] MICROALBUMIN CREATININE RATIO PANEL Specimen Type: URINE No comment entered. Ordering Provider: RAFAEL DUKE Report Released Date/Time: Nov 13, 2023 06:01 PM Reporting Lab: [address] [address] Performing Lab: [address] [address] MICROALBUMIN/C REATININE RATIO 26.3 mg/g 0-29.9 MICROALBUMIN,Q UANTITATIVE 3.3 mg/dL RR UNAVAIL CREATININE URINE 125.63 mg/dL Dec 23, 2023 01:30 PM [facility] URINALYSIS CLEAN CATCH Specimen Type: URINE Comment: If Glucose = >500 and Ketones are positive, please alert the Physician. Ordering Provider: RAFAEL DUKE Report Released Date/Time: Nov 13, 2023 06:01 PM Reporting Lab: [address] [address] Performing Lab: [place] [facility] [place] [facility] [address] [facility] [address] UA COLOR Light-Yellow Yellow UA APPEARANCE Clear [...] 23, 2023 02:30 PM [facility] Tobacco Use History This section includes a history of the smoking, or tobacco-related health factors, that were collected on or before the date of the Encounter. The data comes from the [place] facility where the Encounter took place. Date/Time Smoking Status/Tobacco Use Comment F acwoo Aug 23, 2023 02:30 PM VA-TOBACCO QUIT 15 YRS OR MORE [place] [facility] [place] [facility] Aug 17, 2022 03:00 PM VA-TOBACCO FORMER USER [place] [facility] [place] [facility] Aug 17, 2022 03:00 PM VA-TOBACCO QUIT 15 YRS OR MORE [place] [facility] [place] [facility] Aug 07, 2021 03:00 PM VA-TOBACCO FORMER USER [place] [facility] [place] [facility] Aug 07, 2021 03:00 PM VA-TOBACCO QUIT 15 YRS OR MORE [place] [facility] [place] [facility] Jul 18, 2019 10:24 AM VA-TOBACCO FORMER USER [place] [facility] [place] [facility] Jul 18, 2019 10:24 AM VA-TOBACCO QUIT 15 YRS OR MORE [place] [facility] [place] [facility] Mar 02, 2018 09:39 AM VA-TOBACCO NEVER USED [facility] Advance Directives: All historical and current [...] May 18, 2023 ADVANCE DIRECTIVE ADRIANA GARCIA [facility] Encounter Notes: All associated encounter notes This section contains the clinical notes associated to the Encounter. Date/Time Encounter Note(s) Provider Source Jan 21, 2024 02:14 PM PRIMARY CARE OUTPA TIENT NOTE: LOCAL TITLE: AMBULATORY/OUTPATIENT CARE NOTE STANDARD TITLE: PRIMARY CARE OUTPATIENT NOTE DATE OF NOTE: JAN 21, 2024@14:14 ENTRY DATE: JAN 21, 2024@14:14:43 AUTHOR: SHARON TURCIOS EXP COSIGNER: URGENCY: STATUS: COMPLETED F=Nursing Clinic D= [place] here for blood pressure check per VALERIA/robert. Vet has history of hypertension. Presently he is taking Amlodepine 10mg daily and metoprolol 25mg daily for elevated B/P 168/70. A= B/P today is 175/75 in his right arm and 164/78 in his left arm (manual cuff used with arm elevated at heart level) Pulse is 66. Will review results with pcp. states that at home it is typically 130/70's. Asked her to keep tract for 1 week and call me to report at home readings. Gave her my desk number. states understanding and agrees to plan. R= tolerated well and left area amb ad eber. /jai/ Sharon Turcios RN, BSN Primary Care Signed: 01/21/2024 14:42 Receipt Acknowledged By: 01/26/2024 17:34 /jai/ Rafael Duke MD Staff Physician SHARON TURCIOS [facility]
--- OUTSIDE RECORDS SUMMARY | 2024-04-11 12:40 | XMS_ITS | Encounter Summary ---
Author Name [place] Organization [place] Address [address] [place] [address] Care Team Providers Care Patient Relations Representative Name Role Phone RAFAEL DUKE Primary Care [...] Name Patient's Relationship to Policy Robledo AETNA [facility] (WNR) MEDICARE [facility] ([facility]) August 24, 2020 [id number] [phone] FR DENISE VERA PATIENT [facility] (WNR) MEDICARE ADVANTAGE [place] August 24, 2020 [id number] [phone] FR DENISE VERA PATIENT [facility] (WNR) MEDICARE [facility] (WNR) Dec 25, 2010 [facility] [id number] [phone] FR DENISE VERA PATIENT Selected Encounter This section includes the information on record at [place] for the Encounter. Date/Time Encounter Type Encounter Description Reason Pro vider Source Jan 26, 2024 01:45 PM Outpatient Encounter PRIMARY CARE/MEDICINE IHE Encounter Template Text not used by [place] Plan of Treatment: Future Appointments (+ 6 months) and Future Tests (+/- 45 days) The Plan of Treatment section includes future care activities for the patient from all [place] [facility]. This section includes future appointments and future orders which are active, pending or scheduled. Future Appointments This section includes appointments that were scheduled to occur 6 months from the date of the Encounter, up to a maximum of 20 appointments. The data comes from all [facility]. Appointment Date/Time Appointment Type Appointme nt Facility Name Feb 21, 2024 03:30 PM AM[place]ULATORY [place]ICINE [place] [facility] [place] [facility] Mar 02, 2024 01:00 PM AMBULATORY - [place]ICINE [place] [facility] [facility] [facility] May 23, 2024 01:00 PM AMBULATORY - MEDICINE [facility] Jul 13, 2024 01:30 PM AMBULATORY - MEDICINE [facility] Active, Pending, and Scheduled Orders This section includes a listing of several types of active, pending, and scheduled orders, including clinic medications orders, diagnostic test orders, procedure orders and consult orders; where the start date of the order is 45 days before the date of the Encounter or 45 days after the date of theEncounter. The data comes from all [facility]. Test Date/Time Test Type Test Details Facility Name Jan 02, 2024 12:00 AM Laboratory - Chemi stry Order BASIC METABOLIC PANEL (non-fasting) BLOOD (SST-SERUM) [facility] Lab Results: +/- 30 days of the encounter This section includes the Chemistry and Hematology Lab Results on record with [place] for the patient. Radiology Reports and Pathology Reports are provided separately, in subsequent sections. Lab Results This section contains the Chemistry/Hematology Results that were resulted 30 days before or 30 daysafter the date of the Encounter. Date/Time Source Result Type Result - Unit Interpretation Reference Range Comment Feb 21, 2024 01:34 PM [facility] MICROALBUMIN CREATININE RATIO PANEL Specimen Type: URINE No comment entered. Ordering Provider: RAFAEL DUKE Report Released Date/Time: Feb 11, 2024 09:40 PM Reporting Lab: [address] [address] Performing Lab: [address] [address] MICROALBUMIN/C REATININE RATIO 36.9 mg/g H 0-29.9 MICROALBUMIN,Q UANTITATIVE 2.3 mg/dL RR UNAVAIL CREATININE URINE 62.31 mg/dL Feb 21, 2024 01:34 PM [facility] TSH Specimen Type: SERUM No comment entered. Ordering Provider: RAFAEL DUKE Report Released Date/Time: Feb 11, 2024 09:40 PM Reporting Lab: [address] [address] Performing Lab: [address] [address] TSH 0.80 u[IU]/mL 0.35-5.00 Feb 21, 2024 01:34 PM [facility] BASIC METABOLIC PANEL (non-fasting) Specimen Type: SERUM No comment entered. Ordering Provider: RAFAEL DUKE Report Released Date/Time: Feb 11, 2024 09:40 PM Reporting Lab: [address] [address] Performing Lab: [address] [address] UREA NITROGEN 17 mg/dL 7-25 GLUCOSE 155 mg/dL H 65-100 SODIUM 141 mmol/L 135-145 POTASSIUM 3.7 mmol/L 3.5-5.0 CHLORIDE 106 mmol/L 100-110 CO2 25 meq/L 20-30 CREATININE, Serum 1.48 mg/dL H 0.50-1.40 eGFR(CKD-EPI 2020) 47 mL/min L >60 Feb 21, 2024 01:34 PM [facility] LIPID PANEL FASTING Specimen Type: SERUM No comment entered. Ordering Provider: RAFAEL DUKE Report Released Date/Time: Feb 11, 2024 09:40 PM Reporting Lab: [address] [address] Performing Lab: [address] [address] CHOLESTEROL 121 mg/dL TRIGLYCERIDE 168 mg/dL H 0-150 LDL calculated 43 mg/dL 0-129 CHOL/HDL 2.8 HDL CHOLESTEROL 44 mg/dL 40-60 Feb 21, 2024 01:34 PM [facility] HEMOGLOBIN A1C PANEL Specimen Type: BLOOD Comment: Values obtained from A1C measurements can vary. For atypical A1C assays, a reported value of 7.0 could actually be between 6.72 and 7.28 if measured by a reference method. A reported value of 9.0 could actually be between 8.73 and 9.27. Ref: http://www.ngs p.org/CAPdata. asp Ordering Provider: RAFAEL DUKE Report Released Date/Time: Feb 11, 2024 09:40 PM Reporting Lab: [address] [address] Performing Lab: [address] [address] HEMOGLOBIN A1C 5.8 H 4.0-5.6 Feb 21, 2024 01:34 PM [facility] URINALYSIS CLEAN CATCH Specimen Type: URINE Comment: If Glucose = >500 and Ketones are positive, please alert the Physician. Ordering Provider: RAFAEL DUKE Report Released Date/Time: Feb 11, 2024 09:40 PM Reporting Lab: [address] [address] Performing Lab: [address] [address] UA COLOR Light-Yellow Yellow UA APPEARANCE Clear Clear UA GLUCOSE >1000 mg/dL Negative UA KETONES NEGATIVE mg/dL Negative UA BLOOD NEGATIVE mg/dL Negative UA PROTEIN NEGATIVE mg/dL Negative UA NITRITE NEGATIVE mg/dL Negative UA BILIRUBIN NEGATIVE mg/dL Negative UA SPECIFIC GRAVITY 1.028 H 1.016-1.02 2 UA pH 5.5 5.0-9.0 UA UROBILINOGEN Normal mg/dL <2.0 UA LEUKOCYTE NEGATIVE Negative Feb 21, 2024 01:34 PM [facility] LIVER FUNCTION Specimen Type: SERUM No comment entered. Ordering Provider: RAFAEL DUKE Report Released Date/Time: Feb 11, 2024 09:40 PM Reporting Lab: [address] [address] Performing Lab: [facility] [address] [facility] [address] PROTEIN,TOTAL 6.9 g/dL 6.0-8.3 ALBUMIN 3.8 g/dL 3.5-5.0 ALKALINE PHOSPHATASE 95 U/L 40-150 AST 13 U/L 5-34 ALT 16 U/L BILIRUBIN, TOTAL 0.7 mg/dL 0.2-1.2 Feb 21, 2024 01:34 PM [facility] CBC AND DIFF (AUTO) Specimen Type: BLOOD No comment entered. Ordering Provider: RAFAEL DUKE Report Released Date/Time: Feb 11, 2024 09:40 PM Reporting Lab: [address] [address] Performing Lab: [address] [address] WBC 8.50 10*3/uL 4.50-11.00 RBC 5.30 10*6/uL 4.23-5.66 HGB 14.7 g/dL 12.8-17 HCT 43.8 39.2-50.4 MCV 82.6 fL 82-99 MCHC 33.6 g/dL 30.8-35.1 PLT 272 10*3/uL 140-360 RDW-CV 13.4 12.0-16.0 MONO, ABS 0.62 10*3/uL 0.30-1.10 MCH 27.7 pg 26.2-32.6 NEUT % 71.4 43.7-75.8 LYMPH % 17.5 14.0-42.3 MONO % 7.3 5.1-13.7 EOS % 2.9 0.4-6.8 BASO % 0.5 0.1-2.0 NEUT, ABS 6.07 10*3/uL 2.20-7.60 LYMPH, ABS 1.49 10*3/uL 1.00-3.20 EOS, ABS 0.25 10*3/uL 0.03-0.44 BASO, ABS 0.04 10*3/uL 0.01-0.13 IMMATURE GRAN % 0.4 0.0-0.7 IMMATURE GRAN, ABS 0.03 10*3/uL 0.00-0.06 NRBC % 0.0 0.0-0.0 NRBC, ABS 0.00 10*3/uL 0.00-0.00 Social History: Smoking Status (Most current) and Tobacco Use (All prior to encounter date) This section includes the most current, and the historical, smoking and tobacco- related health factors from the [place] facility where the Encounter took place. Current Smoking Status This section includes the most current smoking, or tobacco-related health factor, from the [place] facility where the Encounter took place. Date/Time Current Smoking Status Comment Facil ity Aug 23, 2023 02:30 PM VA-TOBACCO FORMER USER [place] [facility] [place] [facility] Tobacco Use History This section includes a history of the smoking, or tobacco-related health factors, that were collected on or before the date of the Encounter. The data comes from the [place] facility where the Encounter took place. Date/Time Smoking Status/Tobacco Use Comment F acility Aug 23, 2023 02:30 PM VA-TOBACCO QUIT 15 YRS OR MORE [place] [facility] [place] [facility] Aug 17, 2022 03:00 PM VA-TOBACCO FORMER USER [place] [facility] [place] [facility] Aug 17, 2022 03:00 PM VA-TOBACCO QUIT 15 YRS OR MORE [place] [facility] [place] [facility] Aug 07, 2021 03:00 PM VA-TOBACCO FORMER USER [place] [facility] [place] [facility] Aug 07, 2021 03:00 PM VA-TOBACCO QUIT 15 YRS OR MORE [place] [facility] [place] [facility] Jul 18, 2019 10:24 AM VA-TOBACCO FORMER USER [place] [facility] [place] [facility] Jul 18, 2019 10:24 AM VA-TOBACCO QUIT 15 YRS OR MORE [place] [facility] [place] [facility] Mar 02, 2018 09:39 AM VA-TOBACCO NEVER USED [place] [facility] [facility] Advance Directives: All historical and current Section Date Range: From patient's date of to the date document was created. This section includes ALL of a patient's completed or amended [place] Advance and Rescinded Directives. The entries below indicate that a directive exists for the patient, but an actual copy is not included with this document. The data comes from all [place] facilities. Date Advance Directives Provider Source May 18, 2023 ADVANCE DIRECTIVE ADRIANA GARCIA [facility] Encounter Notes: All associated encounter notes This section contains the clinical notes associated to the Encounter. Date/Time Encounter Note(s) Provider Source Jan 26, 2024 02:43 PM ADDENDUM: LOCAL TITLE: Addendum STANDARD TITLE: ADDENDUM DATE OF NOTE: JAN 26, 2024@14:43:37 ENTRY DATE: JAN 26, 2024@14:43:38 AUTHOR: SHARON TURCIOS EXP COSIGNER: URGENCY: STATUS: COMPLETED forwarded to pcp for review /es/ Sharon Turcios RN, BSN Primary Care Signed: 01/26/2024 14:43 Receipt Acknowledged By: 01/26/2024 17:34 /es/ Rafael Duke MD Staff Physician ========= --- Original Document --- 01/26/24 TELEPHONE NOTE/PRIMARY CARE: Tutor Key spouse Leslye calling in BP readings for Tutor Key: 01/22/24 138/77 01/23/24 143/72 01/24/24 171/81 01/25/24 171/70 01/26/24 160/78 Please review and advise. /es/ ASHISH VALLEJO Signed: 01/26/2024 13:49 Receipt Acknowledged By: * AWAITING SIGNATURE * SHARON TURCIOS * AWAITING SIGNATURE * ANNITA WISEMAN 01/26/2024 ADDENDUM STATUS: UNSIGNED You may not VIEW this UNSIGNED Addendum. SHARON TURCIOS [facility] Jan 26, 2024 01:45 PM PRIMARY CARE TELEP AURELIO ENCOUNTER NOTE: LOCAL TITLE: TELEPHONE NOTE/PRIMARY CARE STANDARD TITLE: PRIMARY CARE TELEPHONE ENCOUNTER NOTE DATE OF NOTE: JAN 26, 2024@13:45 ENTRY DATE: JAN 26, 2024@13:45:32 AUTHOR: ASHISH BHAKTA EXP COSIGNER: URGENCY: STATUS: COMPLETED TELEPHONE NOTE/PRIMARY CARE Has ADDENDA Tutor Key spouse Leslye calling in BP readings for Tutor Key: 01/22/24 138/77 01/23/24 143/72 01/24/24 171/81 01/25/24 171/70 01/26/24 160/78 Please review and advise. /es/ ASHISH BHAKTA [facility] Signed: 01/26/2024 13:49 Receipt Acknowledged By: 2024 09:22 /es/ Sharon Turcios RN, BSN Primary Care 2024 08:59 /es/ ANNITA WISEMAN LPN [employer] 01/26/2024 ADDENDUM STATUS: COMPLETED forwarded to pcp for review /es/ Sharon Turcios RN, BSN Primary Care Signed: 01/26/2024 14:43 Receipt Acknowledged By: 01/26/2024 17:34 /es/ Rafael Duke MD Staff Physician 01/26/2024 ADDENDUM STATUS: COMPLETED See telephone note dated today. /jai/ Rafael Duke MD Staff Physician Signed: 01/26/2024 17:35 ASHISH BHAKTA [place] [facility]
--- OUTSIDE RECORDS SUMMARY | 2024-04-11 12:40 | XMS_ITS | Encounter Summary ---
Author Name Department of Vetera Affairs [place] Organization [place] of [place] Address [address] [place] [address] Care Team Providers Care Singer Songwriter Name Role Phone RAFAEL DUKE Primary Care [...] Name Patient's Relationship to Policy Robledo AETNA [facility] (WNR) MEDICARE [facility] ([facility]) August 24, 2020 [id number] FR DENISE VERA PATIENT [facility] (WNR) MEDICARE ADVANTAGE [place] IN[place] August 24, 2020 [id number] [phone] FR DENISE VERA PATIENT [facility] (WNR) MEDICARE [facility] (WNR) Dec 25, 2010 [facility] [id number] [phone] FR DENISE VERA PATIENT Selected Encounter This section includes the information on record at [place] for the Encounter. Date/Time Encounter Type Encounter Description Reason Pro vider Source Jan 26, 2024 05:32 PM Outpatient Encounter PRIMARY CARE/MEDICINE IHE Encounter Template Text not used by [place] Plan of Treatment: Future Appointments (+ 6 months) and Future Tests (+/- 45 days) The Plan of Treatment section includes future care activities for the patient from [facility] [place] [facility] This section includes future appointments and future orders which are active, pending or scheduled. Future Appointments This section includes appointments that were scheduled to occur 6 months from the date of the Encounter, up to a maximum of 20 appointments. The data comes from all [facility]. Appointment Date/Time Appointment Type Appointme nt Facility Name Feb 21, 2024 03:30 PM AMBULATORY - MEDICINE [place] [facility] [place] [facility] Mar 02, 2024 01:00 PM AMBULATORY - MEDICINE [place] [facility] [place] [facility] May 23, 2024 01:00 PM AMBULATORY - MEDICINE [facility] Jul 13, 2024 01:30 PM AMBULATORY - MEDICINE [facility] Active, Pending, and Scheduled Orders This section includes a listing of several types of active, pending, and scheduled orders, including clinic medications orders, diagnostic test orders, procedure orders and consult orders; where the start date of the order is 45 days before the date of the Encounter or 45 days after the date of theEncounter. The data comes from all [facility]. Test Date/Time Test Type Test Details Facility Name Jan 02, 2024 12:00 AM Laboratory - Chemi stry Order BASIC METABOLIC PANEL (non-fasting) BLOOD (SST-SERUM) [facility] Lab Results: +/- 30 days of the encounter This section includes the Chemistry and Hematology Lab Results on record with [place] for the patient. Radiology Reports and Pathology Reports are provided separately, in subsequent sections. Lab Results This section contains the Chemistry/Hematology Results that were resulted 30 days before or 30 daysafter the date of the Encounter. Date/Time Source Result Type Result - Unit Interpretation Reference Range Comment Feb 21, 2024 01:34 PM [facility] MICROALBUMIN CREATININE RATIO PANEL Specimen Type: URINE No comment entered. Ordering Provider: RAFAEL DUKE Report Released Date/Time: Feb 11, 2024 09:40 PM Reporting Lab: [address] [address] Performing Lab: [address] [address] MICROALBUMIN/C REATININE RATIO 36.9 mg/g H 0-29.9 MICROALBUMIN,Q UANTITATIVE 2.3 mg/dL RR UNAVAIL CREATININE URINE 62.31 mg/dL Feb 21, 2024 01:34 PM [facility] LIPID PANEL FASTING Specimen Type: SERUM No comment entered. Ordering Provider: RAFAEL DUKE Report Released Date/Time: Feb 11, 2024 09:40 PM Reporting Lab: [facility] [address] [facility] [address] Performing Lab: [facility] [address] [facility] [address] CHOLESTEROL 121 mg/dL TRIGLYCERIDE 168 mg/dL H 0-150 LDL calculated 43 mg/dL 0-129 CHOL/HDL 2.8 HDL CHOLESTEROL 44 mg/dL 40-60 Feb 21, 2024 01:34 PM [facility] TSH Specimen Type: SERUM No comment entered. Ordering Provider: RAFAEL DUKE Report Released Date/Time: Feb 11, 2024 09:40 PM Reporting Lab: [facility] [address] [facility] [address] Performing Lab: [facility] [address] [facility] [address] TSH 0.80 u[IU]/mL 0.35-5.00 Feb 21, 2024 01:34 PM [facility] BASIC METABOLIC PANEL (non-fasting) Specimen Type: SERUM No comment entered. Ordering Provider: RAFAEL DUKE Report Released Date/Time: Feb 11, 2024 09:40 PM Reporting Lab: [facility] [address] [facility] [address] Performing Lab: [address] [address] UREA NITROGEN 17 mg/dL 7-25 GLUCOSE 155 mg/dL H 65-100 SODIUM 141 mmol/L 135-145 POTASSIUM 3.7 mmol/L 3.5-5.0 CHLORIDE 106 mmol/L 100-110 CO2 25 meq/L 20-30 CREATININE, Serum 1.48 mg/dL H 0.50-1.40 eGFR(CKD-EPI 2020) 47 mL/min L >60 Feb 21, 2024 01:34 PM [facility] HEMOGLOBIN A1C PANEL Specimen Type: BLOOD [...] Feb 11, 2024 09:40 PM Reporting Lab: [address] [address] Performing Lab: [address] [address] HEMOGLOBIN A1C 5.8 H 4.0-5.6 Feb 21, 2024 01:34 PM [facility] LIVER FUNCTION Specimen Type: SERUM No comment entered. Ordering Provider: RAFAEL DUKE Report Released Date/Time: Feb 11, 2024 09:40 PM Reporting Lab: [address] [address] Performing Lab: [address] [address] PROTEIN,TOTAL 6.9 g/dL 6.0-8.3 ALBUMIN 3.8 g/dL 3.5-5.0 ALKALINE PHOSPHATASE 95 U/L 40-150 AST 13 U/L 5-34 ALT 16 U/L BILIRUBIN, TOTAL 0.7 mg/dL 0.2-1.2 Feb 21, 2024 01:34 PM [facility] URINALYSIS CLEAN CATCH Specimen Type: URINE Comment: If Glucose = >500 and Ketones are positive, please alert the Physician. Ordering Provider: RAFAEL DUKE Report Released Date/Time: Feb 11, 2024 09:40 PM Reporting Lab: [address] [address] Performing Lab: [address] [address] UA COLOR Light-Yellow Yellow UA APPEARANCE Clear Clear UA GLUCOSE >1000 mg/dL Negative UA KETONES NEGATIVE mg/dL Negative UA BLOOD NEGATIVE mg/dL Negative UA PROTEIN NEGATIVE mg/dL Negative UA NITRITE NEGATIVE mg/dL Negative UA BILIRUBIN NEGATIVE mg/dL Negative UA SPECIFIC GRAVITY 1.028 H 1.016-1.02 2 UA pH 5.5 5.0-9.0 UA UROBILINOGEN Normal mg/dL <2.0 UA LEUKOCYTE NEGATIVE Negative Feb 21, 2024 01:34 PM [facility] CBC AND DIFF (AUTO) Specimen Type: BLOOD No comment entered. Ordering Provider: RAFAEL DUKE Report Released Date/Time: Feb 11, 2024 09:40 PM Reporting Lab: [facility] [address] [facility] [address] Performing Lab: [facility] [address] [facility] [address] WBC 8.50 10*3/uL 4.50-11.00 RBC 5.30 10*6/uL [...] and tobacco- related health factors from the [place] facility where the Encounter took place. Current Smoking Status This section includes the most current smoking, or tobacco-related health factor, from the [place] facility where the Encounter took place. Date/Time Current Smoking Status Comment Facil ity Aug 23, 2023 02:30 PM VA-TOBACCO FORMER USER [place] [facility] [place] [facility] Tobacco Use History This section includes a history of the smoking, or tobacco-related health factors, that were collected on or before the date of the Encounter. The data comes from the [place] facility where the Encounter took place. Date/Time Smoking Status/Tobacco Use Comment F acility Aug 23, 2023 02:30 PM VA-TOBACCO QUIT 15 YRS OR MORE [place] [facility] [place] [facility] Aug 17, 2022 03:00 PM VA-TOBACCO FORMER USER [place] [facility] [place] [facility] Aug 17, 2022 03:00 PM VA-TOBACCO QUIT 15 YRS OR MORE [place] [facility] [place] [facility] Aug 07, 2021 03:00 PM VA-TOBACCO FORMER USER [place] [facility] [place] [facility] Aug 07, 2021 03:00 PM VA-TOBACCO QUIT 15 YRS OR MORE [place] [facility] [place] [facility] Jul 18, 2019 10:24 AM VA-TOBACCO FORMER USER [place] [facility] [place] [facility] Jul 18, 2019 10:24 AM VA-TOBACCO QUIT 15 YRS OR MORE [place] [facility] [place] [facility] Mar 02, 2018 09:39 AM VA-TOBACCO NEVER USED [place] [facility] [facility] Advance Directives: All historical and current Section Date Range: From patient's date of to the date document was created. This section includes ALL of a patient's completed or amended [place] Advance and Rescinded Directives. The entries below indicate that a directive exists for the patient, but an actual copy is not included with this document. The data comes from all [place] facilities. Date Advance Directives Provider Source May 18, 2023 ADVANCE DIRECTIVE ADRIANA GARCIA [facility] Encounter Notes: All associated encounter notes This section contains the clinical notes associated to the Encounter. Date/Time Encounter Note(s) Provider Source Jan 26, 2024 05:35 PM PRIMARY CARE TELEP AURELIO ENCOUNTER NOTE: LOCAL TITLE: TELEPHONE NOTE/PRIMARY CARE STANDARD TITLE: PRIMARY CARE TELEPHONE ENCOUNTER NOTE DATE OF NOTE: JAN 26, 2024@17:35 ENTRY DATE: JAN 26, 2024@17:35:14 AUTHOR: RAFAEL DUKE EXP COSIGNER: URGENCY: STATUS: COMPLETED Discussed with patient's for 10 minutes. Blood pressure remains elevated. Plan: Continue amlodipine 10 mg daily Increase metoprolol to 50 mg daily Recheck blood pressure in clinic 1 month already scheduled /jai/ Rafael Duke MD Staff Physician Signed: 01/26/2024 17:35 RAFAEL DUKE [facility]
--- OUTSIDE RECORDS SUMMARY | 2024-04-11 12:40 | XMS_ITS | Encounter Summary ---
Author Name Department [place] Organization [place] Address [address] [place] [address] Care Team Providers Care Associate Entertainment Editor Name Role Phone CLAUDIA MCPHERSON Primary Care [...] Robledo [employer] [facility] (WNR) MEDICARE [facility] (WNR) August 24, 2020 [id number] FR DENISE VERA [facility] ([facility]) [facility]IC[facility] ADVANTAGE [place] INDIV IDUAL - [place] August 24, 2020 [id number] [phone] FR DENISE VERA PATIENT [facility] (WNR) MEDICARE [facility] (WNR) Dec 25, 2010 [facility] [id number] [phone] FR DENISE VERA PATIENT Selected Encounter This section includes the information on record at [place] for the Encounter. Date/Time Encounter Type Encounter Description Reason Pro vider Source Jan 21, 2024 12:00 AM Outpatient Encounter EVENT (HISTORICAL) IHE Encounter Template Text not used by [place] Plan of Treatment: Future Appointments (+ 6 months) and Future Tests (+/- 45 days) The Plan of Treatment section includes future care activities for the patient from all [place] [facility]. This section includes future appointments and future orders which are active, pending or scheduled. Future Appointments This section includes appointments that were scheduled to occur 6 months from the date of the Encounter, up to a maximum of 20 appointments. The data comes from all [facility]. Appointment Date/Time Appointment Type Appointme nt Facility Name Feb 21, 2024 03:30 PM AMBULATORY - MEDICINE [facility] Mar 02, 2024 01:00 PM [facility] May 23, 2024 01:00 PM AMBULATORY - MEDICINE [facility] Jul 13, 2024 01:30 PM AMBULATORY MEDICINE [facility] Active, Pending, and Scheduled Orders This section includes a listing of several types of active, pending, and scheduled orders, including clinic medications orders, diagnostic test orders, procedure orders and consult orders; where the start date of the order is 45 days before the date of the Encounter or 45 days after the date of theEncounter. The data comes from all [facility]. Test Date/Time Test Type Test Details Facility Name Jan 02, 2024 12:00 AM Laboratory - Chemi stry Order BASIC METABOLIC PANEL (non-fasting) BLOOD (SST-SERUM) [facility] Lab Results: +/- 30 days of the encounter This section includes the Chemistry and Hematology Lab Results on record with [place] for the patient. Radiology Reports and Pathology Reports are provided separately, in subsequent sections. Lab Results This section contains the Chemistry/Hematology Results that were resulted 30 days before or 30 daysafter the date of the Encounter. Date/Time Source Result Type Result - Unit Interpretation Reference Range Comment Dec 23, 2023 01:30 PM [facility] LIVER FUNCTION Specimen Type: SERUM No comment entered. Ordering Provider: CLAUDIA MCPHERSON Report Released Date/Time: Nov 13, 2023 06:01 PM Reporting Lab: [address] [address] Performing Lab: [address] [address] PROTEIN,TOTAL 7.2 g/dL 6.0-8.3 ALBUMIN 4.0 g/dL 3.5-5.0 ALKALINE PHOSPHATASE 100 U/L 40-150 AST 13 U/L 5-34 ALT 17 U/L BILIRUBIN, TOTAL 0.7 mg/dL 0.2-1.2 Dec 23, 2023 01:30 PM [facility] BASIC METABOLIC PANEL (fasting) Specimen Type: SERUM No comment entered. Ordering Provider: CLAUDIA MCPHERSON Report Released Date/Time: Nov 13, 2023 06:01 PM Reporting Lab: [address] [address] Performing Lab: [address] [address] UREA NITROGEN 14 mg/dL 7-25 GLUCOSE 100 mg/dL 65-100 SODIUM 140 mmol/L 135-145 POTASSIUM 3.6 mmol/L 3.5-5.0 CHLORIDE 105 mmol/L 100-110 CO2 25 meq/L 20-30 CREATININE, Serum 1.47 mg/dL H 0.50-1.40 eGFR(CKD-EPI 2020) 48 mL/min L >60 Dec 23, 2023 01:30 PM [facility] TSH Specimen Type: SERUM No comment entered. Ordering Provider: CLAUDIA MCPHERSON Report Released Date/Time: Nov 13, 2023 06:01 PM Reporting Lab: [address] [address] Performing Lab: [address] [address] TSH 0.93 u[IU]/mL 0.35-5.00 Dec 23, 2023 01:30 PM [facility] CBC AND DIFF (AUTO) Specimen Type: BLOOD No comment entered. Ordering Provider: CLAUDIA MCPHERSON Report Released Date/Time: Nov 13, 2023 06:01 PM Reporting Lab: [address] [address] Performing Lab: [address] [address] WBC 8.38 10*3/uL 4.50-11.00 RBC 5.39 10*6/uL [...] 10*3/uL 0.00-0.00 Dec 23, 2023 01:30 PM [facility] LIPID PANEL FASTING Specimen Type: SERUM No comment entered. Ordering Provider: CLAUDIA MCPHERSON Report Released Date/Time: Nov 13, 2023 06:01 PM Reporting Lab: [facility] [address] [facility] [address] Performing Lab: [address] [address] CHOLESTEROL 132 mg/dL TRIGLYCERIDE 158 mg/dL H 0-150 LDL calculated 54 mg/dL 0-129 CHOL/HDL 2.9 HDL CHOLESTEROL 46 mg/dL 40-60 Dec 23, 2023 01:30 PM [facility] HEMOGLOBIN A1C PANEL Specimen Type: [...] Nov 13, 2023 06:01 PM Reporting Lab: [address] [address] Performing Lab: [address] [address] HEMOGLOBIN A1C 5.9 H 4.0-5.6 Dec 23, 2023 01:30 PM [facility] URINALYSIS CLEAN CATCH Specimen Type: URINE Comment: If Glucose = >500 and Ketones are positive, please alert the Physician. Ordering Provider: CLAUDIA MCPHERSON Report Released Date/Time: Nov 13, 2023 06:01 PM Reporting Lab: [address] [address] Performing Lab: [address] [address] UA COLOR Light-Yellow Yellow UA APPEARANCE Clear Clear UA GLUCOSE >1000 mg/dL Negative UA KETONES NEGATIVE mg/dL Negative UA BLOOD NEGATIVE mg/dL Negative UA PROTEIN 10 mg/dL Negative UA NITRITE NEGATIVE mg/dL Negative UA BILIRUBIN NEGATIVE mg/dL Negative UA SPECIFIC GRAVITY 1.030 H 1.016-1.02 2 UA pH 5.5 5.0-9.0 UA UROBILINOGEN Normal mg/dL <2.0 UA LEUKOCYTE NEGATIVE Negative Dec 23, 2023 01:30 PM [facility] MICROALBUMIN CREATININE RATIO PANEL Specimen Type: URINE No comment entered. Ordering Provider: CLAUDIA MCPHERSON Report Released Date/Time: Nov 13, 2023 06:01 PM Reporting Lab: [address] [address] Performing Lab: [address] [address] MICROALBUMIN/C REATININE RATIO 26.3 mg/g 0-29.9 MICROALBUMIN,Q UANTITATIVE 3.3 mg/dL RR UNAVAIL CREATININE URINE 125.63 mg/dL Social History: Smoking Status (Most current) and Tobacco Use (All prior to encounter date) This section includes the most current, and the historical, smoking and tobacco- related health factors from the [place] facility where the Encounter took place. Current Smoking Status This section includes the most current smoking, or tobacco-related health factor, from the [place] facility where the Encounter took place. Date/Time Current Smoking Status Comment Facil ity Aug 23, 2023 02:30 PM VA-TOBACCO FORMER USER [place] [facility] [place] [facility] Tobacco Use History This section includes a history of the smoking, or tobacco-related health factors, that were collected on or before the date of the Encounter. The data comes from the [place] facility where the Encounter took place. Date/Time Smoking Status/Tobacco Use Comment F acility Aug 23, 2023 02:30 PM VA-TOBACCO QUIT 15 YRS OR MORE [place] [facility] [place] [facility] Aug 17, 2022 03:00 PM VA-TOBACCO FORMER USER [place] [facility] [place] [facility] Aug 17, 2022 03:00 PM VA-TOBACCO QUIT 15 YRS OR MORE [facility] [place] [facility] Aug 07, 2021 03:00 PM VA-TOBACCO FORMER USER [place] [facility] [place] [facility] Aug 07, 2021 03:00 PM VA-TOBACCO QUIT 15 YRS OR MORE [place] [facility] [facility] Jul 18, 2019 10:24 AM VA-TOBACCO FORMER USER [place] [facility] [place] [facility] Jul 18, 2019 10:24 AM VA-TOBACCO QUIT 15 YRS OR MORE [place] [facility] [facility] Mar 02, 2018 09:39 AM VA-TOBACCO NEVER USED [place] [facility] [place] [facility] Advance Directives: All historical and current Section Date Range: From patient's date of to the date document was created. This section includes ALL of a patient's completed or amended VA Advance and Rescinded Directives. The entries below indicate that a directive exists for the patient, but an actual copy is not included with this document. The data comes from all [place] facilities. Date Advance Directives Provider Source May 18, 2023 ADVANCE DIRECTIVE ADRIANA GARCIA [facility] Encounter Notes: All associated encounter notes This section contains the clinical notes associated to the Encounter. Date/Time Encounter Note(s) Provider Source Jan 21, 2024 12:00 AM NONVA NOTE: LOCAL TITLE: NON-VA OUTPATIENT NOTES STANDARD TITLE: NONVA NOTE DATE OF NOTE: JAN 21, 2024 ENTRY DATE: FEB 14, 2024@08:08:21 AUTHOR: SHELBY ALATORRE COSIGNER: URGENCY: STATUS: COMPLETED VistA Imaging - Scanned Document SCANNED DOCUMENT SIGNATURE NOT REQUIRED Electronically Filed: 02/14/2024 by: HONEY ALATORRE Cnc Milling Machine Operator HNOEY ALATORRE [facility]
--- OUTSIDE RECORDS SUMMARY | 2024-04-11 12:40 | XMS_ITS ---
Author Name [place] Address [address] [place] [address] Care Team Providers Care Clay Grinder Name Role Phone RAFAEL DUKE Primary Care [...] Name Patient's Relationship to Policy [facility] (WNR) MEDICARE [facility] August 24, 2020 [id number] Q [phone] FR DENISE VERA PATIENT [facility] (WNR) MEDICARE ADVANTAGE [place] INDIV [place] August 24, 2020 [id number] [phone] FR DENISE VERA PATIENT [facility] (WNR) MEDICARE [facility] (WNR) Dec 25, 2010 [facility] [id number] [phone] FR DENISE VERA PATIENT Selected Encounter This section includes the information on record at [place] for the Encounter. Date/Time Encounter Type Encounter Description Reason Pro vider Source Jan 28, 2024 10:20 AM Outpatient Encounter ADMIN PAT ACTIVTIES (MASNONCT) IHE Encounter Template Text not used by [place] Plan of Treatment: Future Appointments (+ 6 months) and Future Tests (+/- 45 days) The Plan of Treatment section includes future care activities for the patient from [facility] [place] [facility]. This section includes future appointments [...] 21, 2024 03:30 PM AMBULATORY - MEDICINE [facility] Mar 02, 2024 01:00 PM [facility] May 23, 2024 01:00 PM [facility] Jul 13, 2024 01:30 PM [facility] Active, Pending, and Scheduled Orders This [...] BASIC METABOLIC PANEL (non-fasting) BLOOD (SST-SERUM) SP [facility] Lab Results: +/- 30 days of [...] Range Comment Feb 21, 2024 01:34 PM [facility] MICROALBUMIN CREATININE RATIO PANEL Specimen Type: URINE No comment entered. Ordering Provider: RAFAEL DUKE Report Released Date/Time: Feb 11, 2024 09:40 PM Reporting Lab: [address] [address] Performing Lab: [address] [place] [address] MICROALBUMIN/C REATININE RATIO 36.9 mg/g H 0-29.9 MICROALBUMIN,Q UANTITATIVE 2.3 mg/dL RR UNAVAIL CREATININE URINE 62.31 mg/dL Feb 21, 2024 01:34 PM [facility] LIPID PANEL FASTING Specimen Type: SERUM No comment entered. Ordering Provider: RAFAEL DUKE Report Released Date/Time: Feb 11, 2024 09:40 PM Reporting Lab: [address] [address] Performing Lab: [address] [address] CHOLESTEROL 121 mg/dL TRIGLYCERIDE 168 mg/dL H 0-150 LDL calculated 43 mg/dL 0-129 CHOL/HDL 2.8 HDL CHOLESTEROL 44 mg/dL 40-60 Feb 21, 2024 01:34 PM [facility] TSH Specimen Type: SERUM No comment entered. Ordering Provider: RAFAEL DUKE Report Released Date/Time: Feb 11, 2024 09:40 PM Reporting Lab: [address] [address] Performing Lab: [address] [address] TSH 0.80 u[IU]/mL 0.35-5.00 Feb 21, 2024 01:34 PM [facility] BASIC METABOLIC PANEL (non-fasting) Specimen Type: SERUM No comment entered. Ordering Provider: RAFAEL DUKE Report Released Date/Time: Feb 11, 2024 09:40 PM Reporting Lab: [address] [address] Performing Lab: [address] [address] UREA NITROGEN 17 mg/dL 7-25 GLUCOSE 155 mg/dL H 65-100 SODIUM 141 mmol/L 135-145 POTASSIUM 3.7 mmol/L 3.5-5.0 CHLORIDE 106 mmol/L 100-110 CO2 25 meq/L 20-30 CREATININE, Serum 1.48 mg/dL H 0.50-1.40 eGFR(CKD-EPI 2020) 47 mL/min L >60 Feb 21, 2024 01:34 PM [facility] HEMOGLOBIN A1C PANEL Specimen Type: BLOOD [...] Feb 11, 2024 09:40 PM Reporting Lab: [address] [address] Performing Lab: [address] [address] HEMOGLOBIN A1C 5.8 H 4.0-5.6 Feb 21, 2024 01:34 PM [facility] LIVER FUNCTION Specimen Type: SERUM No comment entered. Ordering Provider: RAFAEL DUKE Report Released Date/Time: Feb 11, 2024 09:40 PM Reporting Lab: [address] [address] Performing Lab: [address] [address] PROTEIN,TOTAL 6.9 g/dL 6.0-8.3 ALBUMIN 3.8 g/dL 3.5-5.0 ALKALINE PHOSPHATASE 95 U/L 40-150 AST 13 U/L 5-34 ALT 16 U/L BILIRUBIN, TOTAL 0.7 mg/dL 0.2-1.2 Feb 21, 2024 01:34 PM [facility] URINALYSIS CLEAN CATCH Specimen Type: URINE Comment: If Glucose = >500 and Ketones are positive, please alert the Physician. Ordering Provider: RAFAEL DUKE Report Released Date/Time: Feb 11, 2024 09:40 PM Reporting Lab: [address] [address] Performing Lab: [facility] [address] [facility] [address] UA COLOR Light-Yellow Yellow UA APPEARANCE Clear Clear UA GLUCOSE >1000 mg/dL Negative UA KETONES NEGATIVE mg/dL Negative UA BLOOD NEGATIVE mg/dL Negative UA PROTEIN NEGATIVE mg/dL Negative UA NITRITE NEGATIVE mg/dL Negative UA BILIRUBIN NEGATIVE mg/dL Negative UA SPECIFIC GRAVITY 1.028 H 1.016-1.02 2 UA pH 5.5 5.0-9.0 UA UROBILINOGEN Normal mg/dL <2.0 UA LEUKOCYTE NEGATIVE Negative Feb 21, 2024 01:34 PM [facility] CBC AND DIFF (AUTO) Specimen Type: BLOOD No comment entered. Ordering Provider: RAFAEL DUKE Report Released Date/Time: Feb 11, 2024 09:40 PM Reporting Lab: [facility] [address] [facility] [address] Performing Lab: [address] [address] WBC 8.50 10*3/uL 4.50-11.00 RBC 5.30 10*6/uL [...] 23, 2023 02:30 PM VA-TOBACCO FORMER USER [place] [facility] [place] [facility] Tobacco Use History This section includes a history of the smoking, or tobacco-related health factors, that were collected on or before the date of the Encounter. The data comes from the [place] facility where the Encounter took place. Date/Time Smoking Status/Tobacco Use Comment F acility Aug 23, 2023 02:30 PM VA-TOBACCO QUIT 15 YRS OR MORE [place] [facility] [place] [facility] Aug 17, 2022 03:00 PM VA-TOBACCO FORMER USER [place] [facility] [place] [facility] Aug 17, 2022 03:00 PM VA-TOBACCO QUIT 15 YRS OR MORE [place] [facility] [place] [facility] Aug 07, 2021 03:00 PM VA-TOBACCO FORMER USER [place] [facility] [place] [facility] Aug 07, 2021 03:00 PM VA-TOBACCO QUIT 15 YRS OR MORE [place] [facility] [place] [facility] Jul 18, 2019 10:24 AM VA-TOBACCO FORMER USER [place] [facility] [place] [facility] Jul 18, 2019 10:24 AM VA-TOBACCO QUIT 15 YRS OR MORE [place] [facility] [place] [facility] Mar 02, 2018 09:39 AM VA-TOBACCO NEVER USED [place] [facility] [place] [facility] Advance Directives: All historical and [...] May 18, 2023 ADVANCE DIRECTIVE ADRIANA GARCIA [facility] Encounter Notes: All associated encounter notes This section contains the clinical notes associated to the Encounter. Date/Time Encounter Note(s) Provider Source Jan 28, 2024 10:20 AM MEDICATION MGT NOT E: LOCAL TITLE: MEDICATION RENEWAL STANDARD TITLE: MEDICATION MGT NOTE DATE OF NOTE: JAN 28, 2024@10:20 ENTRY DATE: JAN 28, 2024@10:20:19 AUTHOR: MREEDITH MCKEON EXP COSIGNER: URGENCY: STATUS: COMPLETED MEDICATION RENEWAL Has ADDENDA patient requesting new medication refill for METOPROLOL SUCCINATE 25MG SA TAB but on file is D/C and a new medication for METOPROLOL SUCCINATE 50MG SA TAB is active please advice patient on which medication he need to be taking Thank you, Meredith /turner MCKEON Computer Security Specialist Signed: 01/28/2024 10:28 Receipt Acknowledged By: 01/28/2024 13:02 /jai/ Rafael Duke MD Staff Physician 01/28/2024 11:11 /jai/ Sharon Turcios RN, BSN Primary Care 01/28/2024 ADDENDUM STATUS: COMPLETED Already discussed with patient. /jai/ Rafael Duke MD Staff Physician Signed: 01/28/2024 13:03 MEREDITH MCKEON [facility]
--- OUTSIDE RECORDS SUMMARY | 2024-04-11 12:40 | XMS_ITS ---
Author Name [place] Address [address] [place] [address] Care Team Providers Care Squeegeer And Former Name Role Phone CLAUDIA MCPHERSON Primary Care [...] Robledo's Name Patient's Relationship to Policy Robledo [facility] (WNR) MEDICARE [facility] ([facility]) August 24, 2020 [id number] [phone] FR DENISE VERA PATIENT [facility] (WNR) MEDICARE ADVANTAGE [place] INDIV IDUAL - [place] August 24, 2020 [id number] [phone] FR DENISE VERA PATIENT [facility] (WNR) MEDICARE [facility] (WNR) Dec 25, 2010 [facility] [id number] [phone] FR DENISE VERA PATIENT Selected Encounter This section includes the information on record at [place] for the Encounter. Date/Time Encounter Type Encounter Description Reason Provider Source Jan 18, 2024 01:30 PM HEARING AID REPAIR/MODIFYIN G AUDIOLOGY ICD-10-CM Z46.1 Encounter for fitting and adjustment of hearing aid SENIOR,ROEL L IHE Encounter Template Text not used by [place] Assessments - Encounter Diagnoses This section includes the primary and secondary diagnoses documented for the Encounter. Date/Time Primary/Secondary Diagnosis Diagnosis Name Provider Source Jan 18, 2024 01:47 PM PRIMARY Encounter for fitting and adjustment of hearing aid JUAN ANTONIO MANCIA [facility] Jan 18, 2024 01:47 PM SECONDARY Sensorineural hearing loss, bilateral JUAN ANTONIO MANCIA [facility] Plan of Treatment: Future Appointments (+ 6 months) and Future Tests (+/- 45 days) The Plan of Treatment section includes future care activities for the patient from all [place] [facility]. This section includes future appointments and future orders which are active, pending or scheduled. Future Appointments This section includes appointments that were scheduled to occur 6 months from the date of the Encounter, up to a maximum of 20 appointments. The data comes from all [facility]. Appointment Date/Time Appointment Type Appointme nt Facility Name Jan 21, 2024 02:00 PM AMBULATORY - MEDICINE [facility] Feb 21, 2024 03:30 PM AMBULATORY - MEDICINE [facility] Mar 02, 2024 01:00 PM AM[facility]ULATORY [facility]IC[facility] May 23, 2024 01:00 PM AMBULATORY MEDICINE [facility] Jul 13, 2024 01:30 PM [facility] Active, Pending, and Scheduled Orders This section includes a listing of several types of active, pending, and scheduled orders, including clinic medications orders, diagnostic test orders, procedure orders and consult orders; where the start date of the order is 45 days before the date of the Encounter or 45 days after the date of theEncounter. The data comes from all [facility]. Test Date/Time Test Type Test Details Facility Name Jan 02, 2024 12:00 AM Laboratory - Chemi stry Order BASIC METABOLIC PANEL (non-fasting) BLOOD (SST-SERUM) [facility] Lab Results: +/- 30 days of the encounter This section includes the Chemistry and Hematology Lab Results on record with [place] for the patient. Radiology Reports and Pathology Reports are provided separately, in subsequent sections. Lab Results This section contains the Chemistry/Hematology Results that were resulted 30 days before or 30 daysafter the date of the Encounter. Date/Time Source Result Type Result - Unit Interpretation Reference Range Comment Dec 23, 2023 01:30 PM [facility] LIVER FUNCTION Specimen Type: SERUM No comment entered. Ordering Provider: CLAUDIA MCPHERSON Report Released Date/Time: Nov 13, 2023 06:01 PM Reporting Lab: [address] [address] Performing Lab: [address] [address] PROTEIN,TOTAL 7.2 g/dL 6.0-8.3 ALBUMIN 4.0 g/dL 3.5-5.0 ALKALINE PHOSPHATASE 100 U/L 40-150 AST 13 U/L 5-34 ALT 17 U/L BILIRUBIN, TOTAL 0.7 mg/dL 0.2-1.2 Dec 23, 2023 01:30 PM [facility] BASIC METABOLIC PANEL (fasting) Specimen Type: SERUM No comment entered. Ordering Provider: CLAUDIA MCPHERSON Report Released Date/Time: Nov 13, 2023 06:01 PM Reporting Lab: [address] [address] Performing Lab: [address] [address] UREA NITROGEN 14 mg/dL 7-25 GLUCOSE 100 mg/dL 65-100 SODIUM 140 mmol/L 135-145 POTASSIUM 3.6 mmol/L 3.5-5.0 CHLORIDE 105 mmol/L 100-110 CO2 25 meq/L 20-30 CREATININE, Serum 1.47 mg/dL H 0.50-1.40 eGFR(CKD-EPI 2020) 48 mL/min L >60 Dec 23, 2023 01:30 PM [facility] CBC AND DIFF (AUTO) Specimen Type: BLOOD No comment entered. Ordering Provider: CLAUDIA MCPHERSON Report Released Date/Time: Nov 13, 2023 06:01 PM Reporting Lab: [address] [address] Performing Lab: [facility] [address] [facility] [address] WBC 8.38 10*3/uL 4.50-11.00 RBC 5.39 10*6/uL [...] 10*3/uL 0.00-0.00 Dec 23, 2023 01:30 PM [facility] TSH Specimen Type: SERUM No comment entered. Ordering Provider: CLAUDIA MCPHERSON Report Released Date/Time: Nov 13, 2023 06:01 PM Reporting Lab: [facility] [address] [facility] [address] Performing Lab: [facility] [address] [facility] [address] TSH 0.93 u[IU]/mL 0.35-5.00 Dec 23, 2023 01:30 PM [facility] LIPID PANEL FASTING Specimen Type: SERUM No comment entered. Ordering Provider: CLAUDIA MCPHERSON Report Released Date/Time: Nov 13, 2023 06:01 PM Reporting Lab: [facility] [address] [facility] [address] Performing Lab: [facility] [address] [facility] [address] CHOLESTEROL 132 mg/dL TRIGLYCERIDE 158 mg/dL H 0-150 LDL calculated 54 mg/dL 0-129 CHOL/HDL 2.9 HDL CHOLESTEROL 46 mg/dL 40-60 Dec 23, 2023 01:30 PM [facility] HEMOGLOBIN A1C PANEL Specimen Type: BLOOD [...] Nov 13, 2023 06:01 PM Reporting Lab: [facility] [address] [facility] [address] Performing Lab: [facility] [address] [facility] [address] HEMOGLOBIN A1C 5.9 H 4.0-5.6 Dec 23, 2023 01:30 PM [facility] MICROALBUMIN CREATININE RATIO PANEL Specimen Type: URINE No comment entered. Ordering Provider: CLAUDIA MCPHERSON Report Released Date/Time: Nov 13, 2023 06:01 PM Reporting Lab: [facility] [address] [facility] [address] Performing Lab: [facility] [address] [facility] [address] MICROALBUMIN/C REATININE RATIO 26.3 mg/g 0-29.9 MICROALBUMIN,Q UANTITATIVE 3.3 mg/dL RR UNAVAIL CREATININE URINE 125.63 mg/dL Dec 23, 2023 01:30 PM [facility] URINALYSIS CLEAN CATCH Specimen Type: URINE Comment: If Glucose = >500 and Ketones are positive, please alert the Physician. Ordering Provider: CLAUDIA MCPHERSON Report Released Date/Time: Nov 13, 2023 06:01 PM Reporting Lab: [facility] [address] [facility] [address] Performing Lab: [facility] [address] [facility] [address] UA COLOR Light-Yellow Yellow UA APPEARANCE Clear [...] and tobacco- related health factors from the [place] facility where the Encounter took place. Current Smoking Status This section includes the most current smoking, or tobacco-related health factor, from the [place] facility where the Encounter took place. Date/Time Current Smoking Status Comment Facil ity Aug 23, 2023 02:30 PM VA-TOBACCO FORMER USER [facility] Tobacco Use History This section includes a history of the smoking, or tobacco-related health factors, that were collected on or before the date of the Encounter. The data comes from the [place] facility where the Encounter took place. Date/Time Smoking Status/Tobacco Use Comment F acility Aug 23, 2023 02:30 PM VA-TOBACCO QUIT 15 YRS OR [facility] Aug 17, 2022 03:00 PM VA-TOBACCO FOR[facility] Aug 17, 2022 03:00 PM VA-TOBACCO QUIT 15 YRS OR MORE [facility]SN [facility] Aug 07, 2021 03:00 PM VA-TOBACCO [facility] Aug 07, 2021 03:00 PM VA-TOBACCO QUIT 15 YRS OR MORE [facility] Jul 18, 2019 10:24 AM VA-TOBACCO FORMER USER [place] [facility] [facility] Jul 18, 2019 10:24 AM VA-TOBACCO QUIT 15 YRS OR MORE [place] [facility] [facility] Mar 02, 2018 09:39 AM VA-TOBACCO NEVER USED [facility] Advance Directives: All historical and current Section Date Range: From patient's date of to the date document was created. This section includes ALL of a patient's completed or amended [place] Advance and Rescinded Directives. The entries below indicate that a directive exists for the patient, but an actual copy is not included with this document. The data comes from all [place] facilities. Date Advance Directives Provider Source May 18, 2023 ADVANCE DIRECTIVE ADRIANA GARCIA [place] [facility] Encounter Notes: All associated encounter notes This section contains the clinical notes associated to the Encounter. Date/Time Encounter Note(s) Provider Source Jan 18, 2024 08:18 AM AUDIOLOGY NOTE: LOCAL TITLE: AUDIOLOGY HEALTH COMMUNITY LIFE DIRECTOR STANDARD TITLE: AUDIOLOGY NOTE DATE OF NOTE: JAN 18, 2024@08:18 ENTRY DATE: JAN 18, 2024@08:18:34 AUTHOR: MARY MANCIA COSIGNER: ROEL [facility] URGENCY: STATUS: COMPLETED January 18, 2024 History/Background: was seen for a hearing aid follow up, accompanied by his . The [place] presented today reporting his right hearing aid stopped working. Hearing aids: Phonak Audeo L90 [facility] Serial Numbers: [id number] Battery Size: Rechargeable Date Issued: 04/06/2023 Hearing aid check: Both hearing aids were cleaned and checked. Initial inspection revealed cerumen blocking wax guards. Replaced wax guards, domes and retention lines. Biologic check was good. Plan: [place] will contact the clinic as needed. /jai/ MARY MANCIA [facility] Film [employer]or Signed: 01/18/2024 13:47 /SRUTHI Gamble, [facility]-A STAFF OPHTHALMIC DISPENSER Cosigned: 01/18/2024 13:55 MARY MANCIA CNTRL WSTRN [facility]
--- OUTSIDE RECORDS SUMMARY | 2024-04-11 12:41 | XMS_ITS ---
Author Name [place] Address [address] [place] [address] Care Team Providers Care Kitchen Aide Name Role Phone RAFAEL DUKE Primary Care [...] Robledo's Name Patient's Relationship to Policy Robledo [facility] ([facility]NR) MEDICARE [facility] August 24, 2020 [id number] FR DENISE VERA PATIENT [facility] (WNR) MEDICARE ADVANTAGE [place] INDIV IDUAL - [place] August 24, 2020 [id number] [phone] FR DENISE VERA PATIENT [facility] (WNR) MEDICARE [facility] (WNR) Dec 25, 2010 [facility] [id number] [phone] FR DENISE VERA PATIENT Selected Encounter This section includes the information on record at [place] for the Encounter. Date/Time Encounter Type Encounter Description Reason Pro vider Source Mar 02, 2024 02:49 PM Outpatient Encounter ADMIN PAT ACTIVTIES (MASNONCT) IHE Encounter Template Text not used by [place] Plan of Treatment: Future Appointments (+ 6 months) and Future Tests (+/- 45 days) The Plan of Treatment section includes future care activities for the patient from all [place] [facility]. This section includes future appointments and future orders which are active, pending or scheduled. Future Appointments This section includes appointments that were scheduled to occur 6 months from the date of the Encounter, up to a maximum of 20 appointments. The data comes from all [place] treatment facilities. Appointment Date/Time Appointment Type Appointme nt Facility Name May 23, 2024 01:00 PM AMBULATORY - MEDICINE [facility] Jul 13, 2024 01:30 PM AMBULATORY - MEDICINE [facility] Lab Results: +/- 30 days of [...] Range Comment Feb 21, 2024 01:34 PM [facility] MICROALBUMIN CREATININE RATIO PANEL Specimen Type: URINE No comment entered. Ordering Provider: RAFAEL DUKE Report Released Date/Time: Feb 11, 2024 09:40 PM Reporting Lab: [facility] [address] [facility] [address] Performing Lab: [facility] [address] [facility] [address] MICROALBUMIN/C REATININE RATIO 36.9 mg/g H 0-29.9 MICROALBUMIN,Q UANTITATIVE 2.3 mg/dL RR UNAVAIL CREATININE URINE 62.31 mg/dL Feb 21, 2024 01:34 PM [facility] LIPID PANEL FASTING Specimen Type: SERUM No comment entered. Ordering Provider: RAFAEL DUKE Report Released Date/Time: Feb 11, 2024 09:40 PM Reporting Lab: [facility] [address] [facility] [address] Performing Lab: [address] [address] CHOLESTEROL 121 mg/dL TRIGLYCERIDE 168 mg/dL H 0-150 LDL calculated 43 mg/dL 0-129 CHOL/HDL 2.8 HDL CHOLESTEROL 44 mg/dL 40-60 Feb 21, 2024 01:34 PM [facility] TSH Specimen Type: SERUM No comment entered. Ordering Provider: RAFAEL DUKE Report Released Date/Time: Feb 11, 2024 09:40 PM Reporting Lab: [address] [address] Performing Lab: [address] [address] TSH 0.80 u[IU]/mL 0.35-5.00 Feb 21, 2024 01:34 PM [facility] BASIC METABOLIC PANEL (non-fasting) Specimen Type: SERUM No comment entered. Ordering Provider: RAFAEL DUKE Report Released Date/Time: Feb 11, 2024 09:40 PM Reporting Lab: [address] [address] Performing Lab: [address] [address] UREA NITROGEN 17 mg/dL 7-25 GLUCOSE 155 mg/dL H 65-100 SODIUM 141 mmol/L 135-145 POTASSIUM 3.7 mmol/L 3.5-5.0 CHLORIDE 106 mmol/L 100-110 CO2 25 meq/L 20-30 CREATININE, Serum 1.48 mg/dL H 0.50-1.40 eGFR(CKD-EPI 2020) 47 mL/min L >60 Feb 21, 2024 01:34 PM [facility] HEMOGLOBIN A1C PANEL Specimen Type: [...] Feb 11, 2024 09:40 PM Reporting Lab: [address] [address] Performing Lab: [address] [address] HEMOGLOBIN A1C 5.8 H 4.0-5.6 Feb 21, 2024 01:34 PM [facility] LIVER FUNCTION Specimen Type: SERUM No comment entered. Ordering Provider: RAFAEL DUKE Report Released Date/Time: Feb 11, 2024 09:40 PM Reporting Lab: [address] [address] Performing Lab: [address] [address] PROTEIN,TOTAL 6.9 g/dL 6.0-8.3 ALBUMIN 3.8 g/dL 3.5-5.0 ALKALINE PHOSPHATASE 95 U/L 40-150 AST 13 U/L 5-34 ALT 16 U/L BILIRUBIN, TOTAL 0.7 mg/dL 0.2-1.2 Feb 21, 2024 01:34 PM [facility] URINALYSIS CLEAN CATCH Specimen Type: URINE Comment: If Glucose = >500 and Ketones are positive, please alert the Physician. Ordering Provider: RAFAEL DUKE Report Released Date/Time: Feb 11, 2024 09:40 PM Reporting Lab: [address] [address] Performing Lab: [address] [address] UA COLOR Light-Yellow Yellow UA APPEARANCE Clear Clear UA GLUCOSE >1000 mg/dL Negative UA KETONES NEGATIVE mg/dL Negative UA BLOOD NEGATIVE mg/dL Negative UA PROTEIN NEGATIVE mg/dL Negative UA NITRITE NEGATIVE mg/dL Negative UA BILIRUBIN NEGATIVE mg/dL Negative UA SPECIFIC GRAVITY 1.028 H 1.016-1.02 2 UA pH 5.5 5.0-9.0 UA UROBILINOGEN Normal mg/dL <2.0 UA LEUKOCYTE NEGATIVE Negative Feb 21, 2024 01:34 PM [facility] CBC AND DIFF (AUTO) Specimen Type: BLOOD No comment entered. Ordering Provider: RAFAEL DUKE Report Released Date/Time: Feb 11, 2024 09:40 PM Reporting Lab: [facility] [address] [facility] [address] Performing Lab: [facility] [address] [facility] [address] WBC 8.50 10*3/uL 4.50-11.00 RBC 5.30 10*6/uL [...] Current Smoking Status Comment Marie kaur Aug 23, 2023 02:30 PM VA-TOBACCO FORMER USER [facility] Tobacco Use History This section includes a history of the smoking, or tobacco-related health factors, that were collected on or before the date of the Encounter. The data comes from the [place] facility where the Encounter took place. Date/Time Smoking Status/Tobacco Use Comment F acility Aug 23, 2023 02:30 PM VA-TOBACCO QUIT 15 YRS OR MORE [place] [facility] [facility] Aug 17, 2022 03:00 PM VA-TOBACCO FORMER USER [place] [facility] Aug 17, 2022 03:00 PM VA-TOBACCO QUIT 15 YRS OR MORE [place] [facility] [facility] Aug 07, 2021 03:00 PM VA-TOBACCO FORMER USER [place] [facility] Aug 07, 2021 03:00 PM VA-TOBACCO QUIT 15 YRS OR MORE [place] [facility] Jul 18, 2019 10:24 AM VA-TOBACCO FORMER USER [place] [facility] [facility] Jul 18, 2019 10:24 AM VA-TOBACCO QUIT 15 YRS OR MORE [place] [facility] Mar 02, 2018 09:39 AM [facility]-TOBACCO [facility] Advance Directives: All historical and [...] Source May 18, 2023 ADVANCE DIRECTIVE RADHAADRIANA [facility] Encounter Notes: All associated encounter notes This section contains the clinical notes associated to the Encounter. Date/Time Encounter Note(s) Provider Source Mar 02, 2024 02:49 PM MEDICATION MGT NOT E: LOCAL TITLE: MEDICATION RENEWAL STANDARD TITLE: MEDICATION MGT NOTE DATE OF NOTE: MAR 02, 2024@14:49 ENTRY DATE: MAR 02, 2024@14:49:10 AUTHOR: LIANE WERNER COSIGNER: URGENCY: STATUS: COMPLETED MEDICATION RENEWAL Has ADDENDA Hello, is requesting a refill on the following prescription(s). Please renew if appropriate.Thank you for your time. 1) DONEPEZIL HCL 10MG TAB TAKE ONE TABLET BY MOUTH ONCE ACTIVE DAILY FOR ALZHEIMER'S DISEASE /jai/ LIANE WERNER Signed: 03/02/2024 14:49 Receipt Acknowledged By: 03/02/2024 15:04 /jai/ Sharon Turcios RN, BSN Primary Care 03/02/2024 15:06 /jai/ Rafael Duke MD Staff Physician 03/02/2024 ADDENDUM STATUS: COMPLETED Done. /jai/ Rafael Duke MD Staff Physician Signed: 03/02/2024 15:06 LIANE WERNER [place] [facility]
--- OUTSIDE RECORDS SUMMARY | 2024-04-11 12:41 | XMS_ITS ---
Author Name [facility] [facility] Address [address] [place] [id number] Care Team Providers Care Track Inspecting Supervisor Name Role Phone CLAUDIA MCPHERSON Primary Care [...] Policy Robledo's Name Patient's Relationship to Policy Orbledo [facility] (WNR) MEDICARE ADVANTAGE MCR ([facility]) August 24, 2020 [id number] [phone] FR DENISE VERA PATIENT [facility] (WNR) MEDICARE ADVANTAGE [place] INDIV IDUAL - [place] August 24, 2020 [id number] [phone] FR DENISE VERA PATIENT [facility] (WNR) MEDICARE [facility] ([facility]) Dec 25, 2010 [facility] [id number] [phone] FR DENISE VERA PATIENT Selected Encounter This section includes the information on record at [place] for the Encounter. 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 Date/Time Primary/Secondary Diagnosis Diagnosis Name Provider Source Mar 03, 2024 01:14 PM PRIMARY Type 2 diabetes w diabetic autonomic (poly)neuropathy [facility] Mar 03, 2024 01:14 PM SECONDARY Arthrodesis status [facility] Mar 03, 2024 01:14 PM SECONDARY Nail dystrophy ZULAY POWERS [facility] Plan of Treatment: Future Appointments (+ 6 months) and Future Tests (+/- 45 days) The Plan of Treatment section includes future care activities for the patient [facility] [place] [facility] This section includes future appointments and future orders which are active, pending or scheduled. Future Appointments This section includes appointments that were scheduled to occur 6 months from the date of the Encounter, up to a maximum of 20 appointments. The data comes from all [place] treatment facilities. Appointment Date/Time Appointment Type Appointme nt Facility Name May 23, 2024 01:00 PM [facility] Jul 13, 2024 01:30 PM AM[facility] - MEDICINE [facility] Lab Results: +/- 30 days of the encounter This section includes the Chemistry and Hematology Lab Results on record with [place] for the patient. Radiology Reports and Pathology Reports are provided separately, in subsequent sections. Lab Results This section contains the Chemistry/Hematology Results that were resulted 30 days before or 30 daysafter the date of the Encounter. Date/Time Source Result Type Result - Unit Interpretation Reference Range Comment Feb 21, 2024 01:34 PM [facility] MICROALBUMIN CREATININE RATIO PANEL Specimen Type: URINE No comment entered. Ordering Provider: CLAUDIA MCPHERSON Report Released Date/Time: Feb 11, 2024 09:40 PM Reporting Lab: [facility] [address] [facility] [address] Performing Lab: [facility] [address] [facility] [address] MICROALBUMIN/C REATININE RATIO 36.9 mg/g H 0-29.9 MICROALBUMIN,Q UANTITATIVE 2.3 mg/dL RR UNAVAIL CREATININE URINE 62.31 mg/dL Feb 21, 2024 01:34 PM [facility] LIPID PANEL FASTING Specimen Type: SERUM No comment entered. Ordering Provider: CLAUDIA MCPHERSON Report Released Date/Time: Feb 11, 2024 09:40 PM Reporting Lab: [facility] [address] [facility] [address] Performing Lab: [facility] [address] [facility] [address] CHOLESTEROL 121 mg/dL TRIGLYCERIDE 168 mg/dL H 0-150 LDL calculated 43 mg/dL 0-129 CHOL/HDL 2.8 HDL CHOLESTEROL 44 mg/dL 40-60 Feb 21, 2024 01:34 PM [facility] TSH Specimen Type: SERUM No comment entered. Ordering Provider: CLAUDIA MCPHERSON Report Released Date/Time: Feb 11, 2024 09:40 PM Reporting Lab: [facility] [address] [facility] [address] Performing Lab: [facility] [address] [facility] [address] TSH 0.80 u[IU]/mL 0.35-5.00 Feb 21, 2024 01:34 PM [facility] BASIC METABOLIC PANEL (non-fasting) Specimen Type: SERUM No comment entered. Ordering Provider: CLAUDIA MCPHERSON Report Released Date/Time: Feb 11, 2024 09:40 PM Reporting Lab: [address] [address] Performing Lab: [address] [address] UREA NITROGEN 17 mg/dL 7-25 GLUCOSE 155 mg/dL H 65-100 SODIUM 141 mmol/L 135-145 POTASSIUM 3.7 mmol/L 3.5-5.0 CHLORIDE 106 mmol/L 100-110 CO2 25 meq/L 20-30 CREATININE, Serum 1.48 mg/dL H 0.50-1.40 eGFR(CKD-EPI 2020) 47 mL/min L >60 Feb 21, 2024 01:34 PM [facility] HEMOGLOBIN A1C PANEL Specimen Type: BLOOD Comment: Values obtained from A1C measurements can vary. For atypical A1C assays, a reported value of 7.0 could actually be between 6.72 and 7.28 if measured by a reference method. A reported value of 9.0 could actually be between 8.73 and 9.27. Ref: http://www.ngs p.org/CAPdata. asp Ordering Provider: CLAUDIA MCPHERSON Report Released Date/Time: Feb 11, 2024 09:40 PM Reporting Lab: [address] [address] Performing Lab: [address] [address] HEMOGLOBIN A1C 5.8 H 4.0-5.6 Feb 21, 2024 01:34 PM [facility] LIVER FUNCTION Specimen Type: SERUM No comment entered. Ordering Provider: CLAUDIA MCPHERSON Report Released Date/Time: Feb 11, 2024 09:40 PM Reporting Lab: [address] [address] Performing Lab: [address] [address] PROTEIN,TOTAL 6.9 g/dL 6.0-8.3 ALBUMIN 3.8 g/dL 3.5-5.0 ALKALINE PHOSPHATASE 95 U/L 40-150 AST 13 U/L 5-34 ALT 16 U/L BILIRUBIN, TOTAL 0.7 mg/dL 0.2-1.2 Feb 21, 2024 01:34 PM [facility] URINALYSIS CLEAN CATCH Specimen Type: URINE Comment: If Glucose = >500 and Ketones are positive, please alert the Physician. Ordering Provider: CLAUDIA MCPHERSON Report Released Date/Time: Feb 11, 2024 09:40 PM Reporting Lab: [address] [address] Performing Lab: [address] [address] UA COLOR Light-Yellow Yellow UA APPEARANCE Clear Clear UA GLUCOSE >1000 mg/dL Negative UA KETONES NEGATIVE mg/dL Negative UA BLOOD NEGATIVE mg/dL Negative UA PROTEIN NEGATIVE mg/dL Negative UA NITRITE NEGATIVE mg/dL Negative UA BILIRUBIN NEGATIVE mg/dL Negative UA SPECIFIC GRAVITY 1.028 H 1.016-1.02 2 UA pH 5.5 5.0-9.0 UA UROBILINOGEN Normal mg/dL <2.0 UA LEUKOCYTE NEGATIVE Negative Feb 21, 2024 01:34 PM [facility] CBC AND DIFF (AUTO) Specimen Type: BLOOD No comment entered. Ordering Provider: CLAUDIA MCPHERSON Report Released Date/Time: Feb 11, 2024 09:40 PM Reporting Lab: [facility] [address] [facility] [address] Performing Lab: [facility] [address] [facility] [address] WBC 8.50 10*3/uL 4.50-11.00 RBC 5.30 10*6/uL [...] and tobacco- related health factors from the [place] facility where the Encounter took place. Current Smoking Status This section includes the most current smoking, or tobacco-related health factor, from the [place] facility where the Encounter took place. Date/Time Current Smoking Status Comment Facil ity Aug 23, 2023 02:30 PM VA-TOBACCO FORMER USER [place] [facility] Tobacco Use History This section includes a history of the smoking, or tobacco-related health factors, that were collected on or before the date of the Encounter. The data comes from the [place] facility where the Encounter took place. Date/Time Smoking Status/Tobacco Use Comment F acility Aug 23, 2023 02:30 PM VA-TOBACCO QUIT 15 YRS OR MORE [place] [facility] [place] [facility] Aug 17, 2022 03:00 PM VA-TOBACCO FORMER USER [place] [facility] [place] [facility] Aug 17, 2022 03:00 PM VA-TOBACCO QUIT 15 YRS OR MORE [place] [facility] [place] [facility] Aug 07, 2021 03:00 PM VA-TOBACCO FORMER USER [place] [facility] [place] [facility] Aug 07, 2021 03:00 PM VA-TOBACCO QUIT 15 YRS OR MORE [place] [facility] [place] [facility] Jul 18, 2019 10:24 AM VA-TOBACCO FORMER USER [place] [facility] [place] [facility] Jul 18, 2019 10:24 AM VA-TOBACCO QUIT 15 YRS OR MORE [place] [facility] [place] [facility] Mar 02, 2018 09:39 AM VA-TOBACCO NEVER USED [place] [facility] Advance Directives: All historical and current Section Date Range: From patient's date of to the date document was created. This section includes ALL of a patient's completed or amended [place] Advance and Rescinded Directives. The entries below indicate that a directive exists for the patient, but an actual copy is not included with this document. The data comes from all [place] facilities. Date Advance Directives Provider Source May 18, 2023 ADVANCE DIRECTIVE ADRIANA GARCIA [place] [facility] [place] [facility] Encounter Notes: All associated encounter notes This section contains the clinical notes associated to the Encounter. Date/Time Encounter Note(s) Provider Source Mar 02, 2024 01:09 PM PODIATRY NOTE: LOCAL TITLE: PODIATRY NOTE STANDARD TITLE: PODIATRY NOTE DATE OF NOTE: MAR 02, 2024@13:09 ENTRY DATE: MAR 02, 2024@13:09:58 AUTHOR: ZULAY POWERS EXP COSIGNER: URGENCY: STATUS: COMPLETED Podiatry High Risk Foot Encounter [facility] provider: Zulay Powers DPM Date: Mar 02, 2024 JUDY VERA MALE [id number] Jan 78 [employer] FROM Sep TO Sep Primary Care:CLAUDIA MCPHERSON Subjective: n/a -pt has about a 5th grade level of maturity 2/2 cognitive disorder. No cmplaints. though. complain interval too long. Diabetic foot history: IFG/ DM II Hx [...] 2. Benign Prostatic Hypertrophy without Outflow Obstruction ([facility] [id number]) 3. Stroke 4. 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 Food insecurity 6. Diabetes mellitus type 2 7. Chronic kidney disease stage 3 due to type 2 diabetes mellitus 8. Abnormal findings on diagnostic imaging of lung 9. Sleep Apnea ([facility] 73745650) 10. Renal Impairment ([facility] 375019701) 11. Shared care - specialist and GP 12. Raised PSA 13. Under care of multiple providers 14. Patient requires hospitalization 15. Hyperglycemia 16. Adult screening status 17. History of surgery 18. History of stroke in last year 19. HTN - Hypertension ([facility] [id number]) 20. Hyperlipidemia ([facility] [id number]) 21. Cognitive impairment 22. Cancer in situ [...] socks Plan: -Diabetic foot exam complete -Trimmed non- dystrophic nails 1 through 5 right and [...] as results of the physical exam and sourcing consultant opinions and recommendations as sought. Alternatives [...] -The on this visit was given information Modality service and encouraged to enroll if not already having done so. /jai/ ZULAY POWERS DPM PODIATRY ATTENDING Signed: 03/03/2024 13:15 ZULAY POWERS [place] [facility]
--- OUTSIDE RECORDS SUMMARY | 2024-04-11 12:41 | XMS_ITS | Encounter Summary ---
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 Name Role Phone RAFAEL DUKE Primary Care [...] Member ID Insurance Provider's Telephone Number Policy Robleod's Name Patient's Relationship to Policy Robledo [facility] (WNR) MEDICARE [facility] ([facility]) August 24, 2020 [id number] [phone] FR DENISE VERA PATIENT [facility] (WNR) MEDICARE ADVANTAGE [place] IN[place] IDUAL - [place] August 24, 2020 [id number] [phone] FR DENISE VERA PATIENT [facility] (WNR) MEDICARE [facility] (R) Dec 25, 2010 [facility] [id number] [phone] FR DENISE VERA PATIENT Selected Encounter This section includes the information on record at [place] for the Encounter. Date/Time Encounter Type Encounter Description Reason Provider Source Feb 21, 2024 03:30 PM OFFICE O/P EST SF 10 MIN PRIMARY CARE/MEDICINE ICD-10-CM I10 Essential (primary) hypertension RAFAEL DUKE IHYessica Encounter Template Text not used by [facility] Assessments - Encounter Diagnoses This section includes the primary and secondary diagnoses documented for the Encounter. Date/Time Primary/Secondary Diagnosis Diagnosis Name Provider Source Feb 21, 2024 03:53 PM PRIMARY Essential (primary) hypertension RAFAEL DUKE [facility] Feb 21, 2024 03:53 PM SECONDARY Encounter for immunization SHARON TURCIOS [facility] Plan of Treatment: Future Appointments (+ 6 months) and Future Tests (+/- 45 days) The Plan of Treatment section includes future care activities for the patient from all [place] [facility]. This section includes future appointments and future orders which are active, pending or scheduled. Future Appointments This section includes appointments that were scheduled to occur 6 months from the date of the Encounter, up to a maximum of 20 appointments. The data comes from all [place] treatment facilities. Appointment Date/Time Appointment Type Appointme nt Facility Name Mar 02, 2024 01:00 PM AMBULATORY - MEDICINE [facility] May 23, 2024 01:00 PM AMBULATORY MEDICINE [facility] Jul 13, 2024 01:30 PM AMBULATORY - MEDICINE [facility] Lab Results: +/- 30 days of the encounter This section includes the Chemistry and Hematology Lab Results on record with [place] for the patient. Radiology Reports and Pathology Reports are provided separately, in subsequent sections. Lab Results This section contains the Chemistry/Hematology Results that were resulted 30 days before or 30 daysafter the date of the Encounter. Date/Time Source Result Type Result - Unit Interpretation Reference Range Comment Feb 21, 2024 01:34 PM [facility] MICROALBUMIN CREATININE RATIO PANEL Specimen Type: URINE No comment entered. Ordering Provider: RAFAEL DUKE Report Released Date/Time: Feb 11, 2024 09:40 PM Reporting Lab: [facility] [address] [facility] [address] Performing Lab: [facility] [address] [facility] [address] MICROALBUMIN/C REATININE RATIO 36.9 mg/g H 0-29.9 MICROALBUMIN,Q UANTITATIVE 2.3 mg/dL RR UNAVAIL CREATININE URINE 62.31 mg/dL Feb 21, 2024 01:34 PM [facility] TSH Specimen Type: SERUM No comment entered. Ordering Provider: RAFAEL DUKE Report Released Date/Time: Feb 11, 2024 09:40 PM Reporting Lab: [facility] [address] [facility] [address] Performing Lab: [facility] [address] [facility] [address] TSH 0.80 u[IU]/mL 0.35-5.00 Feb 21, 2024 01:34 PM [facility] LIPID PANEL FASTING Specimen Type: SERUM No comment entered. Ordering Provider: RAFAEL DUKE Report Released Date/Time: Feb 11, 2024 09:40 PM Reporting Lab: [facility] [address] [facility] [address] Performing Lab: [address] [address] CHOLESTEROL 121 mg/dL TRIGLYCERIDE 168 mg/dL H 0-150 LDL calculated 43 mg/dL 0-129 CHOL/HDL 2.8 HDL CHOLESTEROL 44 mg/dL 40-60 Feb 21, 2024 01:34 PM [facility] BASIC METABOLIC PANEL (non-fasting) Specimen Type: SERUM No comment entered. Ordering Provider: RAFAEL DUKE Report Released Date/Time: Feb 11, 2024 09:40 PM Reporting Lab: [address] [address] Performing Lab: [address] [address] UREA NITROGEN 17 mg/dL 7-25 GLUCOSE 155 mg/dL H 65-100 SODIUM 141 mmol/L 135-145 POTASSIUM 3.7 mmol/L 3.5-5.0 CHLORIDE 106 mmol/L 100-110 CO2 25 meq/L 20-30 CREATININE, Serum 1.48 mg/dL H 0.50-1.40 eGFR(CKD-EPI 2020) 47 mL/min L >60 Feb 21, 2024 01:34 PM [facility] HEMOGLOBIN A1C PANEL Specimen Type: BLOOD Comment: [...] Feb 11, 2024 09:40 PM Reporting Lab: [address] [address] Performing Lab: [address] [address] HEMOGLOBIN A1C 5.8 H 4.0-5.6 Feb 21, 2024 01:34 PM [facility] LIVER FUNCTION Specimen Type: SERUM No comment entered. Ordering Provider: RAFAEL DUKE Report Released Date/Time: Feb 11, 2024 09:40 PM Reporting Lab: [address] [address] Performing Lab: [address] [address] PROTEIN,TOTAL 6.9 g/dL 6.0-8.3 ALBUMIN 3.8 g/dL 3.5-5.0 ALKALINE PHOSPHATASE 95 U/L 40-150 AST 13 U/L 5-34 ALT 16 U/L BILIRUBIN, TOTAL 0.7 mg/dL 0.2-1.2 Feb 21, 2024 01:34 PM [facility] URINALYSIS CLEAN CATCH Specimen Type: URINE Comment: If Glucose = >500 and Ketones are positive, please alert the Physician. Ordering Provider: RAFAEL DUKE Report Released Date/Time: Feb 11, 2024 09:40 PM Reporting Lab: [address] [address] Performing Lab: [address] [address] UA COLOR Light-Yellow Yellow UA APPEARANCE Clear Clear UA GLUCOSE >1000 mg/dL Negative UA KETONES NEGATIVE mg/dL Negative UA BLOOD NEGATIVE mg/dL Negative UA PROTEIN NEGATIVE mg/dL Negative UA NITRITE NEGATIVE mg/dL Negative UA BILIRUBIN NEGATIVE mg/dL Negative UA SPECIFIC GRAVITY 1.028 H 1.016-1.02 2 UA pH 5.5 5.0-9.0 UA UROBILINOGEN Normal mg/dL <2.0 UA LEUKOCYTE NEGATIVE Negative Feb 21, 2024 01:34 PM [facility] CBC AND DIFF (AUTO) Specimen Type: BLOOD No comment entered. Ordering Provider: RAFAEL DUKE Report Released Date/Time: Feb 11, 2024 09:40 PM Reporting Lab: [facility] [address] [facility] [address] Performing Lab: [facility] [address] [facility] [address] WBC 8.50 10*3/uL 4.50-11.00 RBC 5.30 10*6/uL [...] 0.0 0.0-0.0 NRBC, ABS 0.00 10*3/uL 0.00-0.00 Vital Signs: All taken on the encounter date This section contains inpatient and outpatient Vital Signs collected on the date of the Encounter. Date/Time Temperature Pulse Blood Pressure Respiratory Rate SP02 Pain Height Weight Body Mass Index Source Feb 21, 2024 03:50 PM 106/69 [facility] Feb 21, 2024 03:21 PM 98.1 53 143/63 20 100 0 64 157 27 [place] [facility] [place] [facility] Immunizations: All administered on the encounter date This section contains immunizations associated to the Encounter. Immunization Series Date Issued Reaction Comments COVID-19 (MODERNA), MRNA, LN P-S, PF, 50 MCG/0.5 ML (AGES 12+ YEARS) Feb 21, 2024 INFLUENZA, HIGH-DOSE, TRIVALENT, PF Feb 20 Social History: Smoking Status (Most current) and Tobacco Use (All prior to encounter date) This section includes the most current, and the historical, smoking and tobacco- related health factors from the [place] facility where the Encounter took place. Current Smoking Status This section includes the most current smoking, or tobacco-related health factor, from the [place] facility where the Encounter took place. Date/Time Current Smoking Status Comment Facil ity Aug 23, 2023 02:30 PM VA-TOBACCO FORMER USER [place] [facility] [place] [facility] Tobacco Use History This section includes a history of the smoking, or tobacco-related health factors, that were collected on or before the date of the Encounter. The data comes from the [place] facility where the Encounter took place. Date/Time Smoking Status/Tobacco Use Comment F acility Aug 23, 2023 02:30 PM VA-TOBACCO QUIT 15 YRS OR MORE [facility] [place] [facility] Aug 17, 2022 03:00 PM VA-TOBACCO FORMER USER [facility] [place] [facility] Aug 17, 2022 03:00 PM VA-TOBACCO QUIT 15 YRS OR MORE [facility] [place] [facility] Aug 07, 2021 03:00 PM VA-TOBACCO FORMER USER [facility] [place] [facility] Aug 07, 2021 03:00 PM VA-TOBACCO QUIT 15 YRS OR MORE [facility] [place] [facility] Jul 18, 2019 10:24 AM VA-TOBACCO FORMER USER [facility] [place] [facility] Jul 18, 2019 10:24 AM VA-TOBACCO QUIT 15 YRS OR MORE [facility] Mar 02, 2018 09:39 AM VA-TOBACCO NEVER USED [facility] Advance Directives: All historical and current Section Date Range: From patient's date of to the date document was created. This section includes ALL of a patient's completed or amended [place] Advance and Rescinded Directives. The entries below indicate that a directive exists for the patient, but an actual copy is not included with this document. The data comes from all [place] facilities. Date Advance Directives Provider Source May 18, 2023 ADVANCE DIRECTIVE ADRIANA GARCIA [facility] Encounter Notes: All associated encounter notes This section contains the clinical notes associated to the Encounter. Date/Time Encounter Note(s) Provider Source Feb 21, 2024 04:20 PM PRIMARY CARE OUTPA TIENT NOTE: LOCAL TITLE: AMBULATORY/OUTPATIENT CARE NOTE STANDARD TITLE: PRIMARY CARE OUTPATIENT NOTE DATE OF NOTE: FEB 21, 2024@16:20 ENTRY DATE: FEB 21, 2024@16:20:14 AUTHOR: SHARON TURCIOS EXP COSIGNER: URGENCY: STATUS: COMPLETED Influenza Immunization: Influenza, High-Dose, Trivalent, Preservative Free (Fluzone-Syringe) Administered: INFLUENZA, HIGH-DOSE, TRIVALENT, PF Date Administered: Feb 21, 2024 15:30 Series: Complete Vp Communications: SANOFI PASTEUR Lot: [id number] Exp Date: Oct 23, 2024 [facility]: [id number] Admin Route/Site: INTRAMUSCULAR/LEFT DELTOID Dosage: 0.5mL Vaccine Information Statement(s): INFLUENZA(FLU) VACC(INACTIVATED OR RECOMBINANT)VIS Nov 29, 2020 ([place]) Order By: Policy Administered By: Sharon Turcios The Influenza Vaccine Information Statement (VIS) was reviewed with the patient/caregiver which lists the benefits and risks of the vaccine and the risks of not receiving the Influenza vaccine. The patient/caregiver denied any prior severe reaction to this vaccine or its components or a severe allergic reaction, such as anaphylaxis, to any vaccine or any injectable therapy. The patient/caregiver gave verbal consent to receive the vaccine. COVID-19 Immunization: Moderna Monovalent (Spikevax) Administered: COVID-19 (MODERNA), MRNA, LNP-S, PF, 50 MCG/0.5 ML (AGES 12+ YEARS) Date Administered: Feb 21, 2024 15:30 Series: Booster Vp Communications: MODERNA [employer] Lot: [id number] Exp Date: Sep 30, 2024 [facility]: [phone] Admin Route/Site: INTRAMUSCULAR/RIGHT DELTOID Dosage: 0.5mL Vaccine Information Statement(s): COVID-19 MRNA VACCINE (12+ YRS) VACCINE VIS Feb 11, 2023 ([place]) Order By: Policy Administered By: Sharon Turcios Vaccine administered without complications. /jai/ Sharon Turcios RN, BSN Primary Care Signed: 02/21/2024 16:22 SHARON TURCIOS [place] [facility] [place] [facility] Feb 21, 2024 03:50 PM PHYSICIAN NOTE: LOCAL TITLE: MD NOTE STANDARD TITLE: PHYSICIAN NOTE DATE OF NOTE: FEB 21, 2024@15:50 ENTRY DATE: FEB 21, 2024@15:50:36 AUTHOR: RAFAEL DUKE EXP COSIGNER: URGENCY: STATUS: COMPLETED Patient Name: JUDY VERA VITALS: Patient temperature: 98.1 F [36.7 C] (02/21/2024 15:21) Blood pressure: 106/69 (02/21/2024 15:50) Patient height: 64 in [162.6 cm] (02/21/2024 15:21) Patient weight: 157 lb [71.21 kg] (02/21/2024 15:21) Patient BMI: BMI: 27.0 Patient pulse: 53 (02/21/2024 15:21) Patient respiration: 20 (02/21/2024 15:21) Patient Pulse Oximetry: 100% (02/21/2024 15:21) Pain Ratin (02/21/2024 15:21) Active [facility] Medications: Active Outpatient Medications (including Supplies): Active Outpatient Medications Status 1) AMLODIPINE BESYLATE 10MG TAB TAKE ONE TABLET BY MOUTH ACTIVE ONCE DAILY FOR BLOOD PRESSURE/HEART, DO NOT TAKE WITH GRAPEFRUIT JUICE (DOSE INCREASED) 2) ATORVASTATIN CALCIUM 80MG TAB TAKE ONE TABLET BY ACTIVE (S) MOUTH ONCE DAILY FOR CHOLESTEROL REPLACES SIMVASTATIN 3) CLOPIDOGREL BISULFATE 75MG TAB TAKE ONE TABLET BY ACTIVE MOUTH ONCE DAILY 4) DONEPEZIL HCL 10MG TAB TAKE ONE TABLET BY MOUTH ONCE ACTIVE DAILY FOR ALZHEIMER'S DISEASE 5) EMPAGLIFLOZIN 25MG TAB TAKE ONE-HALF TABLET BY MOUTH ACTIVE ONCE DAILY FOR DIABETES 6) FINASTERIDE 5MG TAB TAKE ONE TABLET BY MOUTH ONCE ACTIVE DAILY 7) METOPROLOL SUCCINATE 50MG SA TAB TAKE ONE TABLET BY ACTIVE MOUTH ONCE DAILY FOR BLOOD PRESSURE/HEART 8) OXYBUTYNIN CHLORIDE 5MG SA TAB TAKE ONE TABLET BY ACTIVE MOUTH ONCE DAILY FOR BLADDER INSTABILITY 9) PANTOPRAZOLE NA 40MG EC TAB TAKE ONE TABLET BY MOUTH ACTIVE TWICE DAILY 10) TAMSULOSIN HCL 0.4MG CAP TAKE TWO CAPSULES BY MOUTH ACTIVE AT BEDTIME FOR ENLARGED PROSTATE Active Non-VA Medications Status 1) Non-VA ALBUTEROL 90MCG (CFC-F) 200D ORAL INHL 2 PUFFS ACTIVE BY MOUTH EVERY 4 HOURS NEEDED 11 Total Medications Remote Medications: No Active Remote Medications for this patient kaiako kohanga reo note chief complaint: Hypertension History of present illness presently on metoprolol and amlodipine for hypertension. Feeling well with no complaints. Tolerating medications without adverse effects. Patient is eating well. Review of systems No chest pain or dyspnea No abdominal pain No trouble urinating no fever or chills No cough Physical examination well-developed well-nourished male in no acute distress Coronary no murmur Lungs clear Carotid no bruit No peripheral edema Mucous membranes moist HGB A1C (WR): 5.8 H WBC: 8.50 RBC: 5.30 HGB: 14.7 HCT: 43.8 MCV: 82.6 MCHC: 33.6 RDW: 13.4 PLT: 272 MCH: 27.7 Neut %: 71.4 Lymph %: 17.5 Foard %: 7.3 Eos %: 2.9 Baso %: 0.5 Neut, Abs: 6.07 Lymph, Abs: 1.49 Foard, Abs: 0.62 Eos, Abs: 0.25 Baso, Abs: 0.04 Immature Granulocytes %: 0.4 Immature Granulocytes, Abs: 0.03 NRBC%: 0.0 NRBC#: 0.00 Color, Urine (AX 4280): Light-Yellow Appearance, Urine (AX 4280): Clear Glucose, Urine (AX 4280): >1000 Ketones, Urine (AX 4280): NEGATIVE Blood, Urine (AX 4280): NEGATIVE Protein, Urine (AX 4280): NEGATIVE Nitrite, Urine (AX 4280): NEGATIVE Bilirubin, Urine (AX 4280): NEGATIVE Specific [place], (AX 4280): 1.028 H pH, Urine ([id number]): 5.5 Urobilinogen, Urine (AX 4280): Normal Leukocyte Esterase, (AX 4280): NEGATIVE TSH (Access): 0.80 GLUCOSE: 155 H UREA NITROGEN: 17 SODIUM: 141 POTASSIUM: 3.7 CHLORIDE: 106 CO2: 25 CHOLESTEROL: 121 PROTEIN,TOTAL: 6.9 ALBUMIN: 3.8 ALKALINE PHOSPHATASE: 95 SGOT: 13 SGPT: 16 TRIGLYCERIDE: 168 H LDL CHOL: 43 CHOL/HDL RATIO: 2.8 HDL: 44 BILIRUBIN,TOT.: 0.7 CREATININE-EGFR: 1.48 H eGFR CKD-EPI 2020: 47 L I discussed above test results with patient Assessment and plan: 1. Hypertension: Blood pressure satisfactory on present regimen Plan continue present medications Follow-up 3 months clinic visit and lab Medication Reconciliation: Outpatient: Has the patient been taking medications as documented in the EMLR? YES: The patient has been taking medications as documented in the EMLR. Essential Medication List for Review used to complete this medication reconciliation. INCLUDED IN THIS LIST: Alphabetical list of active outpatient prescriptions dispensed from this [facility] (local) and dispensed from another [place] or [facility] facility (remote) as well as [...] whether with a VA or non-VA provider. /jai/ Rafael Duke MD Staff Physician Signed: 02/21/2024 15:53 RAFAEL DUKE [facility] Feb 21, 2024 03:28 PM PREVENTIVE MEDICIN E NURSING NOTE: LOCAL TITLE: CLINICAL REMINDERS/NURSING STANDARD TITLE: PREVENTIVE MEDICINE NURSING NOTE DATE OF NOTE: FEB 21, 2024@15:28 ENTRY DATE: FEB 21, 2024@15:28:15 AUTHOR: JUNO TEJEDA EXP COSIGNER: URGENCY: STATUS: COMPLETED RHS Screen: RHS Screen Session Format: Face to Face Environmental Check Screening was not completed at this time due to: Another adult present /jai/ Juno Tejeda, Health Attache PASTA MAKER,PRIMARY CARE Signed: 02/21/2024 15:28 JUNO TEJEDA [facility]
--- NOTE | 2024-04-11 13:15 | A.OFFVIS_ITS ---
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 HE HAS LOST 4 MORE LB OF WEIGHT. PHYSICALLY HE IS STABLE AND ACTIVE, BUT HE DOES HAVE TO USE THE WALKER FOR STABILITY. HE HAS URGE TO CLEAR HIS THROAT BECAUSE HE DOES TEND TO RETAIN SOME SECRETIONS. HE HAS NEVER HAD ANY CHOKING OR ANY RESPIRATORY DISTRESS. EATS FAIRLY WELL . HE HAS NO INCIDENCE OF WHEEZING OR SHORTNESS OF BREATH SO DOES NOT NEED TO USE ANY INHALER. COUNT INCLUDES THE [facility] Medical History Hypersomnolence SUKI (obstructive sleep apnea) Diabetes mellitus Cough Asthma SUKI on CPAP Social History Patient Tobacco Use Status: Former Tobacco user Review of Systems Const All systems reviewed & are unremarkable except as noted in HPI and below Reports snoring Eyes Reports no additional complaints ENT Reports nasal congestion (Only mild and intermittent) Card Denies chest pain, Denies irregular heart rhythm and Denies leg edema Resp Reports cough and Reports snoring GI Reports no additional complaints Reports nocturia (Mild once or twice per night) Musc Reports no additional complaints Skin/Breast Reports system reviewed and no additional complaints, except as documented Neuro Reports memory loss (Minimal, stable) Psych Reports no additional complaints and Reports memory loss (Minimal, stable) Physical Exam Vital Signs: Last Vital Signs Pulse 95 04/11/24 13:16 BP 120/78 04/11/24 13:16 Pulse Ox 98 04/11/24 13:16 Oxygen Delivery Method Room Air 04/11/24 13:16 BMI result Body Mass Index 26.1 Const General: comfortable, no acute distress, alert and awake Orientation/consciousness: patient oriented x3 HEENT Head: Yes normal to inspection General nose exam: No nasal polyps present, No nasal discharge present and Other nasal findings present (A small amount of the whitish mucus in the nasopharynx) Face and sinus: Yes sinuses nontender Mouth: oropharynx normal Throat: Yes posterior oropharynx normal Eyes General: appearance normal, both eyes and all related structures Neck Neck: Yes normal visual inspection, Yes no lymphadenopathy, Yes trachea midline and Yes no JVD Thyroid: Thyroid normal Chest Chest palpation & inspection: normal inspection of the chest, normal palpation of entire chest wall and no tenderness Resp Other: Percussion note resonant. Breath sounds are somewhat distant. However lungs are clear to auscultation and no wheezes or rhonchi are heard. Effort & Inspection: normal respiratory effort Auscultation: clear to auscultation bilaterally Cardio Palpation: normal PMI Rate: regular rate Rhythm: regular rhythm Heart sounds: no gallops and no murmurs GI Palpation (GI): Soft to palpation, nontender, No hepatosplenomegaly present and no masses Auscultation: normal bowel sounds Back/Spine/Pelvis Thoracic/Lumbar Spine: thoracic and lumbar spine normal to inspection and thoraco-lumbar ROM limited Skin General skin exam: no rashes or lesions noted Neuro General: patient oriented x3 and no focal motor deficits Cranial nerves: Yes CN's II-XII intact bilaterally Extrem General: Yes normal to inspection, Yes no clubbing, cyanosis or edema and Yes no calf tenderness Psych Appearance: grossly normal and well kempt Speech and movement: Normal speech and movement present Assessment & Plan Assessment & Plan (1) Asthma: Comment: Very mild , intermittent . RELATIVELY INACTIVE AT THIS TIME. Code(s): J45.909 - Unspecified asthma, uncomplicated Category: Medical Plan: KEEP ALBUTEROL HFA ON HAND AND USE 1 OR 2 PUFFS Q 6 HOURS ONLY P.R.N.. (2) SUKI (obstructive sleep apnea): Comment: Regino does have history of obstructive sleep apnea since 2010. Latest Home-based sleep study on 03/24/2022 was negative for sleep apnea, Total sleep time AHI only 1.5. THIS IS BECAUSE OF WEIGHT LOSS. HE CLAIMS THAT HE IS SLEEPING WELL EVERY NIGHT. Code(s): G47.33 - Obstructive sleep apnea (adult) (pediatric) Category: Medical Plan: KEEP WEIGHT IN CONTROL Coding Level of Care Code Est Pt Level 3 (27304) Diagnoses Asthma J45.909 SUKI (obstructive sleep apnea) G47.33
[2024-04-11 13:16] VITALS: BP 120/78; PULSE 95; O2SAT 98; BMI 26.1
== END 2024-04-11 13:45 | disposition home or self-care (01) ==
PROVIDERS: PCP Internal Medicine Endocrinology, Diabetes & Metabolism; Visit Provider Internal Medicine
DX: J45.909 Unspecified asthma, uncomplicated (principal); G47.33 Obstructive sleep apnea (adult) (pediatric)
CPT/HCPCS: 99213

== ENCOUNTER → 2024-04-11 12:32 | Outpatient (BNVA) | payer MEDICARE, SELFPAY | PROVIDERS: PCP Internal Medicine Endocrinology, Diabetes & Metabolism; Visit Provider Internal Medicine | DX: G47.33 Obstructive sleep apnea (adult) (pediatric) (principal); J45.909 Unspecified asthma, uncomplicated | CPT/HCPCS: 99212 ==

== ENCOUNTER 2024-07-20 11:59 | Outpatient (AMB) | payer MEDICARE, SELFPAY ==
--- NOTE | 2024-07-20 12:03 | A.OFFVIS_ITS ---
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 Employee Relations Consultant: Employee Relations Consultant Present Accompanied by: Spouse Allergies No Known Allergies [No Known Allergies*] Allergy (Verified 07/20/24 12:22) Medication List - Last Reconciled 07/20/24 by DAYA Lacey amlodipine 5 mg PO DAILY atorvastatin 40 mg PO BEDTIME blood-glucose meter (FreeStyle Lite Meter kit) As directed donepezil 10 mg PO DAILY finasteride 5 mg PO DAILY 90 days glipizide 5 mg PO DAILY hydrochlorothiazide 25 mg PO DAILY tamsulosin (Flomax) 0.8 mg PO BEDTIME tolterodine ER 4 mg PO DAILY 90 days HPI Comments Details: Regino is a pleasant 79-year-old male patient of Dr. Mcintosh who was accompanied by his significant other at today's office visit. He has a past medical history of obstructive sleep apnea, diabetes, and asthma. He presents to the office today as a new patient for ongoing lower urinary tract symptoms as well as an elevated PSA. In discussion with the patient today he reports to be doing and feeling well. He denies any bothersome urinary issues or concerns however his does feel he utilizes the bathroom frequently throughout the day. He reports compliance with Flomax, tolterodine, and finasteride as prescribed. In office urinalysis results reviewed with the patient today. PVR 105 mL. He denies incontinence, nocturia, hematuria, dysuria, foul smelling urine, changes to urinary stream, flank pain, fever, and or chills. He is happy with his current voiding parameters. In review of patient's chart it appears PSAs are as follows: 07/14 10.9, 01/17 2.6 PREVIOUS OFFICE NOTE: Has been on combination therapy with finasteride, tamsulosin VESIcare following stroke Had dry mouth with oxybutynin PSA well controlled on finasteride Accompanied by Persistent urgency and frequency every 2 hours Stroke August 2022 Ultrasound shows 200 cc prostate Lower urinary tract symptoms Bladder instability Elevated PSA Initial presentation PSA 9.25, follow-up 08/13 8.0 PSA 07/14 10.9, 04/15 2.7 F 37%, 10/15 2.6, 05/18 3.5, 11/15 2.5, 11/16 2.6 Imaging - bladder ultrasound with 200 cc prostate HILARY large prostate approximately 150 g with no nodules Continue finasteride [facility] Medical History Hypersomnolence SUKI (obstructive sleep apnea) Diabetes mellitus Cough Asthma SUKI on CPAP Social History Patient Tobacco Use Status: Former Tobacco user Review of Systems Const All systems reviewed & are unremarkable except as noted in HPI and below Physical Exam Const General: cooperative, healthy appearing, comfortable, no acute distress, well developed, alert and awake Orientation/consciousness: patient oriented x3 Limitations: ambulation with walker HEENT Head: Yes normal to inspection, Yes normocephalic and Yes atraumatic Ears: hearing grossly normal bilaterally Eyes General: appearance normal, both eyes and all related structures Neck Neck: Yes normal visual inspection and Yes trachea midline Chest Chest palpation & inspection: normal inspection of the chest Resp Effort & Inspection: normal respiratory effort and able to speak in complete sentences Cardio Rate: regular rate GI Inspection: Yes normal to inspection General: Yes no CVA tenderness Back/Spine/Pelvis Back: no CVA tenderness Skin General skin exam: no rashes or lesions noted Neuro General: patient oriented x3 Extrem General: Yes normal to inspection Psych Appearance: grossly normal and well kempt Mental Status: mental status grossly normal Speech and movement: Normal speech and movement present and Clear speech present Affect: normal affect Attitude: cooperative Thought process: Normal thought process present Thought content: Normal thought content present Insight: Fair insight present (Psych) Judgement: Fair judgement present (Psych) Office Procedures Post Void Residual Post Residual Void Post Void Residual (PVR): 105 [id number] Void Residual by ultrasound Results AMB Urinalysis, Automated UA Leukoctes 0 Monica/uL Last Edit by Emily Barreto on 07/20/24 13:17 UA Nitrite Last Edit by Emily Barreto on 07/20/24 13:17 UA Urobilinogen 0.2 mg/dL Last Edit by Emily Barreto on 07/20/24 13:17 UA Protein 15 mg/dL Last Edit by Emily Barreto on 07/20/24 13:17 UA pH 5.5 Last Edit by Emily Barreto on 07/20/24 13:17 UA Blood 0 Julio/uL Last Edit by Emily Barreto on 07/20/24 13:17 UA Specific [place] 1.015 Last Edit by Emily Barreto on 07/20/24 13:17 UA Ketone Last Edit by Emily Barreto on 07/20/24 13:17 UA Bilirubin 0 mg/dL Last Edit by Emily Barreto on 07/20/24 13:17 UA Glucose 1000 mg/dL Last Edit by Emily Barreto on 07/20/24 13:17 Assessment & Plan Assessment & Plan (1) Elevated PSA: Code(s): R97.20 - Elevated prostate specific antigen [PSA] Category: Medical Plan In office urinalysis results reviewed with the patient today; as noted above. PVR 105 mL. Continue tolterodine, finasteride, and Flomax as prescribed. Although patient with episodes of urinary urgency and frequency he does not find this bothersome and will continue with surveillance monitoring at this time. We discussed bladder triggers/irritants. We discussed healthy bathroom behaviors. He reports be happy with current voiding parameters. Follow-up in 6 months with PSA and PVR; or sooner with any issues, concerns, and or questions Orders: Orders Prostate Specific Antigen Today R97.20 - Elevated prostate specific antigen [PSA] AMB Post Void Residual by ultrasound Today R39.15 - Urgency of urination AMB Urinalysis Automated Today Z13.9 - Encounter for screening, unspecified Medications: Changed From tamsulosin (Flomax) 0.8 mg PO BEDTIME R97.20 - Elevated prostate specific antigen [PSA] To tamsulosin (Flomax) 0.8 mg (2 x 0.4 mg) PO BEDTIME 90 days 180 caps 2RF R97.20 - Elevated prostate specific antigen [PSA] Refilled finasteride 5 mg PO DAILY 90 days 90 tabs 1RF N13.8 - Other obstructive and reflux uropathy, N40.1 - Benign prostatic hyperplasia with lower urinary tract symptoms tolterodine ER 4 mg PO DAILY 90 days 90 caps 1RF R39.15 - Urgency of urination Patient Instructions: The patient had an opportunity to ask questions regarding the treatment plan. All questions were answered. Physical exam, labs, and imaging were discussed and reviewed in detail. As well as risks, benefits, and discussion of treatment choices. No major barriers to understanding were identified. The patient expressed understanding and agreement with the above treatment plan. The patient was made aware they should contact our office by phone for worsening of their current condition, the appearance of new symptoms, or with any questions or concerns. Compliance is encouraged with any medications and follow up testing that is ordered. It is a privilege to be allowed the opportunity to participate in? your urological care.? Again, if you have any questions or concerns If you have any questions or concerns please do not hesitate to contact me. The office is [phone]. This note is constructed using voice recognition software. While every effort has been made to ensure accuracy admissions clerk errors may have been included. Yours sincerely, TIFFANIE Lacey Coding Level of Care Code Est Pt Level 3 (77381) Complex EM visit Add On G2211 Diagnoses Elevated PSA R97.20 CPT Codes Post Residual Void - PVR CPT Code: 16475-Okxx Void Residual by ultrasound ([id number])
--- OUTSIDE RECORDS SUMMARY | 2024-07-20 15:26 | XMS_ITS ---
Author Name [facility] [place] Organization [facility] [place] Address [address] [place] [address] Care Team Providers Care Motor Vehicle Examiner Name Role Phone CLAUDIA MCPHERSON Primary Care [...] Robledo's Name Patient's Relationship to Policy Robledo ARNOLDO PÉREZ (WNR) MEDIC[place] ADVANTAGE [place] August 24, 2020 [id number] [phone] FR DENISE VERA PATIENT Selected Encounter This section includes the information on record at [place] for the Encounter. Date/Time Encounter Type Encounter Description Reason Provider Source Jan 18, 2024 01:30 PM HEARING AID REPAIR/MODIFYIN G AUDIOLOGY ICD-10-CM Z46.1 Encounter for fitting and adjustment of hearing aid ROEL MONTGOMERY Encounter Template Text not used by [place] Assessments - Encounter Diagnoses This section includes the primary and secondary diagnoses documented for the Encounter. Date/Time Primary/Secondary Diagnosis Diagnosis Name Provider Source Jan 18, 2024 01:47 PM PRIMARY Encounter for fitting and adjustment of hearing aid JUAN ANTONIO MANCIA [facility] [place] [facility] Jan 18, 2024 01:47 PM SECONDARY Sensorineural hearing loss, bilateral GARGUILO,JUAN ANTONIO H LESLYE [facility] Plan of Treatment: Future Appointments (+ 6 months) and Future Tests (+/- 45 days) The Plan of Treatment section includes future care activities for the patient from all [place] [facility]. This section includes future appointments and future orders which are active, pending or scheduled. Future Appointments This section includes appointments that were scheduled to occur 6 months from the date of the Encounter, up to a maximum of 20 appointments. The data comes from all [facility] facilities. Appointment Date/Time Appointment Type Appointme nt Facility Name Jan 21, 2024 02:00 PM AMBULATORY MEDICINE [facility] Feb 21, 2024 03:30 PM AMBULATORY MEDICINE [facility] Mar 02, 2024 01:00 PM AMBULATORY MEDICINE [facility] May 23, 2024 01:00 PM AMBULATORY MEDICINE [facility] Jul 13, 2024 01:30 PM AMBULATORY MEDICINE [facility] Active, Pending, and Scheduled Orders This section includes a listing of several types of active, pending, and scheduled orders, including clinic medications orders, diagnostic test orders, procedure orders and consult orders; where the start date of the order is 45 days before the date of the Encounter or 45 days after the date of theEncounter. The data comes from all [facility]. Test Date/Time Test Type Test Details Facility Name Jan 02, 2024 12:00 AM Laboratory - Chemi stry Order BASIC METABOLIC PANEL (non-fasting) BLOOD (SST-SERUM) [facility] Lab Results: +/- 30 days of [...] Range Comment Dec 23, 2023 01:30 PM [facility] BASIC METABOLIC PANEL (fasting) Specimen Type: SERUM No comment entered. Ordering Provider: CLAUDIA MCPHERSON Report Released Date/Time: Nov 13, 2023 06:01 PM Reporting Lab: [facility] [address] [address] Performing Lab: [address] [address] UREA NITROGEN 14 mg/dL 7-25 GLUCOSE 100 mg/dL 65-100 SODIUM 140 mmol/L 135-145 POTASSIUM 3.6 mmol/L 3.5-5.0 CHLORIDE 105 mmol/L 100-110 CO2 25 meq/L 20-30 CREATININE, Serum 1.47 mg/dL H 0.50-1.40 eGFR(CKD-EPI 2020) 48 mL/min L >60 Dec 23, 2023 01:30 PM [facility] LIVER FUNCTION Specimen Type: SERUM No comment entered. Ordering Provider: CLAUDIA MCPHERSON Report Released Date/Time: Nov 13, 2023 06:01 PM Reporting Lab: [address] [address] Performing Lab: [address] [address] PROTEIN,TOTAL 7.2 g/dL 6.0-8.3 ALBUMIN 4.0 g/dL 3.5-5.0 ALKALINE PHOSPHATASE 100 U/L 40-150 AST 13 U/L 5-34 ALT 17 U/L BILIRUBIN, TOTAL 0.7 mg/dL 0.2-1.2 Dec 23, 2023 01:30 PM [facility] CBC AND DIFF (AUTO) Specimen Type: BLOOD No comment entered. Ordering Provider: CLAUDIA MCPHERSON Report Released Date/Time: Nov 13, 2023 06:01 PM Reporting Lab: [address] [address] Performing Lab: [address] [address] WBC 8.38 10*3/uL 4.50-11.00 RBC 5.39 10*6/uL [...] 10*3/uL 0.00-0.00 Dec 23, 2023 01:30 PM [facility] TSH Specimen Type: SERUM No comment entered. Ordering Provider: CLAUDIA MCPHERSON Report Released Date/Time: Nov 13, 2023 06:01 PM Reporting Lab: [address] [address] Performing Lab: [address] [address] TSH 0.93 u[IU]/mL 0.35-5.00 Dec 23, 2023 01:30 PM [facility] LIPID PANEL FASTING Specimen Type: SERUM No comment entered. Ordering Provider: CLAUDIA MCPHERSON Report Released Date/Time: Nov 13, 2023 06:01 PM Reporting Lab: [address] [address] Performing Lab: [address] [address] CHOLESTEROL 132 mg/dL TRIGLYCERIDE 158 mg/dL H 0-150 LDL calculated 54 mg/dL 0-129 CHOL/HDL 2.9 HDL CHOLESTEROL 46 mg/dL 40-60 Dec 23, 2023 01:30 PM [facility] MICROALBUMIN CREATININE RATIO PANEL Specimen Type: URINE No comment entered. Ordering Provider: CLAUDIA MCPHERSON Report Released Date/Time: Nov 13, 2023 06:01 PM Reporting Lab: [facility] [place] [facility] [address] [address] Performing [facility]: [facility] [address] [address] MICROALBUMIN/C REATININE RATIO 26.3 mg/g 0-29.9 MICROALBUMIN,Q UANTITATIVE 3.3 mg/dL RR UNAVAIL CREATININE URINE 125.63 mg/dL Dec 23, 2023 01:30 PM [facility] HEMOGLOBIN A1C PANEL Specimen Type: BLOOD [...] Nov 13, 2023 06:01 PM Reporting Lab: [facility] [address] [address] [facility]forming [facility] [address] HEMOGLOBIN A1C 5.9 H 4.0-5.6 Dec 23, 2023 01:30 PM [facility] URINALYSIS CLEAN CATCH Specimen Type: URINE Comment: If Glucose = >500 and Ketones are positive, please alert the Physician. Ordering Provider: CLAUDIA MCPHERSON Report Released Date/Time: Nov 13, 2023 06:01 PM Reporting Lab: [facility] [address] [address] Performing Lab: [address] [place] [address] UA COLOR Light-Yellow Yellow UA APPEARANCE Clear [...] 23, 2023 02:30 PM [facility] Tobacco Use History This section includes a history of the smoking, or tobacco-related health factors, that were collected on or before the date of the Encounter. The data comes from the [place] facility where the Encounter took place. Date/Time Smoking Status/Tobacco Use Comment F acility Aug 23, 2023 02:30 PM VA-TOBACCO QUIT 15 YRS OR MORE [place] [facility] [place] [facility] Aug 17, 2022 03:00 PM VA-TOBACCO FORMER USER [place] [facility] [place] [facility] Aug 17, 2022 03:00 PM VA-TOBACCO QUIT 15 YRS OR MORE [place] [facility] [place] [facility] Aug 07, 2021 03:00 PM VA-TOBACCO FORMER USER [place] [facility] [place] [facility] Aug 07, 2021 03:00 PM VA-TOBACCO QUIT 15 YRS OR MORE [place] [facility] [place] [facility] Jul 18, 2019 10:24 AM VA-TOBACCO FORMER USER [facility] [place] [facility] Jul 18, 2019 10:24 AM VA-TOBACCO QUIT 15 YRS OR MORE [place] [facility] [place] [facility] Mar 02, 2018 09:39 AM VA-TOBACCO NEVER USED [place] [facility] [place] [facility] Advance Directives: All historical and [...] May 18, 2023 ADVANCE DIRECTIVE ADRIANA GARCIA [facility] Encounter Notes: All associated encounter notes This section contains the clinical notes associated to the Encounter. Date/Time Encounter Note(s) Provider Source Jan 18, 2024 08:18 AM AUDIOLOGY NOTE: LOCAL TITLE: AUDIOLOGY HEALTH ASSISTANT BOYS TRACK COACH STANDARD TITLE: AUDIOLOGY NOTE DATE OF NOTE: JAN 18, 2024@08:18 ENTRY DATE: JAN 18, 2024@08:18:34 AUTHOR: MARY MANCIA COSIGNER: ROEL MONTGOMERY URGENCY: STATUS: COMPLETED January 18, 2024 History/Background: was seen for a hearing aid follow up, accompanied by his . [facility] presented today reporting his right hearing aid stopped working. Hearing aids: Phonak Audeo L90 RICs Serial Numbers: [id number] L) [id number] Battery Size: Rechargeable Date Issued: 04/06/2023 Hearing aid check: Both hearing aids were cleaned and checked. Initial inspection revealed cerumen blocking wax guards. Replaced wax guards, domes and retention lines. Biologic check was good. Plan: [facility] will contact the clinic as needed. /jai/ MARY MANCIA [facility] Coordinator Signed: 01/18/2024 13:47 /jai/ SRUTHI YE, [facility]-A STAFF LIBRARY SUPERVISOR Cosigned: 01/18/2024 13:55 MARY MANCIA [facility]
--- OUTSIDE RECORDS SUMMARY | 2024-07-20 15:26 | XMS_ITS | Encounter Summary ---
Author Name [facility] [place] Address [address] [place] [address] Care Team Providers Care Press Tool Maker Name Role Phone RAFAEL DUKE Primary Care [...] Name Patient's Relationship to Policy Robledo AETNA [facility] (WNR) MEDICARE ADVANTAGE [place] INDIV IDUAL - [place] August 24, 2020 [id number] [phone] FR DENISE VERA PATIENT Selected Encounter This section includes the information on record at [place] for the Encounter. Date/Time Encounter Type Encounter Description Reason Provider Source Jan 21, 2024 02:00 PM OFF/OP EST AUGUST X REQ PHY/QHP PRIMARY CARE/MEDICINE ICD-10-CM I10 Essential (primary) hypertension SHARON TURCIOS Yessica Encounter Template Text not used by [place] Assessments - Encounter Diagnoses This section includes the primary and secondary diagnoses documented for the Encounter. Date/Time Primary/Secondary Diagnosis Diagnosis Name Provider Source Jan 21, 2024 02:41 PM PRIMARY Essential (primary) hypertension SHARON TURCIOS [facility] Plan of Treatment: Future Appointments (+ 6 months) and Future Tests (+/- 45 days) The Plan of Treatment section includes future care activities for the patient from all [place] [facility]. This section includes future appointments and future orders which are active, pending or scheduled. Future Appointments This section includes appointments that were scheduled to occur 6 months from the date of the Encounter, up to a maximum of 20 appointments. The data comes from all [facility]. Appointment Date/Time Appointment Type Appointme nt Facility Name Feb 21, 2024 03:30 PM [facility] Mar 02, 2024 01:00 PM [facility] May 23, 2024 01:00 PM AMBULATORY - MEDICINE [facility] Jul 13, 2024 01:30 PM AMBULATORY - MEDICINE [facility] Active, Pending, and Scheduled Orders This section includes a listing of several types of active, pending, and scheduled orders, including clinic medications orders, diagnostic test orders, procedure orders and consult orders; where the start date of the order is 45 days before the date of the Encounter or 45 days after the date of theEncounter. The data comes from all [facility]. Test Date/Time Test Type Test Details Facility Name Jan 02, 2024 12:00 AM Laboratory - Chemi stry Order BASIC METABOLIC PANEL (non-fasting) BLOOD (SST-SERUM) SP [facility] Lab Results: +/- 30 days of the encounter This section includes the Chemistry and Hematology Lab Results on record with [place] for the patient. Radiology Reports and Pathology Reports are provided separately, in subsequent sections. Lab Results This section contains the Chemistry/Hematology Results that were resulted 30 days before or 30 daysafter the date of the Encounter. Date/Time Source Result Type Result - Unit Interpretation Reference Range Comment Dec 23, 2023 01:30 PM [facility] LIVER FUNCTION Specimen Type: SERUM No comment entered. Ordering Provider: RAFAEL DUKE Report Released Date/Time: Nov 13, 2023 06:01 PM Reporting Lab: [address] [address] Performing Lab: [address] [address] PROTEIN,TOTAL 7.2 g/dL 6.0-8.3 ALBUMIN 4.0 g/dL 3.5-5.0 ALKALINE PHOSPHATASE 100 U/L 40-150 AST 13 U/L 5-34 ALT 17 U/L BILIRUBIN, TOTAL 0.7 mg/dL 0.2-1.2 Dec 23, 2023 01:30 PM [facility] BASIC METABOLIC PANEL (fasting) Specimen Type: SERUM No comment entered. Ordering Provider: RAFAEL DUKE Report Released Date/Time: Nov 13, 2023 06:01 PM Reporting Lab: [address] [address] Performing Lab: [address] [address] UREA NITROGEN 14 mg/dL 7-25 GLUCOSE 100 mg/dL 65-100 SODIUM 140 mmol/L 135-145 POTASSIUM 3.6 mmol/L 3.5-5.0 CHLORIDE 105 mmol/L 100-110 CO2 25 meq/L 20-30 CREATININE, Serum 1.47 mg/dL H 0.50-1.40 eGFR(CKD-EPI 2020) 48 mL/min L >60 Dec 23, 2023 01:30 PM [facility] CBC AND DIFF (AUTO) Specimen Type: BLOOD No comment entered. Ordering Provider: RAFAEL DUKE Report Released Date/Time: Nov 13, 2023 06:01 PM Reporting Lab: [address] [address] Performing Lab: [address] [address] WBC 8.38 10*3/uL 4.50-11.00 RBC 5.39 10*6/uL [...] 10*3/uL 0.00-0.00 Dec 23, 2023 01:30 PM [facility] TSH Specimen Type: SERUM No comment entered. Ordering Provider: RAFAEL DUKE Report Released Date/Time: Nov 13, 2023 06:01 PM Reporting Lab: [address] [address] Performing Lab: [address] [address] TSH 0.93 u[IU]/mL 0.35-5.00 Dec 23, 2023 01:30 PM [facility] LIPID PANEL FASTING Specimen Type: SERUM No comment entered. Ordering Provider: RAFAEL DUKE Report Released Date/Time: Nov 13, 2023 06:01 PM Reporting Lab: [address] [address] Performing Lab: [address] [address] CHOLESTEROL 132 mg/dL TRIGLYCERIDE 158 mg/dL H 0-150 LDL calculated 54 mg/dL 0-129 CHOL/HDL 2.9 HDL CHOLESTEROL 46 mg/dL 40-60 Dec 23, 2023 01:30 PM [facility] HEMOGLOBIN A1C PANEL Specimen Type: BLOOD [...] Nov 13, 2023 06:01 PM Reporting Lab: [address] [address] Performing Lab: [address] [address] HEMOGLOBIN A1C 5.9 H 4.0-5.6 Dec 23, 2023 01:30 PM [facility] MICROALBUMIN CREATININE RATIO PANEL Specimen Type: URINE No comment entered. Ordering Provider: RAFAEL DUKE Report Released Date/Time: Nov 13, 2023 06:01 PM Reporting Lab: [address] [address] Performing Lab: [address] [address] MICROALBUMIN/C REATININE RATIO 26.3 mg/g 0-29.9 MICROALBUMIN,Q UANTITATIVE 3.3 mg/dL RR UNAVAIL CREATININE URINE 125.63 mg/dL Dec 23, 2023 01:30 PM [facility] URINALYSIS CLEAN CATCH Specimen Type: URINE Comment: If Glucose = >500 and Ketones are positive, please alert the Physician. Ordering Provider: RAFAEL DUKE Report Released Date/Time: Nov 13, 2023 06:01 PM Reporting Lab: [address] [address] Performing Lab: [address] [address] UA COLOR Light-Yellow Yellow UA APPEARANCE Clear [...] and tobacco- related health factors from the [place] facility where the Encounter took place. Current Smoking Status This section includes the most current smoking, or tobacco-related health factor, from the [place] facility where the Encounter took place. Date/Time Current Smoking Status Comment Facil ity Aug 23, 2023 02:30 PM VA-TOBACCO FORMER USER [place] [facility] [place] [facility] Tobacco Use History This section includes a history of the smoking, or tobacco-related health factors, that were collected on or before the date of the Encounter. The data comes from the [place] facility where the Encounter took place. Date/Time Smoking Status/Tobacco Use Comment F acility Aug 23, 2023 02:30 PM VA-TOBACCO QUIT 15 YRS OR MORE [place] [facility] [place] [facility] Aug 17, 2022 03:00 PM VA-TOBACCO FORMER USER [place] [facility] [place] [facility] Aug 17, 2022 03:00 PM VA-TOBACCO QUIT 15 YRS OR MORE [place] [facility] [place] [facility] Aug 07, 2021 03:00 PM VA-TOBACCO FORMER USER [place] [facility] [place] [facility] Aug 07, 2021 03:00 PM VA-TOBACCO QUIT 15 YRS OR MORE [place] [facility] [place] [facility] Jul 18, 2019 10:24 AM VA-TOBACCO FORMER USER [place] [facility] [place] [facility] Jul 18, 2019 10:24 AM VA-TOBACCO QUIT 15 YRS OR MORE [place] [facility] [place] [facility] Mar 02, 2018 09:39 AM VA-TOBACCO NEVER USED [place] [facility] [place] [facility] Advance Directives: All historical and current Section Date Range: From patient's date of to the date document was created. This section includes ALL of a patient's completed or amended [place] Advance and Rescinded Directives. The entries below indicate that a directive exists for the patient, but an actual copy is not included with this document. The data comes from all [place] facilities. Date Advance Directives Provider Source May [...] COSIGNER: URGENCY: STATUS: COMPLETED F=[facility] D= here for blood pressure check per PCP/robert. Vet has history of hypertension. Presently he [...] states understanding and agrees to plan. R= Mendon tolerated well and left area amb ad eber. /jai/ Sharon Turcios RN, BSN Primary Care Signed: 01/21/2024 14:42 Receipt Acknowledged By: 01/26/2024 17:34 /jai/ Rafael Duke MD Staff Physician SHARON TURCIOS [facility]
--- OUTSIDE RECORDS SUMMARY | 2024-07-20 15:26 | XMS_ITS ---
Author Name [facility] [place] [facility] [place] Address [address] [place] [address] Care Team Providers Care Stem Mounter Name Role Phone CLAUDIA MCPHERSON Primary Care [...] Robledo's Name Patient's Relationship to Policy Robledo [facility] (WNR) MEDICARE ADVANTAGE [place] INDIV IDUAL - [place] August 24, 2020 [id number] [phone] FR DENISE VERA PATIENT Selected Encounter This section includes the information on record at [place] for the Encounter. Date/Time Encounter Type Encounter Description Reason Provider Source Nov 30, 2023 01:30 PM COMPRE OPH EXAM EST PT 1/> OPTOMETRY ICD-10-CM E11.9 Type 2 diabetes mellitus without complications ANTONELLA PASTRANA Yessica Encounter Template Text not used by [place] Assessments - Encounter Diagnoses This section includes the primary and secondary diagnoses documented for the Encounter. Date/Time Primary/Secondary Diagnosis Diagnosis Name Provider Source Dec 01, 2023 02:04 PM PRIMARY Type 2 diabetes mellitus without complications ANTONELLA PASTRANA [facility] Dec 01, 2023 02:04 PM SECONDARY Age-related nuclear cataract, bilateral ANTONELLA PASTRANA [place] [facility] [place] [facility] Dec 01, 2023 02:04 PM SECONDARY Anatomical narrow angle, bilateral ANTONELLA PASTRANA [place] [facility] [place] [facility] Dec 01, 2023 02:04 PM SECONDARY Cerebral infarction, unspecified ANTONELLA PASTRANA [place] [facility] [place] [facility] Dec 01, 2023 02:04 PM SECONDARY Open angle with borderline findings, low risk, bilateral ANTONELLA PASTRANA [place] [facility] [place] [facility] Dec 01, 2023 02:04 PM SECONDARY Other localized visual field defect, bilateral ANTONELLA PASTRANA [place] [facility] [place] [facility] Plan of Treatment: Future Appointments (+ 6 months) and Future Tests (+/- 45 days) The Plan of Treatment section includes future care activities for the patient [facility] [place] [facility] This section includes future appointments [...] 23, 2023 01:30 PM AMBULATORY - [place]ICINE [place] [facility] [place] [facility] Jan 18, 2024 01:30 PM AMBULATORY - REHAB MEDICIN [place] [facility] [place] [facility] Jan 21, 2024 02:00 PM AMBULATORY - [place]ICINE [place] [facility] [place] [facility] Feb 21, 2024 03:30 PM AM[place]UL[place]ORY - [place]INE [place] [facility] [place] [facility] Mar 02, 2024 01:00 PM AMBULATORY - [place]ICINE [place] [facility] [place] [facility] May 23, 2024 01:00 PM AMBULATORY - MEDICINE [place] [facility] [place] [facility] Active, Pending, and Scheduled Orders This section includes a listing of several types of active, pending, and scheduled orders, including clinic medications orders, diagnostic test orders, procedure orders and consult orders; where the start date of the order is 45 days before the date of the Encounter or 45 days after the date of theEncounter. The data comes from all [facility] facilities. Test Date/Time Test Type Test Details Facility Name Jan 02, 2024 12:00 AM Laboratory - Chemi stry Order BASIC METABOLIC PANEL (non-fasting) BLOOD (SST-SERUM) SP [facility] Lab Results: +/- 30 [...] Range Comment Dec 23, 2023 01:30 PM [facility] BASIC METABOLIC PANEL (fasting) Specimen Type: SERUM No comment entered. Ordering Provider: CLAUDIA MCPHERSON Report Released Date/Time: Nov 13, 2023 06:01 PM Reporting Lab: [address] [address] Performing Lab: [address] [address] UREA NITROGEN 14 mg/dL 7-25 GLUCOSE 100 mg/dL 65-100 SODIUM 140 mmol/L 135-145 POTASSIUM 3.6 mmol/L 3.5-5.0 CHLORIDE 105 mmol/L 100-110 CO2 25 meq/L 20-30 CREATININE, Serum 1.47 mg/dL H 0.50-1.40 eGFR(CKD-EPI 2020) 48 mL/min L >60 Dec 23, 2023 01:30 PM [facility] TSH Specimen Type: SERUM No comment entered. Ordering Provider: CLAUDIA MCPHERSON Report Released Date/Time: Nov 13, 2023 06:01 PM Reporting Lab: [address] [address] Performing Lab: [address] [address] TSH 0.93 u[IU]/mL 0.35-5.00 Dec 23, 2023 01:30 PM [facility] CBC AND DIFF (AUTO) Specimen Type: BLOOD No comment entered. Ordering Provider: CLAUDIA MCPHERSON Report Released Date/Time: Nov 13, 2023 06:01 PM Reporting Lab: [facility] [address] [facility] [address] Performing Lab: [facility] [address] [facility] [address] WBC 8.38 10*3/uL 4.50-11.00 RBC 5.39 10*6/uL [...] 10*3/uL 0.00-0.00 Dec 23, 2023 01:30 PM [facility] LIPID PANEL FASTING Specimen Type: SERUM No comment entered. Ordering Provider: CLAUDIA MCPHERSON Report Released Date/Time: Nov 13, 2023 06:01 PM Reporting Lab: [facility] [address] [facility] [address] Performing Lab: [address] [address] CHOLESTEROL 132 mg/dL TRIGLYCERIDE 158 mg/dL H 0-150 LDL calculated 54 mg/dL 0-129 CHOL/HDL 2.9 HDL CHOLESTEROL 46 mg/dL 40-60 Dec 23, 2023 01:30 PM [facility] LIVER FUNCTION Specimen Type: SERUM No comment entered. Ordering Provider: CLAUDIA MCPHERSON Report Released Date/Time: Nov 13, 2023 06:01 PM Reporting Lab: [facility] [address] [facility] [address] Performing Lab: [facility] [address] [facility] [address] PROTEIN,TOTAL 7.2 g/dL 6.0-8.3 ALBUMIN 4.0 g/dL 3.5-5.0 ALKALINE PHOSPHATASE 100 U/L 40-150 AST 13 U/L 5-34 ALT 17 U/L BILIRUBIN, TOTAL 0.7 mg/dL 0.2-1.2 Dec 23, 2023 01:30 PM [facility] HEMOGLOBIN A1C PANEL Specimen Type: BLOOD [...] Nov 13, 2023 06:01 PM Reporting Lab: [address] [address] Performing Lab: [address] [address] HEMOGLOBIN A1C 5.9 H 4.0-5.6 Dec 23, 2023 01:30 PM [facility] MICROALBUMIN CREATININE RATIO PANEL Specimen Type: URINE No comment entered. Ordering Provider: CLAUDIA MCPHERSON Report Released Date/Time: Nov 13, 2023 06:01 PM Reporting Lab: [address] [address] Performing Lab: [address] [address] MICROALBUMIN/C REATININE RATIO 26.3 mg/g 0-29.9 MICROALBUMIN,Q UANTITATIVE 3.3 mg/dL RR UNAVAIL CREATININE URINE 125.63 mg/dL Dec 23, 2023 01:30 PM [facility] URINALYSIS CLEAN CATCH Specimen Type: URINE Comment: If Glucose = >500 and Ketones are positive, please alert the Physician. Ordering Provider: CLAUDIA MCPHERSON Report Released Date/Time: Nov 13, 2023 06:01 PM Reporting Lab: [address] [address] Performing Lab: [address] [address] UA COLOR Light-Yellow Yellow UA APPEARANCE Clear [...] 23, 2023 02:30 PM VA-TOBACCO FORMER USER [facility] Tobacco Use History This section includes a history of the smoking, or tobacco-related health factors, that were collected on or before the date of the Encounter. The data comes from the [place] facility where the Encounter took place. Date/Time Smoking Status/Tobacco Use Comment F acility Aug 23, 2023 02:30 PM VA-TOBACCO QUIT 15 YRS OR MORE [facility] Aug 17, 2022 03:00 PM VA-TOBACCO FORMER USER [facility] Aug 17, 2022 03:00 PM VA-TOBACCO QUIT 15 YRS OR MORE [place] [facility] [place] [facility] Aug 07, 2021 03:00 PM VA-TOBACCO FORMER USER [place] [facility] [place] [facility] Aug 07, 2021 03:00 PM VA-TOBACCO QUIT 15 YRS OR MORE [place] [facility] [place] [facility] Jul 18, 2019 10:24 AM VA-TOBACCO FORMER USER [place] [facility] [place] [facility] Jul 18, 2019 10:24 AM VA-TOBACCO QUIT 15 YRS OR MORE [place] [facility] [place] [facility] Mar 02, 2018 09:39 AM VA-TOBACCO NEVER USED [facility] Advance Directives: All historical and current [...] May 18, 2023 ADVANCE DIRECTIVE ADRIANA GARCIA [place] [facility] [place] [facility] Encounter Notes: All associated encounter notes This section contains the clinical notes associated to the Encounter. Date/Time Encounter Note(s) Provider Source Nov 30, 2023 12:51 PM OPTOMETRY NOTE: LOCAL TITLE: OPTOMETRY NOTE STANDARD TITLE: OPTOMETRY NOTE DATE OF NOTE: NOV 30, 2023@12:51 ENTRY DATE: NOV 30, 2023@12:52:03 AUTHOR: WARREN CERVANTES EXP COSIGNER: GIORGIO PASTRANA URGENCY: STATUS: COMPLETED OPTOMETRY NOTE Has ADDENDA Active problems - Computerized Problem List is the source for the followin. Exposure to potentially hazardous substance 2. Benign Prostatic Hypertrophy without Outflow Obstruction (SCT 832127556) 3. Stroke 4. 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 Food insecurity 6. Diabetes mellitus type 2 7. Chronic kidney disease stage 3 due to type 2 diabetes mellitus 8. Abnormal findings on diagnostic imaging of lung 9. Sleep Apnea (SCT 56895914) 10. Renal Impairment (SCT 126741967) 11. Shared care - specialist and GP 12. Raised PSA 13. Under care of multiple providers 14. Patient requires hospitalization 15. Hyperglycemia 16. Adult screening status 17. History of surgery 18. History of stroke in last year 19. HTN - Hypertension ([facility] [id number]) 20. Hyperlipidemia ([facility] [id number]) 21. Cognitive impairment 22. Cancer in situ [...] Complaint: Per patient's , patient went to [facility] and had the LPI done in both [...] Surgery: LPI OU w/ [facility]. (-) TBI FOHx: (-) Glaucoma/ARMD/Blindness (-) Smoker/Length [...] +2.50 20/30 Final Rx: no change OD: +6.00-1.05k445 OS: +7.00-1.68v163 Add: +2.50 All the above performed by [...] CERVANTES OPTOMETRY STUDENT Signed: 11/30/2023 15:16 /jai/ Giorgio Pastrana OD CHIEF OF OPTOMETRY Cosigned: 12/01/2023 [...] was referred back to [facility] last year and underwent 6 vessel laser [...] of active outpatient prescriptions dispensed from this [place] (local) and dispensed from another [place] or [facility] facility (remote) as well as inpatient orders [...] Remote Allergy/ADR Data available for this patient [facility] [place] [facility] HCTZ [facility] [place] [facility] METFORMIN Med Recon NoGlossary (Tool #1) INCLUDED IN THIS LIST: Alphabetical list of active outpatient prescriptions dispensed from this [place] (local) and dispensed from another [place] or [facility] facility (remote) as well as inpatient orders (local pending and active), local clinic medications, locally documented non-VA medications, and local prescriptions that have or been discontinued in the past 90 days. Non-VA Meds Last Documented On: Aug 07, 2021 NOTE The display of VA prescriptions dispensed from another [place] or [facility] facility (remote) is limited to active outpatient prescription entries matched to National Drug File at the originating site and may not include some items such as investigational drugs, compounds, etc. NOT INCLUDED IN THIS LIST: Medications self-entered by the patient into personal health records (i.e. [employer]) are NOT included in this list. Non-VA medications documented outside this [place], remote inpatient orders (regardless of status) and [...] TAKE WITH GRAPEFRUIT JUICE (DOSE INCREASED) Rx# [id number] Last Released: 11/25/23 Qty/Days Supply: Rx Expiration Date: 11/22/24 Refills Remainin Indication: FOR HIGH BLOOD PRESSURE OUTPT AMLODIPINE BESYLATE 5MG TAB (Status = Discontinued) TAKE ONE TABLET BY MOUTH ONCE DAILY FOR BLOOD PRESSURE/HEART, DO NOT TAKE WITH GRAPEFRUIT JUICE Rx# [id number] Last Released: 07/23/23 Qty/Days Supply: Rx Expiration Date: 02/12/24 Refills Remainin Indication: FOR HIGH BLOOD PRESSURE OUTPT AMLODIPINE BESYLATE 5MG TAB (Status = Discontinued) TAKE ONE TABLET BY MOUTH ONCE DAILY FOR BLOOD PRESSURE/HEART, DO NOT TAKE WITH GRAPEFRUIT JUICE Rx# [id number] Last Released: 10/21/23 Qty/Days Supply: Rx Expiration Date: 10/19/24 Refills Remainin Indication: FOR HIGH BLOOD PRESSURE OUTPT ATORVASTATIN CALCIUM 80MG TAB (Status = Active) TAKE ONE TABLET BY MOUTH ONCE DAILY FOR CHOLESTEROL REPLACES SIMVASTATIN Rx# [id number] Last Released: 11/25/23 Qty/Days Supply: Rx Expiration Date: 11/22/24 Refills Remainin Indication: FOR HIGH CHOLESTEROL OUTPT CLOPIDOGREL BISULFATE 75MG TAB (Status = Discontinued) TAKE ONE TABLET BY MOUTH ONCE DAILY Rx# [id number] Last Released: 08/14/23 Qty/Days Supply: Rx Expiration Date: 10/29/23 Refills Remainin Indication: TO PREVENT BLOOD CLOTS OUTPT CLOPIDOGREL BISULFATE 75MG TAB (Status = Active) TAKE ONE TABLET BY MOUTH ONCE DAILY Rx# [id number] Last Released: 11/25/23 Qty/Days Supply: Rx Expiration Date: 11/22/24 Refills Remainin Indication: TO PREVENT BLOOD CLOTS OUTPT DONEPEZIL HCL 10MG TAB (Status = Active) TAKE ONE TABLET BY MOUTH ONCE DAILY FOR ALZHEIMER'S DISEASE Rx# [id number] Last Released: 09/02/23 Qty/Days Supply: Rx Expiration Date: 03/25/24 Refills Remainin Indication: FOR ALZHEIMER'S DISEASE OUTPT EMPAGLIFLOZIN 25MG TAB (Status = Discontinued) TAKE ONE-HALF TABLET BY MOUTH ONCE DAILY FOR DIABETES Rx# [id number] Last Released: 07/12/23 Qty/Days Supply: Rx Expiration Date: 10/29/23 Refills Remainin OUTPT EMPAGLIFLOZIN 25MG TAB (Status = Active) TAKE ONE-HALF TABLET BY MOUTH ONCE DAILY FOR DIABETES Rx# [id number] Last Released: 10/21/23 Qty/Days Supply: Rx Expiration Date: 10/19/24 Refills Remainin OUTPT FINASTERIDE 5MG TAB (Status = Active) TAKE ONE TABLET BY MOUTH ONCE DAILY Rx# [id number] Last Released: 07/01/23 Qty/Days Supply: Rx Expiration Date: 04/16/24 Refills Remainin Indication: FOR ENLARGED PROSTATE OUTPT OXYBUTYNIN CHLORIDE 5MG SA TAB (Status = Active) TAKE ONE TABLET BY MOUTH ONCE DAILY FOR BLADDER INSTABILITY Rx# [id number] Last Released: 09/10/23 Qty/Days Supply: Rx Expiration Date: 07/01/24 Refills Remainin Indication: FOR FREQUENT URINATION OUTPT PANTOPRAZOLE NA 40MG EC TAB (Status = Active) TAKE ONE TABLET BY MOUTH TWICE DAILY Rx# [id number] Last Released: 08/24/23 Qty/Days Supply: Rx Expiration Date: 08/23/24 Refills Remainin OUTPT TAMSULOSIN HCL 0.4MG CAP (Status = Active) TAKE TWO CAPSULES BY MOUTH AT BEDTIME FOR ENLARGED PROSTATE Rx# [id number] Last Released: 10/29/23 Qty/Days Supply: Rx Expiration Date: 05/18/24 Refills Remainin Indication: FOR ENLARGED PROSTATE SUPPLIES OUTPT ACCU-CHEK GUIDE (GLUCOSE) TEST STRIP (Status = ) USE 1 STRIP TO TEST BLOOD SUGARS EVERY FOUR DAYS Rx# [id number] Last Released: 11/02/22 Qty/Days Supply: 50 Rx Expiration Date: 10/29/23 Refills Remainin Indication: DIABETES OUTPT ACCU-CHEK GUIDE(GLUCOSE)HI/LO CNTRL BLAIR (Status = ) 1 DROP TOPICALLY DIRECTED TO TEST GLUCOMETER FOR ACCURACY Rx# [id number] Last Released: 02/12/23 Qty/Days Supply: Rx Expiration Date: 10/29/23 Refills Remainin Indication: DIABETES OUTPT LANCET,SOFTCLIX (Status = ) USE 1 LANCET DIRECTED EVERY FOUR DAYS TO TEST BLOOD SUGAR Rx# [id number] Last Released: 11/02/22 Qty/Days Supply: Rx Expiration Date: 10/29/23 Refills Remainin Indication: DIABETES Declines printed copy of medication list now. /es/ Giorgio Pastrana OD CHIEF OF OPTOMETRY Signed: 12/01/2023 14:09 [facility] CERVANTES [facility]
--- OUTSIDE RECORDS SUMMARY | 2024-07-20 15:26 | XMS_ITS | Encounter Summary ---
Author Name [facility] [place] Organization [facility] [place] Address [address] [place] [address] Care Team Providers Care Blending Technician Name Role Phone RAFAEL DUKE Primary Care [...] Robledo's Name Patient's Relationship to Policy Robledo DHAVALTDOMINGO PÉREZ (WNR) MEDICARE ADVANTAGE [place] INDIV IDUAL - [place] August 24, 2020 [id number] [phone] FR DENISE VERA PATIENT Selected Encounter This section includes the information on record at [place] for the Encounter. Date/Time Encounter Type Encounter Description Reason Provider Source Feb 21, 2024 03:30 PM OFFICE O/P EST SF 10 MIN PRIMARY CARE/MEDICINE ICD-10-CM I10 Essential (primary) hypertension RAFAEL DUKE E Encounter Template Text not used by [place] Assessments - Encounter Diagnoses This section includes the primary and secondary diagnoses documented for the Encounter. Date/Time Primary/Secondary Diagnosis Diagnosis Name Provider Source Feb 21, 2024 03:53 PM PRIMARY Essential (primary) hypertension RAFAEL DUKE [facility] Feb 21, 2024 03:53 PM SECONDARY Encounter for immunization SHARON TURCIOS [facility] Plan of Treatment: Future Appointments (+ 6 months) and Future Tests (+/- 45 days) The Plan of Treatment section includes future care activities for the patient from [facility] [place] [facility] This section includes future appointments and future orders which are active, pending or scheduled. Future Appointments This section includes appointments that were scheduled to occur 6 months from the date of the Encounter, up to a maximum of 20 appointments. The data comes from all [place] treatment facilities. Appointment Date/Time Appointment Type Appointme nt Facility Name Mar 02, 2024 01:00 PM AMBULATORY - MEDICINE [facility] N[facility] WSTRN [facility] May 23, 2024 01:00 PM AMBULATORY - MEDICINE [facility] Jul 13, 2024 01:30 PM [facility] - [facility] Lab Results: +/- 30 days of the encounter This section includes the Chemistry and Hematology Lab Results on record with [place] for the patient. Radiology Reports and Pathology Reports are provided separately, in subsequent sections. Lab Results This section contains the Chemistry/Hematology Results that were resulted 30 days before or 30 daysafter the date of the Encounter. Date/Time Source Result Type Result - Unit Interpretation Reference Range Comment Feb 21, 2024 01:34 PM [facility] MICROALBUMIN CREATININE RATIO PANEL Specimen Type: URINE No comment entered. Ordering Provider: RAFAEL DUKE Report Released Date/Time: Feb 11, 2024 09:40 PM Reporting [facility]: [facility] [address] [address] Performing Lab: [facility] [address] [address] MICROALBUMIN/C REATININE RATIO 36.9 mg/g H 0-29.9 MICROALBUMIN,Q UANTITATIVE 2.3 mg/dL RR UNAVAIL CREATININE URINE 62.31 mg/dL Feb 21, 2024 01:34 PM [facility] TSH Specimen Type: SERUM No comment entered. Ordering Provider: RAFAEL DUKE Report Released Date/Time: Feb 11, 2024 09:40 PM Reporting Lab: [facility] [address] [address] Performing Lab: [facility] [address] [facility] [address] TSH 0.80 u[IU]/mL 0.35-5.00 Feb 21, 2024 01:34 PM [facility] BASIC METABOLIC PANEL (non-fasting) Specimen Type: SERUM No comment entered. Ordering Provider: RAFAEL DUKE Report Released Date/Time: Feb 11, 2024 09:40 PM Reporting Lab: [address] [address] Performing Lab: [address] [address] UREA NITROGEN 17 mg/dL 7-25 GLUCOSE 155 mg/dL H 65-100 SODIUM 141 mmol/L 135-145 POTASSIUM 3.7 mmol/L 3.5-5.0 CHLORIDE 106 mmol/L 100-110 CO2 25 meq/L 20-30 CREATININE, Serum 1.48 mg/dL H 0.50-1.40 eGFR(CKD-EPI 2020) 47 mL/min L >60 Feb 21, 2024 01:34 PM [facility] LIPID PANEL FASTING Specimen Type: SERUM No comment entered. Ordering Provider: RAFAEL DUKE Report Released Date/Time: Feb 11, 2024 09:40 PM Reporting Lab: [address] [address] Performing Lab: [address] [address] CHOLESTEROL 121 mg/dL TRIGLYCERIDE 168 mg/dL H 0-150 LDL calculated 43 mg/dL 0-129 CHOL/HDL 2.8 HDL CHOLESTEROL 44 mg/dL 40-60 Feb 21, 2024 01:34 PM [facility] HEMOGLOBIN A1C PANEL Specimen Type: BLOOD Comment: [...] Feb 11, 2024 09:40 PM Reporting Lab: [facility] [address] [facility] [address] Performing Lab: [address] [address] HEMOGLOBIN A1C 5.8 H 4.0-5.6 Feb 21, 2024 01:34 PM [facility] URINALYSIS CLEAN CATCH Specimen Type: URINE Comment: If Glucose = >500 and Ketones are positive, please alert the Physician. Ordering Provider: RAFAEL DUKE Report Released Date/Time: Feb 11, 2024 09:40 PM Reporting Lab: [address] [address] Performing Lab: [address] [address] UA COLOR Light-Yellow Yellow UA APPEARANCE Clear Clear UA GLUCOSE >1000 mg/dL Negative UA KETONES NEGATIVE mg/dL Negative UA BLOOD NEGATIVE mg/dL Negative UA PROTEIN NEGATIVE mg/dL Negative UA NITRITE NEGATIVE mg/dL Negative UA BILIRUBIN NEGATIVE mg/dL Negative UA SPECIFIC GRAVITY 1.028 H 1.016-1.02 2 UA pH 5.5 5.0-9.0 UA UROBILINOGEN Normal mg/dL <2.0 UA LEUKOCYTE NEGATIVE Negative Feb 21, 2024 01:34 PM [facility] LIVER FUNCTION Specimen Type: SERUM No comment entered. Ordering Provider: RAFAEL DUKE Report Released Date/Time: Feb 11, 2024 09:40 PM Reporting Lab: [address] [address] Performing Lab: [address] [address] PROTEIN,TOTAL 6.9 g/dL 6.0-8.3 ALBUMIN 3.8 g/dL 3.5-5.0 ALKALINE PHOSPHATASE 95 U/L 40-150 AST 13 U/L 5-34 ALT 16 U/L BILIRUBIN, TOTAL 0.7 mg/dL 0.2-1.2 Feb 21, 2024 01:34 PM [facility] CBC AND DIFF (AUTO) Specimen Type: BLOOD No comment entered. Ordering Provider: RAFAEL DUKE Report Released Date/Time: Feb 11, 2024 09:40 PM Reporting Lab: [facility] [address] [facility] [address] Performing Lab: [facility] [address] [facility] [address] WBC 8.50 10*3/uL 4.50-11.00 RBC 5.30 10*6/uL [...] Source Feb 21, 2024 03:50 PM 106/69 [facility] Feb 21, 2024 03:21 PM 98.1 53 143/63 20 100 0 64 157 27 [place] [facility] Immunizations: All administered on the [...] and tobacco- related health factors from the [place] facility where the Encounter took place. Current Smoking Status This section includes the most current smoking, or tobacco-related health factor, from the [place] facility where the Encounter took place. Date/Time Current Smoking Status Comment Facil ity Aug 23, 2023 02:30 PM VA-TOBACCO FORMER USER [place] [facility] Tobacco Use History This section includes a history of the smoking, or tobacco-related health factors, that were collected on or before the date of the Encounter. The data comes from the [place] facility where the Encounter took place. Date/Time Smoking Status/Tobacco Use Comment F acility Aug 23, 2023 02:30 PM VA-TOBACCO QUIT 15 YRS OR MORE [facility] [facility] Aug 17, 2022 03:00 PM VA-TOBACCO FORMER USER [place] [facility] [facility] Aug 17, 2022 03:00 PM VA-TOBACCO QUIT 15 YRS OR MORE [place] [facility] [facility] Aug 07, 2021 03:00 PM VA-TOBACCO FORMER USER [place] [facility] [place] [facility] Aug 07, 2021 03:00 PM VA-TOBACCO QUIT 15 YRS OR MORE [place] [facility] [facility] Jul 18, 2019 10:24 AM VA-TOBACCO FORMER USER [facility] [facility] Jul 18, 2019 10:24 AM VA-TOBACCO QUIT 15 YRS OR MORE [facility] [place] [facility] Mar 02, 2018 09:39 AM VA-TOBACCO NEVER USED IN [place] [facility] Advance Directives: All historical and current Section Date Range: From patient's date of to the date document was created. This section includes ALL of a patient's completed or amended [place] Advance and Rescinded Directives. The entries below indicate that a directive exists for the patient, but an actual copy is not included with this document. The data comes from all [place] facilities. Date Advance Directives Provider Source May 18, 2023 ADVANCE DIRECTIVE ADRIANA GARCIA [place] CN[facility] Encounter Notes: All associated encounter notes [...] Administered: Feb 21, 2024 15:30 Series: [employer] Instructor: SANOFI PASTEUR Lot: [id number] Exp Date: Oct 23, 2024 NDC: [id number] Admin Route/Site: INTRAMUSCULAR/LEFT DELTOID Dosage: 0.5mL Vaccine Information Statement(s): INFLUENZA(FLU) VACC(INACTIVATED OR RECOMBINANT)VIS Nov 29, 2020 ([place]) Order By: Policy Administered By: Sharon Turcios [...] Administered: Feb 21, 2024 15:30 Series: [employer] Instructor: [employer] Lot: [id number] Exp Date: Sep 30, 2024 NDC: [id number] Admin Route/Site: INTRAMUSCULAR/RIGHT DELTOID Dosage: 0.5mL Vaccine Information Statement(s): COVID-19 MRNA VACCINE (12+ YRS) VACCINE VIS Feb 11, 2023 ([place]) Order By: Policy Administered By: Sharon Turcios Vaccine administered without complications. /jai/ Sharon Turcios RN, BSN Primary Care Signed: 02/21/2024 16:22 SHARON TURCIOS [place] 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 chief complaint: Hypertension History of present [...] 27.7 Neut %: 71.4 Lymph %: 17.5 [place] %: 7.3 Eos %: 2.9 Baso %: 0.5 Neut, Abs: 6.07 Lymph, Abs: 1.49 [place], Abs: 0.62 Eos, Abs: 0.25 Baso, Abs: 0.04 Immature Granulocytes %: 0.4 Immature Granulocytes, Abs: 0.03 NRBC%: 0.0 NRBC#: 0.00 Color, Urine (AX 4280): Light-Yellow Appearance, Urine (AX 4280): Clear Glucose, Urine (AX 4280): >1000 Ketones, Urine (AX 4280): NEGATIVE Blood, Urine (AX 4280): NEGATIVE Protein, Urine (AX 4280): NEGATIVE Nitrite, Urine (AX 4280): NEGATIVE Bilirubin, Urine (AX 4280): NEGATIVE Specific [place], (AX 4280): 1.028 H pH, Urine (LU4014): 5.5 Urobilinogen, Urine (AX 4280): Normal Leukocyte [...] of active outpatient prescriptions dispensed from this [place] (local) and dispensed from another [place] or DoD facility (remote) as well as [...] Staff Physician Signed: 02/21/2024 15:53 RAFAEL DUKE [place] [facility] [facility] Feb 21, 2024 03:28 PM PREVENTIVE MEDICIN E NURSING NOTE: LOCAL TITLE: CLINICAL REMINDERS/NURSING STANDARD TITLE: PREVENTIVE MEDICINE NURSING NOTE DATE OF NOTE: FEB 21, 2024@15:28 ENTRY DATE: FEB 21, 2024@15:28:15 AUTHOR: JUNO TEJEDA EXP COSIGNER: URGENCY: STATUS: COMPLETED RHS Screen: RHS Screen Session Format: Face to Face Environmental Check Screening was not completed at this time due to: Another adult present /es/ Juno Tejeda, Health Senior Sql Server Developer BRIGHT CUTTER,PRIMARY CARE Signed: 02/21/2024 15:28 JUNO TEJEDA [facility] [place] [facility]
--- OUTSIDE RECORDS SUMMARY | 2024-07-20 15:26 | XMS_ITS | Encounter Summary ---
Author Name [facility] [place] [facility] Address [address] [place] [address] Care Team Providers Care Guard Lieutenant Name Role Phone RAFAEL DUKE Primary Care [...] Policy Robledo DHAVALTDOMINGO PÉREZ (WNR) MEDIC[place] ADV[place]AGE [place] INDIV IDUAL - [place] August 24, 2020 [id number] [phone] FR DENISE VERA PATIENT Selected Encounter This section includes the information on record at [place] for the Encounter. Date/Time Encounter Type Encounter Description Reason Provider Source Nov 22, 2023 03:30 PM OFFICE O/P EST SF 10 MIN PRIMARY CARE/MEDICINE ICD-10-CM I10 Essential (primary) hypertension RAFAEL DUKE E Encounter Template Text not used by [place] Assessments - Encounter Diagnoses This section includes the primary and secondary diagnoses documented for the Encounter. Date/Time Primary/Secondary Diagnosis Diagnosis Name Provider Source Nov 22, 2023 04:11 PM PRIMARY Essential (primary) hypertension [facility] Plan of Treatment: Future Appointments (+ 6 months) and Future Tests (+/- 45 days) The Plan of Treatment section includes future care activities for the patient from [facility] [place] [facility] This section includes future [...] 30, 2023 01:30 PM [facility] Dec 23, 2023 01:30 PM [facility] Jan 18, 2024 01:30 PM AMBULAT[facility] Jan 21, 2024 02:00 PM [facility] Feb 21, 2024 03:30 PM AMBULATORY - MEDICINE [facility] NTRL W[facility] Mar 02, 2024 01:00 PM [facility] May 23, 2024 01:00 PM [facility] Active, Pending, and Scheduled Orders This [...] Order BASIC METABOLIC PANEL (non-fasting) BLOOD (SST-SERUM) [facility] Vital Signs: All taken on the encounter date This section contains inpatient and outpatient Vital Signs collected on the date of the Encounter. Date/Time Temperature Pulse Blood Pressure Respiratory Rate SP02 Pain Height Weight Body Mass Index Source Nov 22, 2023 03:30 PM 98.2 62 177/81 16 98 0 64 155.9 27 [facility] Social History: Smoking Status (Most current) and Tobacco Use (All prior to encounter date) This section includes the most current, and the historical, smoking and tobacco- related health factors from the [place] facility where the Encounter took place. Current Smoking Status This section includes the most current smoking, or tobacco-related health factor, from the [place] facility where the Encounter took place. Date/Time Current Smoking Status Comment Marie kaur Aug 23, 2023 02:30 PM VA-TOBACCO [facility] Tobacco Use History This section includes a history of the smoking, or tobacco-related health factors, that were collected on or before the date of the Encounter. The data comes from the [place] facility where the Encounter took place. Date/Time Smoking Status/Tobacco Use Comment Tavia balbuena Aug 23, 2023 02:30 PM VA-TOBACCO QUIT 15 YRS OR MORE [place] [facility] Aug 17, 2022 03:00 PM VA-TOBACCO FORMER USER [place] [facility] Aug 17, 2022 03:00 PM VA-TOBACCO QUIT 15 YRS OR MORE [place] [facility] Aug 07, 2021 03:00 PM VA-TOBACCO FORMER USER [place] [facility] Aug 07, 2021 03:00 PM VA-TOBACCO QUIT 15 YRS OR MORE [place] [facility] Jul 18, 2019 10:24 AM VA-TOBACCO FORMER USER [place] [facility] Jul 18, 2019 10:24 AM VA-TOBACCO QUIT 15 YRS OR MORE [place] [facility] [facility] Mar 02, 2018 09:39 AM [facility]AC[facility] Advance Directives: All historical and current Section Date Range: From patient's date of to the date document was created. This section includes ALL of a patient's completed or amended [place] Advance and Rescinded Directives. The entries below indicate that a directive exists for the patient, but an actual copy is not included with this document. The data comes from all [place] facilities. 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 Intact (Greater than or [...] AWAITING SIGNATURE * ASHISH BHAKTA HOWARD D [facility] Nov 22, 2023 03:37 PM PREVENTIVE MEDICIN E NURSING NOTE: LOCAL TITLE: CLINICAL REMINDERS/NURSING STANDARD TITLE: PREVENTIVE MEDICINE NURSING NOTE DATE OF NOTE: NOV 22, 2023@15:37 ENTRY DATE: NOV 22, 2023@15:37:14 AUTHOR: ANNITA WISEMAN EXP COSIGNER: URGENCY: STATUS: COMPLETED (Optional) Whole Health Documentation: What matters the most to you? What motivates you to be healthy? (MAP) Response: FOOD!!! /turner WISEMAN LPN LPN Signed: 11/22/2023 15:39 ANNITA WISEMAN [facility]
--- OUTSIDE RECORDS SUMMARY | 2024-07-20 15:26 | XMS_ITS | Encounter Summary ---
Author Name [facility] [place] Organization [place] Address [address] [place] [address] Care Team Providers Care Laborer Concrete Plant Name Role Phone RAFAEL DUKE Primary Care [...] Robledo [employer] [facility] (WNR) MEDICARE ADVANTAGE [place] INDIV IDUAL - [place] August 24, 2020 [id number] [phone] FR DENISE VERA PATIENT Selected Encounter This section includes the information on record at [place] for the Encounter. Date/Time Encounter Type Encounter Description Reason Pro vider Source Mar 02, 2024 02:49 PM Outpatient Encounter ADMIN PAT ACTIVTIES (MASNONCT) IHE Encounter Template Text not used by [place] Plan of Treatment: Future Appointments (+ 6 months) and Future Tests (+/- 45 days) The Plan of Treatment section includes future care activities for the patient from all [facility] treatment[facility]ilities. This section includes future appointments and future orders which are active, pending or scheduled. Future Appointments This section includes appointments that were scheduled to occur 6 months from the date of the Encounter, up to a maximum of 20 appointments. The data comes from all [place] treatment facilities. Appointment Date/Time Appointment Type Appointme nt Facility Name May 23, 2024 01:00 PM AMBULATORY - MEDICINE [place] [facility] [place] [facility] Jul 13, 2024 01:30 PM AMBULATORY - MEDICINE [place] [facility] [place] [facility] Aug 22, 2024 01:30 PM AMBULATORY - MEDICINE [place] [facility] [place] [facility] Lab Results: +/- 30 days of the encounter This section includes the Chemistry and Hematology Lab Results on record with [place] for the patient. Radiology Reports and Pathology Reports are provided separately, in subsequent sections. Lab Results This section contains the Chemistry/Hematology Results that were resulted 30 days before or 30 daysafter the date of the Encounter. Date/Time Source Result Type Result - Unit Interpretation Reference Range Comment Feb 21, 2024 01:34 PM [facility] MICROALBUMIN CREATININE RATIO PANEL Specimen Type: URINE No comment entered. Ordering Provider: RAFAEL DUKE Report Released Date/Time: Feb 11, 2024 09:40 PM Reporting Lab: [facility] [address] [facility] [address] Performing Lab: [facility] [address] [facility] [address] MICROALBUMIN/C REATININE RATIO 36.9 mg/g H 0-29.9 MICROALBUMIN,Q UANTITATIVE 2.3 mg/dL RR UNAVAIL CREATININE URINE 62.31 mg/dL Feb 21, 2024 01:34 PM [facility] BASIC METABOLIC PANEL (non-fasting) Specimen Type: SERUM No comment entered. Ordering Provider: RAFAEL DUKE Report Released Date/Time: Feb 11, 2024 09:40 PM Reporting Lab: [facility] [address] [facility] [address] Performing Lab: [facility] [address] [address] UREA NITROGEN 17 mg/dL 7-25 GLUCOSE 155 mg/dL H 65-100 SODIUM 141 mmol/L 135-145 POTASSIUM 3.7 mmol/L 3.5-5.0 CHLORIDE 106 mmol/L 100-110 CO2 25 meq/L 20-30 CREATININE, Serum 1.48 mg/dL H 0.50-1.40 eGFR(CKD-EPI 2020) 47 mL/min L >60 Feb 21, 2024 01:34 PM [facility] TSH Specimen Type: SERUM No comment entered. Ordering Provider: RAFAEL DUKE Report Released Date/Time: Feb 11, 2024 09:40 PM Reporting Lab: [facility] [address] [facility] [address] Performing Lab: [facility] [address] [facility] [address] TSH 0.80 u[IU]/mL 0.35-5.00 Feb 21, 2024 01:34 PM [facility] LIPID PANEL FASTING Specimen Type: SERUM No comment entered. Ordering Provider: RAFAEL DUKE Report Released Date/Time: Feb 11, 2024 09:40 PM Reporting Lab: [facility] [address] [facility] [address] Performing Lab: [address] [address] CHOLESTEROL 121 mg/dL TRIGLYCERIDE 168 mg/dL H 0-150 LDL calculated 43 mg/dL 0-129 CHOL/HDL 2.8 HDL CHOLESTEROL 44 mg/dL 40-60 Feb 21, 2024 01:34 PM [facility] HEMOGLOBIN A1C PANEL Specimen Type: BLOOD [...] Feb 11, 2024 09:40 PM Reporting Lab: [facility] [address] [facility] [address] Performing Lab: [address] [address] HEMOGLOBIN A1C 5.8 H 4.0-5.6 Feb 21, 2024 01:34 PM [facility] URINALYSIS CLEAN CATCH Specimen Type: URINE Comment: If Glucose = >500 and Ketones are positive, please alert the Physician. Ordering Provider: RAFAEL DUKE Report Released Date/Time: Feb 11, 2024 09:40 PM Reporting Lab: [facility] [address] [facility] [address] Performing Lab: [address] [address] UA COLOR Light-Yellow Yellow UA APPEARANCE Clear Clear UA GLUCOSE >1000 mg/dL Negative UA KETONES NEGATIVE mg/dL Negative UA BLOOD NEGATIVE mg/dL Negative UA PROTEIN NEGATIVE mg/dL Negative UA NITRITE NEGATIVE mg/dL Negative UA BILIRUBIN NEGATIVE mg/dL Negative UA SPECIFIC GRAVITY 1.028 H 1.016-1.02 2 UA pH 5.5 5.0-9.0 UA UROBILINOGEN Normal mg/dL <2.0 UA LEUKOCYTE NEGATIVE Negative Feb 21, 2024 01:34 PM [facility] LIVER FUNCTION Specimen Type: SERUM No comment entered. Ordering Provider: RAFAEL DUKE Report Released Date/Time: Feb 11, 2024 09:40 PM Reporting Lab: [address] [address] Performing Lab: [address] [address] PROTEIN,TOTAL 6.9 g/dL 6.0-8.3 ALBUMIN 3.8 g/dL 3.5-5.0 ALKALINE PHOSPHATASE 95 U/L 40-150 AST 13 U/L 5-34 ALT 16 U/L BILIRUBIN, TOTAL 0.7 mg/dL 0.2-1.2 Feb 21, 2024 01:34 PM [facility] CBC AND DIFF (AUTO) Specimen Type: BLOOD No comment entered. Ordering Provider: RAFAEL DUKE Report Released Date/Time: Feb 11, 2024 09:40 PM Reporting Lab: [address] [address] Performing Lab: [address] [address] WBC 8.50 10*3/uL 4.50-11.00 RBC 5.30 10*6/uL [...] and tobacco- related health factors from the [place] facility where the Encounter took place. Current Smoking Status This section includes the most current smoking, or tobacco-related health factor, from the [place] facility where the Encounter took place. Date/Time Current Smoking Status Comment Facil ity Aug 23, 2023 02:30 PM [place]-TOBACCO FOR[facility]ER [facility] [place] [facility] Tobacco Use History This section includes a history of the smoking, or tobacco-related health factors, that were collected on or before the date of the Encounter. The data comes from the [place] facility where the Encounter took place. Date/Time Smoking Status/Tobacco Use Comment F acility Aug 23, 2023 02:30 PM NE-TOBACCO QUIT 15 YRS OR MORE [facility] [place] [facility] Aug 17, 2022 03:00 PM VA-TOBACCO FORMER USER [place] [facility] [place] [facility] Aug 17, 2022 03:00 PM VA-TOBACCO QUIT 15 YRS OR MORE [place] [facility] [place] [facility] Aug 07, 2021 03:00 PM VA-TOBACCO FORMER USER [place] [facility] [place] [facility] Aug 07, 2021 03:00 PM VA-TOBACCO QUIT 15 YRS OR MORE [place] [facility] [place] [facility] Jul 18, 2019 10:24 AM VA-TOBACCO FORMER USER [place] [facility] [place] [facility] Jul 18, 2019 10:24 AM VA-TOBACCO QUIT 15 YRS OR MORE [place] [facility] [place] [facility] Mar 02, 2018 09:39 AM VA-TOBACCO NEVER USED [facility] Advance Directives: All historical and current Section Date Range: From patient's date of to the date document was created. This section includes ALL of a patient's completed or amended [place] Advance and Rescinded Directives. The entries below indicate that a directive exists for the patient, but an actual copy is not included with this document. The data comes from all [place] facilities. Date Advance Directives Provider Source May 18, 2023 ADVANCE DIRECTIVE ADRIANA GARCIA [place] [facility] Encounter Notes: All associated encounter notes This section contains the clinical notes associated to the Encounter. Date/Time Encounter Note(s) Provider Source Mar 02, 2024 02:49 PM MEDICATION MGT NOT E: LOCAL TITLE: MEDICATION RENEWAL STANDARD TITLE: MEDICATION MGT NOTE DATE OF NOTE: MAR 02, 2024@14:49 ENTRY DATE: MAR 02, 2024@14:49:10 AUTHOR: LIANE WERNER EXP COSIGNER: URGENCY: STATUS: COMPLETED MEDICATION RENEWAL Has ADDENDA Hello, is requesting a refill on the following prescription(s). Please renew if appropriate.Thank you for your time. 1) DONEPEZIL HCL 10MG TAB TAKE ONE TABLET BY MOUTH ONCE ACTIVE DAILY FOR ALZHEIMER'S DISEASE /es/ LIANE WERNER Signed: 03/02/2024 14:49 Receipt Acknowledged By: 03/02/2024 15:04 /jai/ Sharon Turcios RN, BSN Primary Care 03/02/2024 15:06 /jai/ Rafael Duke MD Staff Physician 03/02/2024 ADDENDUM STATUS: COMPLETED Done. /jai/ Rafael Duke MD Staff Physician Signed: 03/02/2024 15:06 [facility]
--- OUTSIDE RECORDS SUMMARY | 2024-07-20 15:26 | XMS_ITS ---
Author Name [facility] [place] Address [address] [place] [address] Care Team Providers Care Architectural Technician Name Role Phone CLAUDIA MCPHERSON Primary Care [...] Policy [place]ledo [facility] (WNR) MEDICARE ADVANTAGE [place] INDIV IDUAL - [place] August 24, 2020 [id number] [phone] FR DENISE VERA PATIENT Selected Encounter This section includes the information on record at [place] for the Encounter. Date/Time Encounter Type Encounter Description Reason Provider Source Sep 30, 2023 03:00 PM OFFICE O/P EST LOW 20 MIN PODIATRY ICD-10-CM Z98.1 Arthrodesis status ZULAY POWERS [facility] Encounter Template Text not used by [place] Assessments - Encounter Diagnoses This section includes the primary and secondary diagnoses documented for the Encounter. Date/Time Primary/Secondary Diagnosis Diagnosis Name Provider Source Oct 01, 2023 01:32 PM PRIMARY Arthrodesis status [facility]AY POWERS [facility] Oct 01, 2023 01:32 PM SECONDARY Nail dystrophy [facility] POW[facility] [place] [facility] Oct 01, 2023 01:32 PM SECONDARY Type 2 diabetes w diabetic autonomic (poly)neuropathy ZULAY POWERS [facility] Plan of Treatment: Future Appointments (+ 6 months) and Future Tests (+/- 45 days) The Plan of Treatment section includes future care activities for the patient from [facility] [place] [facility] This section includes future appointments and future orders which are active, pending or scheduled. Future Appointments This section includes appointments that were scheduled to occur 6 months from the date of the Encounter, up to a maximum of 20 appointments. The data comes from all [place] treatment facilities. Appointment Date/Time Appointment Type Appointme nt Facility Name Nov 22, 2023 03:30 PM [facility] Nov 30, 2023 01:30 PM [facility] Dec 23, 2023 01:30 PM [facility] Jan 18, 2024 01:30 PM [facility] Jan 21, 2024 02:00 PM [facility] Feb 21, 2024 03:30 PM [facility] TR[facility] Mar 02, 2024 01:00 PM [facility] Social History: Smoking Status (Most current) and Tobacco Use (All prior to encounter date) This section includes the most current, and the historical, smoking and tobacco- related health factors from the [place] facility where the Encounter took place. Current Smoking Status This section includes the most current smoking, or tobacco-related health factor, from the [place] facility where the Encounter took place. Date/Time Current Smoking Status Comment Facil ity Aug 23, 2023 02:30 PM [place]-TOBACCO QUIT 15 YRS OR MORE [facility] Tobacco Use History This section includes a history of the smoking, or tobacco-related health factors, that were collected on or before the date of the Encounter. The data comes from the [place] facility where the Encounter took place. Date/Time Smoking Status/Tobacco Use Comment F acility Aug 23, 2023 02:30 PM [place]-TOBACCO QUIT 15 YRS OR MORE [facility] [place] [facility] Aug 17, 2022 03:00 PM VA-TOBACCO FORMER USER [facility] [place] [facility] Aug 17, 2022 03:00 PM VA-TOBACCO QUIT 15 YRS OR MORE [facility] [place] [facility] Aug 07, 2021 03:00 PM VA-TOBACCO FORMER USER [facility] [place] [facility] Aug 07, 2021 03:00 PM VA-TOBACCO QUIT 15 YRS OR MORE [place] [facility] [facility] [facility] Jul 18, 2019 10:24 AM VA-TOBACCO FORMER USER [place] [facility] [place] [facility] Jul 18, 2019 10:24 AM VA-TOBACCO QUIT 15 YRS OR MORE [place] [facility] [place] [facility] Mar 02, 2018 09:39 AM VA-TOBACCO NEVER USED [place] [facility] [place] [facility] Advance Directives: All historical and current Section Date Range: From patient's date of to the date document was created. This section includes ALL of a patient's completed or amended [place] Advance and Rescinded Directives. The entries below indicate that a directive exists for the patient, but an actual copy is not included with this document. The data comes from all [place] facilities. Date Advance Directives Provider Source May 18, 2023 ADVANCE DIRECTIVE ADRIANA GARCIA [place] [facility] [place] [facility] Encounter Notes: All associated encounter notes This section contains the clinical notes associated to the Encounter. Date/Time Encounter Note(s) Provider Source Sep 30, 2023 03:19 PM PODIATRY NOTE: LOCAL TITLE: PODIATRY NOTE STANDARD TITLE: PODIATRY NOTE DATE OF NOTE: SEP 30, 2023@15:19 ENTRY DATE: SEP 30, 2023@15:21:35 AUTHOR: ZULAY POWERS EXP COSIGNER: URGENCY: STATUS: COMPLETED Podiatry High Risk Foot Encounter [facility] provider: Zulay Powers DPBeth Date: SEP 30, 2023 JUDY VERA [id number] Jan 78 [employer] FROM Sep TO Sep [...] Outflow Obstruction ([facility] [id number]) 3. Stroke 4. 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 Food insecurity 6. Diabetes mellitus type 2 7. Chronic kidney disease stage 3 due to type 2 diabetes mellitus 8. Abnormal findings on diagnostic imaging of lung 9. Sleep Apnea ([facility] [id number]) 10. Renal Impairment ([facility] [id number]) 11. Shared care - specialist and GP 12. Raised PSA 13. Under care of multiple providers 14. Patient requires hospitalization 15. Hyperglycemia 16. Adult screening status 17. History of surgery 18. History of stroke in last year 19. HTN - Hypertension ([facility] [id number]) 20. Hyperlipidemia ([facility] [id number]) 21. Cognitive impairment 22. Cancer in situ [...] as results of the physical exam and distributor sales consultant opinions and recommendations as sought. Alternatives [...] -The on this visit was given information [employer] service and encouraged to enroll if not already having done so. /jai/ ZULAY POWERS DPM PODIATRY ATTENDING Signed: 10/01/2023 13:32 ZULAY POWERS [place] [facility]
--- OUTSIDE RECORDS SUMMARY | 2024-07-20 15:26 | XMS_ITS | Continuity of Care Document ---
Author Name [facility] Organization [facility] Care Team Providers Care Grocery Specialist Name Role Phone [facility] Unavailable Unavailable Problems Combined list of problems from Department of Defense and Veterans Affairs facilities. It does not include entries that were removed or entered in error. 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 CT Chest non-con ordered on 11/06. Pt was called and informed. 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 Condition Mar 14, 2018 Entered By: LESTER GREWAL Comment: NOt sure what type, was on L side of torso removed [facility] [place] [facility] Chronic kidney disease stage 3 due to type 2 diabetes mellitus Active Condition [facility] [place] [facility] Clearing throat [...] [facility] [place] [facility] HTN - Hypertension ([facility] [id number]) Active Condition [facility] [place] [facility] Hyperglycemia Active Condition May Entered By: PIPO MCCOY Comment: 04/28/18 - HGAIC 6.6 [facility] [place] [facility] Hyperlipidemia ([facility] [id number]) Active Condition [facility] [place] [facility] Patient requires hospitalization Active Condition Jun 14, 2018 Entered By: PIPO MCCOY Comment: 04/27/18 - [facility] - Acute stroke ( discharge 04/29/18) [facility] [place] [facility] Raised PSA Active Condition Jul 31 Entered By: LESTER GREWAL Comment: 9.01/2019 [facility] [place] [facility] Renal Impairment ([facility] [id number]) Active Condition [facility] [place] [facility] Shared care - specialist and GP Active Condition Jul 15 Entered By: PIPO MCCOY Comment: COMMUNITY CARE-OPHTHALMO LOGY ( 2ND TO CATARACT/ GLAUCOMA) [facility] [place] [facility] Sleep Apnea (SCT [id number]) Active Condition Aug 01, 2019 Entered By: LESTER GREWAL Comment: Followed by Dr. Claudio [facility] [place] [facility] Under care of multiple providers Active Condition Feb 19, 2 019 Entered By: PIPO MCCOY Comment: [facility] Douglas 2018 Entered By: PIPO MCCOY Comment: [facility]- DR Aiden Godwin 2018 Entered By: PIPO MCCOY Comment: [facility] Entered By: PIPO MCCOY Comment: Dr. Villeda -- Neuro [facility] [place] [facility] Diagnosis: ICD-10-CM Z98.1 Arthrodesis status Active Diagnosis [facility] [place] [facility] Diagnosis: ICD-10-CM I10 Essential [...] [facility] [place] [facility] Diagnosis: ICD-10-CM R73.9 Hyperglycemia, [...] ATORY (INHAL ATION) ACTIVE Yessica AREVALO 2021 [facility] [place] AMLODIPINE BESYLATE 10MG TAB TAKE ONE TABLET BY MOUTH ONCE DAILY FOR BLOOD PRESSURE /HEART, DO NOT TAKE WITH GRAPEFRU IT JUICE (DOSE INCREASE D) ORAL ACTIVE 11/22/2024 [id number] 4 MATTHEW MCPHERSON SAMMY D 2023 90 [facility] [place] AMLODIPINE BESYLATE 5MG TAB TAKE ONE TABLET BY MOUTH ONCE DAILY FOR BLOOD PRESSURE /HEART, DO NOT TAKE WITH GRAPEFRU IT JUICE ORAL DISCONT INUED (EDIT) 10/19/2024 [id number] 4 MATTHEW MCPHERSON SAMMY D 2023 90 [facility] [place] AMLODIPINE BESYLATE 5MG TAB TAKE ONE TABLET BY MOUTH ONCE DAILY FOR BLOOD PRESSURE /HEART, DO NOT TAKE WITH GRAPEFRU IT JUICE ORAL DISCONT INUED 02/12/2024 [id number] 4 MATTHEW MCPHERSON SAMMY D 2022 90 [facility] [place] ATORVASTATI N CA 80MG TAB TAKE ONE TABLET BY MOUTH ONCE DAILY FOR CHOLESTE ROL REPLACES SIMVASTA TIN ORAL ACTIVE 11/22/2024 [id number] 5 MATTHEW MCPHERSOND D 2023 90 [facility] [place] ATORVASTATI N CA 80MG TAB TAKE ONE TABLET BY MOUTH ONCE DAILY FOR CHOLESTE ROL REPLACES SIMVASTA TIN ORAL 06/11/2023 [id number] REYES,AL ICE 2022 90 [facility] [place] CLOPIDOGREL BISULFATE 75MG TAB TAKE ONE TABLET BY MOUTH ONCE DAILY ORAL ACTIVE 11/22/2024 [id number] 5 MATTHEW MCPHERSON SAMMY D 2023 90 [facility] [place] CLOPIDOGREL BISULFATE 75MG TAB TAKE ONE TABLET BY MOUTH ONCE DAILY ORAL DISCONT INUED 10/29/2023 [id number] 4 MATTHEW MCPHERSON SAMMY D 2022 90 [facility] [place] DONEPEZIL HCL 10MG TAB TAKE ONE TABLET BY MOUTH ONCE DAILY FOR ALZHEIME R'S DISEASE ORAL ACTIVE 03/03/2025 [id number] 5 MATTHEW MCPHERSON SAMMY D 2023 90 [facility] [place] DONEPEZIL HCL 10MG TAB TAKE ONE TABLET BY MOUTH ONCE DAILY FOR ALZHEIME R'S DISEASE ORAL DISCONT INUED 03/25/2024 [id number] 4 MATTHEW MCPHERSON SAMMY D 2022 90 [facility] [place] EMPAGLIFLOZ IN 25MG TAB TAKE ONE-HALF TABLET BY MOUTH ONCE DAILY FOR DIABETES ORAL SUSPEND ED 10/19/2024 [id number] 5 MATTHEW MCPHERSON SAMMY D 2023 45 [facility] [place] [facility] EMPAGLIFLOZ IN 25MG TAB TAKE ONE-HALF TABLET BY MOUTH ONCE DAILY FOR DIABETES ORAL DISCONT INUED 10/29/2023 [id number] 4 MATTHEW MCPHERSON SAMMY D 2022 45 [facility] [place] FINASTERIDE 5MG TAB TAKE ONE TABLET BY MOUTH ONCE DAILY ORAL ACTIVE 05/22/2025 [id number] 5 MATTHEW MCPHERSON SAMMY D 2024 90 [facility] [place] FINASTERIDE 5MG TAB TAKE ONE TABLET BY MOUTH ONCE DAILY ORAL DISCONT INUED 04/16/2024 [id number] 4 MATTHEW MCPHERSON SAMMY D 2022 90 [facility] [place] [facility] HYDROCHLORO THIAZIDE 25MG TAB TAKE ONE TABLET BY MOUTH ONCE DAILY TO PREVENT FLUID/CO NTROL BLOOD PRESSURE ORAL DISCONT INUED BY PROVIDE R 12/16/2023 [id number] 4 MATTHEW MCPHERSON SAMMY D 2022 90 [facility] [place] METOPROLOL SUCCINATE 25MG TAB,SA TAKE ONE TABLET BY MOUTH ONCE DAILY FOR BLOOD PRESSURE /HEART ORAL DISCONT INUED (EDIT) 01/02/2025 [id number] 4 MATTHEW MCPHERSON D 2023 30 [facility] [place] METOPROLOL SUCCINATE 50MG TAB,SA TAKE ONE TABLET BY MOUTH ONCE DAILY FOR BLOOD PRESSURE /HEART ORAL SUSPEND ED 05/24/2025 [id number] 5 MATTHEW MCPHERSOND D 2024 90 [facility] [place] METOPROLOL SUCCINATE 50MG TAB,SA TAKE ONE TABLET BY MOUTH ONCE DAILY FOR BLOOD PRESSURE /HEART ORAL DISCONT INUED 01/26/2025 [id number] 4 MATTHEW MCPHERSON D 2023 30 [facility] [place] OXYBUTYNIN CL 5MG TAB,SA TAKE ONE TABLET BY MOUTH ONCE DAILY FOR BLADDER INSTABIL ITY ORAL SUSPEND ED 05/22/2025 [id number] 5 MATTHEW MCPHERSON D 2024 90 [facility] [place] [facility] OXYBUTYNIN CL 5MG TAB,SA TAKE ONE TABLET BY MOUTH ONCE DAILY FOR BLADDER INSTABIL ITY ORAL DISCONT INUED 07/01/2024 [id number] 4 MATTHEW MCPHERSON D 2023 90 [facility] [place] [facility] PANTOPRAZOL E NA 40MG TAB,EC TAKE ONE TABLET BY MOUTH TWICE DAILY ORAL ACTIVE 08/23/2024 [id number] 5 MATTHEW MCPHERSON D 2023 180 [facility] [place] [facility] TAMSULOSIN HCL 0.4MG CAP TAKE TWO CAPSULES BY MOUTH AT BEDTIME FOR ENLARGED PROSTATE ORAL ACTIVE 04/29/2025 [id number] 5 MATTHEW MCPHERSON D 2024 180 [facility] [place] TAMSULOSIN HCL 0.4MG CAP TAKE TWO CAPSULES BY MOUTH AT BEDTIME FOR ENLARGED PROSTATE ORAL DISCONT INUED 05/18/2024 [id number] 4 MATTHEW MCPHERSON D 2023 180 [facility] [place] TAMSULOSIN HCL 0.4MG CAP TAKE ONE CAPSULE BY MOUTH AT BEDTIME FOR ENLARGED PROSTATE ORAL DISCONT INUED (EDIT) 02/18/2024 [id number] 4 MATTHEW MCPHERSON D 2022 30 [facility] Allergies, Adverse Reactions, Alerts Combined list of allergies from Department of Defense and Veterans Affairs facilities. It does not include entries that were removed or entered in error. Substance Category Reaction Severity Reaction type Status Date Reported Comments Source HCTZ HYDROCHLOROTH IAZIDE Propensity to adverse reactions to drug (finding) Anxiety SEVERE active 4 [facility] [place] [facility] METFORMIN Propensity to adverse reactions to drug (finding) Diarrhea MODERATE active 3 [facility] [place] Immunizations Combined list of available immunizations from the Department of Defense and Veterans Affairs facilities. Immunization Series Date Given Administered By Site Reaction Lot Number CVX Code Drug Bicycle Designer Status Comments Source COVID-19 (MODERNA), MRNA, LNP-S, PF, 50 MCG/0.5 ML (AGES 12+ YEARS) 2023 JOSE CHRISTIAN RIGHT DELTO ID [id number] 312 complet ed [facility] [place] INFLUENZA, HIGH-DOSE, TRIVALENT, PF 2023 JOSE CHRISTIAN LEFT DELTO ID [id number] 135 complet ed [facility] [place] COVID-19 (MODERNA), MRNA, LNP-S, PF, 50 MCG/0.5 ML (AGES 12+ YEARS) 5 2023 ADRIANA GARCIA RIGHT DELTO ID [id number] 312 complet ed [facility] [place] RSV, BIVALENT, PROTEIN SUBUNIT RSVPREF, DILUENT RECONSTITUTED , 0.5 ML, PF 2023 ADRIANA GARCIA RIGHT DELTO ID [id number] 305 complet ed [facility] [place] [facility] COVID-19 (MODERNA), MRNA, LNP-S, PF, 50 MCG/0.5 ML (AGES 12+ YEARS) 2022 ANAHI PERKINS RIGHT DELTO ID [id number] 312 complet ed [facility] [place] INFLUENZA, HIGH-DOSE, QUADRIVALENT 2022 ANAHI PERKINS M LEFT DELTO ID [id number] 197 complet ed [facility] [place] ZOSTER RECOMBINANT 2022 ANAHI PERKINS M LEFT DELTO ID [id number] 187 complet ed [id number] [facility] [place] PNEUMOCOCCAL POLYSACCHARID E PPV23 2022 ANAHI PERKINS M LEFT DELTO ID [id number] 33 complet ed [facility] [place] ZOSTER RECOMBINANT 2022 ANAHI PERKINS M RIGHT DELTO ID [id number] 187 complet ed [facility] [place] [facility] INFLUENZA VACCINE, QUADRIVALENT, ADJUVANTED 2021 205 complet ed [facility] [place] COVID-19 (MODERNA), MRNA, LNP-S, PF, 100 MCG OR 50 MCG DOSE 3 2020 207 complet ed MOD; [id number]; 2 [facility] [place] COVID-19 (MODERNA), MRNA, LNP-S, PF, 100 MCG/0.5 ML DOSE 2 2020 207 complet ed MOD; [id number]; 1 [facility] [place] COVID-19 (MODERNA), MRNA, LNP-S, PF, 100 MCG/0.5 ML DOSE 1 2020 207 complet ed MOD; [id number]; 1 [facility] [place] [facility] PNEUMOCOCCAL CONJUGATE PCV 13 2017 133 complet ed [facility] [place] [facility] TDAP 2017 115 complet ed [facility] [place] Results Combined list of recent chemistry, hematology and other laboratory results from Department of Defense and Veterans Affairs, ranging from 15 months to all on record, depending upon the facility. Order Name Results Value Reference Range Date Interpretation Specimen Comments Source TSH THYROTROPI N [UNITS/VOL UME] IN SERUM OR PLASMA 1.48 u[IU]/mL 0.35 - 5.00 05/09 Specimen Type: SERUM No comment entered. Ordering Provider: DEACON MCPHERSON Report Released Date/Time: May 09, 2024 12:59 PM Reporting Lab: [facility]ITALUSE[address] [address] Performing Lab: [facility]ITALUSE[facility] [address] [facility] [address] [facility] W[facility] LIVER FUNCTION PROTEIN [MASS/VOLU ME] IN SERUM OR PLASMA 7.4 g/dL 6.0 - 8.3 05/09 Specimen Type: SERUM No comment entered. Ordering Provider: DEACON MCPHERSON Report Released Date/Time: May 09, 2024 12:59 PM Reporting Lab: [facility]N [facility]ITALUSE[address] [address] Performing Lab: [facility]ITALUSETS [address] [address] [facility]ITALRL TRN [facility] LIVER FUNCTION ALBUMIN [MASS/VOLU ME] IN SERUM OR PLASMA 4.1 g/dL 3.5 - 5.0 05/09 Specimen Type: SERUM No comment entered. Ordering Provider: DEACON MCPHERSON Report Released Date/Time: May 09, 2024 12:59 PM Reporting Lab: [facility]ITALRL TRN [facility] HOSPITALUSETS [address] [address] Performing Lab: [facility] [place] [address] [address] [facility]ITALRL TRN [facility] LIVER FUNCTION ALKALINE PHOSPHATAS E [ENZYMATIC ACTIVITY/V OLUME] IN SERUM OR PLASMA 97 U/L 40 - 150 05/09 Specimen Type: SERUM No comment entered. Ordering Provider: DEACON MCPHERSON Report Released Date/Time: May 09, 2024 12:59 PM Reporting Lab: [facility]ITALRL WSTRN [address] [address] Performing Lab: [facility] [place] [facility] [address] [facility] [address] [facility] [place] [facility] LIVER FUNCTION ASPARTATE AMINOTRANS FERASE [ENZYMATIC ACTIVITY/V OLUME] IN SERUM OR PLASMA 16 U/L 5 - 34 05/09 Specimen Type: SERUM No comment entered. Ordering Provider: DEACON MCPHERSON Report Released Date/Time: May 09, 2024 12:59 PM Reporting Lab: [facility] [place] [facility] [address] [facility] [address] Performing Lab: [facility] [place] [facility] [address] [facility] [address] [facility] [place] [facility] LIVER FUNCTION ALANINE AMINOTRANS FERASE [ENZYMATIC ACTIVITY/V OLUME] IN SERUM OR PLASMA 22 U/L 05/09 Specimen Type: SERUM No comment entered. Ordering Provider: DEACON MCPHERSON Report Released Date/Time: May 09, 2024 12:59 PM Reporting Lab: [facility] [place] [facility] [address] [facility] [address] Performing Lab: [facility] [place] [facility] [address] [facility] [address] [facility]RL WSTRN [place] [facility] LIVER FUNCTION BILIRUBIN. TOTAL [MASS/VOLU ME] IN SERUM OR PLASMA 0.5 mg/dL 0.2 - 1.2 05/09 Specimen Type: SERUM No comment entered. Ordering Provider: DEACON MCPHERSON Report Released Date/Time: May 09, 2024 12:59 PM Reporting Lab: [facility] [place] [facility] [address] [facility] [address] Performing Lab: [facility] [place] [facility] [address] [facility] [address] [facility] [place] [facility] LIPID PANEL FASTING CHOLESTERO L [MASS/VOLU ME] IN SERUM OR PLASMA 123 mg/dL 05/09 Specimen Type: SERUM No comment entered. Ordering Provider: DEACON MCPHERSON Report Released Date/Time: May 09, 2024 12:59 PM Reporting Lab: [facility] [place] [facility] [address] [facility] [address] Performing Lab: [facility] [place] [facility] [address] [facility] [address] [facility] [place] [facility] LIPID PANEL FASTING TRIGLYCERI DE [MASS/VOLU ME] IN SERUM OR PLASMA 127 mg/dL 0 - 150 05/09 Specimen Type: SERUM No comment entered. Ordering Provider: DEACON MCPHERSON Report Released Date/Time: May 09, 2024 12:59 PM Reporting Lab: [facility] [place] [facility] [address] [facility] [address] Performing Lab: [facility] [place] [facility] [address] [facility] [address] [facility]ITALRL WSTRN [facility] LIPID PANEL FASTING CHOLESTERO L IN LDL [MASS/VOLU ME] IN SERUM OR PLASMA BY CALCULATIO N 49 mg/dL 0 - 129 05/09 Specimen Type: SERUM No comment entered. Ordering Provider: DEACON MCPHERSON Report Released Date/Time: May 09, 2024 12:59 PM Reporting Lab: [facility] [place] [facility] [address] [facility] [address] Performing Lab: [facility] [place] [address] [address] [facility]ITALRL W[facility]N [facility]USE [facility] LIPID PANEL FASTING CHOLESTERO L.TOTAL/CH OLESTEROL IN HDL [MASS RATIO] IN SERUM OR PLASMA 2.5 05/09 Specimen Type: SERUM No comment entered. Ordering Provider: DEACON MCPHERSON Report Released Date/Time: May 09, 2024 12:59 PM Reporting Lab: [facility] [place] [facility] [address] [facility] [address] Performing Lab: [facility] [place] [address] [address] [facility]RL WSTRN [place] [facility] LIPID PANEL FASTING CHOLESTERO L IN HDL [MASS/VOLU ME] IN SERUM OR PLASMA 49 mg/dL 40 - 60 05/09 Specimen Type: SERUM No comment entered. Ordering Provider: DEACON MCPHERSON Report Released Date/Time: May 09, 2024 12:59 PM Reporting Lab: [facility] [place] [facility] [address] [facility] [address] Performing Lab: [facility] [place] [facility] [address] [facility] [address] [facility] [place] [facility] BASIC METABOLI C PANEL (non-fas ting) UREA NITROGEN [MASS/VOLU ME] IN SERUM OR PLASMA 21 mg/dL 7 - 25 05/09 Specimen Type: SERUM No comment entered. Ordering Provider: DEACON MCPHERSON Report Released Date/Time: May 09, 2024 12:59 PM Reporting Lab: [facility] [place] [facility] [address] [facility] [address] Performing Lab: [facility] [place] [address] [address] [facility]RL [facility]N [place] [facility] BASIC METABOLI C PANEL (non-fas ting) GLUCOSE [MASS/VOLU ME] IN SERUM OR PLASMA 103 mg/dL 65 - 100 05/09 H Specimen Type: SERUM No comment entered. Ordering Provider: DEACON MCPHERSON Report Released Date/Time: May 09, 2024 12:59 PM Reporting Lab: [facility] [place] [facility] [address] [facility] [address] Performing Lab: [facility] [place] [address] [address] [facility] [place] [facility] BASIC METABOLI C PANEL (non-fas ting) SODIUM [MOLES/VOL UME] IN SERUM OR PLASMA 139 mmol/L 135 - 145 05/09 Specimen Type: SERUM No comment entered. Ordering Provider: DEACON MCPHERSON Report Released Date/Time: May 09, 2024 12:59 PM Reporting Lab: [facility] [place] [facility] [address] [facility] [address] Performing Lab: [facility] [place] [address] [address] [facility] [place] [facility] BASIC METABOLI C PANEL (non-fas ting) POTASSIUM [MOLES/VOL UME] IN SERUM OR PLASMA 4.3 mmol/L 3.5 - 5.0 05/09 Specimen Type: SERUM No comment entered. Ordering Provider: DEACON MCPHERSON Report Released Date/Time: May 09, 2024 12:59 PM Reporting Lab: [facility]ITALRL TRN [facility]TS [address] [address] Performing Lab: [facility]ITALRCLEBURNE [facility] NURSING HOMETRN [address] [address] [facility]ITALR WSTRN [facility] BASIC METABOLI C PANEL (non-fas ting) CHLORIDE [MOLES/VOL UME] IN SERUM OR PLASMA 106 mmol/L 100 - 110 05/09 Specimen Type: SERUM No comment entered. Ordering Provider: DEACON MCPHERSON Report Released Date/Time: May 09, 2024 12:59 PM Reporting Lab: [facility]ITALRCLE[facility] HOMETRN [address] [address] Performing Lab: [facility]ITALRC[facility] HOMETRN [address] [address] [facility]OSPITALRRUSSELLVILLE HOSPITALN [facility] BASIC METABOLI C PANEL (non-fas ting) CARBON DIOXIDE, TOTAL [MOLES/VOL UME] IN SERUM OR PLASMA 23 meq/L 20 - 30 05/09 Specimen Type: SERUM No comment entered. Ordering Provider: DEACON MCPHERSON Report Released Date/Time: May 09, 2024 12:59 PM Reporting Lab: [facility]ITALRL TRN [facility]ITALUSE[address] [address] Performing Lab: [facility]ITALRL WSTRN [facility]ITALUSE[address] [address] [facility]ITALRCLEBURNE [facility] NURSING HOMETRN [facility] BASIC METABOLI C PANEL (non-fas ting) CREATININE [MASS/VOLU ME] IN SERUM OR PLASMA 1.61 mg/dL 0.50 - 1.40 05/09 H Specimen Type: SERUM No comment entered. Ordering Provider: DEACON MCPHERSON Report Released Date/Time: May 09, 2024 12:59 PM Reporting Lab: [facility]ITALRCLEBURNE [facility] AND NURSING HOMETRN [facility]ITALUSE[address] [address] Performing Lab: [facility] [address] [facility] [address] [facility] BASIC METABOLI C PANEL (non-fas ting) GLOMERULAR FILTRATION RATE/1.73 SQ M.PREDICTE D [VOLUME RATE/AREA] IN SERUM, PLASMA OR BLOOD BY CREATININE -BASED FORMULA (CKD-EPI 2020) 42 mL/min 60 05/09 L Specimen Type: SERUM No comment entered. Ordering Provider: DEACON MCPHERSON Report Released Date/Time: May 09, 2024 12:59 PM Reporting Lab: [address] [address] Performing Lab: [address] [address] [facility] HEMOGLOB IN A1C PANEL HEMOGLOBIN A1C/HEMOGL OBIN.TOTAL IN BLOOD BY HPLC 5.8 4.0 - 5.6 05/09 H Specimen Type: BLOOD Comment: Values obtained from A1C measurement s can vary. For atypical A1C assays, a reported value of 7.0 could actually be between 6.72 and 7.28 if measured by a reference method. A reported value of 9.0 could actually be between 8.73 and 9.27. Ref: http://www. ngsp.org/[place] Pdata.asp Ordering Provider: DEACON MCPHERSON Report Released Date/Time: May 09, 2024 12:59 PM Reporting Lab: [address] [address] Performing Lab: [address] [address] [facility] MICROALB UMIN CREATINI NE RATIO PANEL MICROALBUM IN/CREATIN INE [MASS RATIO] IN URINE 123.9 mg/g 0 - 29.9 05/09 H Specimen Type: URINE No comment entered. Ordering Provider: DEACON MCPHERSON Report Released Date/Time: May 09, 2024 12:59 PM Reporting Lab: [address] [address] Performing Lab: [facility] [place] [facility] [address] [facility] [address] [facility] MICROALB UMIN CREATINI NE RATIO PANEL MICROALBUM IN [MASS/VOLU ME] IN URINE 11.0 mg/dL 05/09 Specimen Type: URINE No comment entered. Ordering Provider: DEACON MCPHERSON Report Released Date/Time: May 09, 2024 12:59 PM Reporting Lab: [facility] [place] [facility] [address] [facility] [address] Performing Lab: [facility] [place] [facility] [address] [facility] [address] [facility] [place] [facility] MICROALB UMIN CREATINI NE RATIO PANEL CREATININE [MASS/VOLU ME] IN URINE 88.79 mg/dL 05/09 Specimen Type: URINE No comment entered. Ordering Provider: DEACON MCPHERSON Report Released Date/Time: May 09, 2024 12:59 PM Reporting Lab: [facility] [place] [facility] [address] [facility] [address] Performing Lab: [facility] [place] [address] [address] [facility] [place] [facility] URINALYS IS CLEAN CATCH COLOR OF URINE Light-Ye llow 05/09 Specimen Type: URINE Comment: If Glucose = >500 and Ketones are positive, please alert the Physician. Ordering Provider: DEACON MCPHERSON Report Released Date/Time: May 09, 2024 12:59 PM Reporting Lab: [facility] [place] [facility] [address] [facility] [address] Performing Lab: [facility] [place] [address] [address] [facility] [place] [facility] URINALYS IS CLEAN CATCH APPEARANCE OF URINE Clear 05/09 Specimen Type: URINE Comment: If Glucose = >500 and Ketones are positive, please alert the Physician. Ordering Provider: DEACON MCPHERSON Report Released Date/Time: May 09, 2024 12:59 PM Reporting Lab: [facility] [address] [facility] [address] Performing Lab: [facility] [address] [facility] [address] [facility] URINALYS IS CLEAN CATCH GLUCOSE [MASS/VOLU ME] IN URINE >1000mg/ dL 05/09 Specimen Type: URINE Comment: If Glucose = >500 and Ketones are positive, please alert the Physician. Ordering Provider: DEACON MCPHERSON Report Released Date/Time: May 09, 2024 12:59 PM Reporting Lab: [facility] [address] [facility] [address] Performing Lab: [facility] [address] [facility] [address] [facility] URINALYS IS CLEAN CATCH KETONES [MASS/VOLU ME] IN URINE BY TEST STRIP NEGATIVE mg/dL 05/09 Specimen Type: URINE Comment: If Glucose = >500 and Ketones are positive, please alert the Physician. Ordering Provider: DEACON MCPHERSON Report Released Date/Time: May 09, 2024 12:59 PM Reporting Lab: [facility] [address] [facility] [address] Performing Lab: [facility] [address] [facility] [address] [facility] URINALYS IS CLEAN CATCH ERYTHROCYT ES [PRESENCE] IN URINE SEDIMENT BY LIGHT MICROSCOPY NEGATIVE mg/dL 05/09 Specimen Type: URINE Comment: If Glucose = >500 and Ketones are positive, please alert the Physician. Ordering Provider: DEACON MCPHERSON Report Released Date/Time: May 09, 2024 12:59 PM Reporting Lab: [facility] [address] [facility] [address] Performing Lab: [facility] [address] [facility] [address] [facility] URINALYS IS CLEAN CATCH PROTEIN [MASS/VOLU ME] IN URINE BY TEST STRIP 20 mg/dL 05/09 Specimen Type: URINE Comment: If Glucose = >500 and Ketones are positive, please alert the Physician. Ordering Provider: DEACON MCPHERSON Report Released Date/Time: May 09, 2024 12:59 PM Reporting Lab: [facility]ITALUSE[address] [address] Performing Lab: [facility]ITALRCLE[facility] NURSING HOMETRN [facility]ITALUSE[address] [address] [facility]RCLE[facility] HOMETRN [facility]SE [facility] URINALYS IS CLEAN CATCH NITRITE [PRESENCE] IN URINE NEGATIVE mg/dL 05/09 Specimen Type: URINE Comment: If Glucose = >500 and Ketones are positive, please alert the Physician. Ordering Provider: DEACON MCPHERSON Report Released Date/Time: May 09, 2024 12:59 PM Reporting Lab: [facility]ITALUSE[address] [address] Performing Lab: [facility]ITALRCLEBUR[facility] HOMETRN [facility]ITALUSE[address] [address] [facility]ERN [facility]ITALUSE [facility] URINALYS IS CLEAN CATCH BILIRUBIN. TOTAL [PRESENCE] IN URINE NEGATIVE mg/dL 05/09 Specimen Type: URINE Comment: If Glucose = >500 and Ketones are positive, please alert the Physician. Ordering Provider: DEACON MCPHERSON Report Released Date/Time: May 09, 2024 12:59 PM Reporting Lab: [facility]ITALUSE[address] [address] Performing Lab: [facility]ITALRCLEBUR[facility] HOMETRN [facility]ITALUSE[address] [address] [facility]ITALRRUSSELLVILLE HOSPITALN [facility] HOSPITALUSE [facility] URINALYS IS CLEAN CATCH SPECIFIC GRAVITY OF URINE BY REFRACTOME TRY 1.026 1.016 - 1.022 05/09 H Specimen Type: URINE Comment: If Glucose = >500 and Ketones are positive, please alert the Physician. Ordering Provider: DEACON MCPHERSON Report Released Date/Time: May 09, 2024 12:59 PM Reporting Lab: [facility]PITALRCLEBURNE [facility] HOMETRN [facility]ITALUSE[address] [address] Performing Lab: [facility] [place] [facility] [address] [facility] [address] [facility] [facility] URINALYS IS CLEAN CATCH PH OF URINE BY TEST STRIP 6.0 5.0 - 9.0 05/09 Specimen Type: URINE Comment: If Glucose = >500 and Ketones are positive, please alert the Physician. Ordering Provider: DEACON MCPHERSON Report Released Date/Time: May 09, 2024 12:59 PM Reporting Lab: [facility] [place] [facility] [address] [facility] [address] Performing Lab: [facility] HOSPITALRL [place] [place] [address] [address] [facility]PITALRL WSTRN [place] [facility] URINALYS IS CLEAN CATCH UROBILINOG EN [MASS/VOLU ME] IN URINE BY TEST STRIP Normalmg /dL <2.0 - 2.0 05/09 Specimen Type: URINE Comment: If Glucose = >500 and Ketones are positive, please alert the Physician. Ordering Provider: DEACON MCPHERSON Report Released Date/Time: May 09, 2024 12:59 PM Reporting Lab: [facility]OSPITALRL [facility]N [place] [facility] [address] [facility] [address] Performing Lab: [facility] [place] [facility] [address] [facility] [address] [facility] HOSPITALRL TRN [place] [facility] URINALYS IS CLEAN CATCH LEUKOCYTE ESTERASE [PRESENCE] IN URINE BY TEST STRIP NEGATIVE 05/09 Specimen Type: URINE Comment: If Glucose = >500 and Ketones are positive, please alert the Physician. Ordering Provider: DEACON MCPHERSON Report Released Date/Time: May 09, 2024 12:59 PM Reporting Lab: [facility]PITALRL [place] [place] [facility] [address] [facility] [address] Performing Lab: [facility] [place] [address] [address] [facility]OSPITALRL TRN [place] [facility] CBC AND DIFF (AUTO) LEUKOCYTES [#/VOLUME] IN BLOOD BY AUTOMATED COUNT 8.26 10*3/uL 4.50 - 11.00 05/09 Specimen Type: BLOOD No comment entered. Ordering Provider: DEACON MCPHERSON Report Released Date/Time: May 09, 2024 12:59 PM Reporting Lab: [facility] [address] [facility] [address] Performing Lab: [facility] [address] [facility] [address] [facility] CBC AND DIFF (AUTO) ERYTHROCYT ES [#/VOLUME] IN BLOOD BY AUTOMATED COUNT 5.29 10*6/uL 4.23 - 5.66 05/09 Specimen Type: BLOOD No comment entered. Ordering Provider: DEACON MCPHERSON Report Released Date/Time: May 09, 2024 12:59 PM Reporting Lab: [facility] [place] [facility] [address] [facility] [address] Performing Lab: [facility] [place] [address] [address] [facility] [place] [facility] CBC AND DIFF (AUTO) HEMOGLOBIN [MASS/VOLU ME] IN BLOOD 15.3 g/dL 12.8 - 17 05/09 Specimen Type: BLOOD No comment entered. Ordering Provider: DEACON MCPHERSON Report Released Date/Time: May 09, 2024 12:59 PM Reporting Lab: [facility] [place] [address] [address] Performing Lab: [facility] [place] [facility] [address] [facility] [address] [facility] [facility] CBC AND DIFF (AUTO) HEMATOCRIT [VOLUME FRACTION] OF BLOOD BY AUTOMATED COUNT 43.7 39.2 - 50.4 05/09 Specimen Type: BLOOD No comment entered. Ordering Provider: DEACON MCPHERSON Report Released Date/Time: May 09, 2024 12:59 PM Reporting Lab: [facility] [place] [facility] [address] [facility] [address] Performing Lab: [facility] [place] [address] [address] [facility] [place] [facility] CBC AND DIFF (AUTO) MCV [ENTITIC VOLUME] BY AUTOMATED COUNT 82.6 fL 82 - 99 05/09 Specimen Type: BLOOD No comment entered. Ordering Provider: DEACON MCPHERSON Report Released Date/Time: May 09, 2024 12:59 PM Reporting Lab: [facility]ITALRL [facility] [place] [facility] [address] [facility] [address] Performing Lab: [facility] [place] [facility] [address] [facility] [address] [facility] [place] [facility] CBC AND DIFF (AUTO) MCHC [MASS/VOLU ME] BY AUTOMATED COUNT 35.0 g/dL 30.8 - 35.1 05/09 Specimen Type: BLOOD No comment entered. Ordering Provider: DEACON MCPHERSON Report Released Date/Time: May 09, 2024 12:59 PM Reporting Lab: [facility]PITALRCLEBURNE [facility] NURSING HOMETRN [place] [facility] [address] [facility] [address] Performing Lab: [facility]ITALRL [place] [place] [facility] [address] [facility] [address] [facility]ITALRL [facility] [place] [facility] CBC AND DIFF (AUTO) PLATELETS [#/VOLUME] IN BLOOD BY AUTOMATED COUNT 279 10*3/uL 140 - 360 05/09 Specimen Type: BLOOD No comment entered. Ordering Provider: DEACON MCPHERSON Report Released Date/Time: May 09, 2024 12:59 PM Reporting Lab: [facility]ITALRL [place] [place] [facility] [address] [facility] [address] Performing Lab: [facility] [place] [facility] [address] [facility] [address] [facility]ITALRL [facility] [place] [facility] CBC AND DIFF (AUTO) ERYTHROCYT E DISTRIBUTI ON WIDTH [RATIO] BY AUTOMATED COUNT 13.1 12.0 - 16.0 05/09 Specimen Type: BLOOD No comment entered. Ordering Provider: DEACON MCPHERSON Report Released Date/Time: May 09, 2024 12:59 PM Reporting Lab: [facility]ITALRL [facility] [place] [address] [address] Performing Lab: [facility] [place] [facility] [address] [facility] [address] [facility] [place] [facility] CBC AND DIFF (AUTO) MONOCYTES [#/VOLUME] IN BLOOD BY AUTOMATED COUNT 0.55 10*3/uL 0.30 - 1.10 05/09 Specimen Type: BLOOD No comment entered. Ordering Provider: DEACON MCPHERSON Report Released Date/Time: May 09, 2024 12:59 PM Reporting Lab: [facility] [place] [facility] [address] [facility] [address] Performing Lab: [facility] [place] [facility] [address] [facility] [address] [facility] [place] [facility] CBC AND DIFF (AUTO) MCH [ENTITIC MASS] BY AUTOMATED COUNT 28.9 pg 26.2 - 32.6 05/09 Specimen Type: BLOOD No comment entered. Ordering Provider: DEACON MCPHERSON Report Released Date/Time: May 09, 2024 12:59 PM Reporting Lab: [facility] [place] [facility] [address] [facility] [address] Performing Lab: [facility] [place] [address] [address] [facility] [place] [facility] CBC AND DIFF (AUTO) NEUTROPHIL S/100 LEUKOCYTES IN BLOOD BY AUTOMATED COUNT 70.3 43.7 - 75.8 05/09 Specimen Type: BLOOD No comment entered. Ordering Provider: DEACON MCPHERSON Report Released Date/Time: May 09, 2024 12:59 PM Reporting Lab: [facility] [place] [facility] [address] [facility] [address] Performing Lab: [facility] [place] [facility] [address] [place] [address] [facility] [place] [facility] CBC AND DIFF (AUTO) LYMPHOCYTE S/100 LEUKOCYTES IN BLOOD BY AUTOMATED COUNT 18.4 14.0 - 42.3 05/09 Specimen Type: BLOOD No comment entered. Ordering Provider: DEACON MCPHERSON Report Released Date/Time: May 09, 2024 12:59 PM Reporting Lab: [facility] [place] [facility] [address] [facility] [address] Performing Lab: [facility] [place] [facility] [address] [facility] [address] [facility] [place] [facility] CBC AND DIFF (AUTO) MONOCYTES/ 100 LEUKOCYTES IN BLOOD BY AUTOMATED COUNT 6.7 5.1 - 13.7 05/09 Specimen Type: BLOOD No comment entered. Ordering Provider: DEACON MCPHERSON Report Released Date/Time: May 09, 2024 12:59 PM Reporting Lab: [facility] [place] [facility] [address] [facility] [address] Performing Lab: [facility] [place] [facility] [address] [facility] [address] [facility] [place] [facility] CBC AND DIFF (AUTO) EOSINOPHIL S/100 LEUKOCYTES IN BLOOD BY AUTOMATED COUNT 3.6 0.4 - 6.8 05/09 Specimen Type: BLOOD No comment entered. Ordering Provider: DEACON MCPHERSON Report Released Date/Time: May 09, 2024 12:59 PM Reporting Lab: [facility] [place] [facility] [address] [facility] [address] Performing Lab: [facility] [place] [facility] [address] [facility] [address] [facility] [place] [facility] CBC AND DIFF (AUTO) BASOPHILS/ 100 LEUKOCYTES IN BLOOD BY AUTOMATED COUNT 0.6 0.1 - 2.0 05/09 Specimen Type: BLOOD No comment entered. Ordering Provider: DEACON MCPHERSON Report Released Date/Time: May 09, 2024 12:59 PM Reporting Lab: [facility] [place] [facility] [address] [facility] [address] Performing Lab: [facility] [place] [facility] [address] [facility] [address] [facility] [place] [facility] CBC AND DIFF (AUTO) NEUTROPHIL S [#/VOLUME] IN BLOOD BY AUTOMATED COUNT 5.81 10*3/uL 2.20 - 7.60 05/09 Specimen Type: BLOOD No comment entered. Ordering Provider: DEACON MCPHERSON Report Released Date/Time: May 09, 2024 12:59 PM Reporting Lab: [facility] [place] [facility] [address] [facility] [address] Performing Lab: [facility] [place] [facility] [address] [facility] [address] [facility] CBC AND DIFF (AUTO) LYMPHOCYTE S [#/VOLUME] IN BLOOD BY AUTOMATED COUNT 1.52 10*3/uL 1.00 - 3.20 05/09 Specimen Type: BLOOD No comment entered. Ordering Provider: DEACON MCPHERSON Report Released Date/Time: May 09, 2024 12:59 PM Reporting Lab: [facility] [place] [facility] [address] [facility] [address] Performing Lab: [facility] [place] [facility] [address] [facility] [address] [facility] CBC AND DIFF (AUTO) EOSINOPHIL S [#/VOLUME] IN BLOOD BY AUTOMATED COUNT 0.30 10*3/uL 0.03 - 0.44 05/09 Specimen Type: BLOOD No comment entered. Ordering Provider: DEACON MCPHERSON Report Released Date/Time: May 09, 2024 12:59 PM Reporting Lab: [facility] [place] [facility] [address] [facility] [address] Performing Lab: [facility] [place] [facility] [address] [facility] [address] [facility] CBC AND DIFF (AUTO) BASOPHILS [#/VOLUME] IN BLOOD BY AUTOMATED COUNT 0.05 10*3/uL 0.01 - 0.13 05/09 Specimen Type: BLOOD No comment entered. Ordering Provider: DEACON MCPHERSON Report Released Date/Time: May 09, 2024 12:59 PM Reporting Lab: [facility] [place] [facility] [address] [facility] [address] Performing Lab: [facility] [place] [facility] [address] [facility] [address] [facility] CBC AND DIFF (AUTO) IMMATURE GRANULOCYT ES/100 LEUKOCYTES IN BLOOD BY AUTOMATED COUNT 0.4 0.0 - 0.7 05/09 Specimen Type: BLOOD No comment entered. Ordering Provider: DEACON MCPHERSON Report Released Date/Time: May 09, 2024 12:59 PM Reporting Lab: [facility] [place] [facility] [address] [facility] [address] Performing Lab: [facility] [place] [address] [address] [facility] [place] [facility] CBC AND DIFF (AUTO) IMMATURE GRANULOCYT ES [#/VOLUME] IN BLOOD 0.03 10*3/uL 0.00 - 0.06 05/09 Specimen Type: BLOOD No comment entered. Ordering Provider: DEACON MCPHERSON Report Released Date/Time: May 09, 2024 12:59 PM Reporting Lab: [facility]ITALUSETS [address] [address] Performing Lab: [facility] [place] [address] [address] [facility] [place] [facility] CBC AND DIFF (AUTO) NRBC % 0.0 0.0 - 0.0 05/09 Specimen Type: BLOOD No comment entered. Ordering Provider: DEACON MCPHERSON Report Released Date/Time: May 09, 2024 12:59 PM Reporting Lab: [facility] [place] [address] [address] Performing Lab: [facility] [place] [address] [address] [facility] [place] [facility] CBC AND DIFF (AUTO) NRBC, ABS 0.00 10*3/uL 0.00 - 0.00 05/09 Specimen Type: BLOOD No comment entered. Ordering Provider: DEACON MCPHERSON Report Released Date/Time: May 09, 2024 12:59 PM Reporting Lab: [facility] [place] [address] [address] Performing Lab: [facility] [place] [address] [address] [facility] [place] [facility] MICROALB UMIN CREATINI NE RATIO PANEL MICROALBUM IN/CREATIN INE [MASS RATIO] IN URINE 36.9 mg/g 0 - 29.9 02/20 H Specimen Type: URINE No comment entered. Ordering Provider: DEACON MCPHERSON Report Released Date/Time: Feb 11, 2024 09:40 PM Reporting Lab: [facility] [place] [facility] [address] [facility] [address] Performing Lab: [facility] [place] [facility] [address] [facility] [address] [facility] [place] [facility] MICROALB UMIN CREATINI NE RATIO PANEL MICROALBUM IN [MASS/VOLU ME] IN URINE 2.3 mg/dL 02/20 Specimen Type: URINE No comment entered. Ordering Provider: DEACON MCPHERSON Report Released Date/Time: Feb 11, 2024 09:40 PM Reporting Lab: [facility] [place] [address] [address] Performing Lab: [facility] [place] [address] [address] [facility] [place] [facility] MICROALB UMIN CREATINI NE RATIO PANEL CREATININE [MASS/VOLU ME] IN URINE 62.31 mg/dL 02/20 Specimen Type: URINE No comment entered. Ordering Provider: DEACON MCPHERSON Report Released Date/Time: Feb 11, 2024 09:40 PM Reporting Lab: [facility] [place] [address] [address] Performing Lab: [facility] [place] [address] [address] [facility] [place] [facility] TSH THYROTROPI N [UNITS/VOL UME] IN SERUM OR PLASMA 0.80 u[IU]/mL 0.35 - 5.00 02/20 Specimen Type: SERUM No comment entered. Ordering Provider: DEACON MCPHERSON Report Released Date/Time: Feb 11, 2024 09:40 PM Reporting Lab: [facility] [place] [address] [address] Performing Lab: [facility] [place] [facility] [address] [facility] [address] [facility] Vital Signs Combined list of inpatient and outpatient Vital Signs from Department of Defense and Veterans Affairs, ranging from 12 months to all on record, depending upon the facility. Vital Sign Value Date Comments Source SYSTOLIC BLOOD PRESSURE 144 05/23/19 12:57:54 [facility] DIASTOLIC BLOOD PRESSURE 74 025 12:57:54 [facility] PULSE OXIMETRY 95 05/23/2024 12:57:54 [facility] WEIGHT 151.9 05/23/2024 12:57:54 [facility] BMI 26 kg/m2 05/23/2024 12:57:54 [facility] PAIN 0 05/23/2024 12:57:54 [facility] HEIGHT 64 05/23/2024 12:57:54 [facility] TEMPERATURE 98 05/23/2024 12:57:54 [facility] PULSE 87 05/23/2024 12[facility]57:54 [facility] RESPIRATION 16 05/23/2024 12:57:54 [facility] [place] SYSTOLIC BLOOD PRESSURE 143 02/21/20 24 15:21:31 [facility] [place] DIASTOLIC BLOOD PRESSURE 63 024 15:21:31 [facility] PULSE OXIMETRY 100 02/21/2024 15:21:31 [facility] WEIGHT 157 02/21/2024 15:21:31 [facility] BMI 27 kg/m2 02/21/2024 15:21:31 [facility] [facility] [place] [facility] DIASTOLIC BLOOD PRESSURE 70 12/22/ 024 13:13:35 [facility] [...] 15:30:56 [facility] BMI 27 kg/m2 11/22/2023 15:30:56 [facility] [...] 14:17:18 [facility] BMI 25 kg/m2 08/23/2023 14:17:18 [facility] PAIN 0 08/23/2023 14:17:18 [facility] TEMPERATURE 98.3 08/23/2023 14:17:18 [facility] PULSE 58 08/23/2023 14:17:18 [facility] RESPIRATION 16 08/23/2023 14:17:18 [facility] Encounters Combined list of: 1) Encounters from Department of Veterans Affairs facilities going backup to the last 18 months, not all VA inpatient encounters are included; 2) Encounters from the Department of Defense facilities going backup to 280 months. Location Location Details Encounter Type Encounter Number Reason For Visit Attending Provider ADM Date DC Date Status Disposition Source [facility] Out[facility]counter [id number] 01/22 [facility]counter [id number] 01/24 [facility]counter [id number] 01/28 [facility] [id number] 02/10 [facility]counter [id number] 02/11 [facility] OFFICE O/P EST SF 10-19 MIN [id number] Diagnos is: ICD-10- CM N40.1 Benign prostat ic hyperpl yudy with lower urinary tract symp MCPHERSON,HOWA RD D 02/17 [facility] HEARING AID EXAM BOTH EARS [id number] Diagnos is: ICD-10- CM H90.3 Sensori neural hearing loss, bilater CAYETANO Valles 03/09 [facility] Out[facility] Encounter [id number] 03/25 [facility] En[facility] [id number] 04/05 [facility] FEES W/LARYNGEA L SENSE I&R [id number] Diagnos is: ICD-10- CM Z46.1 Encount er for fitting and adjustm ent of hearing aid CAYETANO MONTIEL 04/06 [facility] En[facility] [id number] 04/13 [facility] [id number] 04/16 [facility] [id number] 05/11 [facility] [id number] 05/11 [facility] En[facility] [id number] 05/13 [facility] OFFICE O/P EST SF 10 MIN [id number] Diagnos is: ICD-10- CM N40.0 Benign prostat ic hyperpl yudy without lower urinry tract symp KISHOR MCPHERSON RD 05/18 [facility] PARING/CUT G B9 HYPRKER LES 1 [id number] Diagnos is: ICD-10- CM R73.9 Hypergl ycemia, unspeci Frida Mcfadden AVID 05/20 [facility] En[facility] [id number] 06/29 [facility] HEARING AID REPAIR/MOD IFYING [id number] Diagnos is: ICD-10- CM Z46.1 Encount er for fitting and adjustm ent of hearing aid SENIOR,ELIZABETH CATALINA L 08/08 [facility]counter [id number] 08/15 [facility] Outpatient Encounter [id number] 08/17 [facility] OFFICE O/P EST SF 10 MIN [id number] Diagnos is: ICD-10- CM I10 Essenti al (primar y) hyperte marenKISHOR Eubanks RD D 08/22 [facility] OFF[facility] O/P EST LOW 20 MIN [id number] Diagnos is: ICD-10- CM Z98.1 Arthrod esis status MARLO,ROBBY RLDILIP D 09/29 [facility] Outpatient Encounter [id number] 10/04 [facility] Out[facility] Encounter [id number] 10/18 [facility] Out[facility] Encounter [id number] [facility] OFF[facility] O/P EST SF 10 MIN [id number] Diagnos is: ICD-10- CM I10 Essenti al (primar y) hyperte KISHOR Orantes RD D 11/21 [facility] COMPRE OPH EXAM EST PT 1/> [id number] Diagnos is: ICD-10- CM E11.9 Type 2 diabete s mellitu s without complic ations KAMILAH PASTRANA 11/29 [facility] FIT SPECTACLES BIFOCAL [id number] Diagnos is: ICD-10- CM Z46.0 Encount er for fit/adj st of spectac les and contact lenses KAMILAH PASTRANA 11/29 [facility] OFF/OP EST MAY X REQ PHY/QHP [id number] Diagnos is: ICD-10- CM I10 Essenti al (primar y) hyperte nsion SUDHA WEINER MOTHY E 12/22 [facility] Outpatient Encounter [id number] 01/01 [facility] HEARING AID REPAIR/MOD IFYING [id number] Diagnos is: ICD-10- CM Z46.1 Encount er for fitting and adjustm ent of hearing aid SENIORELIZABETH 01/17 [facility] Outpatient Encounter [id number] 01/20 [facility] OFF/OP EST MAY X REQ PHY/QHP [id number] Diagnos is: ICD-10- CM I10 Essenti al (primar y) hyperte nsion JOSE CHRISTIAN 01/20 [facility] Outpatient Encounter [id number] 01/25 [facility] Outpatient Encounter [id number] 01/25 [facility] Outpatient Encounter [id number] 01/27 [facility] Outpatient Encounter [id number] 02/13 [facility] OFFICE O/P EST SF 10 MIN [id number] Diagnos is: ICD-10- CM I10 Essenti al (primar y) hyperte KISHOR Orantes RD D 02/20 [facility] TRIM NAIL(S) ANY NUMBER [id number] Diagnos is: ICD-10- CM 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 ROBBY Mccall D 03/02 [facility] Out[facility] Encounter [id number] 03/02 [facility] Outpatient Encounter [id number] 04/11 [facility] Outpatient Encounter [id number] 04/18 [facility] Outpatient Encounter [id number] 04/28 [facility] Outpatient Encounter [id number] 05/19 [facility] OFFICE O/P EST LOW 20 MIN [id number] Diagnos is: ICD-10- CM I10 Essenti al (primar y) hyperte KISHOR Orantes RD D 05/23 [facility] OFFICE O/P EST LOW 20 MIN [id number] Diagnos is: ICD-10- CM Z98.1 Arthrod esis status ROBBY SELLERS SAJI D 07/13 [facility] Social History Combined list of available smoking, tobacco, and other social history from Department of Defense and Veterans Affairs facilities. Social History Type Response Date Comment Sourc e Tobacco smoking status NHIS [facility]BACCO FOR[facility] [place] [facility] History of tobacco use PR-TOBACCO QUIT 15 YRS OR MORE 08/23/2023 [facility] [place] [facility] History of tobacco use PR-TOBACCO QUIT 15 YRS OR MORE 08/17/2022 [facility] [place] [facility] History of tobacco use PR-TOBACCO FORMER USER 08/07/2021 [facility] [place] [facility] History of tobacco use PR-TOBACCO QUIT 15 YRS OR MORE 07/18/2019 [facility] [place] [facility] History of tobacco use PR-TOBACCO NEVER USED 03/02/2018 [facility] Plan of Care List of future care activities from Department of Veterans Affairs facilities. Additional future care activities may be listed in the Assessment and Plan section. Date/Time Care Activity Care Activity Detail Facili ty 08/22/2024 AMBULATORY - MEDICINE AMBULATORY - MEDICI NE [facility] Advance Directives List of completed, amended, or rescinded Advance Directives on record at Department of Veterans Affairs facilities. An actual copy of the Directive is not included. Date Advance Directive Provider Source 05/18/2023 ADVANCE DIRECTIVE DARIANA GARCIA [facility]
--- OUTSIDE RECORDS SUMMARY | 2024-07-20 15:26 | XMS_ITS ---
Author Name [facility] [place] [facility] [place] Address [address] [place] [address] Care Team Providers Care Engineering Technical Analyst Name Role Phone RAFAEL MCPHERSON Primary Care Provider Unavailabl e Insurance [...] Name Patient's Relationship to Policy [place] AETNA [facility] (WNR) MEDICARE [place]ANTAGE [place] August 24, 2020 [id number] [phone] FR DENISE VERA PATIENT Selected Encounter This section includes the information on record at [place] for the Encounter. Date/Time Encounter Type Encounter Description Reason Provider Source Dec 23, 2023 01:30 PM OFF/OP EST AUGUST X REQ PHY/QHP PRIMARY CARE/MEDICINE ICD-10-CM I10 Essential (primary) hypertension CLAIRE WEINER IHE Encounter Template Text not used by [place] Assessments - Encounter Diagnoses This section includes the primary and secondary diagnoses documented for the Encounter. Date/Time Primary/Secondary Diagnosis Diagnosis Name Provider Source Dec 23, 2023 01:26 PM PRIMARY Essential (primary) hypertension CLAIRE WEINER [facility] [place] [facility] Plan of Treatment: Future Appointments (+ 6 months) and Future Tests (+/- 45 days) The Plan of Treatment section includes future care activities for the patient from all [place] [facility] This section includes future appointments and future orders which are active, pending or scheduled. Future Appointments This section includes appointments that were scheduled to occur 6 months from the date of the Encounter, up to a maximum of 20 appointments. The data comes from all [facility]] facilities. Appointment Date/Time Appointment Type Appointme nt Facility Name Jan 18, 2024 01:30 PM [facility] Jan 21, 2024 02:00 PM [facility] Feb 21, 2024 03:30 PM AMBULATORY - MEDICINE [facility] Mar 02, 2024 01:00 PM AMBULATORY - MEDICINE [facility] May 23, 2024 01:00 PM AMBULATORY - MEDICINE [facility] Active, Pending, and Scheduled Orders This section includes a listing of several types of active, pending, and scheduled orders, including clinic medications orders, diagnostic test orders, procedure orders and consult orders; where the start date of the order is 45 days before the date of the Encounter or 45 days after the date of theEncounter. The data comes from all [facility]. Test Date/Time Test Type Test Details Facility Name Jan 02, 2024 12:00 AM Laboratory - Chemi stry Order BASIC METABOLIC PANEL (non-fasting) BLOOD (SST-SERUM) SP [facility] Lab Results: +/- 30 days of the encounter This section includes the Chemistry and Hematology Lab Results on record with [place] for the patient. Radiology Reports and Pathology Reports are provided separately, in subsequent sections. Lab Results This section contains the Chemistry/Hematology Results that were resulted 30 days before or 30 daysafter the date of the Encounter. Date/Time Source Result Type Result - Unit Interpretation Reference Range Comment Dec 23, 2023 01:30 PM [facility] LIVER FUNCTION Specimen Type: SERUM No comment entered. Ordering Provider: RAFAEL MCPHERSON Report Released Date/Time: Nov 13, 2023 06:01 PM Reporting Lab: [facility] [address] Performing Lab: [address] [address] PROTEIN,TOTAL 7.2 g/dL 6.0-8.3 ALBUMIN 4.0 g/dL 3.5-5.0 ALKALINE PHOSPHATASE 100 U/L 40-150 AST 13 U/L 5-34 ALT 17 U/L BILIRUBIN, TOTAL 0.7 mg/dL 0.2-1.2 Dec 23, 2023 01:30 PM [facility] BASIC METABOLIC PANEL (fasting) Specimen Type: SERUM No comment entered. Ordering Provider: RAFAEL MCPHERSON Report Released Date/Time: Nov 13, 2023 06:01 PM Reporting Lab: [address] [address] Performing Lab: [address] [address] UREA NITROGEN 14 mg/dL 7-25 GLUCOSE 100 mg/dL 65-100 SODIUM 140 mmol/L 135-145 POTASSIUM 3.6 mmol/L 3.5-5.0 CHLORIDE 105 mmol/L 100-110 CO2 25 meq/L 20-30 CREATININE, Serum 1.47 mg/dL H 0.50-1.40 eGFR(CKD-EPI 2020) 48 mL/min L >60 Dec 23, 2023 01:30 PM [facility] CBC AND DIFF (AUTO) Specimen Type: BLOOD No comment entered. Ordering Provider: RAFAEL MCPHERSON Report Released Date/Time: Nov 13, 2023 06:01 PM Reporting Lab: [address] [address] Performing Lab: [address] [address] WBC 8.38 10*3/uL 4.50-11.00 RBC 5.39 10*6/uL [...] 10*3/uL 0.00-0.00 Dec 23, 2023 01:30 PM [facility] TSH Specimen Type: SERUM No comment entered. Ordering Provider: RAFAEL MCPHERSON Report Released Date/Time: Nov 13, 2023 06:01 PM Reporting Lab: [address] [address] Performing Lab: [address] [address] TSH 0.93 u[IU]/mL 0.35-5.00 Dec 23, 2023 01:30 PM [facility] LIPID PANEL FASTING Specimen Type: SERUM No comment entered. Ordering Provider: RAFAEL MCPHERSON Report Released Date/Time: Nov 13, 2023 06:01 PM Reporting Lab: [address] [address] Performing Lab: [address] [address] CHOLESTEROL 132 mg/dL TRIGLYCERIDE 158 mg/dL H 0-150 LDL calculated 54 mg/dL 0-129 CHOL/HDL 2.9 HDL CHOLESTEROL 46 mg/dL 40-60 Dec 23, 2023 01:30 PM [facility] MICROALBUMIN CREATININE RATIO PANEL Specimen Type: URINE No comment entered. Ordering Provider: RAFAEL MCPHERSON Report Released Date/Time: Nov 13, 2023 06:01 PM Reporting Lab: [facility] [address] [facility] [address] Performing Lab: [address] [address] MICROALBUMIN/C REATININE RATIO 26.3 mg/g 0-29.9 MICROALBUMIN,Q UANTITATIVE 3.3 mg/dL RR UNAVAIL CREATININE URINE 125.63 mg/dL Dec 23, 2023 01:30 PM [facility] URINALYSIS CLEAN CATCH Specimen Type: URINE Comment: If Glucose = >500 and Ketones are positive, please alert the Physician. Ordering Provider: RAFAEL MCPHERSON Report Released Date/Time: Nov 13, 2023 06:01 PM Reporting Lab: [facility] [address] [facility] [address] Performing Lab: [address] [address] UA COLOR Light-Yellow Yellow UA APPEARANCE Clear Clear UA GLUCOSE >1000 mg/dL Negative UA KETONES NEGATIVE mg/dL Negative UA BLOOD NEGATIVE mg/dL Negative UA PROTEIN 10 mg/dL Negative UA NITRITE NEGATIVE mg/dL Negative UA BILIRUBIN NEGATIVE mg/dL Negative UA SPECIFIC GRAVITY 1.030 H 1.016-1.02 2 UA pH 5.5 5.0-9.0 UA UROBILINOGEN Normal mg/dL <2.0 UA LEUKOCYTE NEGATIVE Negative Dec 23, 2023 01:30 PM [facility] HEMOGLOBIN A1C PANEL Specimen Type: BLOOD Comment: Values obtained from A1C measurements can vary. For atypical A1C assays, a reported value of 7.0 could actually be between 6.72 and 7.28 if measured by a reference method. A reported value of 9.0 could actually be between 8.73 and 9.27. Ref: http://www.ngs p.org/CAPdata. asp Ordering Provider: RAFAEL MCPHERSON Report Released Date/Time: Nov 13, 2023 06:01 PM Reporting Lab: [place] [facility] [place] [facility] [address] [facility] [address] Performing Lab: [facility] [place] [facility] [address] [facility] [address] HEMOGLOBIN A1C 5.9 H 4.0-5.6 Vital Signs: All taken on the encounter date This section contains inpatient and outpatient Vital Signs collected on the date of the Encounter. Date/Time Temperature Pulse Blood Pressure Respiratory Rate SP02 Pain Height Weight Body Mass Index Source Dec 23, 2023 01:13 PM 54 168/70 22 99 0 [facility] [place] [facility] Social History: Smoking Status (Most current) and Tobacco Use (All prior to encounter date) This section includes the most current, and the historical, smoking and tobacco- related health factors from the [place] facility where the Encounter took place. Current Smoking Status This section includes the most current smoking, or tobacco-related health factor, from the [place] facility where the Encounter took place. Date/Time Current Smoking Status Comment Facil ity Aug 23, 2023 02:30 PM [place]-TOBACCO [facility]IT 15 YRS OR MORE [facility] Tobacco Use History This section includes a history of the smoking, or tobacco-related health factors, that were collected on or before the date of the Encounter. The data comes from the [place] facility where the Encounter took place. Date/Time Smoking Status/Tobacco Use Comment F acility Aug 23, 2023 02:30 PM VA-TOBACCO QUIT 15 YRS OR MORE [place] [facility] [place] [facility] Aug 17, 2022 03:00 PM VA-TOBACCO FORMER USER [facility] [place] [facility] Aug 17, 2022 03:00 PM VA-TOBACCO QUIT 15 YRS OR MORE [facility] [place] [facility] Aug 07, 2021 03:00 PM VA-TOBACCO FORMER USER [facility] [place] [facility] Aug 07, 2021 03:00 PM VA-TOBACCO QUIT 15 YRS OR MORE [facility] [place] [facility] Jul 18, 2019 10:24 AM VA-TOBACCO FORMER USER [facility] [place] [facility] Jul 18, 2019 10:24 AM VA-TOBACCO QUIT 15 YRS OR MORE [facility] Mar 02, 2018 09:39 AM VA-TOBACCO NEVER USED [facility] Advance Directives: All historical and current Section Date Range: From patient's date of to the date document was created. This section includes ALL of a patient's completed or amended [place] Advance and Rescinded Directives. The entries below indicate that a directive exists for the patient, but an actual copy is not included with this document. The data comes from all [place] facilities. Date Advance Directives Provider Source May 18, 2023 ADVANCE DIRECTIVE ADRIANA GARCIA [facility] Encounter Notes: All associated encounter notes This section contains the clinical notes associated to the Encounter. Date/Time Encounter Note(s) Provider Source Dec 23, 2023 08:23 AM PRIMARY CARE OUTPA TIENT NOTE: LOCAL TITLE: AMBULATORY/OUTPATIENT CARE NOTE STANDARD TITLE: PRIMARY CARE OUTPATIENT NOTE DATE OF NOTE: DEC 23, 2023@08:23 ENTRY DATE: DEC 23, 2023@08:23:19 AUTHOR: KRISTIAN WEINER EXP COSIGNER: URGENCY: STATUS: COMPLETED F: HTN/BP check D: Vet presented as a walk-in requesting to be seen for a BP check- his auto BP was- 168/70, manual BP was- 162/66, and HR was- 54. Here is a list of his current BP meds: 1) AMLODIPINE BESYLATE 10MG TAB TAKE ONE TABLET BY MOUTH ACTIVE ONCE DAILY FOR BLOOD PRESSURE/HEART, DO NOT TAKE WITH GRAPEFRUIT JUICE (DOSE INCREASED) 2) FINASTERIDE 5MG TAB TAKE ONE TABLET BY MOUTH ONCE ACTIVE DAILY 3) TAMSULOSIN HCL 0.4MG CAP TAKE TWO CAPSULES BY MOUTH ACTIVE AT BEDTIME FOR ENLARGED PROSTATE Vet was given another BP check appt on 01/21/24@1400 aftert appt with another provider. Vet was sent to lab to get his fasting labs drawn. /jai/ KRISTIAN WEINER MSN Ed., BSN PROJECT PROGRAM MANAGER NURSE Signed: 12/23/2023 13:26 Receipt Acknowledged By: 12/30/2023 18:37 /jai/ Rafael Mcpherson MD Staff Physician KRISTIAN WEINER [facility]
--- OUTSIDE RECORDS SUMMARY | 2024-07-20 15:26 | XMS_ITS ---
Author Name [facility] [place] Address [address] [place] [address] Care Team Providers Care Equipment Processer Storage Name Role Phone RAFAEL DUKE Primary Care [...] Name Patient's Relationship to Policy [place] [employer]ET[employer] [place] (WNR) MEDICARE ADVANTAGE [place] - [place] August 24, 2020 [id number] FR DENISE VERA PATIENT Selected Encounter This section includes the information on record at [place] for the Encounter. Date/Time Encounter Type Encounter Description Reason Pro vider Source Oct 19, 2023 12:18 PM Outpatient Encounter ADMIN PAT ACTIVTIES (MASNONCT) IHE Encounter Template Text not used by [place] Plan of Treatment: Future Appointments (+ 6 [...] 20 appointments. The data comes from all [place] treatment facilities. Appointment Date/Time Appointment Type Appointme nt Facility Name Nov 22, 2023 03:30 PM AM[facility]ULATORY [facility] [place] [facility] Nov 30, 2023 01:30 PM AM[facility]UL[facility]ORY [facility] MEDICINE [facility] [place] [facility] Dec 23, 2023 01:30 PM AMBULATORY - MEDICINE [facility] [place] [facility] Jan 18, 2024 01:30 PM AMBULATORY - REHAB MEDICIN E [facility] [place] [facility] Jan 21, 2024 02:00 PM AMBULATORY - MEDICINE [facility] [place] [facility] Feb 21, 2024 03:30 PM AMBULATORY - MEDICINE [facility] [place] [facility] Mar 02, 2024 01:00 PM AMBULATORY - [place]ICINE [place] [facility] [place] [facility] Social History: Smoking Status (Most current) and Tobacco Use (All prior to encounter date) This section includes the most current, and the historical, smoking and tobacco- related health factors from the [place] facility where the Encounter took place. Current Smoking Status This section includes the most current smoking, or tobacco-related health factor, from the [place] facility where the Encounter took place. Date/Time Current Smoking Status Comment Facil ity Aug 23, 2023 02:30 PM VA-TOBACCO FORMER USER [place] [facility] [place] [facility] Tobacco Use History This section includes a history of the smoking, or tobacco-related health factors, that were collected on or before the date of the Encounter. The data comes from the [place] facility where the Encounter took place. Date/Time Smoking Status/Tobacco Use Comment F acility Aug 23, 2023 02:30 PM VA-TOBACCO QUIT 15 YRS OR MORE [facility] [place] [facility] Aug 17, 2022 03:00 PM VA-TOBACCO FORMER USER [facility] [place] [facility] Aug 17, 2022 03:00 PM VA-TOBACCO QUIT 15 YRS OR MORE [facility] [place] [facility] Aug 07, 2021 03:00 PM VA-TOBACCO FORMER USER [facility] [place] [facility] Aug 07, 2021 03:00 PM VA-TOBACCO QUIT 15 YRS OR MORE [facility] [place] [facility] Jul 18, 2019 10:24 AM VA-TOBACCO FOR[facility] USER [facility] [place] [facility] Jul 18, 2019 10:24 AM [place]-TOBACCO QUIT 15 YRS OR MORE [facility] Mar 02, 2018 09:39 AM [place]-TOBACCO NEVER USED [facility] Advance Directives: All historical and current Section Date Range: From patient's date of to the date document was created. This section includes ALL of a patient's completed or amended [place] Advance and Rescinded Directives. The entries below indicate that a directive exists for the patient, but an actual copy is not included with this document. The data comes from all [place] facilities. Date Advance Directives Provider Source May 18, 2023 ADVANCE DIRECTIVE ADRIANA GARCIA [facility] Encounter Notes: All associated encounter notes This section contains the clinical notes associated to the Encounter. Date/Time Encounter Note(s) Provider Source Oct 19, 2023 12:18 PM MEDICATION MGT NOT E: LOCAL TITLE: MEDICATION RENEWAL STANDARD TITLE: MEDICATION MGT NOTE DATE OF NOTE: OCT 19, 2023@12:18 ENTRY DATE: OCT 19, 2023@12:18:52 AUTHOR: MEREDITH MCKEON EXP COSIGNER: URGENCY: STATUS: COMPLETED MEDICATION RENEWAL Has ADDENDA PT REQ NEW MEDICATION ORDER FOR: 1) AMLODIPINE BESYLATE 5MG TAB 2) EMPAGLIFLOZIN 25MG TAB THANK YOU, MEREDITH /turner MCKEON Collection Manager Signed: 10/19/2023 12:19 Receipt Acknowledged By: 10/19/2023 12:29 /jai/ Rafael Duke MD Staff Physician 10/19/2023 13:30 /turner Turcios RN, BSN Primary Care 10/19/2023 ADDENDUM STATUS: COMPLETED Done. /jai/ Rafael Duke MD Staff Physician Signed: 10/19/2023 12:28 MEREDITH MCKEON [facility]
--- OUTSIDE RECORDS SUMMARY | 2024-07-20 15:26 | XMS_ITS ---
Author Name [facility] [place] Organization [place] Address [address] [place] [address] Care Team Providers Care Creative Services Coordinator Name Role Phone RAFAEL DUKE Primary Care [...] Name Patient's Relationship to Policy Robledo AETDOMINGO PÉREZ (WNR) MEDICARE ADVANTAGE [place] INDIV IDUAL - [place] August 24, 2020 [id number] FR DENISE VERA PATIENT Selected Encounter This section includes the information on record at [place] for the Encounter. Date/Time Encounter Type Encounter Description Reason Provider Source Aug 23, 2023 02:30 PM OFFICE O/P EST SF 10 MIN PRIMARY CARE/MEDICINE ICD-10-CM I10 Essential (primary) hypertension RAFAEL DUKE E Encounter Template Text not used by [place] Assessments - Encounter Diagnoses This section includes the primary and secondary diagnoses documented for the Encounter. Date/Time Primary/Secondary Diagnosis Diagnosis Name Provider Source Aug 23, 2023 04:57 PM PRIMARY Essential (primary) hypertension RAFAEL DUKE [facility] Aug 23, 2023 04:57 PM SECONDARY Encounter for immunization ADRIANA GARCIA [facility] Plan of Treatment: Future Appointments (+ 6 months) and Future Tests (+/- 45 days) The Plan of Treatment section includes future care activities for the patient [facility] [place] [facility] This section includes future appointments and future orders which are active, pending or scheduled. Future Appointments This section includes appointments that were scheduled to occur 6 months from the date of the Encounter, up to a maximum of 20 appointments. The data comes from all [place] treatment facilities. Appointment Date/Time Appointment Type Appointme nt Facility Name Sep 30, 2023 03:00 PM AMBULATORY - MEDICINE [place] [facility] Nov 22, 2023 03:30 PM AMBULATORY - MEDICINE [place] [facility] Nov 30, 2023 01:30 PM AMBULATORY - MEDICINE [place] [facility] Dec 23, 2023 01:30 PM AMBULATORY - MEDICINE [facility] NTRL [facility] Jan 18, 2024 01:30 PM AMBULATORY - REHAB MEDICIN E [place] [facility] Jan 21, 2024 02:00 PM AMBULATORY - MEDICINE [facility] [place] [facility] Feb 21, 2024 03:30 PM AMBULATORY - MEDICINE [facility] NTRL TRN [facility] Lab Results: +/- 30 days of the encounter This section includes the Chemistry and Hematology Lab Results on record with [place] for the patient. Radiology Reports and Pathology Reports are provided separately, in subsequent sections. Lab Results This section contains the Chemistry/Hematology Results that were resulted 30 days before or 30 daysafter the date of the Encounter. Date/Time Source Result Type Result - Unit Interpretation Reference Range Comment Aug 23, 2023 03:15 PM [facility] BASIC METABOLIC PANEL (non-fasting) Specimen Type: SERUM No comment entered. Ordering Provider: RAFAEL DUKE Report Released Date/Time: Aug 18, 2023 04:37 PM Reporting Lab: [address] [address] Performing Lab: [address] [address] UREA NITROGEN 20 mg/dL 7-25 GLUCOSE 136 mg/dL H 65-100 SODIUM 140 mmol/L 135-145 POTASSIUM 3.7 mmol/L 3.5-5.0 CHLORIDE 104 mmol/L 100-110 CO2 26 meq/L 20-30 CREATININE, Serum 1.53 mg/dL H 0.50-1.40 eGFR(CKD-EPI 2020) 45 mL/min L >60 Aug 18, 2023 09:07 AM [facility] LIVER FUNCTION Specimen Type: SERUM Comment: POTASSIUM Verified by repeat analysis. Ordering Provider: RAFAEL DUKE Report Released Date/Time: Aug 14, 2023 04:59 PM Reporting Lab: [address] [address] Performing Lab: [address] [address] PROTEIN,TOTAL 7.6 g/dL 6.0-8.3 ALBUMIN 4.0 g/dL 3.5-5.0 ALKALINE PHOSPHATASE 80 U/L 40-150 AST 17 U/L 5-34 ALT 23 U/L BILIRUBIN, TOTAL 0.7 mg/dL 0.2-1.2 Aug 18, 2023 09:07 AM [facility] BASIC METABOLIC PANEL (fasting) Specimen Type: SERUM Comment: POTASSIUM Verified by repeat analysis. Ordering Provider: RAFAEL DUKE Report Released Date/Time: Aug 14, 2023 04:59 PM Reporting Lab: [address] [address] Performing Lab: [address] [address] UREA NITROGEN 25 mg/dL 7-25 GLUCOSE 172 mg/dL H 65-100 SODIUM 139 mmol/L 135-145 POTASSIUM 2.9 mmol/L LL 3.5-5.0 CHLORIDE 96 mmol/L L 100-110 CO2 29 meq/L 20-30 CREATININE, Serum 1.68 mg/dL H 0.50-1.40 eGFR(CKD-EPI 2020) 41 mL/min L >60 Aug 18, 2023 09:07 AM [facility] LIPID PANEL FASTING Specimen Type: SERUM Comment: POTASSIUM Verified by repeat analysis. Ordering Provider: RAFAEL DUKE Report Released Date/Time: Aug 14, 2023 04:59 PM Reporting Lab: [facility] [address] [facility] [address] Performing Lab: [facility] [address] [address] CHOLESTEROL 142 mg/dL TRIGLYCERIDE 262 mg/dL H 0-150 LDL calculated 49 mg/dL 0-129 CHOL/HDL 3.5 HDL CHOLESTEROL 41 mg/dL 40-60 Aug 18, 2023 09:07 AM [facility] TSH Specimen Type: SERUM Comment: POTASSIUM Verified by repeat analysis. Critical result acknowledged. DR DUKE 08/18/23@1125 BY Ordering Provider: RAFAEL DUKE Report Released Date/Time: Aug 14, 2023 04:59 PM Reporting Lab: [address] [address] Performing Lab: [address] [address] TSH 1.36 u[IU]/mL 0.35-5.00 Aug 18, 2023 09:07 AM [facility] CBC AND DIFF (AUTO) Specimen Type: BLOOD No comment entered. Ordering Provider: RAFAEL DUKE Report Released Date/Time: Aug 14, 2023 04:59 PM Reporting Lab: [address] [address] Performing Lab: [address] [address] WBC 9.16 10*3/uL 4.50-11.00 RBC 5.65 10*6/uL 4.23-5.66 HGB 16.3 g/dL 12.8-17 HCT 46.6 39.2-50.4 MCV 82.5 fL 82-99 MCHC 35.0 g/dL 30.8-35.1 PLT 335 10*3/uL 140-360 RDW-CV 12.6 12.0-16.0 Edmonson, Abs 0.67 10*3/uL 0.30-1.10 MCH 28.8 pg 26.2-32.6 Neut % 66.6 43.7-75.8 Lymph % 21.5 14.0-42.3 Edmonson % 7.3 5.1-13.7 Eos % 3.6 0.4-6.8 Baso % 0.7 0.1-2.0 Neut, Abs 6.10 10*3/uL 2.20-7.60 Lymph, Abs 1.97 10*3/uL 1.00-3.20 Eos, Abs 0.33 10*3/uL 0.03-0.44 Baso, Abs 0.06 10*3/uL 0.01-0.13 Immature Gran % 0.3 0.0-0.7 Immature Gran, Abs 0.03 10*3/uL 0.00-0.06 Aug 18, 2023 09:07 AM [facility] HEMOGLOBIN A1C PANEL Specimen Type: BLOOD [...] Aug 14, 2023 04:59 PM Reporting Lab: [address] [address] Performing Lab: [address] [address] HEMOGLOBIN A1C 7.5 H 4.0-5.6 Aug 18, 2023 09:07 AM [facility] URINALYSIS CLEAN CATCH Specimen Type: URINE Comment: If Glucose = >500 and Ketones are positive, please alert the Physician. Ordering Provider: RAFAEL DUKE Report Released Date/Time: Aug 14, 2023 04:59 PM Reporting Lab: [address] [address] Performing Lab: [address] [address] UA COLOR Light-Yellow Yellow UA APPEARANCE Clear Clear UA GLUCOSE >1000 mg/dL Negative UA KETONES NEGATIVE mg/dL Negative UA BLOOD NEGATIVE mg/dL Negative UA PROTEIN NEGATIVE mg/dL Negative UA NITRITE NEGATIVE mg/dL Negative UA BILIRUBIN NEGATIVE mg/dL Negative UA SPECIFIC GRAVITY 1.028 H 1.016-1.02 2 UA pH 6.5 5.0-9.0 UA UROBILINOGEN <2.0 mg/dL <2.0 UA LEUKOCYTE NEGATIVE Negative Aug 18, 2023 09:07 AM [facility] MICROALBUMIN CREATININE RATIO PANEL Specimen Type: URINE No comment entered. Ordering Provider: RAFAEL DUKE Report Released Date/Time: Aug 14, 2023 04:59 PM Reporting Lab: [facility] [address] [facility] [address] Performing Lab: [address] [address] MICROALBUMIN/C REATININE RATIO 19.2 mg/g 0-29.9 MICROALBUMIN,Q UANTITATIVE 1.7 mg/dL RR UNAVAIL CREATININE URINE 88.43 mg/dL Vital Signs: All taken on the encounter date This section contains inpatient and outpatient Vital Signs collected on the date of the Encounter. Date/Time Temperature Pulse Blood Pressure Respiratory Rate SP02 Pain Height Weight Body Mass Index Source Aug 23, 2023 02:17 PM 98.3 58 138/84 16 97 0 147 25 [facility] Immunizations: All administered on the encounter [...] and tobacco- related health factors from the [place] facility where the Encounter took place. Current Smoking Status This section includes the most current smoking, or tobacco-related health factor, from the [place] facility where the Encounter took place. Date/Time Current Smoking Status Comment Marie kaur Aug 23, 2023 02:30 PM VA-TOBACCO QUIT 15 YRS OR MORE [facility] Tobacco Use History This section includes a history of the smoking, or tobacco-related health factors, that were collected on or before the date of the Encounter. The data comes from the [place] facility where the Encounter took place. Date/Time Smoking Status/Tobacco Use Comment F acility Aug 23, 2023 02:30 PM VA-TOBACCO QUIT 15 YRS OR MORE [place] [facility] [place] [facility] Aug 17, 2022 03:00 PM VA-TOBACCO FORMER USER [place] [facility] [place] [facility] Aug 17, 2022 03:00 PM VA-TOBACCO QUIT 15 YRS OR MORE [place] [facility] [place] [facility] Aug 07, 2021 03:00 PM VA-TOBACCO FORMER USER [place] [facility] [place] [facility] Aug 07, 2021 03:00 PM VA-TOBACCO QUIT 15 YRS OR MORE [place] [facility] [place] [facility] Jul 18, 2019 10:24 AM VA-TOBACCO FORMER USER [place] [facility] [place] [facility] Jul 18, 2019 10:24 AM VA-TOBACCO QUIT 15 YRS OR MORE [place] [facility] [place] [facility] Mar 02, 2018 09:39 AM VA-TOBACCO NEVER USED [facility] Advance Directives: All historical and current Section Date Range: From patient's date of to the date document was created. This section includes ALL of a patient's completed or amended [place] Advance and Rescinded Directives. The entries below indicate that a directive exists for the patient, but an actual copy is not included with this document. The data comes from all [place] facilities. Date Advance Directives Provider Source May 18, 2023 ADVANCE DIRECTIVE ADRIANA GARCIA [place] [facility] Encounter Notes: All associated encounter notes This section contains the clinical notes associated to the Encounter. 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 Lot: [id number] Exp Date: Feb 07, 2024 [facility]: [id number] Admin Route/Site: INTRAMUSCULAR/RIGHT DELTOID Dosage: 0.5mL Vaccine Information Statement(s): COVID-19 MRNA VACCINE (12+ YRS) VACCINE VIS Feb 11, 2023 (SUDANESE) Order By: Policy Administered By: Adriana Garcia Vaccine administered without complications. The patient was advised to remain in the facility for 15 minutes post vaccination. /jai/ ADRIANA GARCIA LPN License Practical Nurse Signed: 08/23/2023 14:49 ADRIANA GARCIA [facility] [place] [facility]
--- OUTSIDE RECORDS SUMMARY | 2024-07-20 15:26 | XMS_ITS ---
Author Name [facility] [place] Address [address] [place] [address] Care Team Providers Care Area Development Consultant Name Role Phone RAFAEL DUKE Primary Care [...] Name Patient's Relationship to Policy Rob[place]o AETNA [facility] (WNR) MEDICARE ADVANTAGE [place] INDIV IDUAL - [place] August 24, 2020 [id number] [phone] FR DENISE VERA PATIENT Selected Encounter This section includes the information on record at [place] for the Encounter. Date/Time Encounter Type Encounter Description Reason Pro vider Source Apr 28, 2024 02:13 PM Outpatient Encounter ADMIN PAT ACTIVTIES (MASNONCT) IHE Encounter Template Text not used by [place] Plan of Treatment: Future Appointments (+ 6 [...] 20 appointments. The data comes from all [place] treatment facilities. Appointment Date/Time Appointment Type Appointme nt Facility Name May 23, 2024 01:00 PM AMBULATORY - MEDICINE [place] [facility] [facility] [place] [facility] Jul 13, 2024 01:30 PM AMBULATORY - MEDICINE [place] [facility] [place] [facility] Aug 22, 2024 01:30 PM [facility] Lab Results: +/- 30 days of the encounter This section includes the Chemistry and Hematology Lab Results on record with [place] for the patient. Radiology Reports and Pathology Reports are provided separately, in subsequent sections. Lab Results This section contains the Chemistry/Hematology Results that were resulted 30 days before or 30 daysafter the date of the Encounter. Date/Time Source Result Type Result - Unit Interpretation Reference Range Comment May 09, 2024 01:00 PM [facility] TSH Specimen Type: SERUM No comment entered. Ordering Provider: RAFAEL DUKE Report Released Date/Time: May 09, 2024 12:59 PM Reporting Lab: [facility] [address] [address] Performing Lab: [facility] [address] [address] TSH 1.48 u[IU]/mL 0.35-5.00 May 09, 2024 01:00 PM [facility] LIVER FUNCTION Specimen Type: SERUM No comment entered. Ordering Provider: RAFAEL DUKE Report Released Date/Time: May 09, 2024 12:59 PM Reporting Lab: [facility] [address] [address] Performing Lab: [facility] [address] PROTEIN,TOTAL 7.4 g/dL 6.0-8.3 ALBUMIN 4.1 g/dL 3.5-5.0 ALKALINE PHOSPHATASE 97 U/L 40-150 AST 16 U/L 5-34 ALT 22 U/L BILIRUBIN, TOTAL 0.5 mg/dL 0.2-1.2 May 09, 2024 01:00 PM [facility] LIPID PANEL FASTING Specimen Type: SERUM No comment entered. Ordering Provider: RAFAEL DUKE Report Released Date/Time: May 09, 2024 12:59 PM Reporting Lab: [facility] [address] [address] Performing Lab: [facility] [address] [address] CHOLESTEROL 123 mg/dL TRIGLYCERIDE 127 mg/dL 0-150 LDL calculated 49 mg/dL 0-129 CHOL/HDL 2.5 HDL CHOLESTEROL 49 mg/dL 40-60 May 09, 2024 01:00 PM [facility] BASIC METABOLIC PANEL (non-fasting) Specimen Type: SERUM No comment entered. Ordering Provider: RAFAEL DUKE Report Released Date/Time: May 09, 2024 12:59 PM Reporting Lab: [facility] [address] [address] Performing Lab: [address] [address] UREA NITROGEN 21 mg/dL 7-25 GLUCOSE 103 mg/dL H 65-100 SODIUM 139 mmol/L 135-145 POTASSIUM 4.3 mmol/L 3.5-5.0 CHLORIDE 106 mmol/L 100-110 CO2 23 meq/L 20-30 CREATININE, Serum 1.61 mg/dL H 0.50-1.40 eGFR(CKD-EPI 2020) 42 mL/min L >60 May 09, 2024 01:00 PM [facility] HEMOGLOBIN A1C PANEL Specimen Type: BLOOD Comment: Values obtained from A1C measurements can vary. For atypical A1C assays, a reported value of 7.0 could actually be between 6.72 and 7.28 if measured by a reference method. A reported value of 9.0 could actually be between 8.73 and 9.27. Ref: http://www.ngs p.org/CAPdata. asp Ordering Provider: RAFAEL DUKE Report Released Date/Time: May 09, 2024 12:59 PM Reporting Lab: [address] [address] Performing Lab: [address] [address] HEMOGLOBIN A1C 5.8 H 4.0-5.6 May 09, 2024 01:00 PM [facility] MICROALBUMIN CREATININE RATIO PANEL Specimen Type: URINE No comment entered. Ordering Provider: RAFAEL DUKE Report Released Date/Time: May 09, 2024 12:59 PM Reporting Lab: [facility] [address] [address] Performing Lab: [address] [address] MICROALBUMIN/C REATININE RATIO 123.9 mg/g H 0-29.9 MICROALBUMIN,Q UANTITATIVE 11.0 mg/dL RR UNAVAIL CREATININE URINE 88.79 mg/dL May 09, 2024 01:00 PM [facility] URINALYSIS CLEAN CATCH Specimen Type: URINE Comment: If Glucose = >500 and Ketones are positive, please alert the Physician. Ordering Provider: RAFAEL DUKE Report Released Date/Time: May 09, 2024 12:59 PM Reporting Lab: [facility] [address] [address] Performing Lab: [address] [address] UA COLOR Light-Yellow Yellow UA APPEARANCE Clear Clear UA GLUCOSE >1000 mg/dL Negative UA KETONES NEGATIVE mg/dL Negative UA BLOOD NEGATIVE mg/dL Negative UA PROTEIN 20 mg/dL Negative UA NITRITE NEGATIVE mg/dL Negative UA BILIRUBIN NEGATIVE mg/dL Negative UA SPECIFIC GRAVITY 1.026 H 1.016-1.02 2 UA pH 6.0 5.0-9.0 UA UROBILINOGEN Normal mg/dL <2.0 UA LEUKOCYTE NEGATIVE Negative May 09, 2024 01:00 PM [facility] CBC AND DIFF (AUTO) Specimen Type: BLOOD No comment entered. Ordering Provider: RAFAEL DUKE Report Released Date/Time: May 09, 2024 12:59 PM Reporting Lab: [address] [address] Performing Lab: [address] [address] WBC 8.26 10*3/uL 4.50-11.00 RBC 5.29 10*6/uL 4.23-5.66 HGB 15.3 g/dL 12.8-17 HCT 43.7 39.2-50.4 MCV 82.6 fL 82-99 MCHC 35.0 g/dL 30.8-35.1 PLT 279 10*3/uL 140-360 RDW-CV 13.1 12.0-16.0 MONO, ABS 0.55 10*3/uL 0.30-1.10 MCH 28.9 pg 26.2-32.6 NEUT % 70.3 43.7-75.8 LYMPH % 18.4 14.0-42.3 MONO % 6.7 5.1-13.7 EOS % 3.6 0.4-6.8 BASO % 0.6 0.1-2.0 NEUT, ABS 5.81 10*3/uL 2.20-7.60 LYMPH, ABS 1.52 10*3/uL 1.00-3.20 EOS, ABS 0.30 10*3/uL 0.03-0.44 BASO, ABS 0.05 10*3/uL 0.01-0.13 IMMATURE GRAN % 0.4 0.0-0.7 IMMATURE GRAN, ABS 0.03 10*3/uL 0.00-0.06 NRBC % 0.0 0.0-0.0 NRBC, ABS 0.00 10*3/uL 0.00-0.00 Social History: Smoking Status (Most current) and Tobacco Use (All prior to encounter date) This section includes the most current, and the historical, smoking and tobacco- related health factors from the [place] facility where the Encounter took place. Current Smoking Status This section includes the most current smoking, or tobacco-related health factor, from the [place] facility where the Encounter took place. Date/Time Current Smoking Status Comment Facil ity Aug 23, 2023 02:30 PM [place]-TOBACCO QUIT 15 YRS OR MORE [facility] [place] [facility] Tobacco Use History This section includes a history of the smoking, or tobacco-related health factors, that were collected on or before the date of the Encounter. The data comes from the [place] facility where the Encounter took place. Date/Time Smoking Status/Tobacco Use Comment F acility Aug 23, 2023 02:30 PM [place]-TOBACCO QUIT 15 YRS OR MORE [place] [facility] [place] [facility] Aug 17, 2022 03:00 PM VA-TOBACCO FORMER USER [place] [facility] [place] [facility] Aug 17, 2022 03:00 PM VA-TOBACCO QUIT 15 YRS OR MORE [place] [facility] [place] [facility] Aug 07, 2021 03:00 PM VA-TOBACCO FORMER USER [place] [facility] [place] [facility] Aug 07, 2021 03:00 PM VA-TOBACCO QUIT 15 YRS OR MORE [place] [facility] [place] [facility] Jul 18, 2019 10:24 AM VA-TOBACCO FORMER USER [place] [facility] [facility] Jul 18, 2019 10:24 AM VA-TOBACCO QUIT 15 YRS OR MORE [place] [facility] [facility] Mar 02, 2018 09:39 AM VA-TOBACCO NEVER USED [facility] Advance Directives: All historical and current Section Date Range: From patient's date of to the date document was created. This section includes ALL of a patient's completed or amended [place] Advance and Rescinded Directives. The entries below indicate that a directive exists for the patient, but an actual copy is not included with this document. The data comes from all [place] facilities. Date Advance Directives Provider Source May 18, 2023 ADVANCE DIRECTIVE ADRIANA GARCIA [facility] Encounter Notes: All associated encounter notes This section contains the clinical notes associated to the Encounter. Date/Time Encounter Note(s) Provider Source Apr 28, 2024 02:13 PM MEDICATION MGT NOT E: LOCAL TITLE: MEDICATION RENEWAL STANDARD TITLE: MEDICATION MGT NOTE DATE OF NOTE: APR 28, 2024@14:13 ENTRY DATE: APR 28, 2024@14:14 AUTHOR: LIANE WERNER EXP COSIGNER: URGENCY: STATUS: COMPLETED MEDICATION RENEWAL Has ADDENDA Hello, is requesting a refill on the following prescription(s). Please renew if appropriate.Thank you for your time. 1) TAMSULOSIN HCL 0.4MG CAP TAKE TWO CAPSULES BY MOUTH AT ACTIVE BEDTIME /es/ LIANE WERNER Signed: 04/28/2024 14:14 Receipt Acknowledged By: 04/28/2024 14:29 /jai/ Sharon Turcios RN, BSN Primary Care 04/28/2024 15:47 /jai/ Rafael Duke MD Staff Physician 04/28/2024 ADDENDUM STATUS: COMPLETED Done. /jai/ Rafael Duke MD Staff Physician Signed: 04/28/2024 15:47 LIANE WERNER [place] [facility]
--- OUTSIDE RECORDS SUMMARY | 2024-07-20 15:26 | XMS_ITS ---
Author Organization [facility] Team Providers Care It Risk And Assurance Manager Name Role Phone Daija Ibanez Unavailable Unavailable Nathaly Clemons Unavailable Unavailable Anu Samuel Unavailable Unavailable Amy Sapp Unavailable Unavailable Allergies and adverse reactions No Known Allergies Care Team Name Role Address Phone Organization Dates Nathaly Clemons PCP [address] [place] [address], [address], [place] (Office): : [facility] 09/29/2022 - 10/12/2022 Daija Ibanez Attending Physician [address] [place], [address], [place] (Office): [facility] 09/29/2022 - 10/12/2022 Anu Samuel Attending Physician [address] [place], [address], [place] (Office): [facility] 09/29/2022 - 10/12/2022 Amy Sapp Attending Physician [address] [place] [address], [place], [address], [place] (Office): : [facility] 09/29/2022 - 10/12/2022 Immunizations Immunization Status Vaccine Details Vaccine Code CodeSystem Date Notes Influenza completed Influenza, split virus, trivalent, injectable, contains preservative 141 CVX created date: 10/12/2022 administer ed date: 01/05/2022 Verified in [facility] Pneumococcal Conjugate Vaccine (PCV13) completed pneumococcal conjugate vaccine, 13 valent 133 CVX created date: 10/12/2022 administer ed date: 03/14/2018 Verified in [facility] TDAP( Tetanus/Diptheri a/Perutssis) completed tetanus toxoid, reduced diphtheria toxoid, and acellular pertussis vaccine, adsorbed 115 CVX created date: 10/12/2022 administer ed date: 03/14/2018 Verified in [facility] SARS-COV-2 (COVID-19) completed SARS-COV-2 (COVID-19) vaccine, mRNA, spike protein, LNP, preservative free, 100 mcg/0.5mL dose or 50 mcg/0.25mL dose Mfg: Moderna Step 2 of Multi-step with next step required 207 CVX created date: 10/12/2022 administer ed date: 06/10/2020 Verified in [facility] SARS-COV-2 (COVID-19) completed SARS-COV-2 (COVID-19) vaccine, mRNA, spike protein, LNP, preservative free, 100 mcg/0.5mL dose or 50 mcg/0.25mL dose Mfg: Moderna Step 1 of Multi-step with next step required 207 CVX created date: 10/12/2022 administer ed date: 05/13/2020 Verified in [facility] SARS-COV-2 (COVID-19 BOOSTER) completed SARS-COV-2 (COVID-19) vaccine, mRNA, spike protein, LNP, preservative free, 100 mcg/0.5mL dose or 50 mcg/0.25mL dose Mfg: Moderna 207 CVX created date: 10/12/2022 administer ed date: 04/04/2021 Verified in [facility] Mental Status Section Date Assessment Total Score Description 10/12/2022 CAM 0 No delirium ind icated PHQ-9 06 mild depression 10/05/2022 BIMS 03 severe cognitiv e impairment CAM 0 No delirium ind icated PHQ-9 06 mild depression Problems Problem # Description Date of onset Resolved Date Code CodeSystem Concern Status 1 UNSPECIFIED DEMENTIA, UNSPECIFIED SEVERITY, WITHOUT BEHAVIORAL DISTURBANCE, PSYCHOTIC DISTURBANCE, MOOD DISTURBANCE, AND ANXIETY 10/01/[address] active 2 APHASIA FOLLOWING CEREBRAL INFARCTION 09/29/[address] active 3 BENIGN PROSTATIC HYPERPLASIA WITHOUT LOWER URINARY TRACT SYMPTOMS 09/29/[address] active 4 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 09/29/[address] active 5 ESSENTIAL (PRIMARY) HYPERTENSION 09/29/[address] active 6 GASTRO-ESOPHAGEAL REFLUX DISEASE WITHOUT ESOPHAGITIS 09/29/[address] active 7 HYPERLIPIDEMIA, UNSPECIFIED 09/29/[address] active 8 HYPOKALEMIA 09/29/[address] active 9 TYPE 2 DIABETES MELLITUS WITHOUT COMPLICATIONS 09/29/[address] active Reason for Referral No Reasons for Referral Entered Social History Social History Observation Description Start Date End Date Code Code System Current Smoking Status Tobacco smoking consumption unknown 298123855 SNOMED CT Sex Assigned At Male 1945 44292-3 [facility] Vital Signs Code Code System Vitals Name Values and Units Timing Information 2339-0 [facility] Blood Sugar Nwixl=431.0 Units=mg/dL 10/12/2022 9279-1 [facility] Respiratory Rate Value=19.0 Units=/m in 10/12/2022 8462-4 [facility] Blood Pressure-Diastolic Value=81 Un its=mmHg 10/12/2022 8480-6 [facility] Blood Pressure-Systolic Jlscm=207 Un its=mmHg 10/12/2022 8310-5 [facility] Body Temperature Value=97.2 Units=?? F 10/12/2022 8867-4 [facility] Heart rate Value=72.0 Units=/min 30323-0 [facility] O2 % BldC Oximetry Value=96.0 Units= % 10/12/2022 49432-5 [facility] Pain Level Value=0.0 10/12/2022 50841-7 [facility] Weight Eytey=370.0 Units=Lbs 8302-2 LOINC Height Value=65.0 Units=Inches 10/06/2022
--- OUTSIDE RECORDS SUMMARY | 2024-07-20 15:27 | XMS_ITS ---
Author Name [facility] [place] [facility] Address [address] [place] [address] Care Team Providers Care Tomb Maker Helper Name Role Phone RAFAEL DUKE Primary Care [...] Policy [place] DHAVALTDOMINGO PÉREZ (WNR) MEDIC[place] ADVANTAGE [place] August 24, 2020 [id number] [phone] FR DENISE VERA PATIENT Selected Encounter This section includes the information on record at [place] for the Encounter. Date/Time Encounter Type Encounter Description Reason Provider Source May 23, 2024 01:00 PM OFFICE O/P EST LOW 20 MIN PRIMARY CARE/MEDICINE ICD-10-CM I10 Essential (primary) hypertension RAFAEL DUKE E Encounter Template Text not used by [place] Assessments - Encounter Diagnoses This section includes the primary and secondary diagnoses documented for the Encounter. Date/Time Primary/Secondary Diagnosis Diagnosis Name Provider Source May 23, 2024 01:25 PM PRIMARY Essential (primary) hypertension [facility] DUKE [facility] Plan of Treatment: Future Appointments (+ 6 months) and Future Tests (+/- 45 days) The Plan of Treatment section includes future care activities for the patient from all [place] treatmentfacilities. This section includes future appointments and future orders which are active, pending or scheduled. Future Appointments This section includes appointments that were scheduled to occur 6 months from the date of the Encounter, up to a maximum of 20 appointments. The data comes from all [place] treatment facilities. Appointment Date/Time Appointment Type Appointme nt Facility Name Jul 13, 2024 01:30 PM [facility] Aug 22, 2024 01:30 PM [facility] Nov 16, 2024 03:00 PM [facility] Lab Results: +/- 30 days of the encounter This section includes the Chemistry and Hematology Lab Results on record with [place] for the patient. Radiology Reports and Pathology Reports are provided separately, in subsequent sections. Lab Results This section contains the Chemistry/Hematology Results that were resulted 30 days before or 30 daysafter the date of the Encounter. Date/Time Source Result Type Result - Unit Interpretation Reference Range Comment May 09, 2024 01:00 PM [facility] TSH Specimen Type: SERUM No comment entered. Ordering Provider: RAFAEL DUKE Report Released Date/Time: May 09, 2024 12:59 PM Reporting Lab: [facility] [address] [facility] [address] Performing Lab: [facility] [address] TSH 1.48 u[IU]/mL 0.35-5.00 May 09, 2024 01:00 PM [facility] LIVER FUNCTION Specimen Type: SERUM No comment entered. Ordering Provider: RAFAEL DUKE Report Released Date/Time: May 09, 2024 12:59 PM Reporting Lab: [address] [address] Performing Lab: [address] [address] PROTEIN,TOTAL 7.4 g/dL 6.0-8.3 ALBUMIN 4.1 g/dL 3.5-5.0 ALKALINE PHOSPHATASE 97 U/L 40-150 AST 16 U/L 5-34 ALT 22 U/L BILIRUBIN, TOTAL 0.5 mg/dL 0.2-1.2 May 09, 2024 01:00 PM [facility] BASIC METABOLIC PANEL (non-fasting) Specimen Type: SERUM No comment entered. Ordering Provider: RAFAEL DUKE Report Released Date/Time: May 09, 2024 12:59 PM Reporting Lab: [address] [address] Performing Lab: [address] [address] UREA NITROGEN 21 mg/dL 7-25 GLUCOSE 103 mg/dL H 65-100 SODIUM 139 mmol/L 135-145 POTASSIUM 4.3 mmol/L 3.5-5.0 CHLORIDE 106 mmol/L 100-110 CO2 23 meq/L 20-30 CREATININE, Serum 1.61 mg/dL H 0.50-1.40 eGFR(CKD-EPI 2020) 42 mL/min L >60 May 09, 2024 01:00 PM [facility] LIPID PANEL FASTING Specimen Type: SERUM No comment entered. Ordering Provider: RAFAEL DUKE Report Released Date/Time: May 09, 2024 12:59 PM Reporting Lab: [address] [address] Performing Lab: [address] [address] CHOLESTEROL 123 mg/dL TRIGLYCERIDE 127 mg/dL 0-150 LDL calculated 49 mg/dL 0-129 CHOL/HDL 2.5 HDL CHOLESTEROL 49 mg/dL 40-60 May 09, 2024 01:00 PM [facility] HEMOGLOBIN A1C PANEL Specimen Type: BLOOD [...] May 09, 2024 12:59 PM Reporting Lab: [facility] [address] [facility] [address] Performing Lab: [address] [address] HEMOGLOBIN A1C 5.8 H 4.0-5.6 May 09, 2024 01:00 PM [facility] MICROALBUMIN CREATININE RATIO PANEL Specimen Type: URINE No comment entered. Ordering Provider: RAFAEL DUKE Report Released Date/Time: May 09, 2024 12:59 PM Reporting Lab: [facility] [address] [facility] [address] Performing Lab: [address] [address] MICROALBUMIN/C REATININE RATIO 123.9 mg/g H 0-29.9 MICROALBUMIN,Q UANTITATIVE 11.0 mg/dL RR UNAVAIL CREATININE URINE 88.79 mg/dL May 09, 2024 01:00 PM [facility] URINALYSIS CLEAN CATCH Specimen Type: URINE Comment: If Glucose = >500 and Ketones are positive, please alert the Physician. Ordering Provider: RAFAEL DUKE Report Released Date/Time: May 09, 2024 12:59 PM Reporting Lab: [address] [address] Performing Lab: [address] [address] UA COLOR Light-Yellow Yellow UA APPEARANCE Clear Clear UA GLUCOSE >1000 mg/dL Negative UA KETONES NEGATIVE mg/dL Negative UA BLOOD NEGATIVE mg/dL Negative UA PROTEIN 20 mg/dL Negative UA NITRITE NEGATIVE mg/dL Negative UA BILIRUBIN NEGATIVE mg/dL Negative UA SPECIFIC GRAVITY 1.026 H 1.016-1.02 2 UA pH 6.0 5.0-9.0 UA UROBILINOGEN Normal mg/dL <2.0 UA LEUKOCYTE NEGATIVE Negative May 09, 2024 01:00 PM [facility] CBC AND DIFF (AUTO) Specimen Type: BLOOD No comment entered. Ordering Provider: RAFAEL DUKE Report Released Date/Time: May 09, 2024 12:59 PM Reporting Lab: [facility] [address] [facility] [address] Performing Lab: [facility] [address] [facility] [address] WBC 8.26 10*3/uL 4.50-11.00 RBC 5.29 10*6/uL [...] Pain Height Weight Body Mass Index Source May 23, 2024 01:20 PM 136/86 [place] [facility] [facility] May 23, 2024 12:57 PM 98 87 144/74 16 95 0 64 151.9 26 [place] [facility] Social History: Smoking Status (Most current) and Tobacco Use (All prior to encounter date) This section includes the most current, and the historical, smoking and tobacco- related health factors from the [place] facility where the Encounter took place. Current Smoking Status This section includes the most current smoking, or tobacco-related health factor, from the [place] facility where the Encounter took place. Date/Time Current Smoking Status Comment Facil ity Aug 23, 2023 02:30 PM VA-TOBACCO QUIT 15 YRS OR MORE [facility] Tobacco Use History This section includes a history of the smoking, or tobacco-related health factors, that were collected on or before the date of the Encounter. The data comes from the [place] facility where the Encounter took place. Date/Time Smoking Status/Tobacco Use Comment F acility Aug 23, 2023 02:30 PM [place]-TOBACCO QUIT 15 YRS [place] MORE [place] [facility] Aug 17, 2022 03:00 PM VA-TOBACCO FORMER USER [place] [facility] Aug 17, 2022 03:00 PM VA-TOBACCO QUIT 15 YRS [place] MORE [place] [facility] Aug 07, 2021 03:00 PM [place]-TOBACCO FORMER USER [place] [facility] Aug 07, 2021 03:00 PM VA-TOBACCO QUIT 15 YRS [place] MORE [place] [facility] Jul 18, 2019 10:24 AM VA-TOBACCO FORMER USER [place] [facility] Jul 18, 2019 10:24 AM VA-TOBACCO QUIT 15 YRS [place] MORE [place] [facility] Mar 02, 2018 09:39 AM VA-TOBACCO NEVER USED [facility] WSN [facility] Advance Directives: All historical and current Section Date Range: From patient's date of to the date document was created. This section includes ALL of a patient's completed or amended [place] Advance and Rescinded Directives. The entries below indicate that a directive exists for the patient, but an actual copy is not included with this document. The data comes from all [place] facilities. Date Advance Directives Provider Source May 18, 2023 ADVANCE DIRECTIVE ADRIANA GARCIA [facility] W[facility] Encounter Notes: All associated encounter notes This section contains the clinical notes associated to the Encounter. Date/Time Encounter Note(s) Provider Source May 23, 2024 01:22 PM PHYSICIAN NOTE: LOCAL TITLE: MD NOTE STANDARD TITLE: PHYSICIAN NOTE DATE OF NOTE: MAY 23, 2024@13:22 ENTRY DATE: MAY 23, 2024@13:22:36 AUTHOR: RAFAEL DUKE EXP COSIGNER: URGENCY: STATUS: COMPLETED Patient Name: JUDY VERA VITALS: Patient temperature: 98 F [36.7 C] (05/23/2024 12:57) Blood pressure: 136/86 (05/23/2024 13:20) Patient height: 64 in [162.6 cm] (05/23/2024 12:57) Patient weight: 151.9 lb [68.90 kg] (05/23/2024 12:57) Patient BMI: BMI: 26.1 Patient pulse: 87 (05/23/2024 12:57) Patient respiration: 16 (05/23/2024 12:57) Patient Pulse Oximetry: 95% (05/23/2024 12:57) Pain Ratin (05/23/2024 12:57) Active [facility] Medications: Active Outpatient Medications (including Supplies): Active Outpatient Medications Status === 1) AMLODIPINE BESYLATE 10MG TAB TAKE ONE TABLET BY MOUTH ONCE ACTIVE DAILY FOR BLOOD PRESSURE/HEART, DO NOT TAKE WITH GRAPEFRUIT JUICE (DOSE INCREASED) Indication: FOR HIGH BLOOD PRESSURE 2) ATORVASTATIN CALCIUM 80MG TAB TAKE ONE TABLET BY MOUTH ONCE ACTIVE DAILY FOR CHOLESTEROL REPLACES SIMVASTATIN Indication: FOR HIGH CHOLESTEROL 3) CLOPIDOGREL BISULFATE 75MG TAB TAKE ONE TABLET BY MOUTH ONCE ACTIVE DAILY Indication: TO PREVENT BLOOD CLOTS 4) DONEPEZIL HCL 10MG TAB TAKE ONE TABLET BY MOUTH ONCE DAILY ACTIVE Indication: FOR ALZHEIMER'S DISEASE 5) EMPAGLIFLOZIN 25MG TAB TAKE ONE-HALF TABLET BY MOUTH ONCE ACTIVE (S) DAILY FOR DIABETES 6) FINASTERIDE 5MG TAB TAKE ONE TABLET BY MOUTH ONCE DAILY ACTIVE (S) Indication: FOR ENLARGED PROSTATE 7) METOPROLOL SUCCINATE 50MG SA TAB TAKE ONE TABLET BY MOUTH ACTIVE ONCE DAILY FOR BLOOD PRESSURE/HEART Indication: FOR HIGH BLOOD PRESSURE 8) OXYBUTYNIN CHLORIDE 5MG SA TAB TAKE ONE TABLET BY MOUTH ONCE ACTIVE (S) DAILY FOR BLADDER INSTABILITY Indication: FOR FREQUENT URINATION 9) PANTOPRAZOLE NA 40MG EC TAB TAKE ONE TABLET BY MOUTH TWICE ACTIVE DAILY 10) TAMSULOSIN HCL 0.4MG CAP TAKE TWO CAPSULES BY MOUTH AT ACTIVE BEDTIME Indication: FOR ENLARGED PROSTATE Pending Outpatient Medications Status === 1) METOPROLOL SUCCINATE 50MG SA TAB TAKE ONE TABLET BY MOUTH PENDING ONCE DAILY FOR BLOOD PRESSURE/HEART Indication: FOR HIGH BLOOD PRESSURE Active Non-VA Medications Status === 1) Non-VA ALBUTEROL 90MCG (CFC-F) 200D ORAL INHL 2 PUFFS BY ACTIVE MOUTH EVERY 4 HOURS NEEDED 12 Total Medications Remote Medications: No Active Remote Medications for this patient Primary MD note Chief complaint: Hypertension History of present illness Patient takes medications for hypertension. He feels well today with no complaints. He takes medications regularly. He reports that he has a good appetite. Review of systems No chest pain or dyspnea No abdominal pain No trouble urinating No fever or chills No cough Physical examination Well-developed well-nourished male in no acute distress Coronary no murmur Lungs clear No edema MICROALB/CR RATIO: 123.9 H MICROALBUMIN URINE: 11.0 CREATININE URINE: 88.79 HGB A1C (WR): 5.8 H WBC: 8.26 RBC: 5.29 HGB: 15.3 HCT: 43.7 MCV: 82.6 MCHC: 35.0 RDW: 13.1 PLT: 279 MCH: 28.9 Neut %: 70.3 Lymph %: 18.4 [place] %: 6.7 Eos %: 3.6 Baso %: 0.6 Neut, Abs: 5.81 Lymph, Abs: 1.52 [place], Abs: 0.55 Eos, Abs: 0.30 Baso, Abs: 0.05 Immature Granulocytes %: 0.4 Immature Granulocytes, Abs: 0.03 NRBC%: 0.0 NRBC#: 0.00 Color, Urine (AX 4280): Light-Yellow Appearance, Urine (AX 4280): Clear Glucose, Urine (AX 4280): >1000 Ketones, Urine (AX 4280): NEGATIVE Blood, Urine (AX 4280): NEGATIVE Protein, Urine (AX 4280): 20 Nitrite, Urine (AX 4280): NEGATIVE Bilirubin, Urine (AX 4280): NEGATIVE Specific [place], (AX 4280): 1.026 H pH, Urine (GL6266): 6.0 Urobilinogen, Urine (AX 4280): Normal Leukocyte Esterase, (AX 4280): NEGATIVE TSH (Access): 1.48 GLUCOSE: 103 H UREA NITROGEN: 21 SODIUM: 139 POTASSIUM: 4.3 CHLORIDE: 106 CO2: 23 CHOLESTEROL: 123 PROTEIN,TOTAL: 7.4 ALBUMIN: 4.1 ALKALINE PHOSPHATASE: 97 SGOT: 16 SGPT: 22 TRIGLYCERIDE: 127 LDL CHOL: 49 CHOL/HDL RATIO: 2.5 HDL: 49 BILIRUBIN,TOT.: 0.5 CREATININE-EGFR: 1.61 H eGFR CKD-EPI 2020: 42 L Discussed above test results with patient assessment and plan: 1. Hypertension: Blood pressure satisfactory Plan continue present medications Follow-up 3 months [...] this [facility] (local) and dispensed from another [place] or [place] facility (remote) as well as [...] next appointment, whether with a [place] or non-[place] provider. /jai/ Rafael uDke MD Staff Physician Signed: 05/23/2024 13:25 RAFAEL DUKE [facility] May 23, 2024 01:06 PM PREVENTIVE MEDICIN E NURSING NOTE: LOCAL TITLE: CLINICAL REMINDERS/NURSING STANDARD TITLE: PREVENTIVE MEDICINE NURSING NOTE DATE OF NOTE: MAY 23, 2024@13:06 ENTRY DATE: MAY 23, 2024@13:06:15 AUTHOR: ANNITA WISEMAN EXP COSIGNER: URGENCY: STATUS: COMPLETED Sexual Orientation: The patient thinks of their sexual orientation as: Straight or Heterosexual Advance Directive Screen MH AD: Patient has an Advance Directive on file at this [facility]. No updates are needed at this time. The patient received education about Advance Directives and written notification of his/her rights. Comment: up to date Homelessness/Food Insecurity Screen: In the past 2 months, have you been living in stable housing that you own, rent, or stay in as part of a household? Yes - Living in stable housing. Are you worried or concerned that in the next 2 months you may NOT have stable housing that you own, rent, or stay in as part of a household? No - Not worried about housing near future [facility] [place] reports the following: Within the past 12 months, you worried whether your food would run out before you got money to buy more. Never true Within the past 12 months, the food you bought just didn't last and you didn't have money to get more. Never true /jai/ ANNITA WISEMAN LPN LPN Signed: 05/23/2024 13:08 ANNITA WISEMAN [facility]
--- OUTSIDE RECORDS SUMMARY | 2024-07-20 15:27 | XMS_ITS ---
Author Name [facility] [place] Address [address] [place] [address] Care Team Providers Care Astrobiologist Name Role Phone CLAUDIA MCPHERSON Primary Care [...] Policy Robledo DHAVALTDOMINGO PÉREZ (WNR) MEDICARE ADVANTAGE [place] INDIV IDUAL - [place] August 24, 2020 [id number] [phone] FR DENISE VERA PATIENT Selected Encounter This section includes the information on record at [place] for the Encounter. Date/Time Encounter Type Encounter Description Reason Provider Source Jul 13, 2024 01:30 PM OFFICE O/P EST LOW 20 MIN PODIATRY ICD-10-CM Z98.1 Arthrodesis status ZULAY POWERS Yessica Encounter Template Text not used by [place] Assessments - Encounter Diagnoses This section includes the primary and secondary diagnoses documented for the Encounter. 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 This section includes future appointments and future orders which are active, pending or scheduled. Future Appointments This section includes appointments that were scheduled to occur 6 months from the date of the Encounter, up to a maximum of 20 appointments. The data comes from all [place] treatment facilities. Appointment Date/Time Appointment Type Appointme nt Facility Name Aug 22, 2024 01:30 PM AMBULATORY - MEDICINE [facility] Nov 16, 2024 03:00 PM AMBULATORY - MEDICINE [facility] Jan 02, 2025 01:30 PM [facility] Social History: Smoking Status (Most current) [...] 23, 2023 02:30 PM VA-TOBACCO FOR[facility]ER [facility] Tobacco Use History This section includes a history of the smoking, or tobacco-related health factors, that were collected on or before the date of the Encounter. The data comes from the [place] facility where the Encounter took place. Date/Time Smoking Status/Tobacco Use Comment F acility Aug 23, 2023 02:30 PM VA-TOBACCO QUIT 15 YRS OR MORE [place] [facility] Aug 17, 2022 03:00 PM VA-TOBACCO FORMER USER [place] [facility] [facility] Aug 17, 2022 03:00 PM VA-TOBACCO QUIT [facility] YRS [facility] Aug 07, 2021 03:00 PM VA-TOBACCO [facility] Aug 07, 2021 03:00 PM VA-TOBACCO QUIT 15 YRS OR MORE [place] [facility] [facility] Jul 18, 2019 10:24 AM VA-TOBACCO FORMER USER [place] [facility] [facility] Jul 18, 2019 10:24 AM VA-TOBACCO QUIT 15 YRS OR MORE [place] [facility] [facility] Mar 02, 2018 09:39 AM VA-TOBACCO NEVER USED [place] [facility] Advance Directives: All historical and current Section Date Range: From patient's date of to the date document was created. This section includes ALL of a patient's completed or amended [place] Advance and Rescinded Directives. The entries below indicate that a directive exists for the patient, but an actual copy is not included with this document. The data comes from all [place] facilities. Date Advance Directives Provider Source May 18, 2023 ADVANCE DIRECTIVE ADRIANA GARCIA [place] [facility] Encounter Notes: All associated encounter notes This section contains the clinical notes associated to the Encounter. Date/Time Encounter Note(s) Provider Source Jul 13, 2024 01:36 PM PODIATRY NOTE: LOCAL TITLE: PODIATRY NOTE STANDARD TITLE: PODIATRY NOTE DATE OF NOTE: JUL 13, 2024@13:36 ENTRY DATE: JUL 13, 2024@13:36:15 AUTHOR: ZULAY POWERS EXP COSIGNER: URGENCY: STATUS: COMPLETED Podiatry High Risk Foot Encounter [facility] Clinic provider: Zulay Powers [facility] Date: July 13, 2024 JUDY VERA MALE [id number] Jan 78 [employer] FROM Sep TO Sep Primary Care:CLAUDIA MCPHERSON Subjective: n/a -pt has about a 5th grade level of maturity 2/2 cognitive disorder/ CVA. No cmplaints. though. complain interval too long. Diabetic foot history: IFG/ DM II Hx left ankle fusion for valgus foot sounds like has hx callus lat fifth toe no hx ulcers wounds has exdepth shoes with cm inserts. Interval update mar 19-to today: no reported changes in meds, med history- provided by . Diabetic/ HRF/ PVD LE History: [x] pvd [...] 2. Benign Prostatic Hypertrophy without Outflow Obstruction ([facility] [id number]) 3. Stroke 4. 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 Food insecurity 6. Diabetes mellitus type 2 7. Chronic kidney disease stage 3 due to type 2 diabetes mellitus 8. Abnormal findings on diagnostic imaging of lung 9. Sleep Apnea ([facility] [id number]) 10. Renal Impairment ([facility] [id number]) 11. Shared care - specialist and GP 12. Raised PSA 13. Under care of multiple providers 14. Patient requires hospitalization 15. Hyperglycemia 16. Adult screening status 17. History of surgery 18. History of stroke in last year 19. HTN - Hypertension ([facility] [id number]) 20. Hyperlipidemia ([facility] [id number]) 21. Cognitive impairment 22. Cancer in situ [...] to Interim Lab Report. BMI:BMI: 24.5 PE:General: 79-year-old male awake alert oriented x2 pleasant cooperative neatly dressed good hygiene no distress breathing on room air speaking in full sentences arrives to clinic by wheelchair transport able to stand and transfer with assistance. Bilateral trace DP PT pulses Bilateral trace to 1+ ankle edema Turgor and texture diminished bilaterally No pedal ankle or leg hair present Left ankle fusion at 90 degrees Right foot ankle unremarkable [...] as results of the physical exam and sales development consultant opinions and recommendations as sought. Alternatives [...] -The on this visit was given information My [employer] service and encouraged to enroll if not already having done so. /jai/ ZULAY POWERS DPM PODIATRY ATTENDING Signed: 07/13/2024 16:16 ZULAY POWERS [place] [facility]
--- OUTSIDE RECORDS SUMMARY | 2024-07-20 15:27 | XMS_ITS | Encounter Summary ---
Author Name [facility] [place] Organization [place] Address [address] [place] [address] Care Team Providers Care Manager Personnel Selection Name Role Phone RAFAEL DUKE Primary Care [...] Policy Robledo [employer] BETO (WNR) MEDICARE ADVANTAGE [place] INDIV IDUAL - [place] August 24, 2020 [id number] [phone] FR DENISE VERA PATIENT Selected Encounter This [...] 21, 2024 03:30 PM AMBULATORY - MEDICINE [facility] Mar 02, 2024 01:00 PM [facility]UL[facility] May 23, 2024 01:00 PM [facility] Jul 13, 2024 01:30 PM [facility] Active, Pending, and Scheduled Orders This section includes a listing of several types of active, pending, and scheduled orders, including clinic medications orders, diagnostic test orders, procedure orders and consult orders; where the start date of the order is 45 days before the date of the Encounter or 45 days after the date of theEncounter. The data comes from all [place] treatment facilities. Test Date/Time Test Type Test Details Facility Name Jan 02, 2024 12:00 AM Laboratory - Chemi stry Order BASIC METABOLIC PANEL (non-fasting) BLOOD (SST-SERUM) [facility] Lab Results: +/- 30 days of [...] Range Comment Feb 21, 2024 01:34 PM [facility] MICROALBUMIN CREATININE RATIO PANEL Specimen Type: URINE No comment entered. Ordering Provider: RAFAEL DUKE Report Released Date/Time: Feb 11, 2024 09:40 PM Reporting Lab: [facility] [address] [facility] [address] Performing Lab: [facility] [address] [facility] [address] MICROALBUMIN/C REATININE RATIO 36.9 mg/g H 0-29.9 MICROALBUMIN,Q UANTITATIVE 2.3 mg/dL RR UNAVAIL CREATININE URINE 62.31 mg/dL Feb 21, 2024 01:34 PM [facility] TSH Specimen Type: SERUM No comment entered. Ordering Provider: RAFAEL DUKE Report Released Date/Time: Feb 11, 2024 09:40 PM Reporting Lab: [address] [address] Performing Lab: [address] [address] TSH 0.80 u[IU]/mL 0.35-5.00 Feb 21, 2024 01:34 PM [facility] BASIC METABOLIC PANEL (non-fasting) Specimen Type: SERUM No comment entered. Ordering Provider: RAFAEL DUKE Report Released Date/Time: Feb 11, 2024 09:40 PM Reporting Lab: [address] [address] Performing Lab: [address] [address] UREA NITROGEN 17 mg/dL 7-25 GLUCOSE 155 mg/dL H 65-100 SODIUM 141 mmol/L 135-145 POTASSIUM 3.7 mmol/L 3.5-5.0 CHLORIDE 106 mmol/L 100-110 CO2 25 meq/L 20-30 CREATININE, Serum 1.48 mg/dL H 0.50-1.40 eGFR(CKD-EPI 2020) 47 mL/min L >60 Feb 21, 2024 01:34 PM [facility] LIPID PANEL FASTING Specimen Type: SERUM No comment entered. Ordering Provider: RAFAEL DUKE Report Released Date/Time: Feb 11, 2024 09:40 PM Reporting Lab: [address] [address] Performing Lab: [address] [address] CHOLESTEROL 121 mg/dL TRIGLYCERIDE 168 mg/dL H 0-150 LDL calculated 43 mg/dL 0-129 CHOL/HDL 2.8 HDL CHOLESTEROL 44 mg/dL 40-60 Feb 21, 2024 01:34 PM [facility] HEMOGLOBIN A1C PANEL Specimen Type: BLOOD [...] Feb 11, 2024 09:40 PM Reporting Lab: [address] [address] Performing Lab: [address] [address] HEMOGLOBIN A1C 5.8 H 4.0-5.6 Feb 21, 2024 01:34 PM [facility] URINALYSIS CLEAN CATCH Specimen Type: URINE Comment: If Glucose = >500 and Ketones are positive, please alert the Physician. Ordering Provider: RAFAEL DUKE Report Released Date/Time: Feb 11, 2024 09:40 PM Reporting Lab: [address] [address] Performing Lab: [address] [address] UA COLOR Light-Yellow Yellow UA APPEARANCE Clear Clear UA GLUCOSE >1000 mg/dL Negative UA KETONES NEGATIVE mg/dL Negative UA BLOOD NEGATIVE mg/dL Negative UA PROTEIN NEGATIVE mg/dL Negative UA NITRITE NEGATIVE mg/dL Negative UA BILIRUBIN NEGATIVE mg/dL Negative UA SPECIFIC GRAVITY 1.028 H 1.016-1.02 2 UA pH 5.5 5.0-9.0 UA UROBILINOGEN Normal mg/dL <2.0 UA LEUKOCYTE NEGATIVE Negative Feb 21, 2024 01:34 PM [facility] LIVER FUNCTION Specimen Type: SERUM No comment entered. Ordering Provider: RAFAEL DUKE Report Released Date/Time: Feb 11, 2024 09:40 PM Reporting Lab: [address] [address] Performing Lab: [address] [address] PROTEIN,TOTAL 6.9 g/dL 6.0-8.3 ALBUMIN 3.8 g/dL 3.5-5.0 ALKALINE PHOSPHATASE 95 U/L 40-150 AST 13 U/L 5-34 ALT 16 U/L BILIRUBIN, TOTAL 0.7 mg/dL 0.2-1.2 Feb 21, 2024 01:34 PM [facility] CBC AND DIFF (AUTO) Specimen Type: BLOOD No comment entered. Ordering Provider: RAFAEL DUKE Report Released Date/Time: Feb 11, 2024 09:40 PM Reporting Lab: [facility] [address] [facility] [address] Performing Lab: [facility] [address] [facility] [address] WBC 8.50 10*3/uL 4.50-11.00 RBC 5.30 10*6/uL [...] PM VA-TOBACCO QUIT 15 YRS OR MORE [facility] Tobacco Use History This section includes a history of the smoking, or tobacco-related health factors, that were collected on or before the date of the Encounter. The data comes from the [place] facility where the Encounter took place. Date/Time Smoking Status/Tobacco Use Comment F acility Aug 23, 2023 02:30 PM VA-TOBACCO QUIT 15 YRS OR MORE [place] [facility] [place] [facility] Aug 17, 2022 03:00 PM VA-TOBACCO FORMER USER [place] [facility] [place] [facility] Aug 17, 2022 03:00 PM VA-TOBACCO QUIT 15 YRS OR MORE [place] [facility] [place] [facility] Aug 07, 2021 03:00 PM VA-TOBACCO FORMER USER [place] [facility] [place] [facility] Aug 07, 2021 03:00 PM VA-TOBACCO QUIT 15 YRS OR MORE [place] [facility] [place] [facility] Jul 18, 2019 10:24 AM VA-TOBACCO FORMER USER [place] [facility] [place] [facility] Jul 18, 2019 10:24 AM VA-TOBACCO QUIT 15 YRS OR MORE [place] [facility] [place] [facility] Mar 02, 2018 09:39 AM VA-TOBACCO [facility] Advance Directives: All historical and current [...] 18, 2023 ADVANCE DIRECTIVE ADRIANA GARCIA [facility] Encounter Notes: All associated encounter notes This section contains the clinical notes associated to the Encounter. Date/Time Encounter Note(s) Provider Source Jan 28, 2024 10:20 AM MEDICATION MGT NOT E: LOCAL TITLE: MEDICATION RENEWAL STANDARD TITLE: MEDICATION MGT NOTE DATE OF NOTE: JAN 28, 2024@10:20 ENTRY DATE: JAN 28, 2024@10:20:19 AUTHOR: MEREDITH MCKEON EXP COSIGNER: URGENCY: STATUS: COMPLETED MEDICATION RENEWAL Has ADDENDA patient requesting new medication refill for METOPROLOL SUCCINATE 25MG SA TAB but on file is D/C and a new medication for METOPROLOL SUCCINATE 50MG SA TAB is active please advice patient on which medication he need to be taking Thank you, Meredith /turner MCKEON Assistant Portfolio Manager Signed: 01/28/2024 10:28 Receipt Acknowledged By: 01/28/2024 13:02 /jai/ Rafael Duke MD Staff Physician 01/28/2024 11:11 /jai/ Sharon Turcios RN, BSN Primary Care 01/28/2024 ADDENDUM STATUS: COMPLETED Already discussed with patient. /jai/ Rafael Duke MD Staff Physician Signed: 01/28/2024 13:03 MEREDITH MCKEON [place] [facility]
--- OUTSIDE RECORDS SUMMARY | 2024-07-20 15:27 | XMS_ITS ---
Author Name Department of Vetera Affairs ([place]) Organization Department of Vetera Affairs ([place]) Address [address] [place] [id number] Care Team Providers Care Hat Parts Cutter Machine Name Role Phone CLAUDIA MCPHERSON Primary Care [...] Policy Robledo DHAVALTDOMINGO PÉREZ (WNR) MEDICARE ADVANTAGE [place] INDIV IDUAL - MASS August 24, 2020 [id number] [phone] FR DENISE VERA PATIENT Selected Encounter This section includes the information on record at ME for the Encounter. 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 Date/Time Primary/Secondary Diagnosis Diagnosis Name Provider Source Mar 03, 2024 01:14 PM PRIMARY Type 2 diabetes w diabetic autonomic (poly)neuropathy [facility] POWERS [facility] Mar 03, 2024 01:14 PM SECONDARY Arthrodesis status ZULAY POWERS [facility] [place] [facility] Mar 03, 2024 01:14 PM SECONDARY Nail dystrophy [facility]ULAY POWERS [facility] Plan of Treatment: Future Appointments (+ 6 months) and Future Tests (+/- 45 days) The Plan of Treatment section includes future care activities for the patient from all ME treatmentfacilities. This section includes future appointments and future orders which are active, pending or scheduled. Future Appointments This section includes appointments that were scheduled to occur 6 months from the date of the Encounter, up to a maximum of 20 appointments. The data comes from all [place] treatment facilities. Appointment Date/Time Appointment Type Appointme nt Facility Name May 23, 2024 01:00 PM AMBULATORY - MEDICINE [place] [facility] [facility] Jul 13, 2024 01:30 PM AMBULATORY - MEDICINE [facility] [place] [facility] Aug 22, 2024 01:30 PM [facility] Lab Results: +/- 30 days of [...] Range Comment Feb 21, 2024 01:34 PM [facility] MICROALBUMIN CREATININE RATIO PANEL Specimen Type: URINE No comment entered. Ordering Provider: CLAUDIA MCPHERSON Report Released Date/Time: Feb 11, 2024 09:40 PM Reporting Lab: [facility] [address] [facility] [address] Performing Lab: [facility] [address] [facility] [address] MICROALBUMIN/C REATININE RATIO 36.9 mg/g H 0-29.9 MICROALBUMIN,Q UANTITATIVE 2.3 mg/dL RR UNAVAIL CREATININE URINE 62.31 mg/dL Feb 21, 2024 01:34 PM [facility] TSH Specimen Type: SERUM No comment entered. Ordering Provider: CLAUDIA MCPHERSON Report Released Date/Time: Feb 11, 2024 09:40 PM Reporting Lab: [facility] [address] [facility] [address] Performing Lab: [address] [address] TSH 0.80 u[IU]/mL 0.35-5.00 Feb 21, 2024 01:34 PM [facility] BASIC METABOLIC PANEL (non-fasting) Specimen Type: SERUM No comment entered. Ordering Provider: CLAUDIA MCPHERSON Report Released Date/Time: Feb 11, 2024 09:40 PM Reporting Lab: [address] [address] Performing Lab: [address] [address] UREA NITROGEN 17 mg/dL 7-25 GLUCOSE 155 mg/dL H 65-100 SODIUM 141 mmol/L 135-145 POTASSIUM 3.7 mmol/L 3.5-5.0 CHLORIDE 106 mmol/L 100-110 CO2 25 meq/L 20-30 CREATININE, Serum 1.48 mg/dL H 0.50-1.40 eGFR(CKD-EPI 2020) 47 mL/min L >60 Feb 21, 2024 01:34 PM [facility] LIPID PANEL FASTING Specimen Type: SERUM No comment entered. Ordering Provider: CLAUDIA MCPHERSON Report Released Date/Time: Feb 11, 2024 09:40 PM Reporting Lab: [address] [address] Performing Lab: [address] [address] CHOLESTEROL 121 mg/dL TRIGLYCERIDE 168 mg/dL H 0-150 LDL calculated 43 mg/dL 0-129 CHOL/HDL 2.8 HDL CHOLESTEROL 44 mg/dL 40-60 Feb 21, 2024 01:34 PM [facility] HEMOGLOBIN A1C PANEL Specimen Type: BLOOD [...] Feb 11, 2024 09:40 PM Reporting Lab: [address] [address] Performing Lab: [address] [address] HEMOGLOBIN A1C 5.8 H 4.0-5.6 Feb 21, 2024 01:34 PM [facility] URINALYSIS CLEAN CATCH Specimen Type: URINE Comment: If Glucose = >500 and Ketones are positive, please alert the Physician. Ordering Provider: CLAUDIA MCPHERSON Report Released Date/Time: Feb 11, 2024 09:40 PM Reporting Lab: [address] [address] Performing Lab: [address] [address] UA COLOR Light-Yellow Yellow UA APPEARANCE Clear Clear UA GLUCOSE >1000 mg/dL Negative UA KETONES NEGATIVE mg/dL Negative UA BLOOD NEGATIVE mg/dL Negative UA PROTEIN NEGATIVE mg/dL Negative UA NITRITE NEGATIVE mg/dL Negative UA BILIRUBIN NEGATIVE mg/dL Negative UA SPECIFIC GRAVITY 1.028 H 1.016-1.02 2 UA pH 5.5 5.0-9.0 UA UROBILINOGEN Normal mg/dL <2.0 UA LEUKOCYTE NEGATIVE Negative Feb 21, 2024 01:34 PM [facility] LIVER FUNCTION Specimen Type: SERUM No comment entered. Ordering Provider: CLAUDIA MCPHERSON Report Released Date/Time: Feb 11, 2024 09:40 PM Reporting Lab: [address] [address] Performing Lab: [address] [address] PROTEIN,TOTAL 6.9 g/dL 6.0-8.3 ALBUMIN 3.8 g/dL 3.5-5.0 ALKALINE PHOSPHATASE 95 U/L 40-150 AST 13 U/L 5-34 ALT 16 U/L BILIRUBIN, TOTAL 0.7 mg/dL 0.2-1.2 Feb 21, 2024 01:34 PM [facility] CBC AND DIFF (AUTO) Specimen Type: BLOOD No comment entered. Ordering Provider: CLAUDIA MCPHERSON Report Released Date/Time: Feb 11, 2024 09:40 PM Reporting Lab: [facility] [address] [facility] [address] Performing Lab: [facility] [address] [facility] [address] WBC 8.50 10*3/uL 4.50-11.00 RBC 5.30 10*6/uL [...] PM VA-TOBACCO QUIT 15 YRS OR MORE [facility] Tobacco Use History This section includes a history of the smoking, or tobacco-related health factors, that were collected on or before the date of the Encounter. The data comes from the [place] facility where the Encounter took place. Date/Time Smoking Status/Tobacco Use Comment F acility Aug 23, 2023 02:30 PM VA-TOBACCO QUIT 15 YRS OR MORE [place] [facility] [place] [facility] Aug 17, 2022 03:00 PM VA-TOBACCO FORMER USER [place] [facility] [place] [facility] Aug 17, 2022 03:00 PM VA-TOBACCO QUIT 15 YRS OR MORE [place] [facility] [place] [facility] Aug 07, 2021 03:00 PM VA-TOBACCO FORMER USER [place] [facility] [place] [facility] Aug 07, 2021 03:00 PM VA-TOBACCO QUIT 15 YRS OR MORE [place] [facility] [place] [facility] Jul 18, 2019 10:24 AM VA-TOBACCO FORMER USER [place] [facility] [place] [facility] Jul 18, 2019 10:24 AM VA-TOBACCO QUIT 15 YRS OR MORE [place] [facility] [place] [facility] Mar 02, 2018 09:39 AM VA-TOBACCO NEVER USED [facility] Advance Directives: All historical and current Section Date Range: From patient's date of to the date document was created. This section includes ALL of a patient's completed or amended [place] Advance and Rescinded Directives. The entries below indicate that a directive exists for the patient, but an actual copy is not included with this document. The data comes from all [place] facilities. Date Advance Directives Provider Source May 18, 2023 ADVANCE DIRECTIVE ANDREW GARCIAKA [facility] Encounter Notes: All associated encounter notes This section contains the clinical notes associated to the Encounter. Date/Time Encounter Note(s) Provider Source Mar 02, 2024 01:09 PM PODIATRY NOTE: LOCAL TITLE: PODIATRY NOTE STANDARD TITLE: PODIATRY NOTE DATE OF NOTE: MAR 02, 2024@13:09 ENTRY DATE: MAR 02, 2024@13:09:58 AUTHOR: ZULAY POWERS EXP COSIGNER: URGENCY: STATUS: COMPLETED Podiatry High [facility] provider: Zulay Powers DPM Date: Mar 02, 2024 JUDY VERA MALE [id number] Jan 78 [employer] FROM Sep TO Sep [...] 2. Benign Prostatic Hypertrophy without Outflow Obstruction ([facility] [id number]) 3. Stroke 4. 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 Food insecurity 6. Diabetes mellitus type 2 7. Chronic kidney disease stage 3 due to type 2 diabetes mellitus 8. Abnormal findings on diagnostic imaging of lung 9. Sleep Apnea ([facility] [id number]) 10. Renal Impairment ([facility] [id number]) 11. Shared care - specialist and GP 12. Raised PSA 13. Under care of multiple providers 14. Patient requires hospitalization 15. Hyperglycemia 16. Adult screening status 17. History of surgery 18. History of stroke in last year 19. HTN - Hypertension ([facility] [id number]) 20. Hyperlipidemia ([facility] [id number]) 21. Cognitive impairment 22. Cancer in situ [...] as results of the physical exam and home energy consultant supervisor opinions and recommendations as sought. Alternatives to [...] -The on this visit was given information [employer] service and encouraged to enroll if not already having done so. /jai/ ZULAY POWERS DPM PODIATRY ATTENDING Signed: 03/03/2024 13:15 ZULAY POWERS [facility] CN[facility]L [facility]
--- OUTSIDE RECORDS SUMMARY | 2024-07-20 15:27 | XMS_ITS ---
Author Name Department of Vetera Affairs ([place]) Organization Department of Vetera Affairs ([place]) Address [address] [place] [address] Care Team Providers Care Social Studies Teacher Name Role Phone RAFAEL DUKE Primary [...] Policy [place]ledo [employer] BETO (WNR) MEDICARE ADVANTAGE [place] INDIV IDUAL - [place] August 24, 2020 [id number] [phone] FR DENISE VERA PATIENT Selected Encounter This section includes the information on record at [place] for the Encounter. Date/Time Encounter Type Encounter Description Reason Pro vider Source May 19, 2024 12:48 PM Outpatient Encounter ADMIN PAT ACTIVTIES (MASNONCT) IHE Encounter Template Text not used by DC Plan of Treatment: Future Appointments (+ 6 [...] 20 appointments. The data comes from all [place] treatment facilities. Appointment Date/Time Appointment Type Appointme nt Facility Name May 23, 2024 01:00 PM AMBULATORY - MEDICINE [place] [facility] Jul 13, 2024 01:30 PM AMBULATORY - MEDICINE [place] [facility] Aug 22, 2024 01:30 PM AMBULATORY - MEDICINE [place] [facility] Nov 16, 2024 03:00 PM AMBULATORY - [facility]ICINE [facility] Lab Results: +/- 30 days of the encounter This section includes the Chemistry and Hematology Lab Results on record with DC for the patient. Radiology Reports and Pathology Reports are provided separately, in subsequent sections. Lab Results This section contains the Chemistry/Hematology Results that were resulted 30 days before or 30 daysafter the date of the Encounter. Date/Time Source Result Type Result - Unit Interpretation Reference Range Comment May 09, 2024 01:00 PM [facility] TSH Specimen Type: SERUM No comment entered. Ordering Provider: RAFAEL DUKE Report Released Date/Time: May 09, 2024 12:59 PM Reporting Lab: [facility] [address] [facility] [address] Performing Lab: [facility] [address] [facility] [address] TSH 1.48 u[IU]/mL 0.35-5.00 May 09, 2024 01:00 PM [facility] LIVER FUNCTION Specimen Type: SERUM No comment entered. Ordering Provider: RAFAEL DUKE Report Released Date/Time: May 09, 2024 12:59 PM Reporting Lab: [facility] [address] [facility] [address] Performing Lab: [facility] [address] [facility] [address] PROTEIN,TOTAL 7.4 g/dL 6.0-8.3 ALBUMIN 4.1 g/dL 3.5-5.0 ALKALINE PHOSPHATASE 97 U/L 40-150 AST 16 U/L 5-34 ALT 22 U/L BILIRUBIN, TOTAL 0.5 mg/dL 0.2-1.2 May 09, 2024 01:00 PM [facility] BASIC METABOLIC PANEL (non-fasting) Specimen Type: SERUM No comment entered. Ordering Provider: RAFAEL DUKE Report Released Date/Time: May 09, 2024 12:59 PM Reporting Lab: [facility] [address] [facility] [address] Performing Lab: [address] [address] UREA NITROGEN 21 mg/dL 7-25 GLUCOSE 103 mg/dL H 65-100 SODIUM 139 mmol/L 135-145 POTASSIUM 4.3 mmol/L 3.5-5.0 CHLORIDE 106 mmol/L 100-110 CO2 23 meq/L 20-30 CREATININE, Serum 1.61 mg/dL H 0.50-1.40 eGFR(CKD-EPI 2020) 42 mL/min L >60 May 09, 2024 01:00 PM [facility] HEMOGLOBIN A1C PANEL Specimen Type: BLOOD [...] May 09, 2024 12:59 PM Reporting Lab: [address] [address] Performing Lab: [address] [address] HEMOGLOBIN A1C 5.8 H 4.0-5.6 May 09, 2024 01:00 PM [facility] LIPID PANEL FASTING Specimen Type: SERUM No comment entered. Ordering Provider: RAFAEL DUKE Report Released Date/Time: May 09, 2024 12:59 PM Reporting Lab: [address] [address] Performing Lab: [address] [address] CHOLESTEROL 123 mg/dL TRIGLYCERIDE 127 mg/dL 0-150 LDL calculated 49 mg/dL 0-129 CHOL/HDL 2.5 HDL CHOLESTEROL 49 mg/dL 40-60 May 09, 2024 01:00 PM [facility] MICROALBUMIN CREATININE RATIO PANEL Specimen Type: URINE No comment entered. Ordering Provider: RAFAEL DUKE Report Released Date/Time: May 09, 2024 12:59 PM Reporting Lab: [facility] [address] [facility] [address] Performing Lab: [facility] [address] [facility] [address] MICROALBUMIN/C REATININE RATIO 123.9 mg/g H 0-29.9 MICROALBUMIN,Q UANTITATIVE 11.0 mg/dL RR UNAVAIL CREATININE URINE 88.79 mg/dL May 09, 2024 01:00 PM [facility] URINALYSIS CLEAN CATCH Specimen Type: URINE Comment: If Glucose = >500 and Ketones are positive, please alert the Physician. Ordering Provider: RAFAEL DUKE Report Released Date/Time: May 09, 2024 12:59 PM Reporting Lab: [facility] [address] [facility] [address] Performing Lab: [address] [address] UA COLOR Light-Yellow Yellow UA APPEARANCE Clear Clear UA GLUCOSE >1000 mg/dL Negative UA KETONES NEGATIVE mg/dL Negative UA BLOOD NEGATIVE mg/dL Negative UA PROTEIN 20 mg/dL Negative UA NITRITE NEGATIVE mg/dL Negative UA BILIRUBIN NEGATIVE mg/dL Negative UA SPECIFIC GRAVITY 1.026 H 1.016-1.02 2 UA pH 6.0 5.0-9.0 UA UROBILINOGEN Normal mg/dL <2.0 UA LEUKOCYTE NEGATIVE Negative May 09, 2024 01:00 PM [facility] CBC AND DIFF (AUTO) Specimen Type: BLOOD No comment entered. Ordering Provider: RAFAEL DUKE Report Released Date/Time: May 09, 2024 12:59 PM Reporting Lab: [address] [address] Performing Lab: [address] [address] WBC 8.26 10*3/uL 4.50-11.00 RBC 5.29 10*6/uL [...] and tobacco- related health factors from the [place] facility where the Encounter took place. Current Smoking Status This section includes the most current smoking, or tobacco-related health factor, from the [place] facility where the Encounter took place. Date/Time Current Smoking Status Comment Facil ity Aug 23, 2023 02:30 PM VA-TOBACCO FORMER USER [place] [facility] Tobacco Use History This section includes a history of the smoking, or tobacco-related health factors, that were collected on or before the date of the Encounter. The data comes from the [place] facility where the Encounter took place. Date/Time Smoking Status/Tobacco Use Comment F acility Aug 23, 2023 02:30 PM VA-TOBACCO QUIT 15 YRS OR MORE [place] [facility] [place] [facility] Aug 17, 2022 03:00 PM VA-TOBACCO FORMER USER [place] [facility] [place] [facility] Aug 17, 2022 03:00 PM VA-TOBACCO QUIT 15 YRS OR MORE [place] [facility] [place] [facility] Aug 07, 2021 03:00 PM VA-TOBACCO FORMER USER [place] [facility] [place] [facility] Aug 07, 2021 03:00 PM VA-TOBACCO QUIT 15 YRS OR MORE [place] [facility] [place] [facility] Jul 18, 2019 10:24 AM VA-TOBACCO FORMER USER [place] [facility] [place] [facility] Jul 18, 2019 10:24 AM VA-TOBACCO QUIT 15 YRS OR MORE [place] [facility] [place] [facility] Mar 02, 2018 09:39 AM VA-TOBACCO NEVER USED [place] [facility] Advance Directives: All historical and current Section Date Range: From patient's date of to the date document was created. This section includes ALL of a patient's completed or amended [place] Advance and Rescinded Directives. The entries below indicate that a directive exists for the patient, but an actual copy is not included with this document. The data comes from all [place] facilities. Date Advance Directives Provider Source May 18, 2023 ADVANCE DIRECTIVE ADRIANA GARCIA [place] [place] [facility] Encounter Notes: All associated encounter notes This section contains the clinical notes associated to the Encounter. Date/Time Encounter Note(s) Provider Source May 19, 2024 12:48 PM MEDICATION MGT NOT E: LOCAL TITLE: MEDICATION RENEWAL STANDARD TITLE: MEDICATION MGT NOTE DATE OF NOTE: MAY 19, 2024@12:48 ENTRY DATE: MAY 19, 2024@12:48:38 AUTHOR: MEREDITH MCKEON EXP COSIGNER: URGENCY: STATUS: COMPLETED MEDICATION RENEWAL Has ADDENDA pt req new medication order for: ====== 1)OXYBUTYNIN CHLORIDE 5MG SA TAB 2)FINASTERIDE 5MG TAB for mail thank you, Meredith /turner MCKEON Axle And Frame Mechanic Signed: 05/19/2024 12:52 Receipt Acknowledged By: 05/21/2024 15:59 /jai/ Rafael Duke MD Staff Physician 05/19/2024 13:04 /jai/ Sharon Turcios RN, BSN Primary Care 05/21/2024 ADDENDUM STATUS: COMPLETED Done. /jai/ Rafael Duke MD Staff Physician Signed: 05/21/2024 15:58 [facility]
== END 2024-07-20 12:23 | disposition home or self-care (01) ==
LOC: HO.HUSH 11:59
PROVIDERS: PCP Internal Medicine Endocrinology, Diabetes & Metabolism; Visit Provider Nurse Practitioner Family
DX: R97.20 Elevated prostate specific antigen [PSA] (principal); Z13.9 Encounter for screening, unspecified
CPT/HCPCS: 99213; G2211

== ENCOUNTER → 2024-07-20 11:59 | Outpatient (BNVA) | payer MEDICARE, SELFPAY | PROVIDERS: PCP Internal Medicine Endocrinology, Diabetes & Metabolism; Visit Provider Nurse Practitioner Family | DX: N40.1 Benign prostatic hyperplasia with lower urinary tract symptoms (principal); R39.15 Urgency of urination; N13.8 Other obstructive and reflux uropathy; R97.20 Elevated prostate specific antigen [PSA]; Z79.899 Other long term (current) drug therapy | CPT/HCPCS: 51798; 81003; 99212 ==

== ENCOUNTER 2024-10-09 12:17 | Outpatient (AMB) | payer MEDICARE, SELFPAY ==
--- NOTE | 2024-10-09 13:11 | A.OFFVIS_ITS ---
Vital Signs 10/09/24 13:12 Height 5 ft 4 in Weight 145 lb 8.081 oz BMI 25.0 BP 110/60 Blood Pressure Location Lt brachial Position Sitting Pulse 57 Pulse Source Pulse Oximeter Pulse Oximetry (%) 98 Oxygen Delivery Method Room Air Intake Visit Reasons: Obstructive sleep apnea Intake Note: pt states he is here for follow up and states he feels okay, but has an odd noise he makes when doing things Chemical Process Operator Required: No Allergies No Known Allergies [No Known Allergies*] Allergy (Verified 10/09/24 13:36) Medication List - Last Reconciled 10/09/24 by Aiden Claudio MD amlodipine 5 mg PO DAILY atorvastatin 40 mg PO BEDTIME blood-glucose meter (FreeStyle Lite Meter kit) As directed donepezil 10 mg PO DAILY finasteride 5 mg PO DAILY 90 days glipizide 5 mg PO DAILY hydrochlorothiazide 25 mg PO DAILY tamsulosin (Flomax) 0.8 mg (2 x 0.4 mg) PO BEDTIME 90 days tolterodine ER 4 mg PO DAILY 90 days Do you need a note to return to daycare/school/sports/work: No HPI HPI Obstructive sleep apnea: Details: REGINO IS 79 YEARS OLD GENTLEMAN AND HE IS HERE FOR HIS 6 MONTHS FOLLOW-UP. HIS PULMONARY PROBLEM AT THIS TIME IS ONLY MILD INTERMITTENT BRONCHIAL ASTHMA FOR WHICH HE CAN USE ALBUTEROL HFA NEEDED. HOWEVER IN THE LAST 6 MONTHS HE HAS NOT NEEDED TO USE BRONCHODILATORS. HE HAS HAD NO ACUTE RESPIRATORY INFECTION. HE ALSO HAS HISTORY OF SLEEP APNEA BUT SINCE LAST YEAR AFTER A NEGATIVE SLEEP STUDY HE HAS STOPPED USING THE CPAP. HE CLAIMS THAT HE SLEEPS GOOD UP TO 7 OR 8 HOURS PER NIGHT WITHOUT FREQUENT AWAKENING. REGINO HAS MILD DEMENTIA WHICH IS NOW STABLE AND ACTUALLY SOMEWHAT IMPROVED, TO THE POINT THAT HE CAN PLAY CARDS WITH HIS . [facility] Medical History Hypersomnolence SUKI (obstructive sleep apnea) Diabetes mellitus Cough Asthma SUKI on CPAP Social History Patient Tobacco Use Status: Former Tobacco user Review of Systems Const All systems reviewed & are unremarkable except as noted in HPI and below Reports snoring Eyes Reports no additional complaints ENT Reports nasal congestion (Only mild and intermittent) Card Denies chest pain, Denies irregular heart rhythm and Denies leg edema Resp Reports cough and Reports snoring GI Reports no additional complaints Reports nocturia (Mild once or twice per night) Musc Reports no additional complaints Skin/Breast Reports system reviewed and no additional complaints, except as documented Neuro Reports memory loss (Minimal, stable) Psych Reports no additional complaints and Reports memory loss (Minimal, stable) Physical Exam Vital Signs: Last Vital Signs Pulse 57 10/09/24 13:12 BP 110/60 10/09/24 13:12 Pulse Ox 98 10/09/24 13:12 Oxygen Delivery Method Room Air 10/09/24 13:12 BMI result Body Mass Index 25.0 Const General: comfortable, no acute distress, alert and awake Orientation/consciousness: patient oriented x3 HEENT Head: Yes normal to inspection General nose exam: No nasal polyps present, No nasal discharge present and Other nasal findings present (A small amount of the whitish mucus in the nasopharynx) Face and sinus: Yes sinuses nontender Mouth: oropharynx normal Throat: Yes posterior oropharynx normal Eyes General: appearance normal, both eyes and all related structures Neck Neck: Yes normal visual inspection, Yes no lymphadenopathy, Yes trachea midline and Yes no JVD Thyroid: Thyroid normal Chest Chest palpation & inspection: normal inspection of the chest, normal palpation of entire chest wall and no tenderness Resp Other: Percussion note resonant. Breath sounds are somewhat distant. However lungs are clear to auscultation and no wheezes or rhonchi are heard. Effort & Inspection: normal respiratory effort Auscultation: clear to auscultation bilaterally Cardio Palpation: normal PMI Rate: regular rate Rhythm: regular rhythm Heart sounds: no gallops and no murmurs GI Palpation (GI): Soft to palpation, nontender, No hepatosplenomegaly present and no masses Auscultation: normal bowel sounds Back/Spine/Pelvis Thoracic/Lumbar Spine: thoracic and lumbar spine normal to inspection and thoraco-lumbar ROM limited Skin General skin exam: no rashes or lesions noted Neuro General: patient oriented x3 and no focal motor deficits Cranial nerves: Yes CN's II-XII intact bilaterally Extrem General: Yes normal to inspection, Yes no clubbing, cyanosis or edema and Yes no calf tenderness Psych Appearance: grossly normal and well kempt Speech and movement: Normal speech and movement present Assessment & Plan Assessment & Plan (1) Asthma: Comment: Very mild , intermittent . RELATIVELY INACTIVE AT THIS TIME. Code(s): J45.909 - Unspecified asthma, uncomplicated Category: Medical Plan: KEEP ALBUTEROL HFA ON HAND AND USE 2 PUFFS Q 6 HOURS ONLY P.R.N. (2) SUKI (obstructive sleep apnea): Comment: Regino does have history of obstructive sleep apnea since 2010. Latest Home-based sleep study on 03/24/2022 was negative for sleep apnea, Total sleep time AHI only 1.5. THIS IS BECAUSE OF WEIGHT LOSS. HE CLAIMS THAT HE IS SLEEPING WELL EVERY NIGHT. Code(s): G47.33 - Obstructive sleep apnea (adult) (pediatric) Category: Medical Plan: AND DOES NOT NEED TO USE THE CPAP ANYMORE Coding Level of Care Code Est Pt Level 3 (65471) Diagnoses Asthma J45.909 SUKI (obstructive sleep apnea) G47.33
[2024-10-09 13:12] VITALS: BP 110/60; PULSE 57; O2SAT 98; BMI 25.0
== END 2024-10-09 13:31 | disposition home or self-care (01) ==
LOC: HO.HPS 12:17
PROVIDERS: PCP Internal Medicine Endocrinology, Diabetes & Metabolism; Visit Provider Internal Medicine
DX: J45.909 Unspecified asthma, uncomplicated (principal); G47.33 Obstructive sleep apnea (adult) (pediatric)
CPT/HCPCS: 99213

== ENCOUNTER → 2024-10-09 12:17 | Outpatient (BNVA) | payer MEDICARE, SELFPAY | PROVIDERS: PCP Internal Medicine Endocrinology, Diabetes & Metabolism; Visit Provider Internal Medicine | DX: G47.33 Obstructive sleep apnea (adult) (pediatric) (principal); J45.909 Unspecified asthma, uncomplicated; R05.9 Cough, unspecified; R97.20 Elevated prostate specific antigen [PSA] | CPT/HCPCS: 99212 ==

== ENCOUNTER 2025-01-10 13:40 | Outpatient (REF) | payer MEDICARE, SELFPAY ==
[2025-01-10 15:55] LABS: Prostate Specific Antigen 3.16 ng/mL (<0.05-4.0)
--- OUTSIDE RECORDS SUMMARY | 2025-01-10 17:27 | XMS_ITS | Encounter Summary ---
Author Organization [facility] Address [address] [place] [phone] Phone Care Team Providers Care Nutrition Representative Name Role Phone Rhiannon North NP Primary Care Provide r Encounter Details Date Type Department Care Team (Late st Contact Info) Description 06/08/2022 Procedure Pass [facility] Endoscopy Admitting Dept Virtual Department [address] [place] [address] Social History Tobacco Use Types Packs/Day Years Used Date Smoking Tobacco: Former Cigarettes Q uit: 1965 Smokeless Tobacco: Never Alcohol Use Standard Drinks/Week Comments Not Currently 0 (1 standard drink = 0.6 oz pur e alcohol) Intimate Partner Violence Answer Date R ecorded Are you denied basic needs s uch as food, clothing, or medical care? No 06/08/2022 In the past 12 months have y ou been in a relationship with a person who hurts, threatens, or tries to control you? No 06/08/2022 Are you denied basic needs s uch as food, clothing, or medical care? No 06/08/2022 In the past 12 months have y ou been in a relationship with a person who hurts, threatens, or tries to control you? No 06/08/2022 Sex and Gender Information Value Date Recorded Sex Assigned at Not on file Legal Sex Male 10:10 PM EDT Gender Identity Not on file Sexual Orientation Not on file documented as of this encounter Plan of Treatment Not on file documented as of this encounter Visit Diagnoses Not on filedocumented in this encounter Care Teams Nutrition Representative Relationship Specialty Start Date End Date Rhiannon North NP [address] [place] [phone] PCP - General Nurse Practitioner 06/08/22 documented as of this encounter Additional Source Comments The information contained in this document represents components of the legal health record. It is not the complete legal health record.[facility]
--- OUTSIDE RECORDS SUMMARY | 2025-01-10 17:27 | XMS_ITS | Patient Health Record ---
[facility] Address [address] [facility] [place] [address] Care Team Providers Care Manager Zone Name Role Phone Juan David Varner M.D Primary Care Provider Unavailab lauren NeginJasbir Unavailable [phone] Reason For Referral No Information Medications Medication SIG (Take, Route, Frequency, Duration) Notes Start Date End Date Status Donepezil HCl 10 MG 1 tablet at bedtime Orally Once a day; Duration: 30 day(s) Active amLODIPine Besylate 2.5 MG 1 tablet Oral ly Once a day; Duration: 30 day(s) Active Simvastatin 20 MG 1 tablet in the even ing Orally Once a day; Duration: 30 day(s) Active Aspirin 325 MG 1 tablet Orally Once a day; Duration: 30 day(s) Active Social History Tobacco Use: Social History Observation Description Date Details (start date - stop date) Former Smoker NA - NA Tobacco Use/Smoking Question Answer Notes Are you a: former smoker Alcohol Screen Question Answer Notes Did you have a drink contain ing alcohol in the past year? Yes How often did you have a dri nk containing alcohol in the past year? Monthly or less (1 point) Points 1 Interpretation Negative Problems Problem Type SNOMED Code ICD Code Onset Dates Problem Status W/U Status Risk Notes Problem Bilateral atherosclerosis of arteries of lower limbs (disorder) (26184881010425757 ) Atherosclerosis of n[place] artery of both lower extremities, with unspecified presence of clinical manifestation (I70.203) Active confirmed Plan Of Treatment Pending Test Test Name Order Date [id number] NAIL, 6 OR MORE 01/24/2019 [id number] SKIN LESIONS, 2 TO 4 01/25/20 19 Insurance Providers Payer Name Payer Address Payer Phone Subscriber Number Group Number Insured Name Patient Relationship to Insured Coverage Start Date Coverage End Date [employer] Medicare Preferred [address] [place] [address] [phone] [id number] Regino Caldera Self - patient is the insured Medical (General) History Medical History History ICD Code Arthritis CAD (Cholesterol) High blood pressure Stroke Measles Mumps Chicken pox Joint implants/screws Surgical History Surgery Date(Month/Year) ankle fusion surgery/ORIF - left Hospitalization History Reason Date(Month/Year) Stroke 04/27/2018
--- OUTSIDE RECORDS SUMMARY | 2025-01-10 17:27 | XMS_ITS | Clinical Summary ---
Author Organization [facility] Address [address] [place] [phone] Phone Care Team Providers Care Visual C Developer Name Role Phone Rhiannon Grewal POST GRADUATE INTERN Primary Care Provide r Allergies No known active allergies Medications amLODIPine (NORVASC) 5 MG tablet Take 5 mg by mouth daily. 1 Active donepeziL (ARICEPT) 10 MG tablet Take 10 mg by mouth daily. 1 Active hydroCHLOROthia zide (HYDRODIURIL) 25 MG tablet Take 25 mg by mouth daily. 1 Active albuterol 90 mcg/actuation inhaler Inhale 2 puffs into the lungs every 6 (six) hours as needed for wheezing. Active calcium carbonate/vitam in D3 (CALCIUM 500 + D ORAL) Take 1 tablet by mouth daily. 2 Active loratadine (CLARITIN) 10 mg tabletIndicatio ns:sneezing 10 mg daily. Indications: sneezing 2 Active fluticasone propionate (FLONASE) 50 mcg/actuation nasal spray USE 2 SPRAYS INTO EACH NOSTRIL DAILY 2 Active finasteride (PROSCAR) 5 mg tabletIndicatio ns:benign prostatic hyperplasia with lower urinary tract sx 5 mg daily. Indications: enlarged prostate with urination problem 2 Active cholecalciferol (VITAMIN D3) 2,000 unit tablet 50 mcg daily. 2 Active atorvastatin (LIPITOR) 80 MG tabletIndicatio ns:hyperlipidem ia 80 mg daily. Indications: excessive fat in the blood 2 Active clopidogrel (PLAVIX) 75 mg tablet Take 75 mg by mouth daily. 3 Active acetaminophen (TYLENOL) 325 mg capsule Take 650 mg by mouth every 6 (six) hours as needed for pain (specific location in comments). 3 Active empagliflozin (JARDIANCE) 25 mg tablet Take 12.5 mg by mouth daily. take one-half tablet by mouth once daily for diabetes 3 Active metFORMIN (GLUCOPHAGE) 500 MG tablet TAKE 1 TABLET BY MOUTH TWICE A DAY ( BEFORE BREAKFAST AND SUPPER ) 1 11/05/19 Discontinu ed(No longer taking) aspirin 325 MG EC tablet Take 81 mg by mouth daily. 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 CT Chest non-con ordered on 11/06. Pt was called and informed. Hyperglycemia 04/09/2022 Overview (04/09/2022): Jun 14, 2018 Entered By: PIPO MCCOY Comment: 04/28/18 - HGAIC 6.6 Hyperlipidemia 04/09/2022 Hypertension 04/09/2022 Sleep apnea 04/09/2022 Overview (04/09/2022): Aug 01, 2019 Entered By: RHIANNON GREWAL Comment: Followed by Dr. 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 04/09/2022 Type 1 diabetes mellitus without complications 1 06/10/2021 Immunizations Immunization Administration Dates Next Due COVID-19 (Pre-02/15) Moderna Vaccine, mRNA, PF 04/04/2021,06/10/2020,05/13/2020 Influenza Quadrivalent Adjuv anted Preservative Free IM 01/05/2022 Pneumococcal conjugate PCV13 03/14/2018 Tdap 03/14/2018 Social History Tobacco Use Types Packs/Day Years Used Date Smoking Tobacco: Former Cigarettes Q uit: 1965 Smokeless Tobacco: Never Tobacco Cessation:Counseling Given: Not Answered Alcohol Use Standard Drinks/Week Comments Not Currently 0 (1 standard drink = 0.6 oz pur e alcohol) Home Health Assessment: Transportation Answer Date Recorded Lack of Transportation (Medical) No 12/11/2022 Lack of Transportation (Non-Medical) No 12/11/2022 Patient Unable or Declines to Respond No 12/11/2022 Education Answer Date Recorded Are you interested in more education? Not on gurvinder e 08/21/2022 Are you concerned about learning? Not on file 08/21/2022 No 08/21/2022 No 08/21/2022 Digital Access Answer Date Recorded No 09/19/2022 No 09/19/2022 No 09/19/2022 Reliable internet access at home? Not on file 09/19/2022 Device with a working camera? Not on file Intimate Partner Violence Answer Date R ecorded [...] on file Sexual Orientation Not on file Last Filed Vital Signs Vital Sign Reading Time Taken Comments Blood Pressure 126/70 12/11/2022 11:58 AM EDT Pulse 78 12/11/2022 11:58 AM EDT Temperature 36.5 C (97.7 F) 11/19/2022 1:26 PM EDT Respiratory Rate 16 11/19/2022 1:26 PM EDT Oxygen Saturation 98% 12/11/2022 11:58 AM EDT Inhaled Oxygen Concentration - - Weight 75.3 kg (166 lb) 10/16/2022 1:09 PM EDT Height 165.1 cm (5' 5 ) 10/16/2022 1:09 PM EDT Body Mass Index 27.62 10/16/2022 1:09 PM EDT Plan of Treatment Health Maintenance Due Date Last Done Comments HEMOGLOBIN A1C 1945 DEPRESSION SCREENING 1955 RSV VACCINE (1 - 1-dose 75+ series) 2018 PNEUMOCOCCAL VACCINES (50+ years) (2 of 2 - PPSV23) 05/09/2018 03/14/2018 BLOOD PRESSURE 06/13/2023 12/11/2022 POTASSIUM LEVEL 10/13/2023 10/12/2022, 09/24, 10/02/2022, Additional history exists DIABETIC EYE EXAM 11/11/2023 11/10/2022, 03/20/2022 INFLUENZA VACCINE (#1) 2024 01/05/2022 COVID-19 VACCINE ( season) 2024 04/04/2021, 06/10/2020, 05/13/2020 Adult Td,Tdap Booster 03/14/2028 03/14/2018 ZOSTER VACCINES Completed 10/28/2022, 08/17/2022 HEPATITIS A VACCINES Aged Out No long er eligible based on patient's age to complete this topic HIB VACCINES Aged Out No longer eligi ble based on patient's age to complete this topic MENINGOCOCCAL VACCINES (ACWY) Aged Out No longer eligible based on patient's age to complete this topic MENINGOCOCCAL VACCINES (B) Aged Out N o longer eligible based on patient's age to complete this topic Medical Devices Implanted Type Area Metal Painter Device Identifier Shelf Expiration Date Model / Serial / Lot Left Ankle Fusion Procedures Procedure Name Priority Date/Time Associated Diagnosis Comments COMPREHENSIVE METABOLIC PANEL Routine 10/12/2022 6:25 AM EDT Arterial ischemic stroke, CONCESSION MANAGER (posterior cerebral artery), left, acute Essential hypertension, malignant Diabetes mellitus due to underlying condition with hyperosmolar coma, unspecified whether terminal press operator insulin use from Last 3 Months or Most Recently Relevant to Health Maintenance Results * (ABNORMAL) Comprehensive metabolic panel (10/12/2022 6:25 AM EDT) SODIUM 140 133 - 146 mmol/L [facility] POTASSIUM 3.9 3.3 - 5.1 mmol/L [facility] CHLORIDE 99 96 - 108 mmol/L [facility] CO2 25 21 - 35 mmol/L [facility] BUN 24(H) 6 - 19 mg/dL [facility] CREATININE 1.50 0.5 - 1.5 mg/dL [facility] GLUCOSE 118(H) 70 - 99 mg/dL [facility] ALBUMIN 4.1 3.9 - 4.8 g/dL [facility] TOTAL PROTEIN 7.2 6.5 - 8.0 g/dL [facility] CALCIUM 9.4 8.4 - 10.3 mg/dL [facility] ALKALINE PHOSPHATASE 90 39 - 117 U/L [facility] TOTAL BILIRUBIN 0.3 0.0 - 1.2 mg/dL [facility] AST 14 0 - 37 U/L [facility] ALT 15 0 - 40 U/L [facility] GLOBULIN 3.1 1 - 4.8 g/dL [facility] EGFR 47(L) >59 mL/min/1.7 3m2 [facility] Comment:Estimated glomerular filtration rate calculated using the CKD-EPI refit equation. ANION GAP 20 10 - 20 mmol/L [facility] Blood 10/12/2022 6:25 AM EDT 10/12/2022 8:56 AM EDT Nathaly Clemons MD LAB BLOOD ORDERABLES Final Res ult [facility] [address] [place], [place] [phone] from Last 3 Months or Most Recently Relevant to Health Maintenance Insurance [employer] PPO MEDICARE REPLACEMENT MEDICARE PART A & B [employer] PPO MEDICARE REPLACEMENT MEDICARE PART A & B [employer] O MEDICARE REPLACEMENT MEDICARE PART A & B [employer] O MEDICARE REPLACEMENT MEDICARE PART A & B Member Subscriber Plan / Payer (Ef fective 2008-Present) Name:Regino Caldera Member ID:[id number] Relation to Subscriber:Self Name:Regino Caldera Subscriber ID:[id number] Payer ID:[id number] Group ID:Not on file Type:Medicare Address: [employer] [address] [place] [phone] [facility] MEDICARE REPLACEMENT MEDICARE PART A & B AETNA [facility] MEDICARE REPLACEMENT MEDICARE PART A & B Care Teams Visual C Developer Relationship Specialty Start Date End Date Rhiannon Grewal NP [address] [place] [phone] PCP - General Nurse Practitioner 06/08/22 Additional Source Comments The information contained in this document represents components of the legal health record. It is not the complete legal health record.[facility]
== END 2025-01-10 13:41 | disposition home or self-care (01) ==
LOC: HO.LAB 13:40
PROVIDERS: PCP Internal Medicine; Visit Provider Nurse Practitioner Family
DX: Z12.5 Encounter for screening for malignant neoplasm of prostate (principal); R97.20 Elevated prostate specific antigen [PSA]
CPT/HCPCS: 36415; 84153

== ENCOUNTER 2025-01-18 12:18 | Outpatient (AMB) | payer MEDICARE, SELFPAY ==
--- NOTE | 2025-01-18 12:23 | MHC.OFFVIS ---
Intake Visit Reasons: 6M follow up PVR/ PSA Intake Note: Patient is present for 6M/PVR/PSA Urology Medication:TOLTERODINE,TAMSULOSIN,FINASTERIDE Antibiotic Allergy:NONE Blood Thinner:NONE TODAY'S PVR:12ML'S [employer] Required: No Allergies No Known Allergies (No Known Allergies*) Allergy (Verified 01/18/25 12:30) PFSH Medical History Hypersomnolence SUKI (obstructive sleep apnea) Diabetes mellitus Cough Asthma SUKI on CPAP Social History Patient Tobacco Use Status: Former Tobacco user Office Procedures Post Void Residual Post Residual Void Post Void Residual (PVR): 12 [id number] Void Residual by ultrasound Assessment & Plan Assessment & Plan Orders: Orders AMB Urinalysis Automated Today Z13.9 - Encounter for screening, unspecified Coding CPT Codes Post Residual Void - PVR CPT Code: [id number] Void Residual by ultrasound ([id number])
--- OUTSIDE RECORDS SUMMARY | 2025-01-18 17:14 | XMS_ITS | Clinical Summary ---
Author Organization [facility] Address [address] [place] [phone] Phone Care Team Providers Care Presser Machine Name Role Phone Rhiannon Grewal CIRCUIT JUDGE Primary Care Provide r Allergies No known [...] this topic Medical Devices Implanted Type Area Wafer Batter Mixer Device Identifier Shelf Expiration Date Model / Serial / Lot Left Ankle Fusion Procedures Procedure Name Priority Date/Time Associated Diagnosis Comments COMPREHENSIVE METABOLIC PANEL Routine 10/12/2022 6:25 AM EDT Arterial ischemic stroke, MACHINE BOBBIN WINDER (posterior cerebral artery), left, acute Essential hypertension, malignant Diabetes mellitus due to underlying condition with hyperosmolar coma, unspecified whether meterman insulin use from Last 3 Months or Most Recently Relevant to Health Maintenance Results * (ABNORMAL) Comprehensive metabolic panel (10/12/2022 6:25 AM EDT) SODIUM 140 133 - 146 mmol/L [facility] POTASSIUM 3.9 3.3 - 5.1 mmol/L [facility] CHLORIDE 99 96 - 108 mmol/L [facility] CO2 25 21 - 35 mmol/L [facility] BUN 24(H) 6 - 19 mg/dL [facility] CREATININE 1.50 0.5 - 1.5 mg/dL [facility] GLUCOSE 118(H) 70 - 99 mg/dL [facility] ALBUMIN 4.1 3.9 - 4.8 g/dL [facility] TOTAL PROTEIN 7.2 6.5 - 8.0 g/dL [facility] CALCIUM 9.4 8.4 - 10.3 mg/dL [facility] ALKALINE PHOSPHATASE 90 39 - 117 U/L [facility] TOTAL BILIRUBIN 0.3 0.0 - 1.2 mg/dL [facility] AST 14 0 - 37 U/L [facility] ALT 15 0 - 40 U/L [facility] GLOBULIN 3.1 1 - 4.8 g/dL [facility] EGFR 47(L) >59 mL/min/1.7 3m2 [facility] Comment:Estimated glomerular filtration rate calculated using the CKD-EPI refit equation. ANION GAP 20 10 - 20 mmol/L [facility] Blood 10/12/2022 6:25 AM EDT 10/12/2022 8:56 AM EDT Nathaly Clemons MD LAB BLOOD ORDERABLES Final Res ult [facility] [address] [place], [place] [phone] from Last 3 Months or Most Recently Relevant to Health Maintenance Insurance [employer] PPO MEDICARE REPLACEMENT MEDICARE PART A & B [employer] PPO MEDICARE REPLACEMENT MEDICARE PART A & B [employer] O MEDICARE REPLACEMENT MEDICARE PART A & B [employer] O MEDICARE REPLACEMENT MEDICARE PART A & B Member Subscriber Plan / Payer (Ef fective 2008-Present) Name:Regino Caldera Member ID:[id number] Relation to Subscriber:Self Name:Regino Caldera Subscriber ID:[id number] Payer ID:[id number] Group ID:Not on file Type:Medicare Address: [employer] [address] [place] [phone] [facility] MEDICARE REPLACEMENT MEDICARE PART A & B AETNA [facility] MEDICARE REPLACEMENT MEDICARE PART A & B Care Teams Presser Machine Relationship Specialty Start Date End Date Rhiannon Grewal NP [address] [place] [phone] PCP - General Nurse Practitioner 06/08/22 Additional Source Comments The information contained in this document represents components of the legal health record. It is not the complete legal health record.[facility]
--- OUTSIDE RECORDS SUMMARY | 2025-01-18 17:14 | XMS_ITS | Patient Health Record ---
[facility] Address [address] [place] [place] [address] Care Team Providers Care Jewel Hole Finish Opener Name Role Phone Juan David Varner M.D Primary Care Provider Unavailab lauren NeginJasbir Unavailable [phone] Reason For Referral No Information Medications Medication [...] atherosclerosis of arteries of lower limbs (disorder) ([id number] ) Atherosclerosis of [place] artery of both lower extremities, with unspecified presence of clinical manifestation (I70.203) Active confirmed Plan Of Treatment Pending Test Test Name Order Date [id number] NAIL, 6 OR MORE 01/24/2019 [id number] SKIN LESIONS, 2 TO 4 01/25/20 19 Insurance Providers Payer Name Payer Address Payer Phone Subscriber Number Group Number Insured Name Patient Relationship to Insured Coverage Start Date Coverage End Date [employer] Medicare Preferred [address] [place] [address] [id number] Regino Caldera Self - patient is the insured Medical (General) History Medical History History ICD Code Arthritis CAD (Cholesterol) High blood pressure Stroke Measles Mumps Chicken pox Joint implants/screws Surgical History Surgery Date(Month/Year) ankle fusion surgery/ORIF - left Hospitalization History Reason Date(Month/Year) Stroke 04/27/2018
--- OUTSIDE RECORDS SUMMARY | 2025-01-18 17:14 | XMS_ITS | Encounter Summary ---
Author Organization [facility] Address [address] [place] [phone] Phone Care Team Providers Care Crop Nutrition Scientist Name Role Phone Rhiannon North NP Primary Care Provide r Encounter Details Date Type Department Care Team (Late st Contact Info) Description 06/08/2022 Procedure Pass [facility] Endoscopy Admitting Dept Virtual Department [address] [place] [address] Social History Tobacco Use Types Packs/Day Years [...] on filedocumented in this encounter Care Teams Crop Nutrition Scientist Relationship Specialty Start Date End Date Rhiannon North NP [address] [place] [id number] PCP - General Nurse Practitioner 06/08/22 documented as of this encounter Additional Source Comments The information contained in this document represents components of the legal health record. It is not the complete legal health record.[facility]
== END 2025-01-18 13:13 | disposition home or self-care (01) ==
LOC: HO.HUSH 12:19
PROVIDERS: PCP Internal Medicine Endocrinology, Diabetes & Metabolism; Visit Provider Nurse Practitioner Family
DX: Z13.9 Encounter for screening, unspecified (principal)

== ENCOUNTER → 2025-01-18 12:18 | Outpatient (BNVA) | payer MEDICARE, SELFPAY | PROVIDERS: PCP Internal Medicine Endocrinology, Diabetes & Metabolism; Visit Provider Nurse Practitioner Family | DX: R39.15 Urgency of urination (principal); R97.20 Elevated prostate specific antigen [PSA]; N40.1 Benign prostatic hyperplasia with lower urinary tract symptoms; N13.8 Other obstructive and reflux uropathy | CPT/HCPCS: 51798; 81003; 99212 ==